=== PATIENT | female | born 1945 | race Caucasian/White ===

== ENCOUNTER 2020-02-01 18:18 | Emergency (ER) | payer MEDICARE, SELFPAY ==
[2020-02-01 19:42] LABS: Apearance,Urine Clear (Clear); Bilirubin,Urine Negative (Negative); Blood, Urine Negative (Negative); Color,Urine Yellow (Yellow); Glucose,Urine (UA) Negative (Negative); Ketones,Urine Negative (Negative); PH,Urine 6.5 (5.0-8.5); Protein,Urine Negative (Negative); UTC Leukocyte Esterase,Urine Trace (Negative); UTC Nitrate,Urine Negative (Negative); Urobilinogen,Urine 0.2 EU/dl (0.2)
[2020-02-01 19:48] VITALS: BP 132/79; PULSE 82; RESP 20; TEMP 36.8; O2SAT 97; BMI 31.1
--- NOTE | 2020-02-01 19:54 | HMH.EDUTC ---
[facility] [place] Clinical Impression: UTI (urinary tract infection) Qualifiers: Urinary tract infection type: site unspecified Hematuria presence: without hematuria Qualified Code(s): N39.0 - Urinary tract infection, site not specified Disposition: Home, Self-Care Condition on Discharge: Good Instructions: DI for Urinary Tract Infection (UTI), Urinary Tract Infection, Nitrofurantoin, Preventing the Spread of Coronavirus Discharge Instructions Additional Instructions: *Increase fluids. Water not Soda or Tea *Start antibiotic immediately and be sure to take as ordered for the FULL length of time although you should start to see improvement over the next 48 hours *Be SURE to follow up anytime for new or worsening symptoms with your family doctor. AND in 48 hours for urine culture results with your family doctor, if you do not have a doctor then you may call back to the [facility] for urine culture results and further treatment. We do recommend that you choose and establish care with a Primary Care Physician. AND follow up with them in 10-14 days to repeat UA to ensure infection is resolved and blood no longer present *Be sure to let your PCP know that we sent urine cultures from the [facility] so they can follow up to ensure that you area the on the correct antibiotic Call your doctor office and make appointment for 48 hours (2 days from today) to follow up and get the results of your urine culture and further treatment Call back to the [facility] on Sat to see if your test results are back for COVID19 Go home and self quarantine until results back and negative, You was given handout on what to do Please follow those instruction Follow up with your Family doctor in the next 48 hours to see if you are on the right medication for your UTI Return if needed Prescriptions: Nitrofurantoin Monohyd/M-Cryst [Macrobid 100 mg Capsule] 100 mg PO BID 7 Days #14 cap Transmission Status: Pending to [id number] Referrals: Ravi Miranda MD [Primary Care Provider] - As needed Time of Disposition: 20:12 Medical Decision Making - Rudolph Inquiry Pt receiving controlled substance: No Rudolph was queried for this patient: No Vital Signs: 02/01/20 19:48 Temperature 98.2 F Temperature Source Oral Pulse Rate [Left Brachial] 82 Respiratory Rate 20 Blood Pressure [Left Arm] 132/79 Blood Pressure Mean [Left Arm] 96 Blood Pressure Source [Left Arm] Automatic Cuff Blood Pressure Position [Left Arm] Sitting 02 Sat by Pulse Oximetry 97 Oxygen Delivery Method Room Air - Lab Data Lab results reviewed: Yes: I reviewed the patient's lab results. Lab Results 02/01/20 18:47: Urine Color Yellow, Urine Appearance Clear, Urine pH 6.5, Ur Specific [place] 1.020, Urine Protein Negative, Urine Glucose (UA) Negative, Urine Ketones Negative, Urine Blood Negative, Urine Nitrate Negative, Urine Bilirubin Negative, Urine Urobilinogen 0.2, Ur Leukocyte Esterase Trace Orders (Tests/Meds): ORDERS Category Date Time Status SARS-CoV-2, MARTELL Stat Lab 02/01/20 19:40 Ordered Urine Culture Stat Micro 02/01/20 19:39 Received [facility] [place] - General Stated complaint: Possible UTI,Cough,Fever,SOB,MARTIN,Nausa Time Seen by Provider: 02/01/20 19:54 Mode of Arrival: Ambulatory Source of Information: Patient Limitations: No Limitations Description of Symptoms (Recalled from Triage Doc. by RN): PATIENT C/O FEVER, NAUSEA, BODY ACHES, AND POSSIBLE UTI X 2 DAYS HEENT Symptoms (Recalled from RN notes): No Resp Symptoms (Recalled from RN notes): No Skin Symptoms (Recalled from RN notes): No MS Symptoms (Recalled from RN notes): No Functional Status (Recalled from RN notes): WNL - History of Present Illness Provider Complaint: Patient states that she has a history of requent UTI's States that she use to see Dr Lucero for them States that she has been in [place] for the winter and recently got back States that she wanted to get checked to see if she had a UTI and wanted to get donta
[2020-02-01 20:19] VITALS: BP 132/79; PULSE 82; RESP 20; TEMP 36.8; O2SAT 97
[2020-02-03 13:26] LABS: Covid-19 Nasal PCR Sendout Lex NOT DETECTED
== END 2020-02-01 20:20 | disposition home or self-care (01) ==
PROVIDERS: Emergency Provider Nurse Practitioner; PCP Family Medicine
DX: N30.00 Acute cystitis without hematuria (principal); Z88.2 Allergy status to sulfonamides
CPT/HCPCS: G0463; 81003; 87086; 99202; U0004

== ENCOUNTER 2024-06-09 10:43 | Outpatient (CLI) | payer MEDICARE, SELFPAY ==
[2024-06-09 14:33] LABS: Basophils # 0.1 K/mm3 (0-0.2); Eosinophils # 0.3 K/mm3 (0.0-0.4); Eosinophils % 4.4 % (0.1-12.0); Hematocrit 40.1 % (37.0-47.0); Hemoglobin 13.4 g/dL (12.2-16.2); Lymphocytes # 1.5 K/mm3 (0.7-4.5); Lymphocytes % 23.6 % (10-50); Mean Corpuscular HGB Conc 33.5 g/dL (31.8-35.4); Mean Corpuscular Hemoglobin 30.2 pg (27.0-31.2); Mean Corpuscular Volume 90.2 fl (81-99); Mean Platelet Volume 7.7 fl (7.4-10.4); Monocytes # 0.5 K/mm3 (0.1-1.0); Monocytes % 8.7 % (1.7-9.3); Neutrophils # 3.8 K/mm3 (1.8-7.8); Neutrophils % 62.3 % (37.0-80.0); Platelet Count 423 K/mm3 (142-424); Red Blood Count 4.44 M/mm3 (4.20-5.40); Red Cell Distribution Width 13.8 % (11.5-17.5); White Blood Count 6.2 K/mm3 (4.8-10.8)
[2024-06-09 14:45] LABS: Albumin Level 4.6 g/dl (3.5-5.0); Albumin/Globulin Ratio 2.6 (1.1-1.8); Alkaline Phosphatase 60 U/L (38-126); Anion Gap 14.1 mEq/L (5-15); Aspartate Amino Transferase 31 U/L (14-36); Bilirubin,Total 0.6 mg/dl (0.2-1.3); Blood Urea Nitrogen 7 mg/dl (7-17); Calcium 9.7 mg/dl (8.4-10.2); Carbon Dioxide 26 mmol/L (22.0-30.0); Chloride 103 mmol/L (98-107); Cholesterol 156 mg/dl (140-200); Estimated Glomerular Filt Rate 81 ml/min (>60); GFR (African American) 98 ML/MIN (>60); Globulin 1.8 g/dL (1.3-3.2); Glucose 91 mg/dl (74-100); Potassium 5.1 mmoL/L (3.5-5.1); Sodium 138 mmol/L (136-145); Total Protein,Serum 6.4 g/dl (6.3-8.2); Triglycerides 304 mg/dl (30-150); VLDL Cholesterol 61 mg/dL (0-40)
[2024-06-09 14:46] LABS: Alanine Aminotransferase 21 U/L (12-78); Chol/HDL Ratio 3.1 (1-3.5); HDL Cholesterol 50 mg/dl (40-60)
[2024-06-09 14:58] LABS: Direct LDL Cholesterol 70.12 mg/dL (100-129)
[2024-06-09 15:02] LABS: Free T4 (Free Thyroxine) 0.92 ng/dl (0.78-2.19)
[2024-06-09 15:15] LABS: Thyroid Stimulating Hormone 6.24 uIU/mL (0.465-4.68)
[2024-06-09 16:17] LABS: Hemoglobin A1C 5.1 % (4.0-6.0)
== END 2024-06-09 23:59 | disposition home or self-care (01) ==
LOC: LAB.DROPOF 06-10 09:49
PROVIDERS: PCP Internal Medicine; Visit Provider Internal Medicine
DX: Z00.00 Encounter for general adult medical examination without abnormal findings (principal); D64.9 Anemia, unspecified; E03.9 Hypothyroidism, unspecified; E78.5 Hyperlipidemia, unspecified; Z13.29 Encounter for screening for other suspected endocrine disorder; Z13.1 Encounter for screening for diabetes mellitus; Z13.220 Encounter for screening for lipoid disorders
CPT/HCPCS: 80053; 80061; 83036; 84439; 84443; 85025

== ENCOUNTER 2024-11-27 14:46 | Outpatient (CLI) | payer MEDICARE, SELFPAY ==
[2024-11-27 13:41] LABS: Microscopic, Urine URINE MICROSCOPIC (MICROSCOPIC)
[2024-11-27 14:18] LABS: Appearance,Urine CLEAR (Clear); Bilirubin,Urine Negative (Negative); Blood, Urine Negative (Negative); Color,Urine YELLOW (Yellow); Glucose,Urine (UA) Negative (Negative); Ketones,Urine Negative (Negative); Leukocyte Esterase,Urine 2+ (Negative); Nitrate,Urine Negative (Negative); Protein,Urine Negative (Negative); Specific Gravity, Urine 1.025 (1.005-1.030); Urobilinogen,Urine 0.2 EU/dl (0.2)
[2024-11-27 14:48] LABS: WBC,Urine 50-100 #/hpf (0-3)
[2024-11-27 14:49] LABS: Bacteria,Urine 4+ /lpf; Transitional Epi Cells,Urine OCC #/lpf (0-3)
== END 2024-11-27 23:59 | disposition home or self-care (01) ==
LOC: LAB.DROPOF 14:47
PROVIDERS: PCP Internal Medicine; Visit Provider Internal Medicine
DX: N39.0 Urinary tract infection, site not specified (principal); B96.1 Klebsiella pneumoniae [K. pneumoniae] as the cause of diseases classified elsewhere
CPT/HCPCS: 81001; 87086; 87088; 87186

== ENCOUNTER 2025-01-15 09:35 | Outpatient (CLI) | payer MEDICARE, SELFPAY ==
--- OUTSIDE RECORDS SUMMARY | 2024-05-30 05:00 | XMS_ITS ---
Author Organization [facility] Address [address] [place] [address] Care Team Providers Care Academic Assistant Name Role Phone Ita You MD, Aristides Unavailable Unavailab le Migration, Provider Unavailable Unavailable REASON FOR VISIT EMR-Daniel Encounters Encounter Location Date Provider Diagnosis Sarika Tena PA [address] [place] [address] 05/30/2024 Provider Migration Plan Of Treatment Medication Medication Name Sig Start Date Stop Date Notes Ciprofloxacin HCl 500 MG Tablet take 1 t ablet by oral route 2 times every day Oral 10/15/2018 10/20/2018 Progress Notes * Noni MARRUFOGeorgiaOB:[birth year] (79 yo F)Acc No.[id number]:05/30/2024 Patient: Minnie MOURA :1945 A ge:78 Y S ex:Female Address:[address] [place] [address], [address] * Refills Stop Ciprofloxacin HCl Tablet, 500 MG, Oral, 14, take 1 tablet by oral route 2 times every day Subjective: * Chief Complaints: * E MR-Daniel * * Date:
--- OUTSIDE RECORDS SUMMARY | 2024-05-31 05:00 | XMS_ITS ---
Author Organization [facility] Address [address] [place] [address] Care Team Providers Care Medical Manager Name Role Phone Ita You MD, Aristides [...] take 1 PO QD BUCCAL *[facility]* 10/15/2018 Active [...] Date Provider Diagnosis Sarika Tena PA [address] [place] [phone] 05/31/2024 Provider Migration Plan Of Treatment No Information Progress Notes * Lluvia MARRUFOOB:[birth year] (79 yo F)Acc No.[id number]:05/31/2024 Patient: Minnie MOURA :1945 A ge:78 Y S ex:Female Address:[address] [place], [place] [id number] Subjective: * Chief Complaints: * E MR-Daniel [...] BUCCAL , Notes to Pharmacist: *Reorder from [facility] for eRx and Interaction Alerts*Taking Atorvastatin Calcium [...] BUCCAL , Notes to Pharmacist: *Reorder from [facility] for eRx and Interaction Alerts* * Allergies: C ephalosporins: Anaphylaxis - Allergy * * Date:
--- OUTSIDE RECORDS SUMMARY | 2024-11-26 10:00 | XMS_ITS | Encounter Summary ---
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 [address] [place] [address] Phone: tel: fax: Referral ID Status Reason Start Date Expiration Date V isits Requested Visits Authorized [id number] Closed Specialty Services Required 03/10/2024 09/09/2025 1 1 Encounter Details Date Type Department Care Team (Late st Contact Info) Description 11/26/2024 10:00 AM EDT Consult [facility] [address] [place] [address] Jesusita Cortes PA [address] [facility] [address] [place] [address] Migraine with aura and without status migrainosus, not intractable (Primary Dx); Tremor Social History Tobacco Use Types Packs/Day Years Used Date Smoking Tobacco: Never Smokeless Tobacco: Never Tobacco Cessation:Counseling Given: Not Answered Alcohol Use Standard Drinks/Week Comments Not Currently 0 (1 standard drink = 0.6 oz pur e alcohol) PHQ-2 Answer Date Recorded Patient Health Questionnaire-2 Score 0 06/02/2024 Comments No Sex and Gender Information Value Date Recorded Sex Assigned at Female 12/06/2023 12:07 PM EDT Legal Sex Female 8:37 PM EDT Gender Identity Female 12/06/2023 12:07 PM EDT Sexual Orientation Straight 12/06/2023 12 :07 PM EDT documented as of this encounter Last Filed Vital Signs Vital Sign Reading Time Taken Comments Blood Pressure 119/81 11/26/2024 9:49 AM EDT Pulse 78 11/26/2024 9:49 AM EDT Temperature - - Respiratory Rate - - Oxygen Saturation 97% 11/26/2024 9:49 AM EDT Inhaled Oxygen Concentration - - Weight 79.4 kg (175 lb) 11/26/2024 9:49 AM EDT Height 162.6 cm (5' 4 ) 11/26/2024 9:49 AM EDT Body Mass Index 30.04 11/26/2024 9:49 AM EDT documented in this encounter Miscellaneous Notes * Progress Notes - Jesusita Cortes PA - 11/26/2024 10:00 AM EDT [facility] Note New Referral Minnie Woodard presents to clinic for a New Patient Consult regarding headache and tremor. Patient was referred by Melvin Casillas MD Patient presents alone to clinic. HPI Patient is a 78 year old right handed female with PMH of HTN, Insulin resistance, SWETA on CPAP, Sjogren syndrome, COVID X 3, cochlear implant on the right in January of 2023 and migraine headache. 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 She had a visual aura with seeing lights in her peripheral vision. Headache was usually unilateral in the frontotemporal region, throbbing and associated with photophobia, nausea and vomiting. Prior to having her cochlear implant she would have a visual aura but since her surgery her prodrome appears to be nausea. Also the pain is more of a ???pinprick headache?? in the bilateral parietal area of her head. Her headaches used to be 2-3/week but now they are 2-3/month, not as severe and will resolve with lsmt-guz-ioqaoyk medications. Her main complaint today however, is tremor of her upper extremities. Patient states that she can recall noticing a right upper extremity fine postural tremor about 2 years ago. She states that the tremor will come and go and appears to be triggered by stress. It will appear in the left upper extremity at times. She does not feel that it is progressively getting worse. It does not prevent her from doing daily activities. She does note that her handwriting is affected at times. She also will feel the tremor in her upper extremities when it is not always visual. It has not been noted in her head or feeling it in her trunk. Patient denies resting tremor, slowness of movement, difficulty getting up out of a chair, changes in her gait or falls. She is active and goes to the gym 3 days/week. She is not on any current medications that would cause a tremor. She had been treated on and off with Reglan but her symptoms did not seem to be worse while taking the medication. 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 This was very concerning to her and that is when the referral was made. She states she has not had another episode of that severity. She admits to some memory issues especially with coming up with names. 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 She has a son who suffers from PTSD due to events that happened to him in the service. She states that his condition can be very stressful. Denies speech or vision changes, N/T/W of extremities, balance problems and falls. Medical History[1] Family History[2] Surgical History[3] Medications Ordered Prior to Encounter[4] Allergies[5] All medications have been reviewed today. Review of Systems As noted in HPI Objective Vitals: 11/26/24 0949 BP: 119/81 Pulse: 78 SpO2: 97% Physical Exam GEN: Well developed, well nourished. No acute distress. HENT: Atraumatic, normocephalic, patent airway. NECK: Supple, ROM normal. There is no point tenderness in the areas of the head, neck and shoulders. Palpation does not recreate symptoms. RESP: Good effort EXT: No edema NEURO: MS: Awake, alert, oriented. Appropriate mood and affect. Good historian CN: PERRL. Visual hopkins are full. EOMI full and conjugate. Facial sensation intact bilaterally. Nofacial droop. Good facial expressions Speech is normal. Hearing is assisted by hearing aid on the left and cochlear implant on the right MOTOR: No pronator drift. Muscle tone is normal. Strength is 5/5, R=L. Fine postural tremor of the right upper extremity, less noticeable on the left. No rest tremor. No evidence of bradykinesia SENSORY: Intact DTR: +1 COORD: Tremor noted with finger to nose. No pass-pointing GAIT: Normal base, stride and stance. Normal arm swing. Good turns. Discussion Summary: 78-year-old female with a history of migraine headaches that began in her college years. The frequency and severity of her headaches have reduced to 2- 3/month and resolve with [id number] medications and lying down. She feels that she does not need to have treatment for her headaches. I have recommended the following: -Magnesium Oxide or Glycinate 400-500 mg daily or Mg, Riboflavin and CoQ10 as a combined supplementmay be purchased - Extra 1-2 tabs of Magnesium may also be taken along with abortive medications - Proper sleep hygiene - Adequate hydration - Continue headache diary Patient was mostly concerned with her tremor and the possibility of Parkinson's disease. Her symptoms appear to be more of an essential tremor. We discussed the differences in the types of tremor andthat she does not currently have any other symptoms of Parkinson's disease including resting tremor, bradykinesia, increase in muscle tone or gait problems. I do not feel that either condition has been influenced by having a cochlear implant. We discussed that she can follow-up with me as needed and is a patient of [facility] for 3 years without anew referral. Assessment and Plan Diagnosis Plan 1. Migraine with aura and without status migrainosus, not intractable Ambulatory referral to Neurology 2. Tremor - 60 minutes was spent preparing, performing an examination, counseling, educating the patient, andcare coordination with more than 50% of that time used for counseling the patient and coordination of care. [1] Past Medical History: Diagnosis Date Asthma allergy induced Delayed emergence from general anesthesia Diabetes mellitus ([facility]) 11/2022 A1C - 5.1 Frequent UTI Full dentures Gastroparesis Hiatal hernia HL (hearing loss) Hyperlipidemia Hypothyroidism Interstitial cystitis Joint pain Motion sickness Osteoarthritis Personal history of other infectious and parasitic diseases History of hepatitis A virus infection PONV (postoperative nausea and vomiting) Sjogren's syndrome (CMS/HCC) Sleep apnea C-Pap at HS [2] Family History Problem Relation Name Age of Onset Conversions - Other Mother hearing problem Lung cancer Father Autoimmune disease Sister Conversions - Other Sister hearing problem Autoimmune disease Brother Conversions - Other Brother hearing problem Breast cancer Father's Sister Malig Hyperthermia Neg Hx [3] Past Surgical History: Procedure Laterality Date BACK SURGERY N/A Back Surgery from [facility] BREAST BIOPSY Right 2007 stereotactic-benign CHOLECYSTECTOMY N/A Cholecystectomy from [facility] COLONOSCOPY CYSTOSCOPY OTHER SURGICAL HISTORY Bilateral Stapedectomy from [facility] TONSILLECTOMY N/A Tonsillectomy from [facility] UPPER GASTROINTESTINAL ENDOSCOPY [4] Current Outpatient Medications on File Prior to Visit Medication Sig Dispense Refill atorvastatin (Lipitor) 10 MG tablet Take 1 tablet (10 mg) by mouth every night. bisacodyl (Dulcolax) 5 MG EC tablet cholecalciferol (Vitamin D3) 25 MCG (1000 UT) tablet Take 1 tablet by mouth daily. estradiol (Estrace) 0.1 MG/GM vaginal cream Insert 2 g into the vagina 2 (two) times a week. Saturday and Saturday ezetimibe (Zetia) 10 MG tablet Take 1 tablet (10 mg) by mouth every night. fluticasone (Flonase) 50 MCG/ACT nasal spray Administer 1 spray into each nostril daily. Shake gently. Before first use, prime pump. After use, clean tip and replace cap. hydroxychloroquine (Plaquenil) 200 MG tablet Take 1 tablet (200 mg) by mouth 1 (one) time each day.90 tablet 4 metFORMIN (Glucophage) 500 MG tablet Take 1 tablet (500 mg) by mouth twice a day. Multiple Vitamins-Minerals (multivitamin with minerals) tablet Take 1 tablet by mouth 1 (one) time each day. Synthroid 125 MCG tablet Take 1 tablet (125 mcg) by mouth 1 (one) time each day before breakfast. chlorhexidine (Peridex) 0.12 % solution Use 15 mL in the mouth or throat 3 (three) times a day. (Patient not taking: Reported on 11/26/2024) ciprofloxacin-dexamethasone (CiproDEX) otic suspension ADMINISTER 4 DROPS INTO AFFECTED EAR(S) 2 TIMES A DAY FOR 7 DAYS. (Patient not taking: Reported on 11/26/2024) levocetirizine (Xyzal) 5 MG tablet Take 1 tablet (5 mg) by mouth Daily. (Patient not taking: Reported on 11/26/2024) metoclopramide (Reglan) 10 MG tablet TAKE 1 TABLET BY MOUTH BEFORE MEALS AND AT BEDTIME (Patient not taking: Reported on 11/26/2024) No current facility-administered medications on file prior to visit. [5] Allergies Allergen Reactions Cefuroxime Swelling Cephalexin Swelling Cephalosporins Swelling Amoxicillin Hives Penicillins Hives Sulfa Drugs Rash documented in this encounter Plan of Treatment Upcoming Encounters Date Type Department Care Team (Late st Contact Info) Description 01/27/2025 10:00 AM EDT Office Visit [facility] Audiology [address], [address] [place] [phone] Patsy Lucero, Annalise [address] [place] [phone] 03/02/2025 11:00 AM EDT Office Visit [facility] [address] [phone] Denise Keith, SECURITY FLEX OFFICER [address] [place] [phone] 03/08/2025 10:40 AM EDT Office Visit [facility] Otolaryngology [address] [phone] Melvin Casillas MD [address] [place] [phone] 06/07/2025 9:50 AM EST Office Visit [facility] Medicine [facility] [address], [address] [place] [address] Nidhi Stack L, SECURITY FLEX OFFICER [address] [place] [address] documented as of this encounter Visit Diagnoses Diagnosis Migraine with aura and without status migrainosus, not intractable- Primary Tremor Abnormal involuntary movements documented in this encounter Additional Health Concerns Assessment Noted Time A fall risk assessment has been complete d for the patient 11/26/2024 9:51 AM EDT A Body Mass Index follow-up plan has been documented for the patient 11/27/2024 5:12 PM EDT documented as of this encounter Care Teams Flight Simulator Teacher Relationship Specialty Start Date End Date Pcp, [place] [address] PCP - General Family Medicine 06/02/24 11/30/24 documented as of this encounter
--- OUTSIDE RECORDS SUMMARY | 2024-12-01 10:00 | XMS_ITS | Encounter Summary ---
Author Organization Healthcare Address [address] [place] [address] Care Team Providers Care Network Security Architect Name Role Phone Melvin Pink DO Primary Care Provider Reason for Visit * Reason Comments Consult Sjogren's Syndrome * Consultation (Routine) - Closed Specialty Diagnoses / Procedures Referred By Contac t Referred To Contact Immunology Diagnoses Sjogren syndrome, unspecified (CMS/HCC) Hypogammaglobulinemia ([facility]/HCC) Nidhi Stack, PYROMETER TEMPERATURE REGULATOR [address] [place] [address] Phone: tel: fax: [facility] [address] [place] [address] Phone: tel: fax: Referral ID Status Reason Start Date Expiration Date V isits Requested Visits Authorized [id number] Closed Specialty Services Required 06/03/2024 12/03/2025 1 1 Encounter Details Date Type Department Care Team (Late st Contact Info) Description 12/01/2024 10:00 AM EDT Consult [facility] [address] [place] [address] Denise Keith, PYROMETER TEMPERATURE REGULATOR [address] [place] [address] Seborrheic dermatitis (Primary Dx); Sjogren syndrome, unspecified (CMS/HCC); Hypogammaglobulinemia (CMS/HCC) Social History Tobacco Use Types Packs/Day Years Used Date Smoking Tobacco: Never Smokeless Tobacco: Never Tobacco Cessation:Counseling Given: Not Answered Alcohol Use Standard Drinks/Week Comments Not Currently 0 (1 standard drink = 0.6 oz pur e alcohol) PHQ-2 Answer Date Recorded Patient Health Questionnaire-2 Score 0 12/02/2024 PHQ-9 Answer Date Recorded Patient Health Questionnaire-9 Score 0 12/02/2024 Comments No Sex and Gender Information Value Date Recorded Sex Assigned at Female 12/06/2023 12:07 PM EDT Legal Sex Female 8:37 PM EDT Gender Identity Female 12/06/2023 12:07 PM EDT Sexual Orientation Straight 12/06/2023 12 :07 PM EDT documented as of this encounter Last Filed Vital Signs Vital Sign Reading Time Taken Comments Blood Pressure 133/84 12/01/2024 9:56 AM EDT Pulse 75 12/01/2024 9:56 AM EDT Temperature 36.4 C (97.6 F) 12/01/2024 9:56 AM EDT Respiratory Rate 16 12/01/2024 9:56 AM EDT R A Oxygen Saturation 99% 12/01/2024 9:56 AM EDT RA Inhaled Oxygen Concentration - - Weight 72 kg (158 lb 11.7 oz) 12/01/2024 9:56 AM EDT Height 162.6 cm (5' 4 ) 12/01/2024 9:56 AM EDT Body Mass Index 27.25 12/01/2024 9:56 AM EDT documented in this encounter Functional Status * Over the past 2 weeks, how often have you been bothered by any of the following problems? Question Answer Date of Assessment Author Little interest or pleasure in doing things Not at all 12/02/2024 10:03 AM EDT Emma Delcid Feeling down, depressed, or hopeless Not at all 12/02/2024 10:03 AM EDT Emma Delcid Patient Health Questionnaire -2 Score 0 12/02/2024 10:03 AM EDT Emma Delcid * Question Answer Date of Assessment Author Trouble falling or staying asleep, or sleeping too much Not at all 12/02/2024 10:03 AM EDT Delcid, Tempest A Feeling tired or having tavo le energy Not at all 12/02/2024 10:03 AM EDT Delcid, Tempest A Poor appetite or overeating Not at all 12/02/2024 10 :03 AM EDT Delcid, Tempest A Feeling bad about yourself - or that you are a failure or have let yourself or your family down Not at all 12/02/2024 10:03 AM EDT Alirio noel, Tempest A Trouble concentrating on thi ngs, such as reading the newspaper or watching television Not at all 12/02/2024 10:03 AM EDT Delcid, Tempest A Moving or speaking so slowly that other people could have noticed? Or the opposite - being so fidgety or restless that you have been moving around a lot more than usual. Not at all 12/02/2024 10:03 AM EDT Delcid, Tempest A Thoughts that you would be better off or hurting yourself in some way Not at all 12/02/2024 10:03 AM EDT Delcid, Tempest A Patient Health Questionnaire -9 Score 0 12/02/2024 10:03 AM EDT Delcid, Tempest A * If you checked off any problems on this questionnaire so far, Question Answer Date of Assessment Author How difficult have these problems made it for you to do your work, take care of things at home, or get along with other people? Not difficult at all 12/02/2024 10:03 AM EDT Bhavin Tempest A documented as of this encounter Miscellaneous Notes * Progress Notes - Denise Keith APRN - 12/01/2024 10:00 AM EDT Images from the original note were not included. Allergy and Immunology Service Immunology - Initial Consult Note Subjective Intake Consulting Physician: Denise Keith APRN Referring MD: Nidhi Stack APRN Other Consultants: rheumatology, ENT, neruology Encounter Date: 12/01/2024 Chief Complaint / Reason for Consult Minnie is a 79 y.o. female sent by Nidhi Stack APRN for consultation and evaluation of: Chief Complaint Patient presents with Consult Sjogren's Syndrome History of Present Illness / Interval History Minnie is a pleasant 79 y.o. female with has a past medical history of Asthma, Delayed emergence from general anesthesia, Diabetes mellitus (CMS/HCC), Frequent UTI, Full dentures, Gastroparesis, Hiatal hernia, HL (hearing loss), Hyperlipidemia, Hypothyroidism, Interstitial cystitis, Joint pain, Motion sickness, Osteoarthritis, Personal history of other infectious and parasitic diseases, PONV (postoperative nausea and vomiting), Sjogren's syndrome (CMS/HCC), and Sleep apnea. who presents for an initial evaluation of a suspected immune dysregulation. Minnie provides the following medical history: Patient has a history of sjogrens and following up with rheumatology current. During labs, patient was found to have low IgG and low IgM. States she was a sickly child. Had chronic ear infections when she was a child. Never had PET placed. When she was 14, developed hep A. Was hospitalized with the flu. In high school she reprots she was sick in and out. College she started to developed bronchitis, then every year in the winter she developed it as well. Believed she started to lose her hearing in college. Reports extreme fatigue. St arted synthroid for her thyroid issues. Does report she has a lot of seasonal allergies. Has been on allergy IT twice, once when she was a young adult, and again 15 years ago. She did believe it helped with her symptoms. Does currently follow with ENT for recurrent ear infections, did eventually have a chocler implant place in one ear. Does help with her hearing. Patient reports severe fatigue, can never keep up withher Infections: Meningitis: n/a. Sinusitis: reports has terrible allergies, does have it twice a year.. Otitis media: chronic. Pharyngitis: have had it, but not in a long time. Pneumonia: yes, been a long time, 20 years. Bacteremia/fungemia/viremia: no. Osteomyelitis: n/a. Warts/molluscum: yes, had a couple when she was kid. Thrush: patient has dentures, fights thrush a lot. Lost her teeth due to sjorens. SSTI: no cellulitis . Reports she gets a lot of UTIS, started seeing urology. FamHx: there is no family history of recurrent/severe/atypical infections or loading shovel oiler /unexplained . Dad when he was 43 due to black young, reports her aunts were sickly. Unsurethe exact cause. Maternal side was overall she was Sj??natalee. Reports her younger brother, seems to be sick like her. Has two children, oldest son, reports he would be sick would get high fevers. As an adult does not go to the doctor. Daughter has treated her for rosacea. Problem List Problem List[1] Past Surgical History Surgical History[2] Current Meds Current Medications[3] Medications reviewed during this visit? yes Allergies Allergies[4] Immunizations : Up to date? yes Immunization History Administered Date(s) Administered Influenza Vaccine, Quadrivalent, Adjuvanted 06/12/2021 Influenza, High-dose, Split Virus, Trivalent, Injectable, preservative free 04/30/2016 Influenza, high-dose, quadrivalent 04/30/2016, 04/30/2016, 05/25/2022, 06/06/2023 Influenza, injectable, quadrivalent 04/28/2016 Influenza, trivalent, adjuvanted 06/07/2017, 07/08/2024 Moderna COVID-19 Vaccine (Director Of Retail) 12+ years 09/15/2020, 10/13/2020, 04/12/2021 Moderna COVID-19 Vaccine Bivalent 6months+ 05/15/2022 Pfizer Covid-19 Vaccine 12y+, Brody Protein, PF, Gilberto-Sucrose 07/20/2024 Pneumococcal, Unspecified 03/29/2016 TD (adult), 2 Lf tetanus toxoid, preservative free, adsorbed 10/01/1996 Zoster, live 04/12/2016, 04/28/2016 Social History Social History Socioeconomic History Marital status: Spouse name: Not on file Number of children: Not on file Years of education: Not on file Highest education level: Not on file Occupational History Not on file Tobacco Use Smoking status: Never Smokeless tobacco: Never Vaping Use Vaping status: Never Used Substance and Sexual Activity Alcohol use: Not Currently Drug use: Never Comment: Drug use: No drug use Sexual activity: Not on file Other Topics Concern Not on file Social History Narrative Not on file Social Drivers of Health Financial Resource Strain: Low Risk (09/23/2024) Received from [facility] Financial Resource Strain (CARDIA) Difficulty of Paying Living Expenses: Not hard at all Food Insecurity: Low Risk (09/23/2024) Received from [facility] Food Security Within the past 12 months, the food you bought just didn't last and you didn't have money to get more.: 3 Within the past 12 months, you worried that your food would run out before you got money to buy more.: 3 Transportation Needs: Not At Risk (09/23/2024) Received from [facility] Transportation Needs In the past 12 months, has lack of reliable transportation kept you from medical appointments, meetings, work or from getting things needed for daily living?: No Physical Activity: Insufficiently Active (09/23/2024) Received from [facility] Physical Activity On average, how many days per week do you engage in moderate to strenuous exercise (like a brisk walk)?: 1 day On average, how many minutes do you engage in exercise at this level?: 30 min On average, how many minutes do you engage in exercise at this level?: 30 min On average, how many days per week do you engage in moderate to strenuous exercise (like a brisk walk)?: 1 day Days of Exercise per Week PEA: Not on file Minutes of Exercise per Session PEA: Not on file Stress: No Stress Concern Present (09/23/2024) Received from [facility] [place] [employer] - Occupational Stress Questionnaire Feeling of Stress : Only a little Social Connections: Moderately Integrated (09/23/2024) Received from [facility] Social Connection and Isolation Panel [NHANES] Frequency of Communication with Friends and Family: More than three times a week Frequency of Social Gatherings with Friends and Family: More than three times a week Attends Druze Services: More than 4 times per year Active Member of Clubs or Organizations: No Attends Club or Organization Meetings: Never Marital Status: Recent Concern: Social Connections - Moderately Isolated (08/17/2024) Received from [facility] Social Connection and Isolation Panel [NHANES] Frequency of Communication with Friends and Family: More than three times a week Frequency of Social Gatherings with Friends and Family: More than three times a week Attends Druze Services: Never Active Member of Clubs or Organizations: No Attends Club or Organization Meetings: Never Marital Status: Intimate Partner Violence: Not At Risk (09/23/2024) Received from [facility] Safety How often does anyone, including family and friends, threaten you with harm?: 1 How often does anyone, including family and friends, insult or talk down to you?: 1 How often does anyone, including family and friends, physically hurt you?: 1 How often does anyone, including family and friends, scream or curse at you?: 1 Housing Stability: Not At Risk (09/23/2024) Received from [facility] Housing What is your living situation today?: I have a steady place to live Think about the place you live. Do you have problems with any of the following?: None of the above Family History Family History[5] Review of Systems 12-pt ROS unrevealing unless indicated in HPI above. Objective Physical Exam: Physical Exam Visit Vitals BP 133/84 Pulse 75 Temp 36.4 ??C (97.6 ??F) (Oral) Resp 16 Comment: RA Ht 1.626 m (5' 4 ) Wt 72 kg (158 lb 11.7 oz) SpO2 99% Comment: RA BMI 27.25 kg/m?? OB Status Postmenopausal Smoking Status Never BSA 1.8 m?? General: alert; in no acute distress, comfortable, afebrile Head: normocephalic, atraumatic; no tenderness or masses found Eyes: anicteric, conjunctiva normal, no ocular discharge, pupils are round/reactive to light bilaterally Ears: external ears are normal, canals with cerumen; some erythema noted on left TM Nose: nares patent and with discharge; midline nasal septum: inferior nasal turbinates are mildly enlarged Oropharynx: lips,mucosa, and tongue are normal. Teeth and gums are normal. Oropharynx is non-erythematous with midline uvula and without discharge; Neck: supple and without masses, no thyromegaly Lungs: chest is symmetrical, good air entry bilaterally, no wheezing/stridor/rales CV: RRR, nl s1 and s2, no murmurs/gallops/rubs, capillary refill 3~ sec Abdomen: normoactive bowel sounds, non-distended, non-tender to palpation, Extremities: warm and well perfused x4, no deformities, edema, or skin discolorations. Derm: normal skin color, texture, and turgor; no rashes or suspicious lesions Neuro: non-focal exam; Cn2-12 are normal; no gross motor deficits; nl gait Psych: non-pressured speech; normal mood and affect; denies SI/HI Review of Previous and Current Labs Lab Results Component Value Date GLUCOSE 89 12/02/2024 BUN 6 (L) 12/02/2024 CREATININE 0.70 12/02/2024 CREATININE 0.77 12/03/2023 BCR 9 12/02/2024 NA 134 (L) 12/02/2024 K 4.3 12/02/2024 CL 99 12/02/2024 CO2 23 12/02/2024 ANIONGAP 12 12/02/2024 CALCIUM 9.8 12/02/2024 TP 6.8 12/02/2024 TP 6.5 12/03/2023 AST 21 12/02/2024 AST 23 12/03/2023 ALT 15 12/02/2024 ALT 21 12/03/2023 ALKPHOS 83 12/02/2024 ALKPHOS 80 12/03/2023 EGFR 89.2 12/02/2024 EGFR 80.1 12/03/2023 IGG Date Value Ref Range Status 12/02/2024 390 (L) 720 - 1,589 mg/dL Final 06/02/2024 400 (L) 720 - 1,589 mg/dL Final 12/03/2023 378 (L) 720 - 1,589 mg/dL Final IGA Date Value Ref Range Status 12/02/2024 91 75 - 400 mg/dL Final 06/02/2024 102 75 - 400 mg/dL Final 12/03/2023 92 75 - 400 mg/dL Final IGM Date Value Ref Range Status 12/02/2024 30 (L) 35 - 225 mg/dL Final 06/02/2024 28 (L) 35 - 225 mg/dL Final 12/03/2023 28 (L) 35 - 225 mg/dL Final Lab Results Component Value Date IMMUNOGLOBUL 216 (L) 12/02/2024 IMMUNOGLOBUL 85 (L) 12/02/2024 IMMUNOGLOBUL 23 12/02/2024 IMMUNOGLOBUL 1 12/02/2024 IGG 390 (L) 12/02/2024 IGG 400 (L) 06/02/2024 IGG 378 (L) 12/03/2023 No results found for: IGE Diptheria/Tetanus/Haemophilus Vaccine Antibody Titers: Lab Results Component Value Date DIPHTERIAAB 0.2 12/02/2024 AGTETANU 0.5 12/02/2024 Pneumococcal Serotype Titers: PCV 7 serotypes: 4, 6B, 9V, 14, 18C, 19F, 23F PCV13: PCV7 plus 1, 3, 5, 6A, 7F, 19A PPSV23: PCV13 plus 2, 8, 9N, 10A, 11A, 12F, 15B, 17F, 20, 22F, 33F Unsure of vaccine she got last year, but 04/20 Complement Labs: Lab Results Component Value Date C3 156 12/02/2024 C3 132 06/02/2024 C3 126 12/03/2023 C4 26 12/02/2024 C4 23 06/02/2024 C4 22 12/03/2023 CH50 >95.0 (H) 12/02/2024 C1inh: No results found for: X1VLZOM CBC: Lymphocytes Absolute Date Value Ref Range Status 12/02/2024 1.63 1.20 - 3.90 10*3/uL Final 06/02/2024 1.81 1.20 - 3.90 10*3/uL Final 12/03/2023 1.60 1.20 - 3.90 10*3/uL Final Neutrophils Absolute Date Value Ref Range Status 12/02/2024 3.87 1.60 - 6.10 10*3/uL Final 06/02/2024 4.93 1.60 - 6.10 10*3/uL Final 12/03/2023 4.44 1.60 - 6.10 10*3/uL Final Eosinophils Absolute Date Value Ref Range Status 12/02/2024 0.28 0.00 - 0.50 10*3/uL Final 06/02/2024 0.35 0.00 - 0.50 10*3/uL Final 12/03/2023 0.33 0.00 - 0.50 10*3/uL Final Monocytes Absolute Date Value Ref Range Status 12/02/2024 0.62 0.30 - 0.90 10*3/uL Final 06/02/2024 0.73 0.30 - 0.90 10*3/uL Final 12/03/2023 0.61 0.30 - 0.90 10*3/uL Final WBC Count Date Value Ref Range Status 12/02/2024 6.52 3.70 - 10.30 10*3/uL Final 06/02/2024 7.96 3.70 - 10.30 10*3/uL Final 12/03/2023 7.10 3.70 - 10.30 10*3/uL Final HGB Date Value Ref Range Status 12/02/2024 12.6 11.2 - 15.7 g/dL Final 06/02/2024 13.3 11.2 - 15.7 g/dL Final 12/03/2023 12.7 11.2 - 15.7 g/dL Final Platelet Count Date Value Ref Range Status 12/02/2024 442 (H) 155 - 369 10*3/uL Final 06/02/2024 477 (H) 155 - 369 10*3/uL Final 12/03/2023 359 155 - 369 10*3/uL Final TBNK immunophenotyping: ABS Lymphocyte Date Value Ref Range Status 12/02/2024 1,757.00 cells/uL Final Absolute CD3 Date Value Ref Range Status 12/02/2024 1,439 860 - 2,670 cells/uL Final Absolute CD4 Date Value Ref Range Status 12/02/2024 569 490 - 1,730 cells/uL Final Absolute CD8 Date Value Ref Range Status 12/02/2024 811 160 - 1,070 cells/uL Final Absolute CD19 Date Value Ref Range Status 12/02/2024 91 73 - 562 cells/uL Final Absolute CD16+CD56 Date Value Ref Range Status 12/02/2024 224 110 - 680 cells/uL Final Percent CD3 Date Value Ref Range Status 12/02/2024 81.9 57.5 - 83.1 % Final Percent CD4 Date Value Ref Range Status 12/02/2024 32.4 31.5 - 62.4 % Final Percent CD8 Date Value Ref Range Status 12/02/2024 46.1 (H) 9.5 - 38.3 % Final Percent CD19 Date Value Ref Range Status 12/02/2024 5.2 (L) 6.0 - 24.2 % Final Percent CD16+CD56 Date Value Ref Range Status 12/02/2024 12.7 5.2 - 30.4 % Final Flow Cytometry Interpretation Date Value Ref Range Status 12/02/2024 Final OTHERWISE NORMAL PERIPHERAL BLOOD LYMPHOCYTE SUBSET ANALYSIS EXCEPT FOR DECREASED ABSOLUTE CSM B CELLS Flow cytometric analysis of this peripheral blood sample is performed using an immunodeficiency panel of reagents. Both CD45 and forward/side scatter analysis show normal peripheral blood populations. Lymphocytes account for 25% of peripheral blood leukocytes. The lymphocyte population is composed of 82% T cells, 5% B cells, and 13% NK cells. The T cell population shows segregated expression of CD4 and CD8 with a reduced CD4/CD8 ratio of 0.7. The CD4 T cells are 21% naive cells and 79% memory cells based on CD45 isoform expression. The majority of T cells express the alpha beta form of T cellreceptor with only 2.2% of lymphocytes being T cells expressing the gamma delta form of T cell entry level receptionist tor. HLA-DR is expressed by 14% of T cells and dual CD4/CD8 positive T cells are less than 1% of lymphocytes. The B cell population shows polyclonal surface immunoglobulin expression with kappa/lambda ratio of 1.3. The B cells express the IgM and the IgD isoforms predominantly. CD27 positive memoryB cells comprise 15% of CD19 positive B cells. CD21 is brightly expressed by 86% of CD19 positive Bcells, and 14% show low or absent expression. IgG+ isotype switched memory B cells are 1.9% CD19 positive B cells. CSM B cells are 3.14% of total B cells giving an absolute count of 3/uL, which is low. In summary, this study shows a mostly normal peripheral blood lymphocyte subset analysis. Total T, B, and NK cells are low normal or normal. CD8 T cells are upper normal giving a low CD4/CD8 ratio. CSM B cells are significantly decreased which correlates with the low blood IgG. CSM B cells can fluctuate with a number of infectious and inflammatory states, but if persistent, a primary disorder can't be excluded. There is some T cell activation with 14% of T cells expressing HLA-DR. Lymphocyte Antigen Proliferation Assay (LAPA): No results found for: AGSPONTANEO , AGCANDIDA , AGTETANUS , AGPHA , AGSTX Lymphocyte Mitogen Proliferation Assay (LMPA): No results found for: SPONTANEO , PHYTO , CONA , POKEWEE , MITOGENSTIM Neutrophil Oxidative Burst / DHR: No results found for: NEUTOXIBURST , NEUTROPHILOX Imaging: Assessment and Plan Minnie is a 79 y.o. female with: Problem List[6] Assessment: Recurrent ear infections/hypogam Hx:recurrent otitis media since childhood, now requiring CI. Has been on allergy IT with no improvement in them. Does still get recurrent sinusitis as well Labs: low IgG and Igm, normal IgA. Protective titers to tetanus and diptheria, has 8/23 protective titers to streptococcus, patient would still benefit from PPSV23 challenge. Immunophenotyping is overall reassuring was some low CSM B cells. We will consider Marla syndrome, or thymoma-immunodeficiency, which is is a very rare acquired immunodeficiency syndrome characterized by the association of thymoma and combined B-cell and T-cell immunodeficiency of adult onset with increased susceptibility to infections. Patients are most commonlybetween the ages of 40 and 70 years and have a thymoma, low to absent B cells in the peripheral blood, hypogammaglobulinemia, and defects in cell-mediated immunity. Will order Chest xray. But also would like to challenge patient to PPSV23 for possible CVID diagnosis. Seborrheic dermatitis- dry patch on base of scalp, will try antifungal shampoo twice a week to see of any improvement Plan: Labs: as above, will hopefully get PPSV23 and strep titers tin 4-6 weeks, repeat ig profile, with subclasses, Will also order a chest xray Medications: none from immune standpoint Vaccines: ppsv23 hopefully Referrals/other: n/a Follow-up: 3 months or sooner Future Appointments Date Time Provider Department Center 01/27/2025 10:00 AM Patsy Lucero AuD [facility] 03/02/2025 11:00 AM Denise Keith APRN [facility] 03/08/2025 10:40 AM Melvin Casillas MD [facility] 06/07/2025 9:50 AM Nidhi Stack APRN [facility] I have seen Minnie Woodard in the All[facility] Immun[facility] clinic at [facility] atthe request of Nidhi Harper APRN for consultation regarding Chief Complaint Patient presents with Consult Sjogren's Syndrome which falls within my purview as a subspecialist. I have spent 90 minutes, before, during, and after the visit reviewing patient testing/imaging studies, obtaining a history, conducting an exam, documenting clinical information in the EMR, communicating with other healthcare professionals, and counseling the family, in addition to the [id number] portion of the encounter. Greater than 50% in counseling and/or discussion of diagnosis/ prognosis/ treatment. Thank you for allowing me to participate in Minnie 's care. Please feel welcome to contact me with any questions about today's visit and plan. Denise Keith APRN All plan of care has been discussed with Dr. Solorzano [1] Patient Active Problem List Diagnosis Mixed conductive and sensorineural hearing loss of both ears High cholesterol Acquired hypothyroidism Type 2 diabetes mellitus, without long-term current use of insulin (CMS/HCC) Gastroparesis Hiatal hernia Mild intermittent asthma without complication PONV (postoperative nausea and vomiting) Sjogren's syndrome (CMS/HCC) SWETA (obstructive sleep apnea) [2] Past Surgical History: Procedure Laterality Date BACK SURGERY N/A Back Surgery from [facility] BREAST BIOPSY Right 2007 stereotactic-benign CHOLECYSTECTOMY N/A Cholecystectomy from [facility] COLONOSCOPY CYSTOSCOPY OTHER SURGICAL HISTORY Bilateral Stapedectomy from [facility] TONSILLECTOMY N/A Tonsillectomy from [facility] UPPER GASTROINTESTINAL ENDOSCOPY [3] Current Outpatient Medications Medication Sig Dispense Refill atorvastatin (Lipitor) 10 MG tablet Take 1 tablet (10 mg) by mouth every night. cholecalciferol (Vitamin D3) 25 MCG (1000 UT) tablet Take 1 tablet by mouth daily. estradiol (Estrace) 0.1 MG/GM vaginal cream Insert 2 g into the vagina 2 (two) times a week. Saturday and Saturday fluticasone (Flonase) 50 MCG/ACT nasal spray Administer 1 spray into each nostril daily. Shake gently. Before first use, prime pump. After use, clean tip and replace cap. metFORMIN (Glucophage) 500 MG tablet Take 1 tablet (500 mg) by mouth twice a day. Multiple Vitamins-Minerals (multivitamin with minerals) tablet Take 1 tablet by mouth 1 (one) time each day. Synthroid 125 MCG tablet Take 1 tablet (125 mcg) by mouth 1 (one) time each day before breakfast. bisacodyl (Dulcolax) 5 MG EC tablet ciprofloxacin-dexamethasone (CiproDEX) otic suspension Administer 4 drops into the left ear 2 timesa day for 7 days. 7.5 mL 3 ezetimibe (Zetia) 10 MG tablet Take 1 tablet (10 mg) by mouth every night. hydroxychloroquine (Plaquenil) 200 MG tablet Take 1 tablet by mouth daily. 90 tablet 4 ketoconazole (NIZOral) 2 % shampoo Use twice a week for 6 weeks. Let it sit in the hair for 2-3 minutes then rinse out 120 mL 1 levocetirizine (Xyzal) 5 MG tablet Take 1 tablet (5 mg) by mouth Daily. (Patient not taking: Reported on 12/02/2024) metoclopramide (Reglan) 10 MG tablet TAKE 1 TABLET BY MOUTH BEFORE MEALS AND AT BEDTIME (Patient not taking: Reported on 12/02/2024) pilocarpine (Salagen) 5 MG tablet Take 1 tablet by mouth 3 times a day as needed (for dry mouth). 90 tablet 11 No current facility-administered medications for this visit. [4] Allergies Allergen Reactions Cefuroxime Swelling Cephalexin Swelling Cephalosporins Swelling Amoxicillin Hives Penicillins Hives Sulfa Drugs Rash [5] Family History Problem Relation Name Age of Onset Conversions - Other Mother hearing problem Lung cancer Father Autoimmune disease Sister Conversions - Other Sister hearing problem Autoimmune disease Brother Conversions - Other Brother hearing problem Breast cancer Father's Sister Malig Hyperthermia Neg Hx [6] Patient Active Problem List Diagnosis Mixed conductive and sensorineural hearing loss of both ears High cholesterol Acquired hypothyroidism Type 2 diabetes mellitus, without long-term current use of insulin (CMS/HCC) Gastroparesis Hiatal hernia Mild intermittent asthma without complication PONV (postoperative nausea and vomiting) Sjogren's syndrome (CMS/HCC) SWETA (obstructive sleep apnea) documented in this encounter Plan of Treatment Upcoming Encounters Date Type Department Care Team (Late st Contact Info) Description 01/27/2025 10:00 AM EDT Office Visit [facility] Audiology [address] [place] [address] Patsy Lucero, Annalise [address] [place] [address] 03/02/2025 11:00 AM EDT Office Visit [facility] Medicine Specialties [address] [place] [address] Denise Keith APRN [address] [place] [address] 03/08/2025 10:40 AM EDT Office Visit [facility] Otolaryngology [address] [place] [address] Melvin Casillas MD [address] [place] [address] 06/07/2025 9:50 AM EST Office Visit [facility] Medicine Specialties [address] [place] [address] Nidhi Stack, PYROMETER TEMPERATURE REGULATOR [address] [place] [address] documented as of this encounter Results * TSH Reflex FT4 (12/02/2024 11:19 AM EDT) [facility] Thyroid Stimulating Hormone, Plasma 2.78 0.40 - 4.20 uIU/mL 12/02/2024 1:23 PM EDT [facility] Blood Venous blood specimen / Unknown Venipuncture / Unknown 12/02/2024 11:19 AM EDT 12/02/2024 11:21 AM EDT us Denise Keith PYROMETER TEMPERATURE REGULATOR LAB BLOOD ORDERABLES Final Result [facility] [address] [place] [address] * (ABNORMAL) Immunoglobulin G Subclasses (1, 2, 3, 4) (SO) (12/02/2024 11:19 AM EDT) [facility] IMMUNOGLOBULIN G SUBCLASS 1 216(L) 240 - 1118 mg/dL 12/04/2024 2:18 AM EDT [facility] ([place]) IMMUNOGLOBULIN G SUBCLASS 2 85(L) 124 - 549 mg/dL 12/04/2024 2:18 AM EDT [facility] ([place]) IMMUNOGLOBULIN G SUBCLASS 3 23 21 - 134 mg/dL 12/04/2024 2:18 AM EDT [facility] ([place]) IMMUNOGLOBULIN G SUBCLASS 4 1 1 - 123 mg/dL 12/04/2024 2:18 AM EDT [facility] ([place]) Blood Venous blood specimen / Unknown Venipuncture / Unknown 12/02/2024 11:19 AM EDT 12/02/2024 11:21 AM EDT Narrative [facility] ([place]) - 12/04/2024 2:18 AM EDT REFERENCE INTERVAL: Immunoglobulin G Subclass 1 The total IgG (mg/dL) can be derived from the sum of the subclass IgG1, IgG2, IgG3, and IgG4 values. However, a confirmatory and more precise total IgG is available by the turbidimetric method of quantitation for total IgG. Refer to test Immunoglobulin G, Serum ([id number]). Access complete set of age- and/or gender-specific reference intervals for this test in the [facility] Directory ([employer]). REFERENCE INTERVAL: Immunoglobulin G Subclass 2 Access complete set of age- and/or gender-specific reference intervals for this test in the [employer] [facility] Test Directory ([employer]). REFERENCE INTERVAL: Immunoglobulin G Subclass 3 Access complete set of age- and/or gender-specific reference intervals for this test in the [employer] Test Directory ([employer]). REFERENCE INTERVAL: Immunoglobulin G Subclass 4 Access complete set of age- and/or gender-specific reference intervals for this test in the [employer] [facility] Test Directory ([employer]). Performed By: [facility] [address] [place], [place] [id number] Head Of Operation And Logistics: Bipin Romero MD, PhD CLIA Number: [id number] Denise Keith APRN LAB REF LAB BLOOD AND FLUI D ORD Final Result [facility]) [address] [place], [place] [id number] * (ABNORMAL) CBC and Differential (12/02/2024 11:19 AM EDT) [facility] WBC Count 6.52 3.70 - 10.30 10*3/uL LAB HEMATOLOGY METHOD 12/02/2024 1:04 PM EDT [facility] RBC Count 4.37 3.90 - 5.20 10*6/uL LAB HEMATOLOGY METHOD 12/02/2024 1:04 PM EDT [facility] HGB 12.6 11.2 - 15.7 g/dL LAB HEMATOLOGY METHOD 12/02/2024 1:04 PM EDT [facility] HCT 38.0 34.0 - 45.0 % LAB HEMATOLOGY METHOD 12/02/2024 1:04 PM EDT [facility] Platelet Count 442(H) 155 - 369 10*3/uL LAB HEMATOLOGY METHOD 12/02/2024 1:04 PM EDT [facility] MCV 87 79 - 98 fL LAB HEMATOLOGY METHOD 12/02/2024 1:04 PM EDT [facility] MCH 28.8 26.0 - 32.0 pg LAB HEMATOLOGY METHOD 12/02/2024 1:04 PM EDT [facility] MCHC 33.2 30.7 - 35.5 g/dL LAB HEMATOLOGY METHOD 12/02/2024 1:04 PM EDT [facility] RDW 13.3 11.5 - 14.5 % LAB HEMATOLOGY METHOD 12/02/2024 1:04 PM EDT [facility] MPV 9.2 8.8 - 12.5 fL LAB HEMATOLOGY METHOD 12/02/2024 1:04 PM EDT [facility] nRBC 0.0 <=0.0 per 100 WBCs LAB HEMATOLOGY METHOD 12/02/2024 1:04 PM EDT [facility] Differential Type Automated LAB HEMATOLOGY METHOD 12/02/2024 1:04 PM EDT [facility] Neutrophils % 59 % LAB HEMATOLOGY METHOD 12/02/2024 1:04 PM EDT [facility] Lymphocytes % 25 % LAB HEMATOLOGY METHOD 12/02/2024 1:04 PM EDT [facility] Monocytes % 10 % LAB HEMATOLOGY METHOD 12/02/2024 1:04 PM EDT [facility] Eosinophils % 4 % LAB HEMATOLOGY METHOD 12/02/2024 1:04 PM EDT [facility] Basophils % 1 % LAB HEMATOLOGY METHOD 12/02/2024 1:04 PM EDT [facility] Immature Granulocytes % 1 % LAB HEMATOLOGY METHOD 12/02/2024 1:04 PM EDT [facility] Neutrophils Absolute 3.87 1.60 - 6.10 10*3/uL LAB HEMATOLOGY METHOD 12/02/2024 1:04 PM EDT [facility] Lymphocytes Absolute 1.63 1.20 - 3.90 10*3/uL LAB HEMATOLOGY METHOD 12/02/2024 1:04 PM EDT [facility] Monocytes Absolute 0.62 0.30 - 0.90 10*3/uL LAB HEMATOLOGY METHOD 12/02/2024 1:04 PM EDT [facility] Eosinophils Absolute 0.28 0.00 - 0.50 10*3/uL LAB HEMATOLOGY METHOD 12/02/2024 1:04 PM EDT [facility] Basophils Absolute 0.07 0.00 - 0.10 10*3/uL LAB HEMATOLOGY METHOD 12/02/2024 1:04 PM EDT [facility] Immature Granulocytes Absolute 0.05 0.00 - 0.06 10*3/uL LAB HEMATOLOGY METHOD 12/02/2024 1:04 PM EDT [facility] Blood Venous blood specimen / Unknown Venipuncture / Unknown 12/02/2024 11:19 AM EDT 12/02/2024 11:21 AM EDT Narrative [facility] - 12/02/2024 1:04 PM EDT Therapeutic decision making should be based on absolute values, rather than percentages. us Denise Keith APRN LAB BLOOD ORDERABLES Final Result [facility] [address] [place] [address] * (ABNORMAL) Comprehensive Metabolic Panel, Plasma (12/02/2024 11:19 AM EDT) Glucose, Plasma 89 74 - 99 mg/dL 12/02/2024 1:23 PM EDT [facility] BUN, Plasma 6(L) 8 - 23 mg/dL 12/02/2024 1:23 PM EDT [facility] Creatinine, Plasma 0.70 0.60 - 1.10 mg/dL 12/02/2024 1:23 PM EDT [facility] BUN/Creatinine Ratio 9 12/02/2024 1:23 PM EDT [facility] Sodium, Plasma 134(L) 136 - 145 mmol/L 12/02/2024 1:23 PM EDT [facility] Potassium, Plasma 4.3 3.6 - 4.9 mmol/L 12/02/2024 1:23 PM EDT [facility] Chloride, Plasma 99 97 - 107 mmol/L 12/02/2024 1:23 PM EDT [facility] CO2, Plasma 23 22 - 29 mmol/L 12/02/2024 1:23 PM EDT [facility] Anion Gap 12 6 - 16 mmol/L 12/02/2024 1:23 PM EDT [facility] Total Calcium, Plasma 9.8 8.9 - 10.2 mg/dL 12/02/2024 1:23 PM EDT [facility] Total Protein 6.8 6.3 - 7.9 g/dL 12/02/2024 1:23 PM EDT [facility] Albumin, Plasma 4.6 3.5 - 5.2 g/dL 12/02/2024 1:23 PM EDT [facility] AST, Plasma 21 10 - 35 U/L 12/02/2024 1:23 PM EDT [facility] ALT, Plasma 15 10 - 35 U/L 12/02/2024 1:23 PM EDT [facility] Alkaline Phosphatase, Plasma 83 46 - 142 U/L 12/02/2024 1:23 PM EDT [facility] Total Bilirubin, Plasma 0.3 0.2 - 1.1 mg/dL 12/02/2024 1:23 PM EDT [facility] eGFRcr 89.2 mL/min/1.7 3m*2 12/02/2024 1:23 PM EDT [facility] Comment:Reported eGFRcr in m L/min/1.73m2 is based the CKD-EPI 2020 equation that does not use a race coefficient. Blood Venous blood specimen / Unknown Venipuncture / Unknown 12/02/2024 11:19 AM EDT 12/02/2024 11:21 AM EDT us Denise Keith APRN LAB BLOOD ORDERABLES Final Result Performing Organization Address City/[facility] Co de Phone Number [facility] [address] [place] [address] * (ABNORMAL) IG Profile (12/02/2024 11:19 AM EDT) IGA 91 75 - 400 mg/dL 12/02/2024 1:23 PM EDT [facility] IGG 390(L) 720 - 1,589 mg/dL 12/02/2024 1:23 PM EDT [facility] IGM 30(L) 35 - 225 mg/dL 12/02/2024 1:23 PM EDT [facility] Blood Venous blood specimen / Unknown Venipuncture / Unknown 12/02/2024 11:19 AM EDT 12/02/2024 11:21 AM EDT Denise Keith APRN LAB BLOOD ORDERABLES Final Result Performing Organization Address [facility] Co de Phone Number [facility] [address] [place] [address] * Immunoglobulin E (12/02/2024 11:19 AM EDT) Immunoglobulin E <2 <=214 kU/L 12/05/19 6:27 AM EDT [facility]) Blood Venous blood specimen / Unknown Venipuncture / Unknown 12/02/2024 11:19 AM EDT 12/02/2024 11:21 AM EDT Narrative [facility]) - 12/04/2024 6:27 AM EDT REFERENCE INTERVAL: Immunoglobulin E, Serum Access complete set of age- and/or gender-specific reference intervals for this test in the [facility] Laboratory Test Directory ([employer]). Performed By: [facility] [address] [place] [id number] Head Of Operation And Logistics: Bipin Romero MD, PhD CLIA Number: [id number] Denise Keith PYROMETER TEMPERATURE REGULATOR LAB BLOOD ORDERABLES Final Result [facility] [address] [place] [address] * Streptococcus pneumoniae Antibodies, IgG (23 Serotypes)(SO) (12/02/2024 11:19 AM EDT) Pneumo serotype 1 IgG (P13,PNX) 0.52 ug/mL 12/04/2024 8:12 PM EDT [facility] ([employer]) PNEUMOCOCCAL SEROTYPE 2,IGG 4.62 ug/mL 12/04/2024 8:12 PM EDT [facility] ([employer]) Pneumo serotype 3 IgG (P13,PNX) 0.32 ug/mL 12/04/2024 8:12 PM EDT [facility] ([employer]) Pneumo serotype 4 IgG (P7,P13,PNX) 2.02 ug/mL 12/04/2024 8:12 PM EDT [facility] ([employer]) Pneumo serotype 5 IgG (P13,PNX) 0.29 ug/mL 12/04/2024 8:12 PM EDT [facility] ([employer]) Pneumo serotype 6B IgG (P7,P13,PNX) 0.06 ug/mL 12/04/2024 8:12 PM EDT [facility] ([employer]) Pneumo serotype 7F IgG (P13,PNX) 3.51 ug/mL 12/04/2024 8:12 PM EDT [facility] ([employer]) Pneumo serotype 8 IgG (PNX) 0.41 ug/mL 12/04/2024 8:12 PM EDT [facility] ([employer]) Pneumo serotype 9N IgG (PNX) 0.28 ug/mL 12/04/2024 8:12 PM EDT [facility] ([employer]) Pneumo serotype 9V IgG (P7,P13,PNX) 0.99 ug/mL 12/04/2024 8:12 PM EDT [facility] ([employer]) PNEUMOCOCCAL SEROTYPE 10A,IGG 0.11 ug/mL 12/04/2024 8:12 PM EDT [facility]) PNEUMOCOCCAL SEROTYPE 11A,IGG 0.38 ug/mL 12/04/2024 8:12 PM EDT [facility] ([employer]) Pneumo serotype 12F IgG (PNX) 0.73 ug/mL 12/04/2024 8:12 PM EDT [facility] ([place]) Pneumo serotype 14 IgG (P7,P13,PNX) 2.64 ug/mL 12/04/2024 8:12 PM EDT [facility] ([employer]) PNEUMOCOCCAL SEROTYPE 15B,IGG 1.11 ug/mL 12/04/2024 8:12 PM EDT [facility] ([employer]) PNEUMOCOCCAL SEROTYPE 17F,IGG <0.04 ug/mL 12/04/2024 8:12 PM EDT [facility] ([employer]) Pneumo serotype 18C IgG (P7,P13,PNX) 1.33 ug/mL 12/04/2024 8:12 PM EDT [facility] ([employer]) PNEUMOCOCCAL SEROTYPE 19A,IGG 1.84 ug/mL 12/04/2024 8:12 PM EDT [facility] ([employer]) Pneumo serotype 19F IgG (P7,P13,PNX) 1.80 ug/mL 12/04/2024 8:12 PM EDT [facility] ([employer]) PNEUMOCOCCAL SEROTYPE 20,IGG 0.53 ug/mL 12/04/2024 8:12 PM EDT [facility] ([employer]) PNEUMOCOCCAL SEROTYPE 22F,IGG 4.05 ug/mL 12/04/2024 8:12 PM EDT [facility] ([employer]) Pneumo serotype 23F IgG (P7,P13,PNX) 0.10 ug/mL 12/04/2024 8:12 PM EDT [facility] ([employer]) PNEUMOCOCCAL SEROTYPE 33F,IGG 3.60 ug/mL 12/04/2024 8:12 PM EDT [facility] ([employer]) Pneumo Serotype Interpretation See Note 12/04/2024 8:12 PM EDT [facility] ([facility]) Blood Venous blood specimen / Unknown Venipuncture / Unknown 12/02/2024 11:19 AM EDT 12/02/2024 11:21 AM EDT Narrative [facility] ([facility]) - 12/04/2024 8:12 PM EDT INTERPRETIVE INFORMATION: Streptococcus pneumoniae Antibodies, IgG A pre- and postvaccination comparison is required to adequately assess the humoral immune response to the pure polysaccharide Pneumovax 23 (PNX) and/or the protein conjugated Prevnar 7 (P7), Prevnar 13 (P13), Prevnar 20 (P20), and Vaxneuvance (V15) Streptococcus pneumoniae vaccines. Prevaccination samples should be collected prior to vaccine administration. Postvaccination samples should be obtained at least 4 weeks after immunization. Testing of postvaccination samples alone will provide only general immune status of the individual to various pneumococcal serotypes. In the case of pure polysaccharide vaccine, indication of immune system competence is further delineated as an adequate response to at least 50 percent of the serotypes in the vaccine challenge for those 2-5 years of age and to at least 70 percent of the serotypes in the vaccine challenge for those 6-65 years of age. Individual immune response may vary based on age, past exposure, immunocompetence, and pneumococcal serotype. Responder Status Antibody Ratio Nonresponder ........... Less than twofold increase and postvaccination concentration less than 1.3 ug/mL Good responder ......... At least a twofold increase and/or a postvaccination concentration greater than or equal to 1.3 ug/mL A response to 50-70 percent or more of the serotypes in the vaccine challenge is considered a normal humoral response.(Ching, 2014) Antibody concentration greater than 1.0-1.3 ug/mL is generally considered long-term protection.(Ching, 2015) References: 1. Ching YING, Roberto STOVALL, Cervantes X, et al. Multilaboratory assessment of threshold versus fold-change algorithms for minimizing analytical variability in multiplexed pneumococcal IgG measurements. Clin Vaccine Immunol. 2014;21(7):982-988. 2. Ching YING, Westley [place]. Use and clinical interpretation of pneumococcal antibody measurements in the evaluation of humoral immune function. Clin Vaccine Immunol. 2015;22(2):148-152. This test was developed and its performance characteristics determined by [facility]. It has not been cleared or approved by the U.S. Food and Drug Administration. This test was performed in a CLIA-certified laboratory and is intended for clinical purposes. Performed By: [facility] [address] [place] [address] Head Of Operation And Logistics: Bipin Romero MD, PhD CLIA Number: [id number] Denise Keith APRN LAB BLOOD ORDERABLES Final Result [facility] ([place]) [address] [place] [address] * (ABNORMAL) Immunodeficiency, BY Flow Cytometry (12/02/2024 11:19 AM EDT) Pathologist [facility] Clinical Indication reccurent infection 12/02/2024 6:18 PM EDT [facility] Flow Cytometry Interpretation OTHERWISE NORMAL PERIPHERAL BLOOD LYMPHOCYTE SUBSET ANALYSIS EXCEPT FOR DECREASED ABSOLUTE CSM B CELLS 12/02/2024 6:18 PM EDT [facility] Percent Lymphocytes (CD45+/SSClow) 24.84 % 12/02/2024 6:18 PM EDT [facility] ABS Lymphocyte 1,757.00 cells/u L 12/02/2024 6:18 PM EDT [facility] Percent CD3 81.9 57.5 - 83.1 % 12/02/2024 6:18 PM EDT [facility] Absolute CD3 1,439 860 - 2,670 cells/u L 12/02/2024 6:18 PM EDT [facility] Percent CD4 32.4 31.5 - 62.4 % 12/02/2024 6:18 PM EDT [facility] Absolute CD4 569 490 - 1,730 cells/u L 12/02/2024 6:18 PM EDT [facility] Percent CD8 46.1(H) 9.5 - 38.3 % 12/02/2024 6:18 PM EDT [facility] Absolute CD8 811 160 - 1,070 cells/u L 12/02/2024 6:18 PM EDT [facility] Percent CD19 5.2(L) 6.0 - 24.2 % 12/02/2024 6:18 PM EDT [facility] Absolute CD19 91 73 - 562 cells/u L 12/02/2024 6:18 PM EDT [facility] Percent CD16+CD56 12.7 5.2 - 30.4 % 12/02/2024 6:18 PM EDT [facility] Absolute CD16+CD56 224 110 - 680 cells/u L 12/02/2024 6:18 PM EDT [facility] CD4:CD8 Ratio 0.70 12/02/2024 6:18 PM EDT [facility] Comments Flow cytometric analysis of this peripheral blood sample is performed using an immunodeficiency panel of reagents. Both CD45 and forward/side scatter analysis show normal peripheral blood populations. Lymphocytes account for 25% of peripheral blood leukocytes. The lymphocyte population is composed of 82% T cells, 5% B cells, and 13% NK cells. The T cell population shows segregated expression of CD4 and CD8 with a reduced CD4/CD8 ratio of 0.7. The CD4 T cells are 21% naive cells and 79% memory cells based on CD45 isoform expression. The majority of T cells express the alpha beta form of T cell receptor with only 2.2% of lymphocytes being T cells expressing the gamma delta form of T cell receptor. HLA-DR is expressed by 14% of T cells and dual CD4/CD8 positive T cells are less than 1% of lymphocytes. The B cell population shows polyclonal surface immunoglobulin expression with kappa/lambda ratio of 1.3. The B cells express the IgM and the IgD isoforms predominantly. CD27 positive memory B cells comprise 15% of CD19 positive B cells. CD21 is brightly expressed by 86% of CD19 positive B cells, and 14% show low or absent expression. IgG+ isotype switched memory B cells are 1.9% CD19 positive B cells. CSM B cells are 3.14% of total B cells giving an absolute count of 3/uL, which is low. In summary, this study shows a mostly normal peripheral blood lymphocyte subset analysis. Total T, B, and NK cells are low normal or normal. CD8 T cells are upper normal giving a low CD4/CD8 ratio. CSM B cells are significantly decreased which correlates with the low blood IgG. CSM B cells can fluctuate with a number of infectious and inflammatory states, but if persistent, a primary disorder can't be excluded. There is some T cell activation with 14% of T cells expressing HLA-DR. The following antibodies were used in this analysis: CD3, CD4, CD5, CD8, CD16, CD19, CD20, CD21, CD27, CD45, CD45RA, CD45RO, CD56, CD62L, HLA-DR, IgD, IgG, IgM, [place] light chain, Lambda light chain, TCR?/?, TCR?/?. Pediatric values were derived from Franklin et al. J Allergy Clin Immunol. 2003;112:973-80. Adult values were from a [employer] study of healthy adults and were validated in our laboratory. 12/02/2024 6:18 PM EDT [facility] Disclaimer This test was developed and its performance characteristics determined by the Immuno-Molecular Pathology Laboratory at the [facility]. It has not been cleared or approved by the U.S. Food and Drug Administration. This test, which utilizes analyte specific reagents, does not require FDA approval. This test is used for clinical purposes. It should not be regarded as investigational or for research. This laboratory is certified under the Clinical Laboratory Improvement Amendments of 1988 (CLIA-88) as qualified to perform high complexity clinical laboratory testing. 12/02/2024 6:18 PM EDT [facility] Pathologist Signature Reviewed by: William Valencia MD 12/02/2024 6:18 PM EDT [facility] Blood Venous blood specimen / Unknown Venipuncture / Unknown 12/02/2024 11:19 AM EDT 12/02/2024 11:21 AM EDT Denise Keith PYROMETER TEMPERATURE REGULATOR LAB FLOW CYTOMETRY ORDERAB LES Final Result [facility] [address] [place] [address] * Diphtheria & Tetanus Antibodies, IgG (12/02/2024 11:19 AM EDT) Diphtheria Antibody, IgG 0.2 IU/mL 12/03/2024 9:27 PM EDT [facility] ([employer]) Tetanus Antibody, IgG 0.5 IU/mL 12/03/2024 9:27 PM EDT [facility] ([employer]) Blood Venous blood specimen / Unknown Venipuncture / Unknown 12/02/2024 11:19 AM EDT 12/02/2024 11:21 AM EDT Narrative [facility] ([employer]) - 12/03/2024 9:27 PM EDT INTERPRETIVE INFORMATION: Diphtheria Ab, IgG Antibody concentration of greater than 0.1 IU/mL is usually considered protective. Responder status is determined according to the ratio of a one month post-vaccination sample to pre-vaccination concentrations of Diphtheria IgG Abs as follows: 1. If the one month post-vaccination concentration is less than 1.0 IU/mL, the patient is considered to be a non-responder. 2. If the post-vaccination concentration is greater than or equal to 1.0 IU/mL, a patient with a ratio of less than 1.5 is a non-responder, a ratio of 1.5 to less than 3.0, a weak responder, and a ratio of 3.0 or greater, a good responder. 3. If the pre-vaccination concentration is greater than 1.0 IU/mL, it may be difficult to assess the response based on a ratio alone. A post-vaccination concentration above 2.5 IU/mL in this case is usually adequate. This test was developed and its performance characteristics determined by [facility]. It has not been cleared or approved by the [place] Food and Drug Administration. This test was performed in a CLIA certified laboratory and is intended for clinical purposes. INTERPRETIVE INFORMATION: Tetanus Ab, IgG Antibody concentration of greater than 0.1 IU/mL is usually considered protective. Responder status is determined according to the ratio of a one-month post-vaccination sample to pre-vaccination concentration of Tetanus IgG Abs as follows: 1. If the one month post-vaccination concentration is less than 1.0 IU/mL, the patient is considered a non-responder. 2. If the post-vaccination concentration is greater than or equal to 1.0 IU/mL, a patient with a ratio of less than 1.5 is a non-responder, a ratio of 1.5 to less than 3.0, a weak responder, and a ratio of 3.0 or greater, a good responder. 3. If the pre-vaccination concentration is greater than 1.0 IU/mL, it may be difficult to assess the response based on a ratio alone. A post-vaccination concentration above 2.5 IU/mL in this case is usually adequate. This test was developed and its performance characteristics determined by [facility]. It has not been cleared or approved by the [place] Food and Drug Administration. This test was performed in a CLIA certified laboratory and is intended for clinical purposes. Performed By: [facility] [address] [place] [address] Head Of Operation And Logistics: Bipin Romero MD, PhD CLIA Number: [id number] Denise Keith APRN LAB BLOOD ORDERABLES Final Result Performing Organization Address [facility]/ZIP Co de Phone Number [facility] ([place]) [address] [place] [address] * (ABNORMAL) Complement, total (12/02/2024 11:19 AM EDT) Complement Activity, Total Turbidimetric >95.0(H) 38.7 - 89.9 U/mL 12/05/2024 10:55 PM EDT [facility] ([place]) Blood Venous blood specimen / Unknown Venipuncture / Unknown 12/02/2024 11:19 AM EDT 12/02/2024 11:21 AM EDT Narrative [facility] ([place]) - 12/05/2024 10:55 PM EDT High activity in total complement functional assay (CH50) indicates acute-phase response to inflammation or infection. Repeat testing after inflammation has resolved is recommended. REFERENCE INTERVAL: Complement Activity Total, (CH50) 38.6 U/mL or less ..........Low 38.7-89.9 U/mL .............Normal 90.0 U/mL or greater .......High Performed By: [facility] [address] [place] [address] Head Of Operation And Logistics: Bipin Romero MD, PhD CLIA Number: [id number] Denise Keith APRN LAB BLOOD ORDERABLES Final Result Performing Organization Address City/[facility]/ZIP Co de Phone Number [facility] ([place] [address] [place] [address] documented in this encounter Visit Diagnoses Diagnosis Seborrheic dermatitis- Primary Unspecified seborrheic dermatitis Sjogren syndrome, unspecified (CMS/HCC) Hypogammaglobulinemia (CMS/HCC) Unspecified hypogammaglobulinemia documented in this encounter Additional Health Concerns Assessment Noted Time PHQ-9 Depression Total Score: 0 12/02/19 9:59 AM EDT A fall risk assessment has been complete d for the patient 12/01/2024 9:59 AM EDT A Body Mass Index follow-up plan has been documented for the patient 12/10/2024 10:24 AM EDT documented as of this encounter Care Teams Network Security Architect Relationship Specialty Start Date End Date Melvin Pink DO [address] [place] [id number] PCP - General 12/01/24 documented as of this encounter
--- OUTSIDE RECORDS SUMMARY | 2024-12-02 09:50 | XMS_ITS | Encounter Summary ---
Author Organization [facility] Address [address] [place] [address] Care Team Providers Care Hotel Office Manager Name Role Phone JoesphMelvin Sunil CHRISTIAN Primary Care Provider [phone] Reason for Visit * Reason Comments Sjogren syndrome, unspecified (CMS/HCC) Encounter Details Date Type Department Care Team (Late st Contact Info) Description 12/02/2024 9:50 AM EDT Office Visit [facility] [address] [place] [address] Nidhi Stack L, REFRIGERATION OPERATOR [address] [place] [address] Sjogren syndrome, unspecified (CMS/HCC) (Primary Dx) Social History Tobacco Use Types Packs/Day Years Used Date Smoking Tobacco: Never Smokeless Tobacco: Never Alcohol Use Standard Drinks/Week Comments Not Currently [...] Sign Reading Time Taken Comments Blood Pressure 112/62 12/02/2024 10:04 AM EDT Pulse 75 12/02/2024 10:04 AM EDT Temperature 36.7 C (98 F) 12/02/2024 10:04 AM EDT Respiratory Rate - - Oxygen Saturation 99% 12/02/2024 10:04 AM EDT Inhaled Oxygen Concentration - - Weight 78 kg (172 lb) 12/02/2024 10:04 AM EDT Height 162.6 cm (5' 4 ) 12/02/2024 10:04 AM EDT Body Mass Index 29.52 12/02/2024 10:04 AM EDT documented in this encounter Functional Status * Over the past 2 weeks, how often have you been bothered by any of the following problems? Question Answer Date of Assessment Author Little interest or pleasure in doing things Not at all 12/02/2024 10:03 AM EDT Emma Delcid A Feeling down, depressed, or hopeless Not at all 12/02/2024 10:03 AM EDT Emma Delcid A Patient Health Questionnaire -2 Score 0 12/02/2024 10:03 AM EDT Emma Delcid A * Question Answer Date of Assessment Author Trouble falling or staying asleep, or sleeping too much Not at all 12/02/2024 10:03 AM EDT Emma Delcid A Feeling tired or having tavo le energy Not at all 12/02/2024 10:03 AM EDT Emma Delcid A Poor appetite or overeating Not at all 12/02/2024 10 :03 AM EDT Emma Delcid A Feeling bad about yourself - or that you are a failure or have let yourself or your family down Not at all 12/02/2024 10:03 AM EDT Emma Sparks A Trouble concentrating on thi ngs, such as reading the newspaper or watching television Not at all 12/02/2024 10:03 AM EDT Emma Delcid A Moving or speaking so slowly that other people could have noticed? Or the opposite - being so fidgety or restless that you have been moving around a lot more than usual. Not at all 12/02/2024 10:03 AM EDT Leslie Delcidt A Thoughts that you would be better off or hurting yourself in some way Not at all 12/02/2024 10:03 AM EDT Emma Delcid A Patient Health Questionnaire -9 Score 0 12/02/2024 10:03 AM EDT Emma Delcid A * If you checked off any problems on this questionnaire so far, Question Answer Date of Assessment Author How difficult have these problems made it for you to do your work, take care of things at home, or get along with other people? Not difficult at all 12/02/2024 10:03 AM EDT Emma Delcid A documented as of this encounter Miscellaneous Notes * Progress Notes - Nidhi Stack, REFRIGERATION OPERATOR - 12/02/2024 9:50 AM EDT Images from the original note were not included. Minnie Woodard is a 78 y.o. female Chief complaint: here for follow up of Sjogren syndrome, unspecified (CMS/HCC) [M35.00] Subjective HPI Minnie Woodard is a 78 y.o. female who presents today for follow up of Sjogren syndrome, unspecified (CMS/HCC) [M35.00]. PMHx for SJS, HLD, hypothyroidism, osteoporosis Past history: Pt reports she was previously on pilocarpine per Dr. Huber. During this time she had profound fatigue. In 2021, she reports her hair started falling out, and had continued fatigue. She was in [place] last fall, and had ran out of hydroxychloriquine. She spoke with who refused to give her refills, until she was seen, which she was unable to do until August. She endorses joint pain. Endorses hx of osteoarthritis. Pt reports she has a hx of gastroparesis, and has had 2 episodes of choking. She does see a glass forming engineer, and had scoped completed in the past. She has an appt on 12/11/23, with her Ophthalmology Med Hx: Hydroxychloriquine Interim history: Last seen by me 06/21. Pt reports she has a lot of fatigue. Reports developing canker sores. She endorses pain in her hands and feet. She also reports a small area in her scalp that is scaly and itchy. She has tried changing shampoos and steroid creams without fdc improvement. Pt is concerned she may have lupus. She is leaving for [place] in the beginning of June. Today (12/02/24): Pt reports she is still very tired. She was seen by immunology 12/01/24. Pt is concerned after being told that she has a low immunoglobulin level. She reports having sores in her mouth. Contributes this to having her dentures realigned. She has not been sleeping well. She has some external factors that are causing her some anxiety. She does endorse some sharpening, of her arthritis. She did have 3 weeks in July that her and her shared a viral infection. She did try to come off of the Vidmindagen due to hair loss. However, this did not have an effect. As such, she would like to get back on medication 2/2 dry mouth. Review of Systems Constitutional: Positive for fatigue. Negative for fever. Respiratory: Negative for shortness of breath. Cardiovascular: Negative for chest pain. Gastrointestinal: Negative for constipation. Musculoskeletal: Positive for arthralgias. Negative for joint swelling. See HPI Skin: Negative for rash. The following portions of the chart were reviewed this encounter and updated as appropriate: Past Medical History: Diagnosis Date Asthma allergy induced Delayed emergence from general anesthesia Diabetes mellitus ([facility]/HCC) 11/2022 A1C - 5.1 Frequent UTI Full dentures Gastroparesis Hiatal hernia HL (hearing loss) Hyperlipidemia Hypothyroidism Interstitial cystitis Joint pain Motion sickness Osteoarthritis Personal history of other infectious and parasitic diseases History of hepatitis A virus infection PONV (postoperative nausea and vomiting) Sjogren's syndrome ([facility]) Sleep apnea C-Pap at HS Past Surgical History: Procedure Laterality Date BACK SURGERY N/A Back Surgery from [facility] BREAST BIOPSY Right 2006 stereotactic-benign CHOLECYSTECTOMY N/A Cholecystectomy from [facility] COLONOSCOPY CYSTOSCOPY OTHER SURGICAL HISTORY Bilateral Stapedectomy from [facility] TONSILLECTOMY N/A Tonsillectomy from [facility] UPPER GASTROINTESTINAL ENDOSCOPY Social History Socioeconomic History Marital status: Spouse [...] Resource Strain: Low Risk (09/23/2024) [facility] Overall Financial Resource Strain (CARDIA) Difficulty of Paying Living Expenses: Not hard at all Food Insecurity: Low Risk (09/23/2024) Received from [facility] Food Security Within the past 12 months, the food you bought just didn't last and you didn't have money to get more.: 3 Within the past 12 months, you worried that your food would run out before you got money to buy more.: 3 Transportation Needs: Not At Risk (09/23/2024) Received from [facility] Transportation Needs In the past 12 months, has lack of reliable transportation kept you from medical appointments, meetings, work or from getting things needed for daily living?: No Physical Activity: Insufficiently Active (09/23/2024) [facility] from [facility] Physical Activity On average, how many days [...] No Stress Concern Present (09/23/2024) [facility] from [facility] [place] [facility] [employer] - Occupational Stress Questionnaire Feeling of Stress : Only a little Social Connections: Moderately Integrated (09/23/2024) Re[facility] from [facility] Social Connection and Isolation Panel [NHANES] Frequency of Communication with Friends and Family: More than three times a week Frequency of Social Gatherings with Friends and Family: More than three times a week Attends Zoroastrian Services: More than 4 times per year Active Member of Clubs or Organizations: No Attends Club or Organization Meetings: Never Marital Status: Recent Concern: Social Connections - Moderately Isolated (08/17/2024) Re[facility] from [facility] Social Connection and Isolation Panel [NHANES] Frequency of Communication with Friends and Family: More than three times a week Frequency of Social Gatherings with Friends and Family: More than three times a week Attends Zoroastrian Services: Never Active Member of Clubs or Organizations: No Attends Club or Organization Meetings: Never Marital Status: Intimate Partner Violence: Not At Risk (09/23/2024) Received from [facility] Safety How often does anyone, including [...] Stability: Not At Risk (09/23/2024) Received from [facility] Housing What is your living situation today?: I have a steady place to live Think about the place you live. Do you have problems with any of the following?: None of the above Family History Problem Relation Name Age of Onset Conversions - Other Mother hearing problem Lung cancer Father Autoimmune disease Sister Conversions - Other Sister hearing problem Autoimmune disease Brother Conversions - Other Brother hearing problem Breast cancer Father's Sister Malig Hyperthermia Neg Hx Allergies Allergen Reactions Cefuroxime Swelling Cephalexin Swelling Cephalosporins Swelling Amoxicillin Hives Penicillins Hives Sulfa Drugs Rash Current Outpatient Medications Medication Sig Dispense Refill [...] tablet by mouth daily. 90 tablet 4 metFORMIN (Glucophage) 500 MG tablet [...] a day. (Patient not taking: Reported on 12/02/2024) ciprofloxacin-dexamethasone (CiproDEX) otic suspension ADMINISTER 4 DROPS INTO AFFECTED EAR(S) 2 TIMES A DAY FOR 7 DAYS. (Patient not taking: Reported on 12/02/2024) levocetirizine (Xyzal) 5 MG tablet Take 1 [...] No current facility-administered medications for this visit. Objective Last visit labs: Clinical Support on 06/02/2024 Component Date Value Ref Range Status Sedimentation Rate 06/02/2024 <1 <30 mm/hr Final CRP, Plasma 06/02/2024 <3.0 <=8.0 mg/L Final IGA 06/02/2024 102 75 - 400 mg/dL Final IGG 06/02/2024 400 (L) 720 - 1,589 mg/dL Final IGM 06/02/2024 28 (L) 35 - 225 mg/dL Final C4 Complement 06/02/2024 23 13 - 36 mg/dL Final WBC Count 06/02/2024 7.96 3.70 - 10.30 10*3/uL Final RBC Count 06/02/2024 4.45 3.90 - 5.20 10*6/uL Final HGB 06/02/2024 13.3 11.2 - 15.7 g/dL Final HCT 06/02/2024 39.6 34.0 - 45.0 % Final Platelet Count 06/02/2024 477 (H) 155 - 369 10*3/uL Final MCV 06/02/2024 89 79 - 98 fL Final MCH 06/02/2024 29.9 26.0 - 32.0 pg Final MCHC 06/02/2024 33.6 30.7 - 35.5 g/dL Final RDW 06/02/2024 13.1 11.5 - 14.5 % Final MPV 06/02/2024 9.2 8.8 - 12.5 fL Final nRBC 06/02/2024 0.0 <=0.0 per 100 WBCs Final Differential Type 06/02/2024 Automated Final Neutrophils % 06/02/2024 62 % Final Lymphocytes % 06/02/2024 23 % Final Monocytes % 06/02/2024 9 % Final Eosinophils % 06/02/2024 4 % Final Basophils % 06/02/2024 1 % Final Immature Granulocytes % 06/02/2024 1 % Final Neutrophils Absolute 06/02/2024 4.93 1.60 - 6.10 10*3/uL Final Lymphocytes Absolute 06/02/2024 1.81 1.20 - 3.90 10*3/uL Final Monocytes Absolute 06/02/2024 0.73 0.30 - 0.90 10*3/uL Final Eosinophils Absolute 06/02/2024 0.35 0.00 - 0.50 10*3/uL Final Basophils Absolute 06/02/2024 0.07 0.00 - 0.10 10*3/uL Final Immature Granulocytes Absolute 06/02/2024 0.07 (H) 0.00 - 0.06 10*3/uL Final Rheumatoid Factor, Plasma 06/02/2024 <10 <14 IU/mL Final Cryoglobulin, S 06/02/2024 SEE COMMENTS Negative %ppt Final Negative. This test is negative at 24 hours. All samples are held and reviewed again at 7 days. If delayed precipitation occurs after 7 days, Immunofixation will be performed and an additional report will follow. Test Performed by: [facility] [address] [place] [address] [employer] Principal: Ole Barragan Ph.D.; CLIA# [id number] C3 Complement 06/02/2024 132 84 - 166 mg/dL Final Freitas (NIALL) Antibody, IgG 06/02/2024 1 0 - 40 AU/mL Final SSA-52 (RO52) (NIALL) Antibody, IgG 06/02/2024 1 0 - 40 AU/mL Final SSA-60 (RO60) (NIALL) Antibody, IgG 06/02/2024 0 0 - 40 AU/mL Final SSB (LA) (NIALL) Antibody, IgG 06/02/2024 0 0 - 40 AU/mL Final Freitas/STRIPER MACHINE (NIALL) Ab, IgG 06/02/2024 4 0 - 19 Units Final Double-Stranded DNA (dsDNA) Ab IgG* 06/02/2024 <1:10 <1:10 Final LEILA INTERPRETIVE COMMENT 06/02/2024 See Note Final Anti Nuc Ab Screen 06/02/2024 <1:80 <1:80 Final Albumin Electrophoresis, Serum 06/02/2024 4.6 3.6 - 4.7 g/dL Final Alpha 1 Globulin Electrophoresis, * 06/02/2024 0.3 0.2 - 0.4 g/dL Final Alpha 2 Globulin Electrophoresis, * 06/02/2024 0.9 0.5 - 0.9 g/dL Final Beta 1 Globulin Electrophoresis, S* 06/02/2024 0.5 0.3 - 0.5 g/dL Final Beta 2 Globulin Electrophoresis, S* 06/02/2024 0.3 0.2 - 0.5 g/dL Final Gamma Globulin Electrophoresis, Se* 06/02/2024 0.4 (L) 0.6 - 1.5 g/dL Final Interpretation, Serum Protein Elec* 06/02/2024 Pathology report to follow. Final Total Protein 06/02/2024 7.0 6.2 - 7.7 g/dL Final Clinical Diagnosis, SPEP 06/02/2024 Sjogren syndrome Final Interpretation, SPEP 06/02/2024 Final Value:The protein electrophoretic pattern indicates persistent hypogammaglobulinemia which suggestsimmune deficiency or suppression, or a plasma cell dyscrasia/lymphoproliferative disorder. A Serum immunofixation electrophoresis analysis and/or determination of Bence Heredia proteins in urine may behelpful if clinically indicated. Pathologist Signature, [facility] 06/02/2024 Reviewed by: Luis Posada MD Final LAB CP ASR DISCLAIMER 06/02/2024 No Final Vitals: 12/02/24 1004 BP: 112/62 Pulse: 75 Temp: 36.7 ??C (98 ??F) SpO2: 99% Physical Exam Pulmonary: Effort: Pulmonary effort is normal. Musculoskeletal: General: Tenderness present. No swelling. Normal range of motion. Skin: General: Skin is warm and dry. Findings: No lesion or rash. Neurological: Mental Status: She is oriented to person, place, and time. There is currently no information documented on the homunculus. Go to the Rheumatology activity andcomplete the homunculus joint exam. Joint Exam 12/02/2024 No joint exam has been documented for this visit 12/03/2023 06/02/2024 MISHRA-28 (ESR) -- -- MISHRA-28 (CRP) -- -- Tender (MISHRA-28) Swollen (MISHRA-28) 0 Provider Global -- -- Patient Global -- -- ESR -- -- CRP -- -- Swollen Joint Count: Swollen: -- Tender Joint Count: Tender: -- Swollen Joint Count: Swollen: -- Tender Joint Count: Tender: -- Patient global assessment: Patient Global: --/10 Rapid 3 score: 6.10/25 CDAI: 6 Assessment/Plan Diagnosis Plan 1. Sjogren syndrome, unspecified (CMS/HCC) C3 Complement Cryoglobulin, Serum (SO) Protein electrophoresis, serum Rheumatoid Factor, Plasma C4 Complement hydroxychloroquine (Plaquenil) 200 MG tablet Antinuclear Antibody (LEILA), HEp-2, IgG Double-Stranded DNA (dsDNA) Antibody, IgG by IFA Freitas (NIALL) Antibody, IgG 1. SJS 2. Polyarthralgia Dx by Dr. Huber at [facility] No synovitis on PE. Description of pain appears mechanical>inflammatory -labs today 3. Rash Pt has half dollar size area on her scalp that is itchy and flaky. Per pt report, immunology to order antifungal shampoo 4. Hypogammaglobinemia Pt was seen by Denise Keith, with [facility]. -will wait for results from consult. RTC 6 months Note to patient: The Century Cures Act makes medical notes like these available to patients inthe interest of transparency. However, please be advised that this is a medical document. It is intended as burn-mn-zwgn communication. It is written in medical language and may contain abbreviationsor verbiage that are unfamiliar. It may appear blunt or direct. Medical documents are intended to carry relevant information, fact as evident, and the clinical opinion of the practitioner. The patient was counseled about diagnostic results, instruction for management, risk factors reduction, prognosis, compliance with visits and treatment, risks and benefits of treatments options. Prior notes (by external physicians) and results were reviewed by me with independent interpretation of labs and imaging. My note will be sent to PCP and other consulting physicians. documented in this encounter Plan of Treatment Upcoming Encounters Date Type Department Care Team (Late st Contact Info) Description 01/27/2025 10:00 AM EDT Office Visit [facility] Audiology [address] [place] [address] Patsy Lucero, Annalise [address] [place] [address] 03/02/2025 11:00 AM EDT Office Visit [facility] [address] [place] [address] Densie Keith APRN [address] [place] [address] 03/08/2025 10:40 AM EDT Office Visit [facility] Otolaryngology [address] [place] [address] Melvin Casillas MD [address] [place] [address] 06/07/2025 9:50 AM EST Office Visit [facility] [address] [place] [address] Nidhi Stack APRN [address] [place] [address] documented as of this encounter Results * Freitas (NIALL) Antibody, IgG (12/02/2024 11:19 AM EDT) Fortino (NIALL) Antibody, IgG 3 0 - 40 AU/mL 12/03/2024 10:50 PM EDT [facility]) Serum 12/02/2024 11:1 9 AM EDT 12/02/2024 11:21 AM EDT [facility]) - 12/03/2024 10:50 PM EDT INTERPRETIVE INFORMATION: Freitas (NIALL) Antibody, IgG 29 AU/mL or Less ............. Negative 30 - 40 AU/mL ................ Equivocal 41 AU/mL or Greater .......... Positive Freitas antibody is highly specific (greater than 90 percent) for systemic lupus erythematosus (SLE) but only occurs in 30-35 percent of SLE cases. The presence of antibodies to Freitas has variable associations with SLE clinical manifestations. Performed By: [facility] [address] [place] [address] Computer Science Professor: Bipin Romero MD, PhD CLIA Number: [id number] Nidhi Yuli Stack REFRIGERATION OPERATOR LAB REF LAB BLOOD AND FLU ID ORD Final Result [facility] [address] [place], [place] [id number] * Double-Stranded DNA (dsDNA) Antibody, IgG by IFA (12/02/2024 11:19 AM EDT) Double-Strande d DNA (dsDNA) Ab IgG IFA <1:10 <1:10 12/04/2024 8:17 PM EDT [facility] ([place]) Blood Venous blood specimen / Unknown Venipuncture / Unknown 12/02/2024 11:19 AM EDT 12/02/2024 11:21 AM EDT [facility]) - 12/04/2024 8:17 PM EDT INTERPRETIVE INFORMATION: Double-Stranded DNA (dsDNA) Antibody, IgG by IFA (using Crithidia luciliae) Positivity for anti-double stranded DNA (anti-dsDNA) IgG antibody is a diagnostic criterion of systemic lupus erythematosus (SLE). The presence of the anti-dsDNA IgG antibody is identified by IFA titer (Crithidia luciliae indirect fluorescent test [ALTON]). ALTON is highly specific for SLE with a sensitivity of 50-60 percent. Some patients with early or inactive SLE may be positive for anti-dsDNA IgG by JAMES but negative by ALTON. If the ALTON result is negative but the patient has a positive JAMES and clinical suspicion remains, consider antinuclear antibody (LEILA) testing by IFA. Additional information and recommendations for testing may be found at [email or web address]-[email or web address]-[email or web address]. Performed By: [facility] [address] [place] [id number] Computer Science Professor: Bipin Romero MD, PhD CLIA Number: [id number] Nidhi Stack APRN LAB BLOOD ORDERABLES Dafne reinoso Result [facility]) [address] [place] [id number] * Antinuclear Antibody (LEILA), HEp-2, IgG (12/02/2024 11:19 AM EDT) LEILA INTERPRETIVE COMMENT See Note 12/05/2024 10:14 PM EDT [facility] ([facility]) Anti Nuc Ab Screen <1:80 <1:80 12/05/2024 10:14 PM EDT [facility] ([facility]) Blood Venous blood specimen / Unknown Venipuncture / Unknown 12/02/2024 11:19 AM EDT 12/02/2024 11:21 AM EDT Narrative [facility] ([facility]) - 12/05/2024 10:14 PM EDT Antinuclear antibodies by IFA negative for homogeneous, speckled, nucleolar, centromere, and nuclear dots patterns. Cytoplasmic antibodies by IFA negative for reticular/AMA, discrete/GW body-like, polar/golgi-like, rods and rings, and cytoplasmic speckled patterns. INTERPRETIVE INFORMATION: LEILA Interpretive Comment Presence of antinuclear antibodies (LEILA) is a hallmark feature of systemic autoimmune rheumatic diseases (SARD). However, LEILA lacks diagnostic specificity and is associated with a variety of diseases (cancers, autoimmune, infectious, and inflammatory conditions) and may also occur in healthy individuals in varying prevalence. The lack of diagnostic specificity requires confirmation of positive LEILA by more specific serologic tests. LEILA (nuclear reactivity) positive patterns reported include centromere, homogeneous, nuclear dots, nucleolar, or speckled. LEILA (cytoplasmic reactivity) positive patterns reported include reticular/AMA, discrete/GW body-like, polar/golgi-like, cytoplasmic speckled or rods and rings. All positive patterns are reported to endpoint titers (1:2560). Reported patterns may help guide differential diagnosis, although they may not be specific for individual antibodies or diseases. Mitotic staining patterns not reported. Negative results do not necessarily rule out SARD. Performed By: [facility] [address] [place] [id number] Computer Science Professor: Bipin Romero MD, PhD CLIA Number: [id number] Nidhi Stack APRN LAB BLOOD ORDERABLES Dafne l Result Performing Organization Address City/[facility]/ZIP Co de Phone Number [facility] ([facility]) [address] [place] [id number] * C4 Complement (12/02/2024 11:19 AM EDT) C4 Complement 26 13 - 36 mg/dL 12/02/2024 1:05 PM EDT [facility] Blood Venous blood specimen / Unknown Venipuncture / Unknown 12/02/2024 11:19 AM EDT 12/02/2024 11:21 AM EDT Nidhi Stack REFRIGERATION OPERATOR LAB BLOOD ORDERABLES Dafne l Result [facility] [address] [place] [address] * Rheumatoid Factor, Plasma (12/02/2024 11:19 AM EDT) Pathologist [facility] Rheumatoid Factor, Plasma <10 <14 IU/mL 12/02/2024 1:23 PM EDT [facility] Blood Venous blood specimen / Unknown Venipuncture / Unknown 12/02/2024 11:19 AM EDT 12/02/2024 11:21 AM EDT Nidhi Stack REFRIGERATION OPERATOR LAB BLOOD ORDERABLES Dafne l Result [facility] [address] [place] [address] * Cryoglobulin, Serum (SO) (12/02/2024 11:19 AM EDT) Pathologist [facility] Cryoglobulin, S SEE COMMENTS Negative %ppt 12/04/2024 11:25 AM EDT [facility] ([place]) Comment: Negative. This test is negative at 24 hours. All samples are held and reviewed again at 7 days. If delayed precipitation occurs after 7 days, Immunofixation will be performed and an additional report will follow. Test Performed by: [place] [id number] [employer] Principal: Ole Barragan Ph.D.; CLIA# [id number] Blood Venous blood specimen / Unknown Venipuncture / Unknown 12/02/2024 11:19 AM EDT 12/02/2024 11:21 AM EDT Nidhi Stack REFRIGERATION OPERATOR LAB REF LAB BLOOD AND FLU ID ORD Final Result Performing Organization Address City/[facility]/ZIP Co de Phone Number [facility] ([place]) * C3 Complement (12/02/2024 11:19 AM EDT) Pathologist [facility] C3 Complement 156 84 - 166 mg/dL 12/02/2024 1:05 PM EDT [facility] Blood Venous blood specimen / Unknown Venipuncture / Unknown 12/02/2024 11:19 AM EDT 12/02/2024 11:21 AM EDT Nidhi Stack REFRIGERATION OPERATOR LAB BLOOD ORDERABLES Dafne l Result [facility] [address] [place] [address] documented in this encounter Visit Diagnoses Diagnosis Sjogren syndrome, unspecified (CMS/HCC)- Primary documented in this encounter Additional Health Concerns Assessment Noted Time PHQ-9 Depression Total Score: 0 12/03/19 10:03 AM EDT A fall risk assessment has been complete d for the patient 12/02/2024 10:03 AM EDT A Body Mass Index follow-up plan has been documented for the patient 12/04/2024 1:05 AM EDT documented as of this encounter Care Teams Hotel Office Manager Relationship Specialty Start Date End Date Melvin Pink DO [address] [place] [id number] PCP - General 12/01/24 documented as of this encounter
--- OUTSIDE RECORDS SUMMARY | 2024-12-02 11:10 | XMS_ITS | Encounter Summary ---
Author Organization Healthcare Address [address] [place] [address] Care Team Providers Care Senior Accountant Cpa Name Role Phone JoesphMelvin crespo Sunil CHRISTIAN Primary Care Provider Encounter Details Date Type Department Care Team (Latest Contact Info) Description 12/02/2024 11:10 AM EDT Clinical Support [place] [facility] [address] [place] [address] Sjogren syndrome, unspecified (CMS/HCC); Hypogammaglobulinemi a (CMS/HCC) Social History Tobacco Use Types Packs/Day [...] PM EDT documented as of this encounter Functional Status * Over the past 2 weeks, how often have you been bothered by any of the following problems? Question Answer Date of Assessment Author Little interest or pleasure in doing things Not at all 12/02/2024 10:03 AM EDT Emma Delcid A Feeling down, depressed, or hopeless Not at all 12/02/2024 10:03 AM EDT Leslie Delcidt A Patient Health Questionnaire -2 Score 0 12/02/2024 10:03 AM EDT Leslie Delcidt A * Question Answer Date of Assessment Author Trouble falling or staying asleep, or sleeping too much Not at all 12/02/2024 10:03 AM EDT Bhavin Tempest A Feeling tired or having tavo le energy Not at all 12/02/2024 10:03 AM EDT Bhavin Tempest A Poor appetite or overeating Not at all 12/02/2024 10 :03 AM EDT Bhavin Tempest A Feeling bad about yourself - or that you are a failure or have let yourself or your family down Not at all 12/02/2024 10:03 AM EDT Leslie Sparkst A Trouble concentrating on thi ngs, such as reading the newspaper or watching television Not at all 12/02/2024 10:03 AM EDT Leslie Delcidt A Moving or speaking so slowly that other people could have noticed? Or the opposite - being so fidgety or restless that you have been moving around a lot more than usual. Not at all 12/02/2024 10:03 AM EDT Leslie Delcidt A Thoughts that you would be better off or hurting yourself in some way Not at all 12/02/2024 10:03 AM EDT Malachi Delcidpest A Patient Health Questionnaire -9 Score 0 [...] Delcid A documented as of this encounter Plan of Treatment Upcoming Encounters Date Type Department Care Team (Late st Contact Info) Description 01/27/2025 10:00 AM EDT Office Visit [facility] Audiology [address] [place] [address] Patsy Lucero, AuD [address] [place] [address] 03/02/2025 11:00 AM EDT Office Visit [facility] Medicine Specialties [address] [place] [address] Denise Keith, ENVIRONMENTAL GEOLOGIST [address] [place] [address] 03/08/2025 10:40 AM EDT Office Visit [facility] Otolaryngology [address] [place] [address] Melvin Casillas MD [address] [place] [address] 06/07/2025 9:50 AM EST Office Visit [facility] Medicine Specialties [address] [place] [address] Nidhi Stack, ENVIRONMENTAL GEOLOGIST [address] [place] [address] documented as of this encounter Procedures Procedure Name Priority Date/Time Associated Diagnosis Comments IMMUNOGLOBULIN G SUBCLASSES (1, 2, 3, 4) (SO) Routine 12/02/2024 11:19 AM EDT Hypogammaglobulinem ia (CMS/HCC) CRYOGLOBULIN, SERUM (SO) Routine 12/02/2024 11:19 AM EDT Sjogren syndrome, unspecified (CMS/HCC) STREPTOCOCCUS PNEUMONIAE ANTIBODIES, IGG (23 SEROTYPES)(SO) Routine 12/02/2024 11:19 AM EDT Hypogammaglobulinem ia (CMS/HCC) TSH REFLEX FT4 Routine 12/02/2024 11:19 AM EDT Sjogren syndrome, unspecified (CMS/HCC) Hypogammaglobulinem ia (CMS/HCC) TOTAL PROTEIN, SERUM Routine 12/02/2024 11:19 AM EDT Sjogren syndrome, unspecified (CMS/HCC) PROTEIN ELECTROPHORESIS, SERUM Routine 12/02/2024 11:19 AM EDT Sjogren syndrome, unspecified (CMS/HCC) FREITAS (NIALL) ANTIBODY, IGG (SO) Routine 12/02/2024 11:19 AM EDT Sjogren syndrome, unspecified (CMS/HCC) PROTEIN ELECTROPHORESIS, PATHOLOGIST INTERPRETATION Routine 12/02/2024 11:19 AM EDT Sjogren syndrome, unspecified (CMS/HCC) IG PROFILE Routine 12/02/2024 11:19 AM EDT Hypogammaglobulinem ia (CMS/HCC) IMMUNODEFICIENCY, BY FLOW CYTOMETRY Routine 12/02/2024 11:19 AM EDT Hypogammaglobulinem ia (CMS/HCC) DIPHTHERIA & TETANUS ANTIBODIES, IGG (SO) Routine 12/02/2024 11:19 AM EDT Hypogammaglobulinem ia (CMS/HCC) DOUBLE-STRANDED DNA (DSDNA) ANTIBODY, IGG BY IFA (SO) Routine 12/02/2024 11:19 AM EDT Sjogren syndrome, unspecified (CMS/HCC) CBC WITH AUTO DIFFERENTIAL Routine 12/02/2024 11:19 AM EDT Hypogammaglobulinem ia (CMS/HCC) RHEUMATOID FACTOR, PLASMA Routine 12/02/2024 11:19 AM EDT Sjogren syndrome, unspecified (CMS/HCC) COMPLEMENT ACTIVITY TOTAL, (CH50) (SO) Routine 12/02/2024 11:19 AM EDT Hypogammaglobulinem ia (CMS/HCC) C3 COMPLEMENT Routine 12/02/2024 11:19 AM EDT Sjogren syndrome, unspecified (CMS/HCC) C4 COMPLEMENT Routine 12/02/2024 11:19 AM EDT Sjogren syndrome, unspecified (CMS/HCC) ANTINUCLEAR ANTIBODY (LEILA) WITH HEP-2 SUBSTRATE, IGG BY IFA (SO) Routine 12/02/2024 11:19 AM EDT Sjogren syndrome, unspecified (CMS/HCC) PROTEIN ELECTROPHORESIS, SERUM Routine 12/02/2024 11:19 AM EDT Sjogren syndrome, unspecified (CMS/HCC) IMMUNOGLOBULIN E Routine 12/02/2024 11:1 9 AM EDT Hypogammaglobulinem ia (CMS/HCC) COMPREHENSIVE METABOLIC PANEL, PLASMA Routine 12/02/2024 11:19 AM EDT Hypogammaglobulinem ia (CMS/HCC) documented in this encounter Results * Protein electrophoresis serum, pathologist interpretation (12/02/2024 11:19 AM EDT) Clinical Diagnosis, SPEP Sjogren syndrome, unspecified (CMS/HCC) 12/03/2024 1:44 PM EDT [facility] Interpretatio n, SPEP The otherwise unremarkable protein electrophoretic pattern indicates persistent hypogammaglobulinemia which suggests immune deficiency or suppression, or a plasma cell dyscrasia/lymphoprolife rative disorder. Serum immunofixation electrophoresis analysis and/or determination of Bence Heredia proteins in urine may be helpful if clinically indicated. A resident was involved in the service. I attest I examined the relevant preparations for the specimens and confirmed the diagnosis or interpretation. 12/03/2024 1:44 PM EDT [facility] Pathologist Signature, SPEP Reviewed by: Collins Curtis MD 12/03/2024 1:44 PM EDT [facility] LAB CP ASR DISCLAIMER Yes 12/03/2024 1:44 PM EDT [facility] Blood Venous blood specimen / Unknown Venipuncture / Unknown 12/02/2024 11:19 AM EDT 12/02/2024 11:21 AM EDT Nidhi Stack APRN LAB PATHOLOGY ORDERABLES Final Result Performing Organization Address [facility]/ZIP Co de Phone Number [facility] [address] [place] [address] * Total Protein, Serum (12/02/2024 11:19 AM EDT) Total Protein 6.7 6.2 - 7.7 g/dL 12/02/2024 1:05 PM EDT [facility] Blood Venous blood specimen / Unknown Venipuncture / Unknown 12/02/2024 11:19 AM EDT 12/02/2024 11:21 AM EDT Nidhi Stack APRN LAB BLOOD ORDERABLES Dafne l Result Performing Organization Address [facility] Co de Phone Number [facility] [address] [place] [address] * (ABNORMAL) Protein Electrophoresis, Serum (12/02/2024 11:19 AM EDT) Albumin Electrophoresis, Serum 4.3 3.6 - 4.7 g/dL 12/03/2024 3:25 AM EDT [facility] Alpha 1 Globulin Electrophoresis, Serum 0.3 0.2 - 0.4 g/dL 12/03/2024 3:25 AM EDT [facility] Alpha 2 Globulin Electrophoresis, Serum 0.9 0.5 - 0.9 g/dL 12/03/2024 3:25 AM EDT [facility] Beta 1 Globulin Electrophoresis, Serum 0.5 0.3 - 0.5 g/dL 12/03/2024 3:25 AM EDT [facility] Beta 2 Globulin Electrophoresis, Serum 0.3 0.2 - 0.5 g/dL 12/03/2024 3:25 AM EDT [facility] Gamma Globulin Electrophoresis, Serum 0.4(L) 0.6 - 1.5 g/dL 12/03/2024 3:25 AM EDT [facility] Interpretation, Serum Protein Electrophoresis Pathology report to follow. 12/03/2024 3:25 AM EDT [facility] Blood Venous blood specimen / Unknown Venipuncture / Unknown 12/02/2024 11:19 AM EDT 12/02/2024 11:21 AM EDT Nidhi Stack ENVIRONMENTAL GEOLOGIST LAB BLOOD ORDERABLES Dafne l Result [facility] [address] [place] [address] * (ABNORMAL) Complement, total (12/02/2024 11:19 AM EDT) Complement Activity, Total Turbidimetric >95.0(H) 38.7 - 89.9 U/mL 12/05/2024 10:55 PM EDT [facility] ([facility]) Blood Venous blood specimen / Unknown Venipuncture / Unknown 12/02/2024 11:19 AM EDT 12/02/2024 11:21 AM EDT Narrative [facility] ([facility]) - 12/05/2024 10:55 PM EDT High activity in total complement functional assay (CH50) indicates acute-phase response to inflammation or infection. Repeat testing after inflammation has resolved is recommended. REFERENCE INTERVAL: Complement Activity Total, (CH50) 38.6 U/mL or less ..........Low 38.7-89.9 U/mL .............Normal 90.0 U/mL or greater .......High Performed By: [facility] [address] [place] [address] Clay Temperer: Bipin Romero MD, PhD CLIA Number: [id number] Denise Keith ENVIRONMENTAL GEOLOGIST LAB BLOOD ORDERABLES Final Result [facility] ([employer]) [address] [place] [address] * Diphtheria & Tetanus Antibodies, IgG (12/02/2024 11:19 AM EDT) Pathologist [facility] Diphtheria Antibody, IgG 0.2 IU/mL 12/03/2024 9:27 PM EDT [facility] ([facility]) Tetanus Antibody, IgG 0.5 IU/mL 12/03/2024 9:27 PM EDT [facility] ([facility]) Blood Venous blood specimen / Unknown Venipuncture / Unknown 12/02/2024 11:19 AM EDT 12/02/2024 11:21 AM EDT Narrative [facility] - 12/03/2024 9:27 PM EDT INTERPRETIVE INFORMATION: [...] developed and its performance characteristics determined by [facility]. It has not been cleared or approved [...] developed and its performance characteristics determined by [facility]. It has not been cleared or approved by the US Food and Drug Administration. This test was performed in a CLIA certified laboratory and is intended for clinical purposes. Performed By: [facility] [address] [place] [address] Clay Temperer: Bipin Romero MD, PhD CLIA Number: [id number] Denise Keith APRN LAB BLOOD ORDERABLES Final Result [facility] ([facility]) [address] [place] [address] * (ABNORMAL) Immunodeficiency, BY Flow Cytometry (12/02/2024 11:19 AM EDT) Pathologist [facility] Clinical Indication reccurent infection 12/02/2024 6:18 PM EDT [facility] Flow Cytometry Interpretation OTHERWISE NORMAL PERIPHERAL BLOOD LYMPHOCYTE SUBSET ANALYSIS EXCEPT FOR DECREASED ABSOLUTE CSM B CELLS 12/02/2024 6:18 PM EDT [facility] Percent Lymphocytes (CD45+/SSClow) 24.84 % 12/02/2024 6:18 PM EDT [facility] ABS Lymphocyte 1,757.00 cells/u L 12/02/2024 6:18 PM EDT [facility] Percent CD3 81.9 57.5 - 83.1 % 12/02/2024 6:18 PM EDT [facility] Absolute CD3 1,439 860 - 2,670 cells/u L 12/02/2024 6:18 PM EDT [facility] Percent CD4 32.4 31.5 - 62.4 % 12/02/2024 6:18 PM EDT [facility] Absolute CD4 569 490 - 1,730 cells/u L 12/02/2024 6:18 PM EDT [facility] Percent CD8 46.1(H) 9.5 - 38.3 % 12/02/2024 6:18 PM EDT [facility] Absolute CD8 811 160 - 1,070 cells/u L 12/02/2024 6:18 PM EDT [facility] Percent CD19 5.2(L) 6.0 - 24.2 % 12/02/2024 6:18 PM EDT [facility] Absolute CD19 91 73 - 562 cells/u L 12/02/2024 6:18 PM EDT [facility] Percent CD16+CD56 12.7 5.2 - 30.4 % 12/02/2024 6:18 PM EDT [facility] Absolute CD16+CD56 224 110 - 680 cells/u L 12/02/2024 6:18 PM EDT [facility] CD4:CD8 Ratio 0.70 12/02/2024 6:18 PM EDT [facility] Comments Flow cytometric analysis of [...] CD45RO, CD56, CD62L, HLA-DR, IgD, IgG, IgM, Hideaway light chain, Lambda light chain, TCR?/?, TCR?/?. Pediatric values were derived from Franklin et al. J Allergy Clin Immunol. 2003;112:973-80. Adult values were from a [employer] study of healthy adults and were validated in our laboratory. 12/02/2024 6:18 PM EDT [facility] Disclaimer This test was developed and its performance characteristics determined by the Immuno-Molecular Pathology Laboratory at the [facility]. It has not been cleared or approved [...] clinical laboratory testing. 12/02/2024 6:18 PM EDT [facility] Pathologist Signature Reviewed by: William Valencia MD 12/02/2024 6:18 PM EDT [facility] Blood Venous blood specimen / Unknown Venipuncture / Unknown 12/02/2024 11:19 AM EDT 12/02/2024 11:21 AM EDT us Denise Keith ENVIRONMENTAL GEOLOGIST LAB FLOW CYTOMETRY ORDERAB LES Final Result [facility] [address] [place] [address] * Streptococcus pneumoniae Antibodies, IgG (23 Serotypes)(SO) (12/02/2024 11:19 AM EDT) [facility] Pneumo serotype 1 IgG (P13,PNX) 0.52 ug/mL 12/04/2024 8:12 PM EDT [facility] ([facility]) PNEUMOCOCCAL SEROTYPE 2,IGG 4.62 ug/mL 12/04/2024 8:12 PM EDT [facility] ([facility]) Pneumo serotype 3 IgG (P13,PNX) 0.32 ug/mL 12/04/2024 8:12 PM EDT [facility] ([facility]) Pneumo serotype 4 IgG (P7,P13,PNX) 2.02 ug/mL 12/04/2024 8:12 PM EDT [facility] ([facility]) Pneumo serotype 5 IgG (P13,PNX) 0.29 ug/mL 12/04/2024 8:12 PM EDT [facility] ([facility]) Pneumo serotype 6B IgG (P7,P13,PNX) 0.06 ug/mL 12/04/2024 8:12 PM EDT [facility] ([facility]) Pneumo serotype 7F IgG (P13,PNX) 3.51 ug/mL 12/04/2024 8:12 PM EDT [facility] ([facility]) Pneumo serotype 8 IgG (PNX) 0.41 ug/mL 12/04/2024 8:12 PM EDT [facility] ([facility]) Pneumo serotype 9N IgG (PNX) 0.28 ug/mL 12/04/2024 8:12 PM EDT [facility] ([facility]) Pneumo serotype 9V IgG (P7,P13,PNX) 0.99 ug/mL 12/04/2024 8:12 PM EDT [facility] ([facility]) PNEUMOCOCCAL SEROTYPE 10A,IGG 0.11 ug/mL 12/04/2024 8:12 PM EDT [facility] ([facility]) PNEUMOCOCCAL SEROTYPE 11A,IGG 0.38 ug/mL 12/04/2024 8:12 PM EDT [facility] ([facility]) Pneumo serotype 12F IgG (PNX) 0.73 ug/mL 12/04/2024 8:12 PM EDT [facility] ([facility]) Pneumo serotype 14 IgG (P7,P13,PNX) 2.64 ug/mL 12/04/2024 8:12 PM EDT [facility] ([facility]) PNEUMOCOCCAL SEROTYPE 15B,IGG 1.11 ug/mL 12/04/2024 8:12 PM EDT [facility] ([facility]) PNEUMOCOCCAL SEROTYPE 17F,IGG <0.04 ug/mL 12/04/2024 8:12 PM EDT [facility] ([facility]) Pneumo serotype 18C IgG (P7,P13,PNX) 1.33 ug/mL 12/04/2024 8:12 PM EDT [facility] ([facility]) PNEUMOCOCCAL SEROTYPE 19A,IGG 1.84 ug/mL 12/04/2024 8:12 PM EDT [facility] ([facility]) Pneumo serotype 19F IgG (P7,P13,PNX) 1.80 ug/mL 12/04/2024 8:12 PM EDT [facility] ([facility]) PNEUMOCOCCAL SEROTYPE 20,IGG 0.53 ug/mL 12/04/2024 8:12 PM EDT [facility] ([employer]) PNEUMOCOCCAL SEROTYPE 22F,IGG 4.05 ug/mL 12/04/2024 8:12 PM EDT [facility] ([facility]) Pneumo serotype 23F IgG (P7,P13,PNX) 0.10 ug/mL 12/04/2024 8:12 PM EDT [facility] ([facility]) PNEUMOCOCCAL SEROTYPE 33F,IGG 3.60 ug/mL 12/04/2024 8:12 PM EDT [facility] ([facility]) Pneumo Serotype Interpretation See Note 12/04/2024 8:12 PM EDT [facility] ([facility]) Blood Venous blood specimen / Unknown Venipuncture / Unknown 12/02/2024 11:19 AM EDT 12/02/2024 11:21 AM EDT Narrative [facility] ([facility]) - 12/04/2024 8:12 PM EDT INTERPRETIVE INFORMATION: [...] protection.(Ching, 2015) References: 1. Ching YING, Roberto JW, Billy X, et al. Multilaboratory assessment of threshold versus fold-change algorithms for minimizing analytical variability in multiplexed pneumococcal IgG measurements. Clin Vaccine Immunol. 2014;21(7):982-988. 2. Ching YING, Westley SULLIVAN. Use and clinical interpretation of pneumococcal antibody measurements in the evaluation of humoral immune function. Clin Vaccine Immunol. 2015;22(2):148-152. This test was developed and its performance characteristics determined by [facility]. It has not been cleared or approved by the U.S. Food and Drug Administration. This test was performed in a CLIA-certified laboratory and is intended for clinical purposes. Performed By: [facility] [address] [place] [id number] Clay Temperer: Bipin Romero MD, PhD CLIA Number: [id number] Denise Keith APRN LAB BLOOD ORDERABLES Final Result [facility] ([facility]) [address] [place] [id number] * Immunoglobulin E (12/02/2024 11:19 AM EDT) [facility] Immunoglobulin E <2 <=214 kU/L 12/05/19 6:27 AM EDT [facility] ([facility]) Blood Venous blood specimen / Unknown Venipuncture / Unknown 12/02/2024 11:19 AM EDT 12/02/2024 11:21 AM EDT Narrative [facility]) - 12/04/2024 6:27 AM EDT REFERENCE INTERVAL: Immunoglobulin E, Serum Access complete set of age- and/or gender-specific reference intervals for this test in the [facility] ([employer]). Performed By: [facility] [address] [place] [address] Clay Temperer: Bipin Romero MD, PhD CLIA Number: [id number] Denise Keith APRN LAB BLOOD ORDERABLES Final Result Performing Organization Address City/[facility]/ZIP Co de Phone Number [facility] ([facility]) [address] [place] [address] * (ABNORMAL) IG Profile (12/02/2024 11:19 AM EDT) [facility] IGA 91 75 - 400 mg/dL 12/02/2024 1:23 PM EDT [facility] IGG 390(L) 720 - 1,589 mg/dL 12/02/2024 1:23 PM EDT [facility] IGM 30(L) 35 - 225 mg/dL 12/02/2024 1:23 PM EDT [facility] Blood Venous blood specimen / Unknown Venipuncture / Unknown 12/02/2024 11:19 AM EDT 12/02/2024 11:21 AM EDT Denise Keith APRN LAB BLOOD ORDERABLES Final Result [facility] [address] [place] [address] * (ABNORMAL) Comprehensive Metabolic Panel, Plasma (12/02/2024 11:19 AM EDT) [facility] Glucose, Plasma 89 74 - 99 mg/dL 12/02/2024 1:23 PM EDT [facility] BUN, Plasma 6(L) 8 - 23 mg/dL 12/02/2024 1:23 PM EDT [facility] Creatinine, Plasma 0.70 0.60 - 1.10 mg/dL 12/02/2024 1:23 PM EDT [facility] BUN/Creatinine Ratio 9 12/02/2024 1:23 PM EDT [facility] Sodium, Plasma 134(L) 136 - 145 mmol/L 12/02/2024 1:23 PM EDT [facility] Potassium, Plasma 4.3 3.6 - 4.9 mmol/L 12/02/2024 1:23 PM EDT [facility] Chloride, Plasma 99 97 - 107 mmol/L 12/02/2024 1:23 PM EDT [facility] CO2, Plasma 23 22 - 29 mmol/L 12/02/2024 1:23 PM EDT [facility] Anion Gap 12 6 - 16 mmol/L 12/02/2024 1:23 PM EDT [facility] Total Calcium, Plasma 9.8 8.9 - 10.2 mg/dL 12/02/2024 1:23 PM EDT [facility] Total Protein 6.8 6.3 - 7.9 g/dL 12/02/2024 1:23 PM EDT [facility] Albumin, Plasma 4.6 3.5 - 5.2 g/dL 12/02/2024 1:23 PM EDT [facility] AST, Plasma 21 10 - 35 U/L 12/02/2024 1:23 PM EDT [facility] ALT, Plasma 15 10 - 35 U/L 12/02/2024 1:23 PM EDT [facility] Alkaline Phosphatase, Plasma 83 46 - 142 U/L 12/02/2024 1:23 PM EDT [facility] Total Bilirubin, Plasma 0.3 0.2 - 1.1 mg/dL 12/02/2024 1:23 PM EDT [facility] eGFRcr 89.2 mL/min/1.7 3m*2 12/02/2024 1:23 PM EDT [facility] Comment:Reported eGFRcr in m L/min/1.73m2 is based the CKD-EPI 2020 equation that does not use a race coefficient. Blood Venous blood specimen / Unknown Venipuncture / Unknown 12/02/2024 11:19 AM EDT 12/02/2024 11:21 AM EDT Denise Keith ENVIRONMENTAL GEOLOGIST LAB BLOOD ORDERABLES Final Result [facility] [address] [place] [address] * (ABNORMAL) CBC and Differential (12/02/2024 11:19 AM EDT) WBC Count 6.52 3.70 - 10.30 10*3/uL LAB HEMATOLOGY METHOD 12/02/2024 1:04 PM EDT [facility] RBC Count 4.37 3.90 - 5.20 10*6/uL LAB HEMATOLOGY METHOD 12/02/2024 1:04 PM EDT [facility] HGB 12.6 11.2 - 15.7 g/dL LAB HEMATOLOGY METHOD 12/02/2024 1:04 PM EDT [facility] HCT 38.0 34.0 - 45.0 % LAB HEMATOLOGY METHOD 12/02/2024 1:04 PM EDT [facility] Platelet Count 442(H) 155 - 369 10*3/uL LAB HEMATOLOGY METHOD 12/02/2024 1:04 PM EDT [facility] MCV 87 79 - 98 fL LAB HEMATOLOGY METHOD 12/02/2024 1:04 PM EDT [facility] MCH 28.8 26.0 - 32.0 pg LAB HEMATOLOGY METHOD 12/02/2024 1:04 PM EDT [facility] MCHC 33.2 30.7 - 35.5 g/dL LAB HEMATOLOGY METHOD 12/02/2024 1:04 PM EDT [facility] RDW 13.3 11.5 - 14.5 % LAB HEMATOLOGY METHOD 12/02/2024 1:04 PM EDT [facility] MPV 9.2 8.8 - 12.5 fL LAB HEMATOLOGY METHOD 12/02/2024 1:04 PM EDT [facility] nRBC 0.0 <=0.0 per 100 WBCs LAB HEMATOLOGY METHOD 12/02/2024 1:04 PM EDT [facility] Differential Type Automated LAB HEMATOLOGY METHOD 12/02/2024 1:04 PM EDT [facility] Neutrophils % 59 % LAB HEMATOLOGY METHOD 12/02/2024 1:04 PM EDT [facility] Lymphocytes % 25 % LAB HEMATOLOGY METHOD 12/02/2024 1:04 PM EDT [facility] Monocytes % 10 % LAB HEMATOLOGY METHOD 12/02/2024 1:04 PM EDT [facility] Eosinophils % 4 % LAB HEMATOLOGY METHOD 12/02/2024 1:04 PM EDT [facility] Basophils % 1 % LAB HEMATOLOGY METHOD 12/02/2024 1:04 PM EDT [facility] Immature Granulocytes % 1 % LAB HEMATOLOGY METHOD 12/02/2024 1:04 PM EDT [facility] Neutrophils Absolute 3.87 1.60 - 6.10 10*3/uL LAB HEMATOLOGY METHOD 12/02/2024 1:04 PM EDT [facility] Lymphocytes Absolute 1.63 1.20 - 3.90 10*3/uL LAB HEMATOLOGY METHOD 12/02/2024 1:04 PM EDT [facility] Monocytes Absolute 0.62 0.30 - 0.90 10*3/uL LAB HEMATOLOGY METHOD 12/02/2024 1:04 PM EDT [facility] Eosinophils Absolute 0.28 0.00 - 0.50 10*3/uL LAB HEMATOLOGY METHOD 12/02/2024 1:04 PM EDT [facility] Basophils Absolute 0.07 0.00 - 0.10 10*3/uL LAB HEMATOLOGY METHOD 12/02/2024 1:04 PM EDT [facility] Immature Granulocytes Absolute 0.05 0.00 - 0.06 10*3/uL LAB HEMATOLOGY METHOD 12/02/2024 1:04 PM EDT [facility] Blood Venous blood specimen / Unknown Venipuncture / Unknown 12/02/2024 11:19 AM EDT 12/02/2024 11:21 AM EDT [facility] - 12/02/2024 1:04 PM EDT Therapeutic decision making should be based on absolute values, rather than percentages. Denise Langston Keith ENVIRONMENTAL GEOLOGIST LAB BLOOD ORDERABLES Final Result [facility] [address] [place] [address] * (ABNORMAL) Immunoglobulin G Subclasses (1, 2, 3, 4) (SO) (12/02/2024 11:19 AM EDT) IMMUNOGLOBULIN G SUBCLASS 1 216(L) 240 - 1118 mg/dL 12/04/2024 2:18 AM EDT [facility] ([employer]) IMMUNOGLOBULIN G SUBCLASS 2 85(L) 124 - 549 mg/dL 12/04/2024 2:18 AM EDT [facility] ([employer]) IMMUNOGLOBULIN G SUBCLASS 3 23 21 - 134 mg/dL 12/04/2024 2:18 AM EDT [facility] ([employer]) IMMUNOGLOBULIN G SUBCLASS 4 1 1 - 123 mg/dL 12/04/2024 2:18 AM EDT [facility] ([employer]) Blood Venous blood specimen / Unknown Venipuncture / Unknown 12/02/2024 11:19 AM EDT 12/02/2024 11:21 AM EDT Narrative [facility] ([employer]) - 12/04/2024 2:18 AM EDT REFERENCE INTERVAL: Immunoglobulin G Subclass 1 The total IgG (mg/dL) can be derived from the sum of the subclass IgG1, IgG2, IgG3, and IgG4 values. However, a confirmatory and more precise total IgG is available by the turbidimetric method of quantitation for total IgG. Refer to test Immunoglobulin G, Serum ([id number]). Access complete set of age- and/or gender-specific reference intervals for this test in the [facility] ([facility]). REFERENCE INTERVAL: Immunoglobulin G Subclass 2 Access complete set of age- and/or gender-specific reference intervals for this test in the [facility] ([facility]). REFERENCE INTERVAL: Immunoglobulin G Subclass 3 Access complete set of age- and/or gender-specific reference intervals for this test in the [facility] ([facility]). REFERENCE INTERVAL: Immunoglobulin G Subclass 4 Access complete set of age- and/or gender-specific reference intervals for this test in the [facility] ([facility]). Performed By: [facility] [address] [place] [id number] Clay Temperer: Bipin Romero MD, PhD CLIA Number: [id number] Denise Keith APRN LAB REF LAB BLOOD AND FLUI D ORD Final Result Performing Organization Address City/[facility]/ZIP Co de Phone Number [facility] [address] [place] [address] * TSH Reflex FT4 (12/02/2024 11:19 AM EDT) Thyroid Stimulating Hormone, Plasma 2.78 0.40 - 4.20 uIU/mL 12/02/2024 1:23 PM EDT [facility] Blood Venous blood specimen / Unknown Venipuncture / Unknown 12/02/2024 11:19 AM EDT 12/02/2024 11:21 AM EDT Denise Keith APRN LAB BLOOD ORDERABLES Final Result Performing Organization Address City/[facility]/ZIP Co de Phone Number [facility] [address] [place] [address] * C3 Complement (12/02/2024 11:19 AM EDT) C3 Complement 156 84 - 166 mg/dL 12/02/2024 1:05 PM EDT [facility] Blood Venous blood specimen / Unknown Venipuncture / Unknown 12/02/2024 11:19 AM EDT 12/02/2024 11:21 AM EDT Nidhi Stack ENVIRONMENTAL GEOLOGIST LAB BLOOD ORDERABLES Dafne l Result [facility] [address] [place] [address] * Cryoglobulin, Serum (SO) (12/02/2024 11:19 AM EDT) Cryoglobulin, S SEE COMMENTS Negative %ppt 12/04/2024 11:25 AM EDT [facility] ([facility]) Comment: Negative. This test is negative at 24 hours. All samples are held and reviewed again at 7 days. If delayed precipitation occurs after 7 days, Immunofixation will be performed and an additional report will follow. Test Performed by: [facility] [address] [place] [address] Car Clerk Pullman: Ole Barragan Ph.D.; CLIA# [id number] Blood Venous blood specimen / Unknown Venipuncture / Unknown 12/02/2024 11:19 AM EDT 12/02/2024 11:21 AM EDT Nidhiyaima Stack APRN LAB REF LAB BLOOD AND FLU ID ORD Final Result Performing Organization Address City/[facility]/ZIP Co de Phone Number [facility] ([facility]) * Rheumatoid Factor, Plasma (12/02/2024 11:19 AM EDT) Rheumatoid Factor, Plasma <10 <14 IU/mL 12/02/2024 1:23 PM EDT [facility] Blood Venous blood specimen / Unknown Venipuncture / Unknown 12/02/2024 11:19 AM EDT 12/02/2024 11:21 AM EDT Nidhi L Sedacarol BROWNN LAB BLOOD ORDERABLES Dafne l Result Performing Organization Address City/[facility]/ZIP Co de Phone Number [facility] [address] [place] [address] * C4 Complement (12/02/2024 11:19 AM EDT) C4 Complement 26 13 - 36 mg/dL 12/02/2024 1:05 PM EDT [facility] Blood Venous blood specimen / Unknown Venipuncture / Unknown 12/02/2024 11:19 AM EDT 12/02/2024 11:21 AM EDT Nidhi Yuli Seda ENVIRONMENTAL GEOLOGIST LAB BLOOD ORDERABLES Dafne l Result [facility] [address] [place] [address] * Antinuclear Antibody (LEILA), HEp-2, IgG (12/02/2024 11:19 AM EDT) LEILA INTERPRETIVE COMMENT See Note 12/05/2024 10:[address] [facility] ([place]) Anti Nuc Ab Screen <1:80 <1:80 12/05/2024 10:[address] [facility] ([place]) Blood Venous blood specimen / Unknown Venipuncture / Unknown 12/02/2024 11:19 AM EDT 12/02/2024 11:21 AM EDT Narrative [facility] ([place]) - 12/05/2024 10:14 PM EDT Antinuclear antibodies [...] not necessarily rule out SARD. Performed By: [facility] [address] [place] [address] Clay Temperer: Bipin Romero MD, PhD CLIA Number: [id number] Nidhi Stack APRN LAB BLOOD ORDERABLES Dafne reinoso Result [facility]) [address] [id number] * Double-Stranded DNA (dsDNA) Antibody, IgG by IFA (12/02/2024 11:19 AM EDT) Double-Strande d DNA (dsDNA) Ab IgG IFA <1:10 <1:10 12/04/2024 8:[address] [facility] ([place]) Blood Venous blood specimen / Unknown Venipuncture / Unknown 12/02/2024 11:19 AM EDT 12/02/2024 11:21 AM EDT [facility]ative [facility] - 12/04/2024 8:17 PM EDT INTERPRETIVE INFORMATION: [...] recommendations for testing may be found at [email or web address]. Performed By: [facility] [address] [place] [address] Clay Temperer: Bipin Romero MD, PhD CLIA Number: [id number] Nidhi Stack APRN LAB BLOOD ORDERABLES Dafne reinoso Result [facility] [address] [id number] * [facility]itas ([facility]) Antibody, IgG (12/02/2024 11:19 AM EDT) Pathologist Vin Freitas ([facility]) Antibody, IgG 3 0 - 40 AU/mL 12/03/2024 10:50 PM EDT [facility] ([place]) Serum 12/02/2024 11:1 9 AM EDT 12/02/2024 11:21 AM EDT Narrative [facility]) - 12/03/2024 10:50 PM EDT INTERPRETIVE INFORMATION: [...] associations with SLE clinical manifestations. Performed By: [facility] [address] [place] [id number] Clay Temperer: Bipin Romero MD, PhD CLIA Number: [id number] Nidhi Stack APRN LAB REF LAB BLOOD AND FLU ID ORD Final Result [facility] [place]) [address] [place] [address] documented in this encounter Visit Diagnoses Diagnosis Sjogren syndrome, unspecified (CMS/HCC) Hypogammaglobulinemia (CMS/HCC) Unspecified [...] documented as of this encounter Care Teams Senior Accountant Cpa Relationship Specialty Start Date End Date Melvin Pink DO [address] [place] [address] PCP - General 12/01/24 documented as of this encounter
--- OUTSIDE RECORDS SUMMARY | 2024-12-04 10:00 | XMS_ITS | Encounter Summary ---
Author Organization Healthcare Address [address] [id number] Care Team Providers Care Freelance Director Name Role Phone Melvin Pink DO Primary Care Provider [phone] Reason for Visit * Reason Comments Follow-up Encounter Details Date Type Department Care Team (Latest Contact Info) Description 12/04/2024 10:00 AM EDT [facility] [address], [address] [place] [address] Melvin Casillas MD [address] [place] [address] Mixed conductive and sensorineural hearing loss of both ears (Primary Dx); Chronic otitis externa of both ears, unspecified type; Cochlear implant in place Social History Tobacco Use Types Packs/Day Years [...] Reading Time Taken Comments Blood Pressure 112/62 12/04/2024 9:49 AM EDT Pulse - - Temperature - - Respiratory Rate - - Oxygen Saturation - - Inhaled Oxygen Concentration - - Weight 78 kg (172 lb) 12/04/2024 9:49 AM EDT Height - - Body Mass Index 29.52 12/02/2024 10:04 AM EDT documented in this encounter Miscellaneous Notes * Progress Notes - Melvin Casillas MD - 12/04/2024 10:00 AM EDT It was a pleasure to evaluate Minnie Woodard a pleasant 78 y.o. female who presents today for a chief complaint of Chief Complaint Patient presents with Follow-up The patient is an established patient in my clinic and returns today for a follow up visit. She hasreturned from [place] and she struggled with illness most of the winter. She has had frequent left ear infections. She reports intermittent drainage. Medical History[1] Surgical History[2] Allergies[3] Social History[4] Past medical history reviewed. Past surgical history reviewed. Past social history reviewed. Family history reviewed. Medications were reviewed. Allergies were reviewed. ROS: 14 point ROS performed and non-contributory other than that stated above. Physical Exam: 03/02/2024 2:20 PM 06/02/2024 12:52 PM 06/15/2024 1:21 PM 11/26/2024 9:49 AM 12/01/2024 9:56 AM 12/02/2024 10:04 AM 12/04/2024 9:49 AM Vitals Systolic 119 126 126 119 133 112 112 Diastolic 76 79 79 81 84 62 62 Heart Rate 82 78 75 75 Temp 36.8 C 36.4 C 36.7 C Resp 16 16 Height (cm) 162.6 cm 162.6 cm 162.6 cm 162.6 cm Weight (kg) 78.926 kg 79.4 kg 79.379 kg 79.379 kg 72 kg 78.019 kg 78.019 kg BMI 29.87 kg/m2 30.05 kg/m2 30.04 kg/m2 30.04 kg/m2 27.25 kg/m2 29.52 kg/m2 29.52 kg/m2 BSA (m2) 1.89 m2 1.89 m2 1.89 m2 1.89 m2 1.8 m2 1.88 m2 1.88 m2 Visit Report Report Report Report Report Report General: patient is awake, nontoxic appearing, and in no acute distress. Skin: No overtly ulcerated, cellulitic, or indurated lesions of the head or neck. Head: Normocephalic and atraumatic. Sinuses are nontender to palpation. Ears: The pinnas are well formed. External auditory canals are nonstenotic without cerumen impaction bilaterally. She has thin mucous in the left EAC with some erythema of the left TM. The right TM is clear and dry. Eyes: Extraocular muscles are intact. The sclera and conjunctiva are normal. Pupils are equal and reactive to light without evidence of afferent pupillary defect. No ptosis is appreciated. Nose: The nasal dorsum is without scar or deformity. Neck: The trachea is in midline. Neurological: Cranial nerves II-, VIII-XII are grossly intact. Facial nerve has a House-Brackman grade 1 of 6 bilaterally. There is no evidence of nystagmus or gross asymmetry on exam. Psychiatric: Alert and oriented ??3. Mood and affect are otherwise appropriate. Chest: Breathing is nonlabored without use of accessory muscles. There is symmetric chest wall expansion. Cardiovascular: Heart has a regular rate. Impression/Plan: Encounter Diagnoses Name Primary? Mixed conductive and sensorineural hearing loss of both ears Yes Chronic otitis externa of both ears, unspecified type Cochlear implant in place I suggested a course of ciprodex. She is the midst of a work up of immunologic disease. Follow up in about 3 months (around 03/06/2025). New Medications Ordered This Visit Medications ciprofloxacin-dexamethasone (CiproDEX) otic suspension Sig: Administer 4 drops into the left ear 2 times a day for 7 days. Dispense: 7.5 mL Refill: 3 [1] Past Medical History: Diagnosis Date Asthma allergy induced Delayed emergence from general anesthesia Diabetes mellitus (CMS/HCC) 11/2022 A1C - 5.1 Frequent UTI Full dentures Gastroparesis Hiatal hernia HL (hearing loss) Hyperlipidemia Hypothyroidism Interstitial cystitis Joint pain Motion sickness Osteoarthritis Personal history of other infectious and parasitic diseases History of hepatitis A virus infection PONV (postoperative nausea and vomiting) Sjogren's syndrome (CMS/HCC) Sleep apnea C-Pap at [2] Past Surgical History: Procedure Laterality Date BACK SURGERY N/A Back Surgery from [facility] BREAST BIOPSY Right 2006 stereotactic-benign CHOLECYSTECTOMY N/A Cholecystectomy from [facility] COLONOSCOPY CYSTOSCOPY OTHER SURGICAL HISTORY Bilateral Stapedectomy from [facility] TONSILLECTOMY N/A Tonsillectomy from [facility] UPPER GASTROINTESTINAL ENDOSCOPY [3] Allergies Allergen Reactions Cefuroxime Swelling Cephalexin Swelling Cephalosporins Swelling Amoxicillin Hives Penicillins Hives Sulfa Drugs Rash [4] Social History Tobacco Use Smoking status: Never Smokeless tobacco: Never Vaping Use Vaping status: Never Used Substance Use Topics Alcohol use: Not Currently Drug use: Never Comment: Drug use: No drug use documented in this encounter Plan of Treatment Upcoming Encounters Date Type Department Care Team (Late st Contact Info) Description 01/27/2025 10:00 AM EDT Office Visit [facility] Audiology [address], [address] [place] [address] Patsy Lucero, Annalise [address] [place] [address] 03/02/2025 11:00 AM EDT Office Visit [facility] Medicine Specialties [address] [place] [address] Denise Keith, WALL MAN [address] [place] [address] 03/08/2025 10:40 AM EDT Office Visit [facility] Otolaryngology [address], [address] [place] [address] Melvin Casillas MD [address] [place] [address] 06/07/2025 9:50 AM EST Office Visit [facility] Medicine Specialties [address] [place] [address] Seda, Nidhi L, WALL MAN [address] [place] [address] documented as of this encounter Visit Diagnoses Diagnosis Mixed conductive and sensorineural hearing loss of both ears- Primary Chronic otitis externa of both ears, unspecified type Cochlear implant in place documented in this encounter Additional Health Concerns Assessment Noted Time PHQ-9 Depression Total Score: 0 12/03/19 10:03 AM EDT A fall risk assessment has been complete d for the patient 12/02/2024 10:03 AM EDT A Body Mass Index follow-up plan has been documented for the patient 12/06/2024 9:36 PM EDT documented as of this encounter Care Teams Freelance Director Relationship Specialty Start Date End Date Melvin Pink DO [address] [place] [address] PCP - General 12/01/24 documented as of this encounter
--- OUTSIDE RECORDS SUMMARY | 2024-12-29 11:32 | XMS_ITS | Encounter Summary ---
Author Organization [facility] Address [address] [place] [address] Care Team Providers Care Automotive Electrical Helper Name Role Phone JoesphMelvin Sunil CHRISTIAN Primary Care Provider [phone] Encounter Details Date Type Department Care Team (Latest Contact Info) Description 12/29/2024 11:32 AM EDT - 12/29/2024 11:59 PM EDT Hospital Encounter [facility] Rad[facility] [address], [address] [place] [address] Hypogammaglobulinemia (CMS/HCC) Discharge Disposition: Home or Self Care Social History Tobacco Use Types Packs/Day Years [...] PM EDT documented as of this encounter Medications at Time of Discharge atorvastatin (Lipitor) 10 MG tablet Take 1 tablet (10 mg) by mouth every night. 01/07/2021 bisacodyl (Dulcolax) 5 MG EC tablet cholecalciferol (Vitamin D3) 25 MCG (1000 UT) tablet Take 1 tablet by mouth daily. estradiol (Estrace) 0.1 MG/GM vaginal cream Insert 2 g into the vagina 2 (two) times a week. Saturday and Saturday06/06/2020 ezetimibe (Zetia) 10 MG tablet Take 1 tablet (10 mg) by mouth every night. 09/08/2020 fluticasone (Flonase) 50 MCG/ACT nasal spray Administer 1 spray into each nostril daily. Shake gently. Before first use, prime pump. After use, clean tip and replace cap. hydroxychloroquin e (Plaquenil) 200 MG tabletIndications :Sjogren syndrome, unspecified (CMS/HCC) Take 1 tablet by mouth daily. 90 tablet 4 12/02/2024 ketoconazole (NIZOral) 2 % shampoo Use twice a week for 6 weeks. Let it sit in the hair for 2-3 minutes then rinse out 120 mL 1 12/03/2024 levocetirizine (Xyzal) 5 MG tablet Take 1 tablet (5 mg) by mouth Daily. metFORMIN (Glucophage) 500 MG tablet Take 1 tablet (500 mg) by mouth twice a day. metoclopramide (Reglan) 10 MG tablet TAKE 1 TABLET BY MOUTH BEFORE MEALS AND AT BEDTIME 04/10/2024 Multiple Vitamins-Minerals (multivitamin with minerals) tablet Take 1 tablet by mouth 1 (one) time each day. pilocarpine (Salagen) 5 MG tabletIndications :Sjogren syndrome, unspecified (CMS/HCC) Take 1 tablet by mouth 3 times a day as needed (for dry mouth). 90 tablet 11 12/02/2024 Synthroid 125 MCG tablet Take 1 tablet (125 mcg) by mouth 1 (one) time each day before breakfast. 09/08/2020 documented as of this encounter Plan of Treatment Upcoming Encounters Date Type Department Care Team (Late st Contact Info) Description 01/27/2025 10:00 AM EDT Office Visit [facility] Audiology [address], [address] [place] [address] Patsy Lucero, AuD [address] [place] [address] 03/02/2025 11:00 AM EDT Office Visit [facility] Medicine Specialties [address], [address] [place] [address] Denise Keith, ADMINISTRATOR PESTICIDE [address] [place] [phone] 03/08/2025 10:40 AM EDT Office Visit [facility] Otolaryngology [address], [address] [place] [address] Melvin Casillas MD [address] [place] [address] 06/07/2025 9:50 AM EST Office Visit [facility] Medicine Specialties [address], [address] [place] [address] Nidhi Stack, ADMINISTRATOR PESTICIDE [address] [place] [address] documented as of this encounter Procedures Procedure Name Priority Date/Time Associated Diagnosis Comments XR CHEST 2 VIEWS Routine 12/29/2024 11:4 4 AM EDT Hypogammaglobulinemi a (CMS/HCC) documented in this encounter Results * XR Chest 2 Views (12/29/2024 11:44 AM EDT) Anatomical Region Laterality Modality Chest Digital Radiogra phy Impressions 12/29/2024 12:17 PM EDT No focal airspace consolidation. CRITICAL RESULT: No. COMMUNICATION: Per this written report. Drafted by Dami Alexis MD on 12/29/2024 12:14 PM Final report signed by Dami Alexis MD on 12/29/2024 12:17 PM Narrative 12/29/2024 12:17 PM EDT CLINICAL INDICATION: Hypogammaglobulinemia TECHNIQUE: XR CHEST 2 VIEWS COMPARISON: None. FINDINGS: Heart is normal in size. Mediastinal contours and pulmonary vasculature within normal limits. No focal airspace consolidation, pleural effusion or pneumothorax. Mild degenerative change of thoracic spine. Procedure Note Dami Alexis MD - 12/29/2024 CLINICAL INDICATION: Hypogammaglobulinemia TECHNIQUE: XR CHEST 2 VIEWS COMPARISON: None. FINDINGS: Heart is normal in size. Mediastinal contours and pulmonary vasculaturewithin normal limits. No focal airspace consolidation, pleural effusion orpneumothorax. Mild degenerative change of thoracic spine. IMPRESSION: No focal airspace consolidation. CRITICAL RESULT: No. COMMUNICATION: Per this written report. Drafted by Dami Alexis MD on 12/29/2024 12:14 PM Final report signed by Dami Alexis MD on 12/29/2024 12:17 PM Denise Keith ADMINISTRATOR PESTICIDE IMG XR PROCEDURES Final Re sult documented in this encounter Visit Diagnoses Diagnosis Hypogammaglobulinemia (CMS/HCC) Unspecified hypogammaglobulinemia documented in this encounter Additional Health Concerns Assessment Noted Time PHQ-9 Depression Total Score: 0 12/03/19 10:03 AM EDT A fall risk assessment has been complete d for the patient 12/02/2024 10:03 AM EDT A Body Mass Index follow-up plan has been documented for the patient 12/29/2024 12:14 PM EDT documented as of this encounter Care Teams Automotive Electrical Helper Relationship Specialty Start Date End Date Melvin Pink DO [address] [place] [address] PCP - General 12/01/24 documented as of this encounter
--- OUTSIDE RECORDS SUMMARY | 2024-12-29 13:00 | XMS_ITS | Encounter Summary ---
Author Organization [facility] Address [address] [place] [address] Care Team Providers Care Supplier Quality Engineer Name Role Phone Melvin Pink Primary Care Provider [phone] Reason for Visit * Reason Comments Nurse Visit Vaccine administrati on Encounter Details Date Type Department Care Team ([facility] Contact Info) Description 12/29/2024 1:00 PM EDT Clinical Support [facility] Medicine Specialties [address], [address] [place] [address] Analy Freitas RN [facility] RADIOLOGY Social History Tobacco Use Types Packs/Day Years [...] PM EDT documented as of this encounter Plan of Treatment Upcoming Encounters Date Type Department Care Team ([facility] Contact Info) Description 01/27/2025 10:00 AM EDT Office Visit [facility] Audiology [address], [address] [place] [address] Lucero, Patsy M, AuD [address] [place] [address] 03/02/2025 11:00 AM EDT Office Visit [facility] Medicine Specialties [address], [address] [place] [address] Denise Keith, MANAGER OF PMO [address] [place] [address] 03/08/2025 10:40 AM EDT Office Visit [facility] Otolaryngology [address], [address] [place] [address] Melvin Casillas MD [address] [place] [address] 06/07/2025 9:50 AM EST Office Visit [facility] Medicine Specialties [address], [address] [place] [address] Nidhi Stack, MANAGER OF PMO [address] [place] [address] documented as of this encounter Visit Diagnoses Not on filedocumented in this encounter Additional Health Concerns Assessment Noted Time PHQ-9 Depression Total Score: 0 12/03/19 10:03 AM EDT A fall risk assessment has been complete d for the patient 12/02/2024 10:03 AM EDT A Body Mass Index follow-up plan has been documented for the patient 12/29/2024 12:14 PM EDT documented as of this encounter Care Teams Supplier Quality Engineer Relationship Specialty Start Date End Date Melvin Pink DO [address] [facility] [address] [place] [address] PCP - General 12/01/24 documented as of this encounter
--- OUTSIDE RECORDS SUMMARY | 2025-01-18 09:52 | XMS_ITS | Continuity of Care Document ---
Author Organization [facility], ENDOCRINOLOGY [place] Address [address] [place] [id number] Care Team Providers Care Ui Lead Developer Name Role Phone KENNETH CHOE Education Research Analyst SUSAN MCCABE Referring Provider [phone] AVILA WELSH Primary Care Provider SUSAN MCCABE Work From Home ARTHUR WASHIGNTON Referring Provider Assessment No assessment recorded. Plan of Treatment Reminders Order Date Submit Date Provider Last Modified By Organization Details Last Modified Time Details Appointments RECHECK 2024 10:15A Everett BYRD MD Not available Not available Not available Lab TSH, serum or plasma 2024 025 [facility], [address] [place] [address], [phone], 01/06/2025 12:18:25 T4, free, serum 2024 025 [facility], [address] [place] [address], [phone], 01/06/2025 12:18:26 glucose, fingerst ick, blood 2024 025 [facility], [address] [place] [address], [phone], 01/06/2025 10:45:54 hemoglob in A1C, fingerst ick 2024 025 [facility], [address] [place], [phone], 01/06/2025 10:45:54 lipid panel, serum 2024 025 [facility], [address] [place] [address], [phone], 01/06/2025 12:18:23 Referral None recorded . Procedures None recorded . Surgeries None recorded . Imaging None recorded . Medication Orders metformi n 500 mg tablet 2024 025 [facility], [facility] [place], [address], 01/06/2025 10:45:58 Patient TargetsNo targets recorded. Patient InstructionsNo instructions recorded. Reason for Referral None Reported. Results Created Date Observation Date Name Description Value Unit Range Abnormal Flag Note LastModifiedBy Organization Detail LastModifiedTime 01/07/2001/06/2025 hemog lobin A1C, finge rstic k hemoglobin A1C % 5.1 % 4.0 - 5.6 Not Available [facility] [address] [place] [address], [phone], 01/06/2025 10:35:37 01/07/20 25 01/06/2025 gluco se, finge rstic k, blood glucose, fingerstick 214 mg/dL 70 - 100 Not Available [facility] [address], [phone], 01/06/2025 10:28:04 Result Notes None recorded. Problems Name Problem SNOMED Code Status Onset Date Resolution Date Notes Provider Name and Address Organization Details Recorded Time Vasomotor rhinitis 9788692 Active 2015 From Automated Load;Prov ider: Kenneth Choe;Statu s: Active Astrid zurita [place] - [facility] 8 09:21:25 Mixed conductiv e and sensorine ural hearing loss, bilateral 003625206 Active 2015 From Automated Load;Prov ider: Kenneth Choe;Statu s: Active Astrid Musa null, [facility] 8 09:21:25 Prediabet es 040998572 Active 2015 From Automated Load;Prov ider: Annemarie Byrd;Sta tus: Active Astrid Musa null, [facility] 8 09:21:25 Hypothyro idism 66309419 Active 2015 From Automated Load;Prov ider: Annemarie Byrd;Sta tus: Active Astrid Musa null, [facility] 8 09:21:25 Hyperlipi demia 69785175 Active 2015 From Automated Load;Prov ider: Annemarie Byrd;Sta tus: Active Astrid Musa null, [facility] 8 09:21:25 Thyroidit is 78824170 Active 2014 From Automated Load;Prov ider: Adair Cadena;Stat us: Active Astrid Musa null, [facility] 8 09:21:25 Hyperglyc emia 42925268 Active 2014 From Automated Load;Prov ider: Adair Cadena;Stat us: Active Astrid Musa null, [facility] 8 09:21:25 Mixed hyperlipi demia 823061308 Active 2014 From Automated Load;Prov ider: Adair Cadena;Stat us: Active Astrid Musa null, [facility] 8 09:21:25 Impacted cerumen 65410121 Active 2014 From Automated Load;Prov ider: Kenneth Choe;Statu s: Active Astrid Musa null, [facility] 8 09:21:25 Sensorine ural hearing loss 25632373 Active 2014 From Automated Load;Prov ider: Kenneth Choe;Statu s: Active Astrid Musa null, [facility] 8 09:21:25 Chronic rhinitis 32064659 Active 2014 Provider: Kenneth Choe;Statu s: Active Astrid Musa null, [facility] 8 09:21:25 Eustachia n tube disorder 31384418 Active 2014 Provider: Kenneth Choe;Statu s: [facility] 8 09:21:25 Sensorine ural hearing loss of bilateral ears 822490039 Active 2014 Provider: Kenneth Choe;Statu s: Active [facility] 8 09:21:25 Sleep apnea 60973459 Active 2014 Provider: Kenneth Choe;Statu s: Active [facility] 8 09:21:25 Inflammat ory dermatosi s 872829755 Active 2014 Provider: Kenneth Choe;Statu s: Active [facility] 8 09:21:25 Otitis externa 2721355 Active 2014 From Automated Load;Prov ider: Kenneth Choe;Statu s: Active Astrid Musa [facility] 8 09:21:25 Bone density finding 256660830 Active 2015 From Automated Load;Prov ider: Annemarie Byrd;Sta tus: Active [facility] 8 09:21:25 Otitis externa of right ear 283529179644 9101 Active 2015 From Automated Load;Prov ider: Kenneth Choe;Statu s: Active [facility] 8 09:21:25 Mixed conductiv e AND sensorine ural hearing loss 83159800 Active 2015 From Automated Load;Prov ider: Kenneth Choe;Statu s: Active [facility] 8 09:21:25 Chronic otitis externa 47179652 Active 2014 Provider: Kenneth Choe;Statu s: Active [facility] 8 09:21:25 Allergic rhinitis 46671061 Active 2014 Provider: Kenneth Choe;Statu s: Active Astrid zurita, [facility] 09:21:25 Problem Notes None recorded. Procedures Surgical History Date Name Laterality Status Provider Name and Address Organization Details Recorded Time 06/12/20 24 DXA Low Bone Mass 1 - No Tx completed ANNEMARIE BYRD MD [address] [place], [phone], [facility] 06/12/2024 17:48:50 08/20/19 24 Destruction Premalign[facility] Lesion([facility] 08/20/2023 15:40:37 08/20/19 24 Destruction BN Lesions completed Leta [facility] 08/20/2023 15:40:26 06/28/20 22 Cystoscopy - female completed VINICIO WILKINS MD [address] [place], [address], [facility] 06/28/2022 13:21:55 05/10/20 22 Post Void Residual; Ultrasound completed Georgia Delcid [facility] 05/10/2022 09:10:42 04/16/20 22 DXA Low Bone Mass 1 - No Tx completed ANNEMARIE BYRD MD [address] [place], [address], [facility] 04/16/2022 12:52:34 06/19/20 19 Pessary Insertion completed DOT RAMIREZ MD [address] [place] [address], [phone], [facility] 06/23/2019 21:52:40 01/23/20 19 DXA Low Bone Mass 1 - No Tx completed ANNEMARIE BYRD MD [address] [place], [address], [facility] 01/22/2019 16:51:09 02/29/20 18 Binocular Microscopy completed [facility] 02/28/2018 15:27:57 02/21/20 18 Ears/Nose/Throat Surgery completed Layla Madden [facility] 02/28/2018 15:14:43 12/21/19 18 Binocular Microscopy completed Allyce [facility] 12/20/2017 13:06:21 11/30/19 18 Binocular Microscopy completed Xin [facility] 11/29/2017 09:34:05 07/05/20 17 Cerumen removal - Instruments, Unilateral completed [facility] 07/05/2017 10:23:04 06/07/20 17 Binocular Microscopy completed Olinda Salinas [facility] 06/07/2017 09:48:44 02/16/20 17 DXA Low Bone Mass 1 - No Tx completed ANNEMARIE BYRD MD [address] [place] [address], [phone], [facility] 02/18/2017 18:08:26 02/02/20 17 Binocular Microscopy completed Carol Velasquez [facility] 02/01/2017 11:00:25 11/24/19 17 Binocular Microscopy completed [facility] 11/23/2016 10:48:40 03/26/20 13 Ears/Nose/Throat Surgery completed [facility] 06/07/2017 09:12:53 Back Surgery completed [facility] 01/08/2017 10:27:45 Tonsillectomy completed [facility] 01/08/2017 10:27:51 Cholecystectomy completed [facility] 01/08/2017 10:27:58 Ears/Nose/Throat Surgery completed [facility] 01/08/2017 10:28:12 Medical Care Manager Surgery completed [facility] 01/08/2017 10:28:25 Ears/Nose/Throat Surgery completed [facility] 06/07/2017 09:13:15 Imaging Results None recorded. Procedure Notes None recorded. Medical Equipment None Reported. Allergies Allergen ID Allergen Name Allergen Category Reaction Reaction Severity Criticality Documentation Date Start Date Code Code System Note Provider Name and Address Organization Details Recorded Time 759650 Substance with sulfonami de structure and antibacte rial mechanism of action (substanc e) medicatio n Not available Not available Not available 06/21/20162005 38520 8004 SNOMED Comme nt: Creat ed By: Bere graham Date: 2005 1:21: 53 PM; [facility] 9 11:00:14 [id number] amoxicill in trihydrat e medicatio n other Not available Not available 06/21/20162008 63031 8 RxNorm React ion: OTHER ; Comme nt: flush ing tongu e;Cre ated By: Noe yorkCre ated Date: 2008 10:45 :39 AM; Not Available [facility] 6 12:47:44 297386 Product containin g penicilli n (product) medicatio n Not available Not available Not available 06/22/20162005 93334 8001 SNOMED Comme nt: Creat ed By: Bere Connors ;Crea santos Date: 2005 1:22: 18 PM; Not Available [facility] 6 03:42:54 299096 Keflex medicatio n Not available Not available Not available 06/22/2016200516 7 RxNorm Comme nt: Creat ed By: Bere Connors ;Crea santos Date: 2005 1:22: 07 PM; [facility] 9 09:27:23 329368 Ceftin medicatio n other Not available Not available 06/22/20162007 97671 6 RxNorm React ion: TONGU E SWELL ING; Comme nt: Creat ed By: Ismael Merritt ;Crea santos Date: 2007 10:19 :01 AM; Not Available [facility] 6 04:29:48 353199 Mobic medicatio n Not available Not available Not available 06/22/20162012 20148 9 RxNorm Comme nt: Creat ed By: Ahsan washingtonCr eated Date: 2012 11:34 :39 AM; [facility] 9 09:27:31 [id number] Medicinal product containin g cephalosp lawson and acting as antibacte rial agent (product) medicatio n Not available Not available Not available 12/03/2022 34457 9009 SNOMED Jody Rios [facility] 3 14:25:56 Medications Name Sig Start Date Stop Date Status Note LastModified by Organization Details LastModified Time covid-19 at home tst kt 2pk(walgn s) USE DIRECTED ON PACKAGE active Not Available Not Available No t Available amoxicill in 500 mg capsule 12/12 completed Not Available Not Available Not Available fluconazo le 100 mg tablet 05/10 completed Not Available Not Available Not Available clotrimaz ole 10 mg santhosh ALLOW 1 TO DISSOLVE SLOWLY IN THE MOUTH 5 TIMES DAILY DIRECTED active Not Available Not Available No t Available metformin 500 mg tablet TAKE 1 TABLET TWICE A DAY WITH MEALS 2024 active Not Available Not Available Not Avai lable pilocarpi ne 5 mg tablet TAKE 1 TABLET BY MOUTH THREE TIMES DAILY NEEDED FOR DRY MOUTH active Not Available Not Available No t Available nystatin 100,000 unit/mL oral suspensio n active Not Available Not Available Not Available doxycycli ne hyclate 100 mg capsule 12/13 completed Not Available Not Available Not Available ketoconaz ole 2 % shampoo USE TWICE A WEEK FOR 6 WEEKS. LET SIT IN THE HAIR FOR 2 TO 3 MINUTES THEN RINSE OUT active Not Available Not Available No t Available clindamyc in HCl 300 mg capsule active Not Available Not Available Not Available albuterol sulfate 2.5 mg/3 mL (0.083 %) solution for nebulizat ion 12/13 completed Not Available Not Available Not Available atorvasta tin 10 mg tablet TAKE 1 TABLET DAILY IN THE EVENING active Not Available Not Available No t Available azithromy willie 250 mg tablet TAKE 2 TABLETS BY MOUTH FOR 1 DAY THEN TAKE 1 TABLET BY MOUTH DAILY FOR 4 DAYS 06/26 completed Not Available Not Available Not Available fluconazo le 150 mg tablet TAKE 1 TABLET BY MOUTH EVERY DAY FOR 1 DAY 05/10 completed Not Available Not Available Not Available benzonata te 200 mg capsule TAKE 1 CAPSULE BY MOUTH 3 TIMES A DAY IF NEEDED FOR COUGH FOR UP TO 7 DAYS. DO NOT CRUSH OR CHEW. active Not Available Not Available No t Available hydrocort isone valerate 0.2 % topical cream active Not Available Not Available Not Available hydrocodo ne 5 mg-acetam inophen 325 mg tablet active Not Available Not Available Not Available Claritin 10 mg tablet Daily 12/13 completed Frequenc y: daily;Me dication Descript ion: loratadi ne; Dosage:1 ; Route:or al; refills: 0; Quantity :30 tablet Not Available Not Available Not Available Synthroid 125 mcg tablet Take 1 tablet every a.m. 5 days a week 2023 active Not Available Not Available Not Avai lable Atrovent 0.03 % nasal spray Daily 12/13 completed Duration : 30 days;Ins truction s: each nostril; Frequenc y: daily;Me dication Descript ion: ipratrop ium nasal; Dosage:2 puffs; Route:na brooks; refills: 11; Quantity :1 spray Not Available Not Available Not Available Evoxac 30 mg capsule Take 1 capsule 3 times a day by oral route for 30 days. 05/10 completed Not Available Not Available Not Available Zyrtec 10 mg tablet Take 1 tablet every day by oral route. active Not Available Not Available No t Available metronida zole 500 mg tablet TAKE 1 TABLET BY MOUTH 3 TIMES A DAY WITH FOOD FOR 10 DAYS 05/10 completed Not Available Not Available Not Available trimethop rim 100 mg tablet 05/10 completed Not Available Not Available Not Available acyclovir 400 mg tablet TAKE 1 TABLET BY MOUTH FIVE TIMES DAILY FOR 7 DAYS 12/03 completed Not Available Not Available Not Available ciproflox acin 500 mg tablet TAKE 1 TABLET BY MOUTH TWICE DAILY FOR 10 DAYS active Not Available Not Available No t Available sulfameth oxazole 800 mg-trimet hoprim 160 mg tablet Take 1 tablet every 12 hours by oral route. 12/03 completed Not Available Not Available Not Available triamcino lone acetonide 0.1 % topical cream APPLY TOPICALL Y TO THE AFFECTED AREA TWICE DAILY FOR 14 DAYS active Not Available Not Available No t Available ondansetr on 8 mg disintegr ating tablet PLEASE SEE ATTACHED FOR DETAILED DIRECTIO NS active Not Available Not Available No t Available dexametha sone sodium phosphate 0.1 % eye drops INSTILL 4 DROPS TWICE DAILY IN BOTH EARS 05/10 completed Not Available Not Available Not Available cyclopent olate 1 % eye drops 12/13 completed Not Available Not Available Not Available erythromy willie 250 mg tablet TAKE 1 TABLET BY MOUTH 3 TO 4 TIMES A DAY FOR GASTROPA RESIS. TAKE 30 MINUTES BEFORE MEAL OR SNACK 05/10 completed Not Available Not Available Not Available ofloxacin 0.3 % ear drops 12/03 completed Not Available Not Available Not Available prednisol one acetate 1 % eye drops,antonella pension INSTILL 4 DROPS IN THE RIGHT EAR WEEKLY 12/12 completed Not Available Not Available Not Available metoclopr amide 5 mg tablet TAKE 1 TABLET BY MOUTH 3-4 TIMES A DAY TAKE 30 MINS BEFORE MEAL 05/10 completed Not Available Not Available Not Available triamcino lone acetonide 0.025 % topical cream 12/22 completed Not Available Not Available Not Available dicyclomi ne 20 mg tablet TAKE 1 TABLET BY MOUTH TWICE A DAY NEEDED 05/10 completed Not Available Not Available Not Available betametha sone valerate 0.1 % topical cream As Directed 12/22 completed Not Available Not Available Not Available ciproflox acin 0.3 % eye drops INSTILL 4 DROPS INTO BOTH EARS TWICE DAILY FOR 7 DAYS DIRECTED 05/10 completed Not Available Not Available Not Available meclizine 25 mg tablet 1 tab q 12 hours prn #20 04/30 completed Not Available Not Available Not Available phenazopy ridine 100 mg tablet TAKE 2 TABLETS BY MOUTH THREE TIMES DAILY AFTER MEALS FOR 2 DAYS 05/10 completed Not Available Not Available Not Available doxycycli ne monohydra te 100 mg capsule Take 1 capsule twice a day by oral route for 10 days. 12/22 completed Not Available Not Available Not Available hydrocodo ne 7.5 mg-acetam inophen 325 mg tablet 02/28 completed Not Available Not Available Not Available erythromy willie 5 mg/gram (0.5 %) eye ointment 12/13 completed Not Available Not Available Not Available nitrofura ntoin macrocrys radha 100 mg capsule TAKE 1 CAPSULE BY MOUTH EVERY DAY AT BEDTIME WITH FOOD OR MILK FOR 10 DAYS 05/10 completed Not Available Not Available Not Available docusate sodium 100 mg capsule TAKE 1 CAPSULE BY MOUTH ONCE TO TWICE A DAY FOR CONSTIPA TION 05/10 completed Not Available Not Available Not Available oxybutyni n chloride ER 5 mg tablet,ex tended release 24 hr Take 1 tablet every day by oral route. 05/10 completed Not Available Not Available Not Available omeprazol e 20 mg capsule,d elayed release Daily 06/25 completed Frequenc y: daily;Me dication Descript ion: omeprazo le; Dosage:1 ; Route:or al; refills: 0 Not Available Not Available Not Available budesonid e 0.5 mg/2 mL suspensio n for nebulizat ion 12/13 completed Not Available Not Available Not Available monteluka st 10 mg tablet 05/10 completed Not Available Not Available Not Available mupirocin 2 % topical ointment APPLY TO AFFECTED AREA 3 TIMES A DAY 05/10 completed Not Available Not Available Not Available Synthroid 112 mcg tablet 07/02 completed Not Available Not Available Not Available Transderm -Scop 1 mg over 3 days transderm al patch 06/25 completed Not Available Not Available Not Available hydroxych loroquine 200 mg tablet TAKE 1 TABLET DAILY active Not Available Not Available No t Available levofloxa willie 500 mg tablet TAKE 1 TABLET BY MOUTH ONCE DAILY FOR 7 DAYS active Not Available Not Available No t Available estradiol 0.01% (0.1 mg/gram) vaginal cream INSERT 1 APPLICAT ORFUL VAGINALL Y DAILY FOR 14 DAYS active Not Available Not Available No t Available methylpre dnisolone 4 mg tablets in a dose pack active Not Available Not Available Not Available ondansetr on 4 mg disintegr ating tablet active Not Available Not Available Not Available fluticaso ne propionat e 50 mcg/actua tion nasal spray,antonella pension Daily 05/10 completed as needed Not Available Not Available Not Available sertralin e 50 mg tablet 06/25 completed Medicati on Descript ion: sertrali ne; Dosage:1 ; Route:or al; refills: 0 Not Available Not Available Not Available metoclopr amide 10 mg tablet TAKE 1 TABLET BY MOUTH BEFORE MEALS AND AT BEDTIME active Not Available Not Available No t Available tobramyci n 0.3 %-dexamet hasone 0.1 % eye drops,antonella pension Instil 5 drops into the affected EAR BID for 14 days 12/13 completed Not Available Not Available Not Available neomycin- polymyxin -hydrocor t 3.5 mg-10,000 unit/mL-1 % ear drops,antonella p 06/25 completed Not Available Not Available Not Available Mucinex 600 mg tablet, extended release 12/22 completed Medicati on Descript ion: guaifene sin; Route:or al; refills: 0 Not Available Not Available Not Available ezetimibe 10 mg tablet TAKE 1 TABLET DAILY active Not Available Not Available No t Available Laxative (bisacody l) 5 mg tablet active Not Available Not Available Not Available ciproflox acin 0.3 %-dexamet hasone 0.1 % ear drops,antonella pension SHAKE LIQUID AND PLACE 4 DROPS INTO LEFT EAR TWICE DAILY FOR 7 DAYS active Not Available Not Available No t Available nitrofura ntoin monohydra te/macroc rystals 100 mg capsule TAKE 1 CAPSULE BY MOUTH EVERY 12 HOURS FOR 10 DAYS. TAKE WITH MEAL/RUBEN D. active Not Available Not Available No t Available Flovent HFA 110 mcg/actua tion aerosol inhaler 12/13 completed Not Available Not Available Not Available chlorhexi dine gluconate 0.12 % mouthwash USE 15 ML IN THE MOUTH OR THROAT IF NEEDED FOR WOUND CARE FOR UP TO 14 DAYS active Not Available Not Available No t Available mometason e 0.1 % topical solution APPLY A FEW DROPS TO THE AFFECTED AREA(S) BY TOPICAL ROUTE ONCE DAILY active Not Available Not Available No t Available Zostavax (PF) 19,400 unit/0.65 mL subcutane ous suspensio n 12/13 completed Not Available Not Available Not Available ProAir HFA 90 mcg/actua tion aerosol inhaler 12/13 completed Not Available Not Available Not Available peg 3350-elec trolytes 236 gram-22.7 4 gram-6.74 gram-5.86 gram solution MIX AND DRINK DIRECTED 05/10 completed Not Available Not Available Not Available levocetir izine 5 mg tablet Take 1 tablet every day by oral route for 30 days. active Not Available Not Available No t Available Voltaren 1 % topical gel APPLY 2 GRAMS TO THE AFFECTED AREA(S) BY TOPICAL ROUTE 2 TIMES PER DAY 2019 active Not Available Not Available Not Avai lable azelastin e 205.5 mcg (0.15 %) nasal spray Daily 12/13 completed Not Available Not Available Not Available Suprep Bowel Prep Kit 17.5 gram-3.13 gram-1.6 gram oral solution 06/25 completed Not Available Not Available Not Available Otovel 0.3 %-0.025 % (0.25 mL) ear solution Instill one vial into the affected ear BID x 5 days 12/13 completed Not Available Not Available Not Available cannabidi ol (CBD) oral oil Take by oral route. 05/10 completed Not Available Not Available Not Available prednisol one acetate (PF) 1 % eye drops,antonella pension INSTILL 3-4 DROPS IN BILATERA L EARS FOR 6 DAYS; USE WEEKLY AFTER 04/30 completed Not Available Not Available Not Available Flowflex COVID-19 Antigen Home Test kit TEST DIRECTED active Not Available Not Available No t Available Vitals Date Recorded Body height Body mass index (BMI) Body weight Systolic blood pressure Diastolic blood pressure Provider Name and Address Organization Details Last Updated DateTime 01/06/2025 162.56 cm 28.8 kg/m2 98744.52 g 122 mm[Hg] 76 mm[Hg] Riri [facility] 10:29:18 Social History Question Answer Notes LastModified by Seltenerden Storkwitz Details LastModified Time Tobacco Smoking Status Never Smoker [facility] 01/08/2017 10:27:07 How Much Tobacco Do You Chew? None [email or web address] Information not available 06/19/2019 What Was The Date Of Your Most Recent Tobacco Screening? 12/03/2022 [email or web address] Information not available 12/03/2022 How Much Tobacco Do You Smoke? No [email or web address] Information not available 06/19/2019 Has Tobacco Cessation Counseling Been Provided? No [email or web address] Information not available 02/28/2018 How Many Years Have You Smoked Tobacco? 0 [email or web address] Information not available 07/02/2019 Sex: Female Functional Status Question Answer Note LastModified by Gruviizat ion Details LastModified Time Do you or have you ever used any other forms of tobacco or nicotine? No [email or web address] Information not available 06/26/2021 What is your level of alcohol consumption? Occasional [email or web address] Information not available 01/08/2017 Do you or have you ever used smokeless tobacco? Never used smokeless tobacco [email or web address] Information not available 07/02/2019 Do you or have you ever used e-cigarettes or vape? Never used electronic cigarettes [email or web address] Information not available 07/02/2019 Mental Status None recorded. Family History Relationship Description Onset Age of this Age Resolved Age Notes LastModified by Organization Details LastModified Time Sister Asthma Not availab le 03/06/2018 11:26:43 Sister Hearing loss [email or web address] Not a vailable 03/06/2018 11:26:44 Sister Hypertensive disorder [email or web address] Not available 03/2018 11:26:44 Sister Disorder of thyroid gland [email or web address] Not available 03/2018 11:26:44 Unspecified Relation Family history of malignant neoplasm [email or web address] Not available 03/2018 11:26:44 Unspecified Relation Allergic rhinitis [email or web address] Not available 2017 10:27:46 Mother Diabetes mellitus [email or web address] Not available 03/2018 11:26:44 Mother Hearing loss [email or web address] Not a vailable 03/06/2018 11:26:44 Brother Hearing loss [id number] Not available 03/06/2018 11:26:44 Brother Hypertensive disorder [id number] Not available 03/2018 11:26:44 Brother Disorder of thyroid gland [id number] Not available 03/2018 11:26:44 Medical History Condition Response Pancreatitis Y Gout N Other Y Thyroid Disease Y Macular Degeneration N Kidney Stones N Hyperthyroidism N Heart Arrhythmia N Emphysema N Hernia Y Esophagus/swallowing troubles Y Depression N COPD N Hypothyroidism Y Glaucoma N Pneumonia N Thyroid nodule mass N Anesthesia Complications Y Anxiety Disorder N Hypercalcemia N Arthritis Y Shingles Y Esophagus/swallowing trouble N Acid Reflux (GERD) Y Cancer N Stroke N Hypoglycemia N Thyroid cyst N Alcohol Overuse/Alcohol Abuse N High Cholesterol Y Skin Cancer N Liver Disease N Rheumatoid Arthritis N Headaches Y Kidney Disease N Allergies/Hayfever Y Heart Problems N Black Lung N Gallbladder Disease N Migraines Y Thyroid Problems Y Kidney or Bladder Problems N Goiter N Nervous Breakdown N Chest Pain N Stomach trouble Y Colon Polyps Y Ulcers N Heart Attack (MT) N Osteopenia N Diabetes N Rheumatic Fever N High triglycerides Y Bleeding Disorder N Tuberculosis N AIDS/HIV N Congestive Heart Failure (CHF) N Hyperlipidemia Y Urinary Tract Infection Y Diverticulitis Y Cataract Y Asthma Y Epilepsy/Seizures N Sleep Apnea Y Hepatitis Y Heart Disease N Hypertension N Osteoporosis Y Gynecological HistoryNo gynecological history recorded. Obstetrics History GPAL:G 2 P 0 0 0 2 Type Value Living 2 Total 2 Past Encounters Encounter ID Performer Location Encounter Start Date Encounter Closed Date Diagnosis/Indication Diagnosis SNOMED-CT Code Diagnosis ICD10 Code Diagnosis Note [id number] ANNEMARIE BYRD MD [facility] [address] [place] [address] 01/06/2025 10:08:57 01/06/2025 13:01:05 Prediabetes 284786050 R73.03 A1c of 5.1 from 5.4Random point-of-c are blood glucose 214I recounsele d patient about the importance of intensive lifestyle modificati ons in the form of weight loss [targettin g 7 % body weight loss, moderate intensity exercise i.e brisk walking at least 150 minutes a week ] in patient with increased risk of diabetes [ IGT/IFG or A1C 5.7-6.4 %] which has been shown to reduce risk of future diabetes by about 50% in clinical trials .Continue current metformin 500 mg twice a dayContinu e current metformin therapy Acquired hypothyroidism 442832272 E03.9 She denies any hypothyroi d symptomsNo symptoms of exogenous hyperthyro idismConti nue current Synthroid therapy same dosePatien t was instructed on the appropriat e method of levothyrox in administra tion to be taken every a.m. on an empty stomach as new food, drinks or other medication s for at least 30 minutes. PPI and calcium -containin g preparatio ns is preferred to be given at least of her hours before or after levothyrox in therapy.TS H and free T4 today Further adjustment of Synthroid dose as appropriat e Hyperlipidemia 37772061 E78.5 Most recent LDL of 67 in June 2020Contin ue current atorvastat in therapy 10 mg every bedtime and Zetia 10 mgRecheck lipid panel todayCouns eled about the importance of low-choles terol diet and no significan t for diet. 6 months follow-up Patient verbalized understand ing and agreed with the above mentioned plan of care. Health Concerns Section Related Observation LastModified by Organization Detai ls LastModified Time None Recorded Concern Status LastModified by Organization Details LastModified Time None Recorded Payers Encounter Date Sequence Insurance Name Policy Number Policy Kyle Covered Member ID Kyle Member ID Guarantor Name 01/06/2025 1 [facility] (MEDICARE REPLACEMENT/A DVANTAGE - PPO) [id number] Minnie Woodard [id number] Minnie Woodard Notes Date Note Type Note Provider Name and Address Organization Details Recorded Time 01/06/2025 text/html 79-year-old female patient with a past medical history as detailed below significant for obesity, long-standing primary hypothyroidism on thyroid hormone replacement therapy, hyperlipidemia, obstructive sleep apnea on CPAP , prediabetes and gastroparesis seen in the office today for a follow-up visit Hypothyroidism, hyperlipidemia/pre-d iabetes/ vitamin D deficiency/osteopeni a Summary of history:Last office visit on 06/29/2020 Larry takes atorvastatin 10 mg every day and Zetia for hyperlipidemia.She also takes Synthroid 125 g every a.m. 5 days a weekFor prediabetes she currently takes metformin 500 mg twice a day. SHe did not bring glucometer with her today.She uses CPAP for obstructive sleep apneaHad a history of osteopenia and calcium and/vitamin DBone density in 04/16/2022 showed osteopenia [she does not qualify FRAX criteria for therapy].Currently takes vitamin D 2000 units dailyShe denies any palpitations, shaking, excessive sweating or heat intolerance Recently she had a cochlear implant for decreased hearing ANNEMARIE BYRD MD [facility] [place], [address], [facility] 01/06/2025 12:46:32 OBGyn Episode No OBEpisode recorded.
--- OUTSIDE RECORDS SUMMARY | 2025-01-18 09:52 | XMS_ITS | Clinical Summary ---
Author Organization [facility] Address [address] [place] [address] Care Team Providers Care Staff Psychiatrist Name Role Phone Melvin Pink DO Primary Care Provider [phone] Allergies Active Allergy Reactions Criticality Noted Date Comments Amoxicillin Hives Medium 05/03/2017 Cefuroxime Swelling High 05/21/2013 Cephalexin Swelling High 05/21/2013 Cephalosporins Swelling High 05/03/2017 Penicillins Hives Medium 05/21/2013 Sulfa Drugs Rash Low 05/04/2022 Medications atorvastatin (Lipitor) 10 MG tablet Take 1 tablet (10 mg) by mouth every night. 1 Active estradiol (Estrace) 0.1 MG/GM vaginal cream Insert 2 g into the vagina 2 (two) times a week. Saturday and Saturday 0 Active ezetimibe (Zetia) 10 MG tablet Take 1 tablet (10 mg) by mouth every night. 1 Active Synthroid 125 MCG tablet Take 1 tablet (125 mcg) by mouth 1 (one) time each day before breakfast. 1 Active metFORMIN (Glucophage) 500 MG tablet Take 1 tablet (500 mg) by mouth twice a day. Active Multiple Vitamins-Mineral s (multivitamin with minerals) tablet Take 1 tablet by mouth 1 (one) time each day. Active bisacodyl (Dulcolax) 5 MG EC tablet Active levocetirizine (Xyzal) 5 MG tablet Take 1 tablet (5 mg) by mouth Daily. Active metoclopramide (Reglan) 10 MG tablet TAKE 1 TABLET BY MOUTH BEFORE MEALS AND AT BEDTIME Active fluticasone (Flonase) 50 MCG/ACT nasal spray Administer 1 spray into each nostril daily. Shake gently. Before first use, prime pump. After use, clean tip and replace cap. Active cholecalciferol (Vitamin D3) 25 MCG (1000 UT) tablet Take 1 tablet by mouth daily. Active hydroxychloroqui ne (Plaquenil) 200 MG tabletIndication s:Sjogren syndrome, unspecified (CMS/HCC) Take 1 tablet by mouth daily. 90 tablet 4 5 Active pilocarpine (Salagen) 5 MG tabletIndication s:Sjogren syndrome, unspecified (CMS/HCC) Take 1 tablet by mouth 3 times a day as needed (for dry mouth). 90 tablet 11 5 Active ketoconazole (NIZOral) 2 % shampoo Use twice a week for 6 weeks. Let it sit in the hair for 2-3 minutes then rinse out 120 mL 1 Active Active Problems Problem Noted Date Diagnosed Date High cholesterol 02/28/2023 Acquired hypothyroidism 02/28/2023 Type 2 diabetes mellitus, [facility] long-term current use of insulin 02/28/2023 Gastroparesis 02/28/2023 Hiatal hernia 02/28/2023 Mild intermittent asthma without complication PONV (postoperative nausea and vomiting) 023 Sjogren's syndrome 02/28/2023 SWETA (obstructive sleep apnea) 02/28/2023 Mixed conductive and sensori neural hearing loss of both ears 02/07/2022 Encounters Date Type Department Care Team Description 01/05/2025 Orders Only [facility] Pediatric Specialty [address] [place] [address] Denise Keith, HYDRAULIC PRESS TENDER History of recurrent infection (Primary Dx) 12/29/2024 1:00 PM EDT Clinical Support [facility] Medicine Specialties [address], [address] [place] [address] Analy Freitas RN 12/29/2024 11:32 AM EDT - 12/29/2024 11:59 PM EDT Hospital Encounter [facility] Radiology [address], [address] [place] [address] Hypogammaglobulinemia (CMS/HCC) Discharge Disposition: Home or Self Care 12/29/2024 Orders Only [facility] Pediatric Specialty [address] [place] [address] Denise Keith, MACIEL Recurrent infections (Primary Dx) 12/29/2024 Travel 12/14/2024 Orders Only [facility] Pediatric Specialty [address] [place] [address] Denise Keith, MACIEL Hypogammaglobulinemia (CMS/HCC) (Primary Dx) 2024 Results Follow-Up [facility] Medicine Specialties [address] [place] [address] Nidhi Stack APRN 12/04/2024 10:00 AM EDT Office Visit [facility] Otolaryngology [address], [address] [place] [address] Melvin Casillas MD Mixed conductive and sensorineural hearing loss of both ears (Primary Dx); Chronic otitis externa of both ears, unspecified type; Cochlear implant in place 12/04/2024 Travel 12/02/2024 11:10 AM EDT Clinical Support [facility] Lab [address], [address] [place] [phone] Sjogren syndrome, unspecified (CMS/HCC); Hypogammaglobulinemia (CMS/HCC) 12/02/2024 9:50 AM EDT Office Visit [facility] Medicine Specialties [address] [place] [phone] Nidhi Stack APRN Sjogren syndrome, unspecified (CMS/HCC) (Primary Dx) 12/02/2024 Telephone [facility] Medicine Specialties [address] [place] [address] Agustina Archer 12/02/2024 Travel 12/01/2024 10:00 AM EDT Consult [facility] Medicine Specialties [address], [address] [place] [address] Denise Keith APRN Seborrheic dermatitis (Primary Dx); Sjogren syndrome, unspecified (CMS/HCC); Hypogammaglobulinemia (CMS/HCC) 12/01/2024 Travel 11/26/2024 10:00 AM EDT Consult [facility] [address], [address] [place] [address] SebastianJesusita galvan PA Migraine with aura and without status migrainosus, not intractable (Primary Dx); Tremor 11/26/2024 Travel 11/17/2024 Telephone [facility] Audiology [address], [address] [place] [address] Genet Diaz from Last 3 Months Immunizations Immunization Administration Dates Next Due Influenza Vaccine, Quadrival ent, Adjuvanted 06/12/2021 Influenza, High-dose, Split Virus, Trivalent, Injectable, preservative free 04/30/2016 Influenza, high-dose, quadrivalent 06/06,05/25/2022,04/30/2016,04/30 Influenza, injectable, quadrivalent 04/28/2016 Influenza, trivalent, adjuvanted 07/08/2024,05/29 Pneumococcal Polysaccharide PPV23 12/29/2024 Pneumococcal, Unspecified 03/29/2016 TD (adult), 2 Lf tetanus tox oid, preservative free, adsorbed 10/01/1996 Zoster, live 04/28/2016,04/12/2016 Family History Medical History Relation Name Comments Autoimmune disease Brother 1 Conversions - Other Brother 2 hearing problem Lung cancer Father Breast cancer Father's Sister Conversions - Other Mother hearing problem Autoimmune disease Sister 1 Conversions - Other Sister 2 hearing problem Malig Hyperthermia Neg Hx Relation Name Status Comments Brother 1 Brother 2 Father Father's Sister Mother Sister 1 Sister 2 Social History Tobacco Use Types Packs/Day Years [...] Orientation Straight 12/06/2023 12 :07 PM EDT Last Filed Vital Signs Vital Sign Reading Time Taken Comments Blood Pressure 112/62 12/04/2024 9:49 AM EDT Pulse 75 12/02/2024 10:04 AM EDT Temperature 36.7 C (98 F) 12/02/2024 10:04 AM EDT Respiratory Rate 16 12/01/2024 9:56 AM EDT R A Oxygen Saturation 99% 12/02/2024 10:04 AM EDT Inhaled Oxygen Concentration - - Weight 78 kg (172 lb) 12/04/2024 9:49 AM EDT Height 162.6 cm (5' 4 ) 12/02/2024 10:04 AM EDT Body Mass Index 29.52 12/02/2024 10:04 AM EDT Plan of Treatment Upcoming Encounters Date Type Department Care Team (Late st Contact Info) Description 01/27/2025 10:00 AM EDT Office Visit [facility] Audiology [address], [address] [place] [address] Patsy Lucero, AuD [address] [place] [address] 03/02/2025 11:00 AM EDT Office Visit [facility] Medicine Specialties [address], [address] [place] [address] Denise Keith, HYDRAULIC PRESS TENDER [address] [place] [address] 03/08/2025 10:40 AM EDT Office Visit [facility] Otolaryngology [address], [address] [place] [address] Melvin Casillas MD [address] [place] [address] 06/07/2025 9:50 AM EST Office Visit [facility] Medicine Specialties [address], [address] [place] [address] Nidhi Stack, HYDRAULIC PRESS TENDER [address] [place] [address] Health Maintenance Due Date Last Done Comments [facility]-Hepatitis C Screening 1945 [facility]-Medicare Annual Wellness (AWV) 1945 [facility]-/Child/Adol SDOH Screenings 1945 Diabetes: Dental Exam 1956 [facility]- SDOH Screenings 1964 [facility]-Adult SDOH Screenings 1964 [facility]-DTaP,Tdap,and Td Vaccines (1 - Tdap) 10/02/1996 10/01/1996 [facility]-Zoster Vaccines (2 of 3) 06/23/2016 04/28/2016, 04/12/2016 [facility]-Diabetes: Hemoglobin A1C 04/14/2019 10/15/2018 [facility]-RSV Vaccine: 60+ Years or (1 - 1-dose 75+ series) 2021 [id number]-10 Vaccine (6 - Moderna risk 2023- season) 2025 07/20/2024, 05/15/2022, 04/12/2021, Additional history exists [facility]-Depression Screening 12/02/2025 12/02/2024, 01/2025 [facility]-Pneumococcal Vaccine: 50+ Years (2 of 2 - PCV) 12/29/2025 12/29/2024, 03/29/2016 [facility]-Bone Density Scan 06/12/2026 06/12/2024 , 04/16/2022, 04/16/2022, Additional history exists [facility]-Breast Cancer Screening Discontinued 12/31/2023, 07/09/2022, 07/07/2021, Additional history exists [facility]-Influenza Vaccine Completed 07/08/2024 , 06/06/2023, 05/25/2022, Additional history exists [facility]-Obesity Intervention Completed 025, 12/04/2024, 12/02/2024, Additional history exists HPV Vaccines Aged Out No longer eligi ble based on patient's age to complete this topic [facility]-HIB Vaccines Aged Out No longer e ligible based on patient's age to complete this topic [facility]-Hepatitis A Vaccines Aged Out No longer eligible based on patient's age to complete this topic [facility]-IPV Vaccines Aged Out No longer e ligible based on patient's age to complete this topic [facility]-Rotavirus Vaccines Aged Out No lo nger eligible based on patient's age to complete this topic Medical Devices Implanted Type Area Psychologist Educational Device Identifier Shelf Expiration Date Model / Serial / Lot Electrode Nucleus Profl Adv [id number] - [id number] - [id number] Implanted:Qty: 1 on 02/28/2023 by Melvin Casillas MD at [facility] Right: Ear Cochlear [id number] 01/09/2025 [id number] / [id number] / Procedures Procedure Name Priority Date/Time Associated Diagnosis Comments XR CHEST 2 VIEWS Routine 12/29/2024 11:4 4 AM EDT Hypogammaglobulinem ia (CMS/HCC) PROTEIN ELECTROPHORESIS, PATHOLOGIST INTERPRETATION Routine 12/02/2024 11:19 AM EDT Sjogren syndrome, unspecified (CMS/HCC) TOTAL PROTEIN, SERUM Routine 12/02/2024 11:19 [...] 12/02/2024 11:19 AM EDT Hypogammaglobulinem ia (CMS/HCC) STREPTOCOCCUS PNEUMONIAE ANTIBODIES, IGG (23 SEROTYPES)(SO) Routine 12/02/2024 11:19 AM EDT Hypogammaglobulinem ia (CMS/HCC) IMMUNOGLOBULIN E Routine 12/02/2024 11:1 9 AM EDT Hypogammaglobulinem ia (CMS/HCC) IG PROFILE Routine 12/02/2024 11:19 AM EDT Hypogammaglobulinem ia (CMS/HCC) COMPREHENSIVE METABOLIC PANEL, PLASMA Routine 12/02/2024 11:19 AM EDT Hypogammaglobulinem ia (CMS/HCC) CBC WITH AUTO DIFFERENTIAL Routine 12/02/2024 11:19 AM EDT Hypogammaglobulinem ia (CMS/HCC) IMMUNOGLOBULIN G SUBCLASSES (1, 2, 3, 4) (SO) Routine 12/02/2024 11:19 AM EDT Hypogammaglobulinem ia (CMS/HCC) TSH REFLEX FT4 Routine 12/02/2024 11:19 AM EDT Sjogren syndrome, unspecified (CMS/HCC) Hypogammaglobulinem ia (CMS/HCC) C3 COMPLEMENT Routine 12/02/2024 11:19 AM EDT Sjogren syndrome, unspecified (CMS/HCC) CRYOGLOBULIN, SERUM (SO) Routine 12/02/2024 11:19 AM EDT Sjogren syndrome, unspecified (CMS/HCC) PROTEIN ELECTROPHORESIS, SERUM Routine 12/02/2024 11:19 AM EDT Sjogren syndrome, unspecified (CMS/HCC) RHEUMATOID FACTOR, PLASMA Routine 12/02/2024 11:19 AM EDT Sjogren syndrome, unspecified (CMS/HCC) C4 COMPLEMENT Routine 12/02/2024 11:19 AM EDT Sjogren syndrome, unspecified (CMS/HCC) ANTINUCLEAR ANTIBODY (LEILA) WITH HEP-2 SUBSTRATE, IGG BY IFA (SO) Routine 12/02/2024 11:19 AM EDT Sjogren syndrome, unspecified (CMS/HCC) DOUBLE-STRANDED DNA (DSDNA) ANTIBODY, IGG BY IFA (SO) Routine 12/02/2024 11:19 AM EDT Sjogren syndrome, unspecified (CMS/HCC) FREITAS (NIALL) ANTIBODY, IGG (SO) Routine 12/02/2024 11:19 AM EDT Sjogren syndrome, unspecified (CMS/HCC) MAMMOGRAPHY BREAST SCREENING TOMOSYNTHESIS BILATERAL Routine 12/31/2023 1:39 PM EDT Visit for screening mammogram from Last 3 Months or Most Recently Relevant to Health Maintenance Results * XR Chest 2 Views (12/29/2024 [...] MD on 12/29/2024 12:17 PM Denise Keith HYDRAULIC PRESS TENDER IMG XR PROCEDURES Final Re sult * (ABNORMAL) Immunoglobulin G Subclasses (1, 2, 3, 4) (SO) (12/02/2024 11:19 AM EDT) IMMUNOGLOBULIN G SUBCLASS 1 216(L) 240 - 1118 mg/dL 12/04/2024 2:18 AM EDT [facility] ([facility]) IMMUNOGLOBULIN G SUBCLASS 2 85(L) 124 - 549 mg/dL 12/04/2024 2:18 AM EDT [facility] ([facility]) IMMUNOGLOBULIN G SUBCLASS 3 23 21 - 134 mg/dL 12/04/2024 2:18 AM EDT [facility] ([facility]) IMMUNOGLOBULIN G SUBCLASS 4 1 1 - 123 mg/dL 12/04/2024 2:18 AM EDT [facility] ([facility]) Blood Venous blood specimen / Unknown Venipuncture / Unknown 12/02/2024 11:19 AM EDT 12/02/2024 11:21 AM EDT Narrative [facility] ([facility]) - 12/04/2024 2:18 AM EDT REFERENCE INTERVAL: Immunoglobulin G Subclass 1 The total IgG (mg/dL) can be derived from the sum of the subclass IgG1, IgG2, IgG3, and IgG4 values. However, a confirmatory and more precise total IgG is available by the turbidimetric method of quantitation for total IgG. Refer to test Immunoglobulin G, Serum ([id number]). Access complete set of age- and/or gender-specific reference intervals for this test in the [facility] ([employer]). REFERENCE INTERVAL: Immunoglobulin G Subclass 2 Access complete set of age- and/or gender-specific reference intervals for this test in the [facility] ([employer]). REFERENCE INTERVAL: Immunoglobulin G Subclass 3 Access complete set of age- and/or gender-specific reference intervals for this test in the [employer] [facility] ([employer]). REFERENCE INTERVAL: Immunoglobulin G Subclass 4 Access complete set of age- and/or gender-specific reference intervals for this test in the [facility] [employer] [facility] ([employer]). Performed By: [facility] [address] [place] [address] Living Advisor: Bipin Romero MD, PhD CLIA Number: [id number] Denise Keith APRN LAB REF LAB BLOOD AND FLUI D ORD Final Result Performing Organization Address [facility]/ZIP Co de Phone Number [facility] [employer]) [address] [place] [address] * Cryoglobulin, Serum (SO) (12/02/2024 11:19 AM EDT) Cryoglobulin, S SEE COMMENTS Negative %ppt 12/04/2024 11:25 AM EDT [facility] ([facility]) Comment: Negative. This test is negative at 24 hours. All samples are held and reviewed again at 7 days. If delayed precipitation occurs after 7 days, Immunofixation will be performed and an additional report will follow. Test Performed by: [place] [id number] [employer] Stacker: Ole Barragan Ph.D.; CLIA# [id number] Blood Venous blood specimen / Unknown Venipuncture / Unknown 12/02/2024 11:19 AM EDT 12/02/2024 11:21 AM EDT us Nidhi Stack APRN LAB REF LAB BLOOD AND FLU ID ORD Final Result Performing Organization Address City/[facility]/ZIP Co de Phone Number [facility] [employer]) * Streptococcus pneumoniae Antibodies, IgG (23 Serotypes)(SO) (12/02/2024 11:19 AM EDT) [facility] Signature Pneumo serotype 1 IgG (P13,PNX) 0.52 ug/mL 12/04/2024 8:12 PM EDT [facility] ([facility]) PNEUMOCOCCAL SEROTYPE 2,IGG 4.62 ug/mL 12/04/2024 8:12 PM EDT [facility] ([facility]) Pneumo serotype 3 IgG (P13,PNX) 0.32 ug/mL 12/04/2024 8:12 PM EDT [facility] ([facility]) Pneumo serotype 4 IgG (P7,P13,PNX) 2.02 ug/mL 12/04/2024 8:12 PM EDT [facility] ([facility]) Pneumo serotype 5 IgG (P13,PNX) 0.29 ug/mL 12/04/2024 8:12 PM EDT [facility] ([facility]) Pneumo serotype 6B IgG (P7,P13,PNX) 0.06 ug/mL 12/04/2024 8:12 PM EDT [facility] ([facility]) Pneumo serotype 7F IgG (P13,PNX) 3.51 ug/mL 12/04/2024 8:12 PM EDT [facility] ([facility]) Pneumo serotype 8 IgG (PNX) 0.41 ug/mL 12/04/2024 8:12 PM EDT [facility] ([facility]) Pneumo serotype 9N IgG (PNX) 0.28 ug/mL 12/04/2024 8:12 PM EDT [facility] ([facility]) Pneumo serotype 9V IgG (P7,P13,PNX) 0.99 ug/mL 12/04/2024 8:12 PM EDT [facility] ([facility]) PNEUMOCOCCAL SEROTYPE 10A,IGG 0.11 ug/mL 12/04/2024 8:12 PM EDT [facility] ([facility]) PNEUMOCOCCAL SEROTYPE 11A,IGG 0.38 ug/mL 12/04/2024 8:12 PM EDT [facility] ([facility]) Pneumo serotype 12F IgG (PNX) 0.73 ug/mL 12/04/2024 8:12 PM EDT [facility] ([facility]) Pneumo serotype 14 IgG (P7,P13,PNX) 2.64 ug/mL 12/04/2024 8:12 PM EDT [facility] ([facility]) PNEUMOCOCCAL SEROTYPE 15B,IGG 1.11 ug/mL 12/04/2024 8:12 PM EDT [facility] ([facility]) PNEUMOCOCCAL SEROTYPE 17F,IGG <0.04 ug/mL 12/04/2024 8:12 PM EDT [facility] ([facility]) Pneumo serotype 18C IgG (P7,P13,PNX) 1.33 ug/mL 12/04/2024 8:12 PM EDT [facility] ([facility]) PNEUMOCOCCAL SEROTYPE 19A,IGG 1.84 ug/mL 12/04/2024 8:12 PM EDT [facility] ([facility]) Pneumo serotype 19F IgG (P7,P13,PNX) 1.80 ug/mL 12/04/2024 8:12 PM EDT [facility] ([facility]) PNEUMOCOCCAL SEROTYPE 20,IGG 0.53 ug/mL 12/04/2024 8:12 PM EDT [facility] ([facility]) PNEUMOCOCCAL SEROTYPE 22F,IGG 4.05 ug/mL 12/04/2024 8:12 PM EDT [facility] ([facility]) Pneumo serotype 23F IgG (P7,P13,PNX) 0.10 ug/mL 12/04/2024 8:12 PM EDT [facility] ([facility]) PNEUMOCOCCAL SEROTYPE 33F,IGG 3.60 ug/mL 12/04/2024 8:12 PM EDT [facility] ([facility]) Pneumo Serotype Interpretation See Note 12/04/2024 8:12 PM EDT [facility] ([facility]) Blood Venous blood specimen / Unknown Venipuncture / Unknown 12/02/2024 11:19 AM EDT 12/02/2024 11:21 AM EDT Narrative [facility] ([facility]) - 12/04/2024 8:12 PM EDT INTERPRETIVE INFORMATION: [...] 2015) References: 1. Ching YING, Roberto JW, Cervantes X, et al. Multilaboratory assessment of threshold versus fold-change algorithms for minimizing analytical variability in multiplexed pneumococcal IgG measurements. Clin Vaccine Immunol. 2014;21(7):982-988. 2. Ching YING, Westley SULLIVAN. Use and clinical interpretation of pneumococcal antibody measurements in the evaluation of humoral immune function. Clin Vaccine Immunol. 2015;22(2):148-152. This test was developed and its performance characteristics determined by [facility]. It has not been cleared or approved by the U.S. Food and Drug Administration. This test was performed in a CLIA-certified laboratory and is intended for clinical purposes. Performed By: [facility] [address] [place] [id number] Living Advisor: Bipin Romero MD, PhD CLIA Number: [id number] Denise Keith APRN LAB BLOOD ORDERABLES Final Result [facility] ([facility]) [address] [place] [address] * TSH Reflex FT4 (12/02/2024 11:19 AM EDT) Thyroid Stimulating Hormone, Plasma 2.78 0.40 - 4.20 uIU/mL 12/02/2024 1:23 PM EDT [facility] Blood Venous blood specimen / Unknown Venipuncture / Unknown 12/02/2024 11:19 AM EDT 12/02/2024 11:21 AM EDT Denise Keith HYDRAULIC PRESS TENDER LAB BLOOD ORDERABLES Final Result Performing Organization Address City/[facility]/ZIP Co de Phone Number [facility] [address] [place] [address] * Total Protein, Serum (12/02/2024 11:19 AM EDT) Total Protein 6.7 6.2 - 7.7 g/dL 12/02/2024 1:05 PM EDT [facility] Blood Venous blood specimen / Unknown Venipuncture / Unknown 12/02/2024 11:19 AM EDT 12/02/2024 11:21 AM EDT Nidhi Stack HYDRAULIC PRESS TENDER LAB BLOOD ORDERABLES Dafne l Result [facility] [address] [place] [address] * (ABNORMAL) Protein Electrophoresis, Serum (12/02/2024 11:19 AM EDT) Albumin Electrophoresis, Serum 4.3 3.6 - 4.7 g/dL 12/03/2024 3:25 AM EDT [facility] Alpha 1 Globulin Electrophoresis, Serum 0.3 0.2 - 0.4 g/dL 12/03/2024 3:25 AM EDT [facility] Alpha 2 Globulin Electrophoresis, Serum 0.9 0.5 - 0.9 g/dL 12/03/2024 3:25 AM EDT [facility] Beta 1 Globulin Electrophoresis, Serum 0.5 0.3 - 0.5 g/dL 12/03/2024 3:25 AM EDT [facility] Beta 2 Globulin Electrophoresis, Serum 0.3 0.2 - 0.5 g/dL 12/03/2024 3:25 AM EDT [facility] Gamma Globulin Electrophoresis, Serum 0.4(L) 0.6 - 1.5 g/dL 12/03/2024 3:25 AM EDT [facility] Interpretation, Serum Protein Electrophoresis Pathology report to follow. 12/03/2024 3:25 AM EDT [facility] Blood Venous blood specimen / Unknown Venipuncture / Unknown 12/02/2024 11:19 AM EDT 12/02/2024 11:21 AM EDT Nidhi Stack APRN LAB BLOOD ORDERABLES Dafne reinoso Result [facility] [address] [place] [address] * Freitas (NIALL) Antibody, IgG (12/02/2024 11:19 AM EDT) Freitas (NIALL) Antibody, IgG 3 0 - 40 AU/mL 12/03/2024 10:50 PM EDT [facility] ([facility]) Serum 12/02/2024 11:1 9 AM EDT 12/02/2024 11:21 AM EDT Narrative [facility] ([facility]) - 12/03/2024 10:50 PM EDT INTERPRETIVE INFORMATION: [...] associations with SLE clinical manifestations. Performed By: [facility] [address] [place] [address] Living Advisor: Bipin Romero MD, PhD CLIA Number: [id number] us Nidhi Stack APRN LAB REF LAB BLOOD AND FLU ID ORD Final Result [facility] [address] [place] [address] * Protein electrophoresis serum, pathologist interpretation (12/02/2024 11:19 AM EDT) Clinical Diagnosis, SPEP Sjogren syndrome, unspecified (CMS/HCC) 12/03/2024 1:44 PM EDT [facility] Interpretatio n, SPEP The otherwise [...] diagnosis or interpretation. 12/03/2024 1:44 PM EDT [facility] Pathologist Signature, SPEP Reviewed by: Collins Curtis MD 12/03/2024 1:44 PM EDT [facility] CP ASR DISCLAIMER Yes 12/03/2024 1:44 PM EDT [facility] Blood Venous blood specimen / Unknown Venipuncture / Unknown 12/02/2024 11:19 AM EDT 12/02/2024 11:21 AM EDT Nidhi Stack APRN LAB PATHOLOGY ORDERABLES Final Result [facility] [address] [place] [address] * (ABNORMAL) IG Profile (12/02/2024 11:19 AM EDT) IGA 91 75 - 400 mg/dL 12/02/2024 1:23 PM EDT [facility] IGG 390(L) 720 - 1,589 mg/dL 12/02/2024 1:23 PM EDT [facility] IGM 30(L) 35 - 225 mg/dL 12/02/2024 1:23 PM EDT [facility] Blood Venous blood specimen / Unknown Venipuncture / Unknown 12/02/2024 11:19 AM EDT 12/02/2024 11:21 AM EDT us Denisemelanie Keith HYDRAULIC PRESS TENDER LAB BLOOD ORDERABLES Final Result [facility] [address] [place] [address] * (ABNORMAL) Immunodeficiency, BY Flow Cytometry (12/02/2024 11:19 AM EDT) Clinical Indication reccurent infection 12/02/2024 6:18 PM EDT [facility] Flow Cytometry Interpretation OTHERWISE NORMAL PERIPHERAL BLOOD LYMPHOCYTE SUBSET ANALYSIS EXCEPT FOR DECREASED ABSOLUTE CSM B CELLS 12/02/2024 6:18 PM EDT [facility] Percent Lymphocytes (CD45+/SSClow) 24.84 % 12/02/2024 6:18 PM EDT [facility] ABS Lymphocyte 1,757.00 cells/u L 12/02/2024 6:18 PM EDT [facility] Percent CD3 81.9 57.5 - 83.1 % 12/02/2024 6:18 PM EDT [facility] Absolute CD3 1,439 860 - 2,670 cells/u L 12/02/2024 6:18 PM EDT [facility] Percent CD4 32.4 31.5 - 62.4 % 12/02/2024 6:18 PM EDT [facility] Absolute CD4 569 490 - 1,730 cells/u L 12/02/2024 6:18 PM EDT [facility] Percent CD8 46.1(H) 9.5 - 38.3 % 12/02/2024 6:18 PM EDT [facility] Absolute CD8 811 160 - 1,070 cells/u L 12/02/2024 6:18 PM EDT [facility] Percent CD19 5.2(L) 6.0 - 24.2 % 12/02/2024 6:18 PM EDT [facility] Absolute CD19 91 73 - 562 cells/u L 12/02/2024 6:18 PM EDT [facility] Percent CD16+CD56 12.7 5.2 - 30.4 % 12/02/2024 6:18 PM EDT [facility] Absolute CD16+CD56 224 110 - 680 cells/u L 12/02/2024 6:18 PM EDT [facility] CD4:CD8 Ratio 0.70 12/02/2024 6:18 PM EDT [facility] Comments Flow cytometric analysis of [...] CD45RO, CD56, CD62L, HLA-DR, IgD, IgG, IgM, Colbert light chain, Lambda light chain, TCR?/?, TCR?/?. Pediatric values were derived from Franklin et al. J Allergy Clin Immunol. 2003;112:973-80. Adult values were from a [employer] study of healthy adults and were validated in our laboratory. 12/02/2024 6:18 PM EDT [facility] Disclaimer This test was developed and its performance characteristics determined by the Immuno-Molecular Pathology Laboratory at the [facility]. It has not been cleared or [...] clinical laboratory testing. 12/02/2024 6:18 PM EDT [facility] Pathologist Signature Reviewed by: William Valencia MD 12/02/2024 6:18 PM EDT [facility] Blood Venous blood specimen / Unknown Venipuncture / Unknown 12/02/2024 11:19 AM EDT 12/02/2024 11:21 AM EDT Denise Keith HYDRAULIC PRESS TENDER LAB FLOW CYTOMETRY ORDERAB LES Final Result [facility] [address] [place] [address] * Diphtheria & Tetanus Antibodies, IgG (12/02/2024 11:19 AM EDT) Diphtheria Antibody, IgG 0.2 IU/mL 12/03/2024 9:27 PM EDT [facility] ([place]) Tetanus Antibody, IgG 0.5 IU/mL 12/03/2024 9:27 PM EDT [facility] ([place]) Blood Venous blood specimen / Unknown Venipuncture / Unknown 12/02/2024 11:19 AM EDT 12/02/2024 11:21 AM EDT Narrative [facility] ([place]) - 12/03/2024 9:27 PM EDT INTERPRETIVE INFORMATION: [...] developed and its performance characteristics determined by [facility]. It has not been cleared or approved [...] developed and its performance characteristics determined by [facility]. It has not been cleared or approved by the US Food and Drug Administration. This test was performed in a CLIA certified laboratory and is intended for clinical purposes. Performed By: [facility] [address] [place] [address] Living Advisor: Bipin Romero MD, PhD CLIA Number: [id number] Denise Keith APRN LAB BLOOD ORDERABLES Final Result [facility]) [address] [place] [address] * Double-Stranded DNA (dsDNA) Antibody, IgG by IFA (12/02/2024 11:19 AM EDT) Double-Strande d DNA (dsDNA) Ab IgG IFA <1:10 <1:10 12/04/2024 8:17 PM EDT [facility] ([place]) Blood Venous blood specimen / Unknown Venipuncture / Unknown 12/02/2024 11:19 AM EDT 12/02/2024 11:21 AM EDT Narrative [facility]) - 12/04/2024 8:17 PM EDT INTERPRETIVE [...] recommendations for testing may be found at [email or web address]. Performed By: [facility] [address] [place] [address] Living Advisor: Bipin Romero MD, PhD CLIA Number: [id number] Nidhi L Seda HYDRAULIC PRESS TENDER LAB BLOOD ORDERABLES Dafne l Result [facility]) [address] [place] [address] * (ABNORMAL) CBC and Differential (12/02/2024 11:19 AM EDT) WBC Count 6.52 3.70 - 10.30 10*3/uL LAB HEMATOLOGY METHOD 12/02/2024 1:04 PM EDT [facility] RBC Count 4.37 3.90 - 5.20 10*6/uL LAB HEMATOLOGY METHOD 12/02/2024 1:04 PM EDT [facility] HGB 12.6 11.2 - 15.7 g/dL LAB HEMATOLOGY METHOD 12/02/2024 1:04 PM EDT [facility] HCT 38.0 34.0 - 45.0 % LAB HEMATOLOGY METHOD 12/02/2024 1:04 PM EDT [facility] Platelet Count 442(H) 155 - 369 10*3/uL LAB HEMATOLOGY METHOD 12/02/2024 1:04 PM EDT [facility] MCV 87 79 - 98 fL LAB HEMATOLOGY METHOD 12/02/2024 1:04 PM EDT [facility] MCH 28.8 26.0 - 32.0 pg LAB HEMATOLOGY METHOD 12/02/2024 1:04 PM EDT [facility] MCHC 33.2 30.7 - 35.5 g/dL LAB HEMATOLOGY METHOD 12/02/2024 1:04 PM EDT [facility] RDW 13.3 11.5 - 14.5 % LAB HEMATOLOGY METHOD 12/02/2024 1:04 PM EDT [facility] MPV 9.2 8.8 - 12.5 fL LAB HEMATOLOGY METHOD 12/02/2024 1:04 PM EDT [facility] nRBC 0.0 <=0.0 per 100 WBCs LAB HEMATOLOGY METHOD 12/02/2024 1:04 PM EDT [facility] Differential Type Automated LAB HEMATOLOGY METHOD 12/02/2024 1:04 PM EDT [facility] Neutrophils % 59 % LAB HEMATOLOGY METHOD 12/02/2024 1:04 PM EDT [facility] Lymphocytes % 25 % LAB HEMATOLOGY METHOD 12/02/2024 1:04 PM EDT [facility] Monocytes % 10 % LAB HEMATOLOGY METHOD 12/02/2024 1:04 PM EDT [facility] Eosinophils % 4 % LAB HEMATOLOGY METHOD 12/02/2024 1:04 PM EDT [facility] Basophils % 1 % LAB HEMATOLOGY METHOD 12/02/2024 1:04 PM EDT [facility] Immature Granulocytes % 1 % LAB HEMATOLOGY METHOD 12/02/2024 1:04 PM EDT [facility] Neutrophils Absolute 3.87 1.60 - 6.10 10*3/uL LAB HEMATOLOGY METHOD 12/02/2024 1:04 PM EDT [facility] Lymphocytes Absolute 1.63 1.20 - 3.90 10*3/uL LAB HEMATOLOGY METHOD 12/02/2024 1:04 PM EDT [facility] Monocytes Absolute 0.62 0.30 - 0.90 10*3/uL LAB HEMATOLOGY METHOD 12/02/2024 1:04 PM EDT [facility] Eosinophils Absolute 0.28 0.00 - 0.50 10*3/uL LAB HEMATOLOGY METHOD 12/02/2024 1:04 PM EDT [facility] Basophils Absolute 0.07 0.00 - 0.10 10*3/uL LAB HEMATOLOGY METHOD 12/02/2024 1:04 PM EDT [facility] Immature Granulocytes Absolute 0.05 0.00 - 0.06 10*3/uL LAB HEMATOLOGY METHOD 12/02/2024 1:04 PM EDT [facility] Blood Venous blood specimen / Unknown Venipuncture / Unknown 12/02/2024 11:19 AM EDT 12/02/2024 11:21 AM EDT Narrative [facility] - 12/02/2024 1:04 PM EDT Therapeutic decision making should be based on absolute values, rather than percentages. us Denise Keith APRN LAB BLOOD ORDERABLES Final Result [facility] [address] [place] [address] * Rheumatoid Factor, Plasma (12/02/2024 11:19 AM EDT) Rheumatoid Factor, Plasma <10 <14 IU/mL 12/02/2024 1:23 PM EDT [facility] Blood Venous blood specimen / Unknown Venipuncture / Unknown 12/02/2024 11:19 AM EDT 12/02/2024 11:21 AM EDT Nidhi Stack HYDRAULIC PRESS TENDER LAB BLOOD ORDERABLES Dafne l Result [facility] [address] [place] [address] * (ABNORMAL) Complement, total (12/02/2024 11:19 AM EDT) Complement Activity, Total Turbidimetric >95.0(H) 38.7 - 89.9 U/mL 12/05/2024 10:55 PM EDT [facility] ([place]) Blood Venous blood specimen / Unknown Venipuncture / Unknown 12/02/2024 11:19 AM EDT 12/02/2024 11:21 AM EDT Narrative [facility] ([facility] [employer]) - 12/05/2024 10:55 PM EDT High activity in total complement functional assay (CH50) indicates acute-phase response to inflammation or infection. Repeat testing after inflammation has resolved is recommended. REFERENCE INTERVAL: Complement Activity Total, (CH50) 38.6 U/mL or less ..........Low 38.7-89.9 U/mL .............Normal 90.0 U/mL or greater .......High Performed By: [facility] [address] [place] [address] Living Advisor: Bipin Romero MD, PhD CLIA Number: [id number] us Denise Keith HYDRAULIC PRESS TENDER LAB BLOOD ORDERABLES Final Result Performing Organization Address City/[facility]/ZIP Co de Phone Number [facility] ([place]) [address] [place] [address] * C3 Complement (12/02/2024 11:19 AM EDT) C3 Complement 156 84 - 166 mg/dL 12/02/2024 1:05 PM EDT [facility] Blood Venous blood specimen / Unknown Venipuncture / Unknown 12/02/2024 11:19 AM EDT 12/02/2024 11:21 AM EDT Nidhi Stack APRN LAB BLOOD ORDERABLES Dafne l Result Performing Organization Address [facility]/ZIP Co de Phone Number [facility] [address] [place] [address] * C4 Complement (12/02/2024 11:19 AM EDT) C4 Complement 26 13 - 36 mg/dL 12/02/2024 1:05 PM EDT [facility] Blood Venous blood specimen / Unknown Venipuncture / Unknown 12/02/2024 11:19 AM EDT 12/02/2024 11:21 AM EDT Nidhi Stack APRN LAB BLOOD ORDERABLES Dafne l Result Performing Organization Address [facility] [place] [address] * Antinuclear Antibody (LEILA), HEp-2, IgG (12/02/2024 11:19 AM EDT) LEILA INTERPRETIVE COMMENT See Note 12/05/2024 10:14 PM EDT [facility] ([place]) Anti Nuc Ab Screen <1:80 <1:80 12/05/2024 10:14 PM EDT [facility] ([place]) Blood Venous blood specimen / Unknown Venipuncture / Unknown 12/02/2024 11:19 AM EDT 12/02/2024 11:21 AM EDT Narrative [facility] [employer]) - 12/05/2024 10:14 PM EDT Antinuclear antibodies [...] not necessarily rule out SARD. Performed By: [facility] [address] [place] [address] Living Advisor: Bipin Romero MD, PhD CLIA Number: [id number] Nidhi Stack HYDRAULIC PRESS TENDER LAB BLOOD ORDERABLES Dafne reinoso Result [facility]) [address] [place] [address] * Immunoglobulin E (12/02/2024 11:19 AM EDT) Immunoglobulin E <2 <=214 kU/L 12/05/19 6:27 AM EDT [facility] ([place]) Blood Venous blood specimen / Unknown Venipuncture / Unknown 12/02/2024 11:19 AM EDT 12/02/2024 11:21 AM EDT Narrative [facility] ([facility] [employer]) - 12/04/2024 6:27 AM EDT REFERENCE INTERVAL: Immunoglobulin E, Serum Access complete set of age- and/or gender-specific reference intervals for this test in the [facility] ([employer]). Performed By: [facility] [address] [place] [address] Living Advisor: Bipin Romero MD, PhD CLIA Number: [id number] Denise Keith APRN LAB BLOOD ORDERABLES Final Result [facility] ([place]) [address] [place] [address] * (ABNORMAL) Comprehensive Metabolic Panel, Plasma (12/02/2024 11:19 AM EDT) Glucose, Plasma 89 74 - 99 mg/dL 12/02/2024 1:23 PM EDT [facility] BUN, Plasma 6(L) 8 - 23 mg/dL 12/02/2024 1:23 PM EDT [facility] Creatinine, Plasma 0.70 0.60 - 1.10 mg/dL 12/02/2024 1:23 PM EDT [facility] BUN/Creatinine Ratio 9 12/02/2024 1:23 PM EDT [facility] Sodium, Plasma 134(L) 136 - 145 mmol/L 12/02/2024 1:23 PM EDT [facility] Potassium, Plasma 4.3 3.6 - 4.9 mmol/L 12/02/2024 1:23 PM EDT [facility] Chloride, Plasma 99 97 - 107 mmol/L 12/02/2024 1:23 PM EDT [facility] CO2, Plasma 23 22 - 29 mmol/L 12/02/2024 1:23 PM EDT [facility] Anion Gap 12 6 - 16 mmol/L 12/02/2024 1:23 PM EDT [facility] Total Calcium, Plasma 9.8 8.9 - 10.2 mg/dL 12/02/2024 1:23 PM EDT [facility] Total Protein 6.8 6.3 - 7.9 g/dL 12/02/2024 1:23 PM EDT [facility] Albumin, Plasma 4.6 3.5 - 5.2 g/dL 12/02/2024 1:23 PM EDT [facility] AST, Plasma 21 10 - 35 U/L 12/02/2024 1:23 PM EDT [facility] ALT, Plasma 15 10 - 35 U/L 12/02/2024 1:23 PM EDT [facility] Alkaline Phosphatase, Plasma 83 46 - 142 U/L 12/02/2024 1:23 PM EDT [facility] Total Bilirubin, Plasma 0.3 0.2 - 1.1 mg/dL 12/02/2024 1:23 PM EDT [facility] eGFRcr 89.2 mL/min/1.7 3m*2 12/02/2024 1:23 PM EDT [facility] Comment:Reported eGFRcr in m L/min/1.73m2 is based the CKD-EPI 2020 equation that does not use a race coefficient. Blood Venous blood specimen / Unknown Venipuncture / Unknown 12/02/2024 11:19 AM EDT 12/02/2024 11:21 AM EDT Denise Keith HYDRAULIC PRESS TENDER LAB BLOOD ORDERABLES Final Result [facility] [address] [place] [address] * Mammography Breast Screening Tomosynthesis Bilateral (12/31/2023 1:39 PM EDT) Anatomical Region Laterality Modality Breast Bilateral Mammography Impressions 01/02/2024 12:56 PM EDT No mammographic evidence of malignancy. BI-RADS CATEGORY: Overall: 1 - Negative RECOMMENDATION: - Routine Screening Mammogram in 1 Year. Patient Lifetime Risk Score of Breast Malignancy: 3.7% This risk assessment is calculated using the Lizeth Risk Assessment model which may underestimate the lifetime risk of breast malignancy. COMMUNICATION: Computer-aided detection (CAD) and tomosynthesis were utilized by the radiologist in the interpretation of this examination. The results and recommendations will be sent to the patient in a printed lay language version of the imaging report. Narrative 01/02/2024 12:56 PM EDT EXAM: Mammography Breast Screening with Tomosynthesis REASON FOR EXAM: Screening Mammogram HISTORY: Patient is 78 y.o. Family medical history includes breast cancer in father's sister. Hormone history includes hormone replacement therapy (5 years). Surgical and procedural history include right breast biopsy, 2006 (stereotactic-benign). COMPARISON STUDIES: Compared to: 01/06/2019 Mammography Breast Screening Tomosynthesis Bilateral at [facility] 07/05/2020 Mammography Breast Screening Tomosynthesis Bilateral at [facility] 07/07/2021 Mammography Breast Screening Tomosynthesis Bilateral at [facility] 07/09/2022 Mammography Breast Screening Tomosynthesis Bilateral at [facility] BREAST COMPOSITION: The breasts have scattered areas of fibroglandular density. FINDINGS: There are no suspicious masses, calcifications, or areas of architectural distortion. us Self Referral Mammogram IMG BI PROCEDURES Final Result from Last 3 Months or Most Recently Relevant to Health Maintenance Insurance [place] [id number] [facility] MEDICARE Care Teams Staff Psychiatrist Relationship Specialty Start Date End Date Melvin Pink DO [address] [place] [facility] [address] [address] PCP - General 12/01/24
--- OUTSIDE RECORDS SUMMARY | 2025-01-18 09:53 | XMS_ITS | Encounter Summary ---
Author Organization Healthcare Address [address] [place] [address] Care Team Providers Care Outpatient Admitting Clerk Name Role Phone Pcp, No Primary Care Provider Unavailabl e Encounter Details Date Type Department Care Team (Latest Contact Info) Description 11/26/2024 Travel Social History Tobacco Use Types Packs/Day Years [...] Description 01/27/2025 10:00 AM EDT Office Visit [facility] Audiology [address] [place] [address] Patsy Lucero, AuD [address] [place] [address] 03/02/2025 11:00 AM EDT Office Visit [facility] Medicine Specialties [address] [place] [address] Denise Keith, STATE TROOPER [address] [place] [address] 03/08/2025 10:40 AM EDT Office Visit [facility] Otolaryngology [address] [place] [address] Melvin Casillas MD [address] [place] [address] 06/07/2025 9:50 AM EST Office Visit [facility] Medicine Specialties [address] [place] [address] Nidhi Stack, STATE TROOPER [address] [place] [address] documented as of this encounter Visit Diagnoses Not on filedocumented in this encounter Additional Health Concerns Assessment Noted Time A fall risk assessment has been complete d for the patient 11/26/2024 9:51 AM EDT A Body Mass Index follow-up plan has been documented for the patient 11/27/2024 5:12 PM EDT documented as of this encounter Care Teams Outpatient Admitting Clerk Relationship Specialty Start Date End Date Pcp, [place] [address] PCP - General Family Medicine 06/02/24 11/30/24 documented as of this encounter
--- OUTSIDE RECORDS SUMMARY | 2025-01-18 09:53 | XMS_ITS | Data Portability ---
Author Organization [facility] Chap[facility], CKS [place] CLOSED Address 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 Equipment Supervisor SUSAN MCCABE Referring Provider AVILA WELSH Primary Care Provider SUSAN MCCABE Rack Carrier ARTHUR WASHINGTON Referring Provider [phone] Assessment Encounter Date Assessment Date Assessment LastModified by Organization Details LastModified Time 08/20/2023 08/20/2023 f/up as needed mpircher Not available 08/20/2023 15:09:04 Plan of Treatment Reminders Order Date Submit Date Provider Last Modified By Organization Details Last Modified Time Details Appointments RECHECK 2024 10:15A Everett BYRD MD Not available Not available Not available Lab TSH, serum or plasma 2024 025 [facility], [address] [place] [address], [phone], 01/06/2025 12:18:25 T4, free, serum 2024 025 [facility], [address] [place] [address], [address], 01/06/2025 12:18:26 glucose, fingerst ick, blood 2024 025 [facility], [address] [place] [address], [address], 01/06/2025 10:45:54 hemoglob in A1C, fingerst ick 2024 025 [facility], [address] [place] [address], [address], 01/06/2025 10:45:54 lipid panel, serum 2024 025 [facility], [address] [place] [address], [address], 01/06/2025 12:18:23 glucose, fingerst ick, blood [address] [facility] , [address] [place] [address], [address], 06/29/2024 09:54:19 hemoglob in A1C, fingerst ick [address] [facility], [address] [place] [address], [address], 06/29/2024 09:54:19 CMP, serum or plasma 2023 024 [facility], [address] [place] [address], [address], 06/29/2024 11:16:37 vitamin B12 + folate, serum or blood 2023 024 [facility], [address] [place] [address], [address], 06/29/2024 11:54:23 microalb umin/cre atinine, mass ratio, urine [email or web address] [place] [address] Laboratory, [address] [place] [address], [address], 08/24/2024 10:36:50 T4, free, serum 2023 024 [facility], [address] [place] [address], [address], 06/29/2024 11:19:59 TSH, serum or plasma 2023 024 [facility], [address] [place] [address], [address], 06/29/2024 11:19:57 lipid panel, serum 2023 024 [facility], [address] [place] [address], [address], 06/29/2024 11:16:35 glucose, fingerst ick, blood 2023 024 [facility], [address] [place] [address], [address], 12/05/2023 10:23:29 hemoglob in A1C, fingerst ick 2023 024 [facility], [address] [place] [address], [address], 12/05/2023 10:23:30 T4, free, serum 2023 024 [facility], [address] [place] [address], [address], 12/05/2023 11:44:10 TSH, serum or plasma 2023 024 [facility], [address] [place] [address], [address], 12/05/2023 11:44:06 lipid panel, serum 2023 024 [facility], [address] [place] [address], [address], 12/05/2023 11:38:08 vitamin B12 + folate, serum or blood 2023 024 [facility], [address] [place] [address], [address], 12/05/2023 11:53:25 cortisol , serum or plasma 2023 024 [facility], [address] [place] [address], [address], 12/05/2023 11:44:08 CBC w/ auto diff 2023 024 [facility], [address] [place] [address], [address], 12/05/2023 11:05:20 iron + total iron-bin ding capacity (TIBC), serum 2023 024 [facility], [address] [place] [address], [address], 12/05/2023 11:38:05 Referral None recorded . Procedures None recorded . Surgeries None recorded . Imaging None recorded . Medication Orders metformi n 500 mg tablet 2024 025 [facility], [address] [place] [address], [place], [address], 01/06/2025 10:45:58 mometaso ne 0.1 % topical solution [address] [id number], [address], [id number], 08/20/2023 16:32:00 Patient TargetsNo targets recorded. Patient Instructions Encounter Date Encounter Id Patient Instructions Last Modified By Organization Details Last Modified Time 08/20/2023 [id number] Education: We discussed the potential diagnostic options, options for further evaluation and treatments, and the risks and benefits of each. [email or web address] Not available 08/20/2023 15:09:05 Reason for Referral None Reported. Results Created Date Observation Date Name Description Value Unit Range Abnormal Flag Note LastModifiedBy Organization Detail LastModifiedTime 12/05/19 24 12/05/2023 COMPL ETE BLOOD COUNT white blood cells 7.2 10*3/ uL 3.8-10 .8 normal Not Available [facility] [address] [place] [address], [address], 12/05/2023 11:05:20 12/05/19 24 12/05/2023 COMPL ETE BLOOD COUNT red blood cells 4.40 10*6/ uL 3.80-5 .20 normal Not Available [facility] [address] [place] [address], [address], 12/05/2023 11:05:20 12/05/19 24 12/05/2023 COMPL ETE BLOOD COUNT hemoglobin 13.1 g/dL 12.0-1 6.0 normal Not Available [facility] [address] [place] [address], [address], 12/05/2023 11:05:20 12/05/19 24 12/05/2023 COMPL ETE BLOOD COUNT hematocrit 37.7 % 35.0-4 7.0 normal Not Available [facility] [address] [place] [address], [address], 12/05/2023 11:05:20 12/05/19 24 12/05/2023 COMPL ETE BLOOD COUNT MCV 86 fL 80-100 normal Not Available [facility] [address] [place] [address], [address], 12/05/2023 11:05:20 12/05/19 24 12/05/2023 COMPL ETE BLOOD COUNT MCH 30 pg 26-35 normal Not Available [facility] [address] [place] [address], [address], 12/05/2023 11:05:20 12/05/19 24 12/05/2023 COMPL ETE BLOOD COUNT MCHC 35 g/dL 32-36 normal Not Available [facility] [address] [place] [address], [address], 12/05/2023 11:05:20 12/05/19 24 12/05/2023 COMPL ETE BLOOD COUNT RDW 13.9 % 11.0-1 5.0 normal Not Available [facility] [address] [place] [address], [address], 12/05/2023 11:05:20 12/05/19 24 12/05/2023 COMPL ETE BLOOD COUNT MPV 7.0 fL 6.2-10 .5 normal Not Available [facility] [address] [place] [address], [address], 12/05/2023 11:05:20 12/05/19 24 12/05/2023 COMPL ETE BLOOD COUNT platelet count 348 10*3/ uL 150-40 0 normal Not Available [facility] [address] [place] [address], [address], 12/05/2023 11:05:20 12/05/19 24 12/05/2023 COMPL ETE BLOOD COUNT neutrophil,a bsolute 4.4 10*3/ uL 1.6-8. 4 normal Not Available [facility] [address] [place] [address], [address], 12/05/2023 11:05:20 12/05/19 24 12/05/2023 COMPL ETE BLOOD COUNT lymphocyte,a bsolute 1.7 10*3/ uL 0.4-5. 1 normal Not Available [facility] [address] [place] [address], [address], 12/05/2023 11:05:20 12/05/19 24 12/05/2023 COMPL ETE BLOOD COUNT monocyte,abs olute 0.7 10*3/ uL 0.0-1. 2 normal Not Available [facility] [address] [place] [address], [address], 12/05/2023 11:05:20 12/05/19 24 12/05/2023 COMPL ETE BLOOD COUNT eosinophil,a bsolute 0.3 10*3/ uL 0.0-0. 8 normal Not Available [facility] [address] [place] [address], [address], 12/05/2023 11:05:20 12/05/19 24 12/05/2023 COMPL ETE BLOOD COUNT basophil,abs olute 0.1 10*3/ uL 0.0-0. 3 normal Not Available [facility] [address] [place] [address], [address], 12/05/2023 11:05:20 12/05/19 24 12/05/2023 COMPL ETE BLOOD COUNT % neutrophils 61.0 % 42.0-7 8.0 normal Not Available [facility] [address] [place] [address], [address], 12/05/2023 11:05:20 12/05/19 24 12/05/2023 COMPL ETE BLOOD COUNT % lymphocytes 23.9 % 11.0-4 7.0 normal Not Available [facility] [address] [place] [address], [address], 12/05/2023 11:05:20 12/05/19 24 12/05/2023 COMPL ETE BLOOD COUNT % monocytes 10.4 % 0.0-11 .0 normal Not Available [facility] [address] [place] [address], [address], 12/05/2023 11:05:20 12/05/19 24 12/05/2023 COMPL ETE BLOOD COUNT % eosinophils 3.9 % 0.0-7. 0 normal Not Available [facility] [address] [place] [address], [address], 12/05/2023 11:05:20 12/05/19 24 12/05/2023 COMPL ETE BLOOD COUNT % basophils 0.8 % 0.0-3. 0 normal Not Available [facility] [address] [place] [address], [address], 12/05/2023 11:05:20 12/05/19 24 12/05/2023 COMPL ETE BLOOD COUNT nucleated red cells 0.0 % 0.0-0. 9 normal Not Available [facility] [address] [place] [address], [address], 12/05/2023 11:05:20 12/05/19 24 12/05/2023 COMPL ETE BLOOD COUNT nucleated RBCs, absolute 0.00 10*3/ uL not estab. normal Not Available [facility] [address] [place] [address], [address], 12/05/2023 11:05:20 12/05/19 24 12/05/2023 IRON PANEL -TOTA L AND TIBC iron 80 ug/dL 37-145 normal Not Available [facility] [address] [place] [address], [address], 12/05/2023 11:38:05 12/05/19 24 12/05/2023 IRON PANEL -TOTA L AND TIBC total iron binding cap. 373 ug/dL _(aziza c) 250-45 0 normal Not Available [facility] [address] [place] [address], [address], 12/05/2023 11:38:05 12/05/19 24 12/05/2023 IRON PANEL -TOTA L AND TIBC unsat.iron binding cap. 293 ug/dL 112-34 7 normal Not Available [facility] [address] [place] [address], [address], 12/05/2023 11:38:05 12/05/19 24 12/05/2023 IRON PANEL -TOTA L AND TIBC % saturation 21 %_(ca lc) 15-50 normal Not Available [facility] [address] [place] [address], [address], 12/05/2023 11:38:05 12/05/19 24 12/05/2023 LIPID PROFI LE HDL cholesterol 48 mg/dL 50-242 low Not Available [facility] [address] [place] [address], [address], 12/05/2023 11:38:07 12/05/19 24 12/05/2023 LIPID PROFI LE triglyceride s 171 mg/dL 0-149 high TRIGL YCERI DE RANGE S SONAL L: < 150 BORDE RLINE HIGH: 150 - 199 HIGH: 200 - 499 VERY HIGH: > OR = 500 Not Available [facility] [address] [place] [address], [address], 12/05/2023 11:38:07 12/05/19 24 12/05/2023 LIPID PROFI LE cholesterol 134 mg/dL 0-199 normal SHANA STERO L (TOTA L) RANGE S JAME ABLE: < 200 BORDE RLINE : 200 - 239 HIGHE R RISK: > 239 Not Available [facility] [address] [place] [address], [address], 12/05/2023 11:38:07 12/05/19 24 12/05/2023 LIPID PROFI LE LDL cholesterol 52 mg/dL _(aziza c) 0-99 normal LDL SHANA STERO L RANGE S OPTIM AL: < 100 NEAR/ ABOVE OPTIM AL: 100 - 129 BORDE RLINE HIGH: 130 - 159 HIGH: 160 - 189 VERY HIGH: > OR = 190 Not Available [facility] [address] [place] [address], [address], 12/05/2023 11:38:07 12/05/19 24 12/05/2023 TSH TSH 0.840 u[IU] /mL 0.270- 4.200 normal Not Available [facility] [address] [place] [address], [address], 12/05/2023 11:44:06 12/05/19 24 12/05/2023 CORTI ANDERSON cortisol 6.50 ug/dL 2.68-1 8.40 normal CORTI ANDERSON SONAL L RANGE S: 6 am to 10 am 6.02 - 18.4 ug/dL 4 pm to 8 pm 2.68 - 10.5 ug/dL . Not Available [facility] [address] [place] [address], [address], 12/05/2023 11:44:08 12/05/19 24 12/05/2023 T4,FR EE T4,free 1.22 NG/dL 0.93-1 .70 normal Not Available [facility] [address] [place] [address], [address], 12/05/2023 11:44:10 12/05/19 24 12/05/2023 B12/F OLIC ACID PANEL folic acid 12.8 NG/mL 4.6-34 .8 normal Not Available [facility] [address] [place] [address], [address], 12/05/2023 11:53:24 12/05/19 24 12/05/2023 B12/F OLIC ACID PANEL vitamin B12 382 pg/mL 232-12 45 normal Not Available [facility] [address] [place] [address], [address], 12/05/2023 11:53:24 12/05/19 24 12/05/2023 hemog lobin A1C, finge rstic k hemoglobin A1C % 5.4 % 4.0 - 5.6 Not Available [facility] [address] [place] [address], [address], 12/05/2023 10:06:19 12/05/19 24 12/05/2023 gluco se, finge rstic k, blood glucose, fingerstick 109 mg/dL 70 - 100 Not Available [facility] [address] [place] [address], [address], 12/05/2023 10:05:34 06/29/20 24 06/29/2024 LIPID PROFI LE HDL cholesterol 60 mg/dL 50-242 normal Not Available [facility] [address] [place] [address], [address], 06/29/2024 11:16:35 06/29/20 24 06/29/2024 LIPID PROFI LE triglyceride s 142 mg/dL 0-149 normal TRIGL YCERI DE RANGE S SONAL L: < 150 BORDE RLINE HIGH: 150 - 199 HIGH: 200 - 499 VERY HIGH: > OR = 500 Not Available [facility] [address] [place] [address], [address], 06/29/2024 11:16:35 06/29/20 24 06/29/2024 LIPID PROFI LE cholesterol 155 mg/dL 0-199 normal SHANA STERO L (TOTA L) RANGE S JAME ABLE: < 200 BORDE RLINE : 200 - 239 HIGHE R RISK: > 239 Not Available [facility] [address] [place] [address], [address], 06/29/2024 11:16:35 06/29/20 24 06/29/2024 LIPID PROFI LE LDL cholesterol 67 mg/dL _(aziza c) 0-99 normal LDL SHANA STERO L RANGE S OPTIM AL: < 100 NEAR/ ABOVE OPTIM AL: 100 - 129 BORDE RLINE HIGH: 130 - 159 HIGH: 160 - 189 VERY HIGH: > OR = 190 Not Available [facility] [address] [place] [address], [address], 06/29/2024 11:16:35 06/29/20 24 06/29/2024 COMP. METAB OLIC PANEL glucose 98 mg/dL 74-100 normal Not Available [facility] [address] [place] [address], [address], 06/29/2024 11:16:37 06/29/20 24 06/29/2024 COMP. METAB OLIC PANEL blood urea nitrogen 7 mg/dL 6-20 normal Not Available [facility] [address] [place] [address], [address], 06/29/2024 11:16:37 06/29/20 24 06/29/2024 COMP. METAB OLIC PANEL creatinine 0.81 mg/dL 0.50-0 .95 normal Not Available [facility] [address] [place] [address], [address], 06/29/2024 11:16:37 06/29/20 24 06/29/2024 COMP. METAB OLIC PANEL BUN/creatini ne ratio 9 (calc ) 10-20 low Not Available [facility] [address] [place] [address], [address], 06/29/2024 11:16:37 06/29/20 24 06/29/2024 COMP. METAB OLIC PANEL sodium 135 mmol/ L 136-14 5 low Not Available [facility] [address] [place] [address], [address], 06/29/2024 11:16:37 06/29/20 24 06/29/2024 COMP. METAB OLIC PANEL potassium 4.8 mmol/ L 3.4-5. 0 normal Not Available [facility] [address] [place] [address], [address], 06/29/2024 11:16:37 06/29/20 24 06/29/2024 COMP. METAB OLIC PANEL chloride 99 mmol/ L 98-107 normal Not Available [facility] [address] [place] [address], [address], 06/29/2024 11:16:37 06/29/20 24 06/29/2024 COMP. METAB OLIC PANEL carbon dioxide 23 mmol/ L 22-31 normal Not Available [facility] [address] [place] [address], [address], 06/29/2024 11:16:37 06/29/20 24 06/29/2024 COMP. METAB OLIC PANEL anion gap 13 (calc ) 7-25 normal Not Available [facility] [address] [place] [address], [address], 06/29/2024 11:16:37 06/29/20 24 06/29/2024 COMP. METAB OLIC PANEL calcium 9.5 mg/dL 8.6-10 .2 normal Not Available [facility] [address] [place] [address], [address], 06/29/2024 11:16:37 06/29/20 24 06/29/2024 COMP. METAB OLIC PANEL total protein 6.9 g/dL 6.4-8. 3 normal Not Available [facility] [address] [place] [address], [address], 06/29/2024 11:16:37 06/29/20 24 06/29/2024 COMP. METAB OLIC PANEL albumin 4.6 g/dL 3.5-5. 2 normal Not Available [facility] [address] [place] [address], [address], 06/29/2024 11:16:37 06/29/20 24 06/29/2024 COMP. METAB OLIC PANEL globulin 2.3 1.5-4. 5 normal Not Available [facility] [address] [place] [address], [address], 06/29/2024 11:16:37 06/29/20 24 06/29/2024 COMP. METAB OLIC PANEL albumin/glob ulin ratio 2.0 (calc ) 1.1-2. 5 normal Not Available [facility] [address] [place] [address], [address], 06/29/2024 11:16:37 06/29/20 24 06/29/2024 COMP. METAB OLIC PANEL bilirubin, total 0.4 mg/dL 0.1-1. 2 normal Not Available [facility] [address] [place] [address], [address], 06/29/2024 11:16:37 06/29/20 24 06/29/2024 COMP. METAB OLIC PANEL alkaline phosphatase 81 U/L 30-121 normal Not Available [facility] [address] [place], [address], 06/29/2024 11:16:37 06/29/20 24 06/29/2024 COMP. METAB OLIC PANEL AST 20 U/L 0-32 normal Not Available [facility] [address] [place] [address], [address], 06/29/2024 11:16:37 06/29/20 24 06/29/2024 COMP. METAB OLIC PANEL ALT 15 U/L 0-33 normal Not Available [facility] [address] [place], [address], 06/29/2024 11:16:37 06/29/20 24 06/29/2024 COMP. METAB OLIC PANEL GFR 74 >= 60 normal NOT E New calcu latio n for GFR (CKD- EPI 2020) is formu lated witho ut race adjus tment facto rs at the recom menda tion of the Natio nal [employer] ation and Domonique Bahe ty of Nephr ology . This calcu latio n has not been valid ated in pregn ant women . For pedia tric patie nts refer to https ://david garrett.sheree arriaga.o rg/pr cliveess brooklynnal s/KDO QI/gf r_cal culat orPed Not Available [facility] [address] [place] [address], [address], 06/29/2024 11:16:37 06/29/20 24 06/29/2024 TSH TSH 4.300 u[IU] /mL 0.270- 4.200 high Not Available [facility] [address] [place], [address], 06/29/2024 11:19:57 06/29/20 24 06/29/2024 T4,FR EE T4,free 1.07 NG/dL 0.93-1 .70 normal Not Available [facility] [address] [place], [address], 06/29/2024 11:19:59 06/29/20 24 06/29/2024 B12/F OLIC ACID PANEL folic acid 14.4 NG/mL 4.6-34 .8 normal Not Available [facility] [address] [place] [address], [address], 06/29/2024 11:54:23 06/29/20 24 06/29/2024 B12/F OLIC ACID PANEL vitamin B12 399 pg/mL 232-12 45 normal Not Available [facility] [address] [place] [address], [address], 06/29/2024 11:54:23 06/29/20 24 06/29/2024 hemog lobin A1C, finge rstic k hemoglobin A1C % 5.4 % 4.0 - 5.6 Not Available [facility] [address] [place] [address], [address], 06/24/2024 15:31:48 06/29/20 24 06/29/2024 gluco se, shyame rstic k, blood glucose, fingerstick 114 mg/dL 70 - 100 Not Available [facility] [address] [place] [address], [address], 06/24/2024 15:31:48 01/07/20 25 01/06/2025 LIPID PROFI LE HDL cholesterol 59 mg/dL 50-242 normal Not Available [facility] [address] [place] [address], [address], 01/06/2025 12:18:23 01/07/20 25 01/06/2025 LIPID PROFI LE triglyceride s 164 mg/dL 0-149 high TRIGL YCERI DE RANGE S SONAL L: < 150 BORDE RLINE HIGH: 150 - 199 HIGH: 200 - 499 VERY HIGH: > OR = 500 Not Available [facility] [address] [place] [address], [address], 01/06/2025 12:18:23 01/07/20 25 01/06/2025 LIPID PROFI LE cholesterol 139 mg/dL 0-199 normal SHANA STERO L (TOTA L) RANGE S JAME ABLE: < 200 BORDE RLINE : 200 - 239 HIGHE R RISK: > 239 Not Available [facility] [address] [place] [address], [address], 01/06/2025 12:18:23 01/07/20 25 01/06/2025 LIPID PROFI LE LDL cholesterol 47 mg/dL _(aziza c) 0-99 normal LDL SHANA STERO L RANGE S OPTIM AL: < 100 NEAR/ ABOVE OPTIM AL: 100 - 129 BORDE RLINE HIGH: 130 - 159 HIGH: 160 - 189 VERY HIGH: > OR = 190 Not Available [facility] [address] [place] [address], [address], 01/06/2025 12:18:23 01/07/20 25 01/06/2025 LIPID PROFI LE chol/HDL ratio (calc) 2.4 mg/dL normal NO SONAL L RANGE ESTAB LISHE D FOR SHANA STERO L/HDL RATIO (CALC ULATE D). Not Available [facility] [address] [place] [address], [address], 01/06/2025 12:18:23 01/07/20 25 01/06/2025 TSH TSH 2.380 u[IU] /mL 0.270- 4.200 normal Not Available [facility] [address] [place] [address], [address], 01/06/2025 12:18:25 01/07/20 25 01/06/2025 T4,FR EE T4,free 1.19 NG/dL 0.93-1 .70 normal Not Available [facility] [address] [place] [address], [address], 01/06/2025 12:18:26 01/07/20 25 01/06/2025 hemog lobin A1C, finge rstic k hemoglobin A1C % 5.1 % 4.0 - 5.6 Not Available [facility] [address] [place] [address], [address], 01/06/2025 10:35:37 01/07/20 25 01/06/2025 gluco se, finge rstic k, blood glucose, fingerstick 214 mg/dL 70 - 100 Not Available [facility] [address] [place] [address], [address], 01/06/2025 10:28:04 06/12/20 24 06/12/2024 DEXA No observ ation record ed. [email or web address] Annemarie Byrd MD [address] [place] [address], [phone], 06/29/2024 08:09:01 06/12/20 24 06/12/2024 DEXA No observ ation record ed. [email or web address] Annemarie Byrd MD [address] [place] [address], [phone], 06/15/2024 08:17:14 Result Notes Documentation Provider Name and Address Organization Details Recorded Time Dexa : [address] [address]SORCLUMinnie CURTIS (id #[id number], : 1945) [address] [address] Date: 06/12/2024E: Minnie Dingus, : 1945, PT ID #[id number] Mccabe MD, I would like to thank you for referring Minnie Yamilet to our practice for consultation and evaluation. I have enclosed a copy of the office evaluation for your records. Sincerely, Electronically Signed by: RAFFY VÁZQUEZrocedure DocumentationDXA Low Bone Mass 1 - No Tx:Bone Densitometry Dual Energy X-Ray Absorptiometry (DXA) Report & Bone Health Report Trabecular Bone Score ( TBS) Follow-up bone mineral density measurement was performed on a Hologic QDR-4500C scanner with good technique. Ordering Provider Rochelle/Delvin Indications for the study:1. Post-menopausal state The L1-L4 lumbar spine bone density scan demonstrates lumbar spine T-score of -1.1, Z-score of 1.4, BMD 0.926 g/cm . Additionally, there has been a no statistically significant change in bone density over the lumbar spine when compared to the patient's previous examination on 04/16/2022. The left hip bone density scan demonstrates a femoral neck T-score of -1.5, Z-score of 0.7, BMD 0.688 g/cm . The total left hip T-score of -0.5, Z-score of 1.4, BMD 0.883 g/cm . Additionally there has been a 6.1% decrease in bone density over the left total hip and a 7.4% increase in bone density over the femoral neck when compared to the previous bone density measurement on 680. The lumbar spine TBS is 1.284 which is suggest a partially degraded microarchitecture compared to reference population. The patient's associated BMD and TBS values suggest a moderate resilience to fracture.IMPRESSION: Low bone mass (osteopenia) as demonstrated by bone density measurements& moderate resilience to fracture by bone resilience in the10 year probability of fracture risk using FRAX WHO Fracture Risk Assessment Tool Web version 3.8with age, sex, race, height and weight as stated above andanswer khloe previous history of low trauma fractures, parental history of hip fractures, current smoking, excessive alcohol consumption ( 3 or more units of alcohol daily), glucocorticoids use ( currently exposed to oral glucocorticoids or has been exposed to oral glucocorticoids for more than 3 months at a dose of prednisolone of 5mg daily or more (or equivalent doses of other glucocorticoids), secondary osteoporosis or rheumatoid arthritis samantha left femoral neck bone mineral density of 0. 688g/cm showed the following: A TBS adjusted 10 year probability fracture (%) Major osteoporotic: 12% Hip Fracture: 2.6%As perNational Osteoporosis Foundation 2014,postmenopausal women and men age 50 and older presenting with any the following should be considered for treatment: A hip or vertebral (clinical or morphometric) fracture or T-score = -2.5 at the femoral neck or spine after appropriate evaluation to exclude secondary causes or Low bone mass (T-score between -1.0 and -2.5 at the femoral neck or spine) and a 10-year probability of a hip fracture = 3% or a 10-year probability of a major osteoporosis-related fracture = 20% based on the [place]-adapted WHO algorithm Patient is not a candidate for pharmacologic therapy of osteoporosis based on the above-mentioned criteria.RECOMMENDATIONS:1. Ensure adequate calcium and vitamin D intake (1200 mg elemental calcium daily and 2000 IU Vit D daily) if this is clinically appropriate. Keep active vitamin D level >30 ng/mL. 2. Encourage practices to help increase bone density (i.e., resistance/weight bearing exercise 3x weekly) if it could be done safely. 3. Discourage practices that would compromise bone density quality (i.e. smoking, excessive alcohol consumption, and caffeine consumption) when applicable. 4. Follow bone density after 2-3-year or as per referring provider, utilizing the same scanning equipment to ensure stability or reliability. 5. Fall prevention. Ruthie zurita (Nicole)[facility] 06/29/2024 08:09:01 Dexa : [address] [address]ILSIXHMinnie (id #[id number], : 1945) [address] [address] Date: 4RE: Minnie Woodard, : 1945, PT ID #[id number] Click [employer]OUNDING [employer]INE[employer], I would like to thank you for referring Minnie Woodard to our practice for consultation and evaluation. I have enclosed a copy of the office evaluation for your records. Sincerely, Electronically Signed by: ANNEMARIE BYRD, MDProcedure DocumentationDXA Low Bone Mass 1 - No Tx:Bone Densitometry Dual Energy X-Ray Absorptiometry (DXA) Report & Bone Health Report Trabecular Bone Score ( TBS) Follow-up bone mineral density measurement was performed on a Hologic QDR-4500C scanner with good technique. Ordering Provider Rochelle/Delvin Indications for the study:1. Post-menopausal state The L1-L4 lumbar spine bone density scan demonstrates lumbar spine T-score of -1.1, Z-score of 1.4, BMD 0.926 g/cm . Additionally, there has been a no statistically significant change in bone density over the lumbar spine when compared to the patient's previous examination on 04/16/2022. The left hip bone density scan demonstrates a femoral neck T-score of -1.5, Z-score of 0.7, BMD 0.688 g/cm . The total left hip T-score of -0.5, Z-score of 1.4, BMD 0.883 g/cm . Additionally there has been a 6.1% decrease in bone density over the left total hip and a 7.4% increase in bone density over the femoral neck when compared to the previous bone density measurement on 680. The lumbar spine TBS is 1.284 which is suggest a partially degraded microarchitecture compared to reference population. The patient's associated BMD and TBS values suggest a moderate resilience to fracture.IMPRESSION: Low bone mass (osteopenia) as demonstrated by bone density measurements& moderate resilience to fracture by bone resilience in the10 year probability of fracture risk using FRAX WHO Fracture Risk Assessment Tool Web version 3.8with age, sex, race, height and weight as stated above andanswer khloe previous history of low trauma fractures, parental history of hip fractures, current smoking, excessive alcohol consumption ( 3 or more units of alcohol daily), glucocorticoids use ( currently exposed to oral glucocorticoids or has been exposed to oral glucocorticoids for more than 3 months at a dose of prednisolone of 5mg daily or more (or equivalent doses of other glucocorticoids), secondary osteoporosis or rheumatoid arthritis samantha left femoral neck bone mineral density of 0. 688g/cm showed the following: A TBS adjusted 10 year probability fracture (%) Major osteoporotic: 12% Hip Fracture: 2.6%As perNational Osteoporosis Foundation 2014,postmenopausal women and men age 50 and older presenting with any the following should be considered for treatment: A hip or vertebral (clinical or morphometric) fracture or T-score = -2.5 at the femoral neck or spine after appropriate evaluation to exclude secondary causes or Low bone mass (T-score between -1.0 and -2.5 at the femoral neck or spine) and a 10-year probability of a hip fracture = 3% or a 10-year probability of a major osteoporosis-related fracture = 20% based on the [place]-adapted WHO algorithm Patient is not a candidate for pharmacologic therapy of osteoporosis based on the above-mentioned criteria.RECOMMENDATIONS:1. Ensure adequate calcium and vitamin D intake (1200 mg elemental calcium daily and 2000 IU Vit D daily) if this is clinically appropriate. Keep active vitamin D level >30 ng/mL. 2. Encourage practices to help increase bone density (i.e., resistance/weight bearing exercise 3x weekly) if it could be done safely. 3. Discourage practices that would compromise bone density quality (i.e. smoking, excessive alcohol consumption, and caffeine consumption) when applicable. 4. Follow bone density after 2-3-year or as per referring provider, utilizing the same scanning equipment to ensure stability or reliability. 5. Fall prevention. Tabby Wetzel null, [facility] 06/15/2024 08:17:14 Problems Name Problem SNOMED Code Status Onset Date Resolution Date Notes Provider Name and Address Organization Details Recorded Time Vasomotor rhinitis 2785548 Active 2015 From Automated Load;Prov ider: Kenneth Choe;Statu s: Active Astrid Musa null, [facility] 8 09:21:25 Mixed conductiv e and sensorine ural hearing loss, bilateral 328120340 Active 2015 From Automated Load;Prov ider: Kenneth Choe;Statu s: Active Astrid Musa null, [facility] 8 09:21:25 Prediabet es 298526085 Active 2015 From Automated Load;Prov ider: Annemarie Byrd;Sta tus: Active [facility] 8 09:21:25 Hypothyro idism 44351760 Active 2015 From Automated Load;Prov ider: Annemarie Byrd;Sta tus: Active [facility] 8 09:21:25 Hyperlipi demia 27838532 Active 2015 From Automated Load;Prov ider: Annemarie Byrd;Sta tus: Active [facility] 8 09:21:25 Thyroidit is 68513180 Active 2014 From Automated Load;Prov ider: Adair Cadena;Stat us: Active Astrid Musa null, [facility] 8 09:21:25 Hyperglyc emia 71339234 Active 2014 From Automated Load;Prov ider: Adair Cadena;Stat us: Active [facility] 8 09:21:25 Mixed hyperlipi demia 407291899 Active 2014 From Automated Load;Prov ider: Adair Cadena;Stat us: Active [facility] 8 09:21:25 Impacted cerumen 40935543 Active 2014 From Automated Load;Prov ider: Kenneth Choe;Statu s: Active Astrid Musa null, [facility] 8 09:21:25 Sensorine ural hearing loss 03592926 Active 2014 From Automated Load;Prov ider: Kenneth Choe;Statu s: Active Astrid Musa null, [facility] 8 09:21:25 Chronic rhinitis 80061586 Active 2014 Provider: Kenneth Choe;Statu s: Active Astrid Musa null, [facility] 8 09:21:25 Eustachia n tube disorder 42033309 Active 2014 Provider: Kenneth Choe;Statu s: Active Astrid Musa null, [facility] 8 09:21:25 Sensorine ural hearing loss of bilateral ears 631949051 Active 2014 Provider: Kenneth Choe;Statu s: Active [facility] 8 09:21:25 Sleep apnea 64331261 Active 2014 Provider: Kenneth Choe;Statu s: Active Astrid Musa null, [facility] 8 09:21:25 Inflammat ory dermatosi s 857204421 Active 2014 Provider: Kenneth Choe;Statu s: Active [facility] 8 09:21:25 Otitis externa 8575744 Active 2014 From Automated Load;Prov ider: Kenneth Choe;Statu s: Active Astrid Musa null, [facility] 8 09:21:25 Bone density finding 421058133 Active 2015 From Automated Load;Prov ider: Annemarie Byrd;Sta tus: Active Astrid Musa null, [facility] 8 09:21:25 Otitis externa of right ear 524602925736 9101 Active 2015 From Automated Load;Prov ider: Kenneth Choe;Statu s: Active Astrid Musa [facility] 8 09:21:25 Mixed conductiv e AND sensorine ural hearing loss 27511473 Active 2015 From Automated Load;Prov ider: Kenneth Choe;Statu s: Active Astrid Vigil [facility] 8 09:21:25 Chronic otitis externa 39454905 Active 2014 Provider: Kenneth Choe;Statu s: Active Astrid Vigil [facility] 8 09:21:25 Allergic rhinitis 15198353 Active 2014 Provider: Kenneth Choe;Statu s: Active Astrid Vigil [facility] 8 09:21:25 Problem Notes None recorded. Procedures Surgical History Date Name Laterality Status Provider Name and Address Organization Details Recorded Time 06/12/20 24 DXA Low Bone Mass 1 - No Tx completed ANNEMARIE BYRD MD [address] [place] [address], [phone] 06/12/2024 17:48:50 08/20/19 24 Destruction Premalignant Lesion(s) completed Leta [facility] 08/20/2023 15:40:37 08/20/19 24 Destruction [facility] 08/20/2023 15:40:26 06/28/20 22 Cystoscopy - female completed VINICIO WILKINS MD [address] [place] [address], [phone] 06/28/2022 13:21:55 05/10/20 Post Void Residual; Ultrasound completed Georgia Delcid [facility] 05/10/2022 09:10:42 04/16/20 22 DXA Low Bone Mass 1 - No Tx completed ANNEMARIE BYRD MD [address] [place] [address], [phone] 04/16/2022 12:52:34 06/19/20 19 Pessary Insertion completed DOT RAMIREZ MD [address] [place] [address], [phone], [facility] 06/23/2019 21:52:40 01/23/20 19 DXA Low Bone Mass 1 - No Tx completed ANNEMARIE BYRD MD [address] [place] [address], [phone], [facility] 01/22/2019 16:51:09 02/29/20 18 Binocular Microscopy completed [facility] 02/28/2018 15:27:57 02/21/20 18 Ears/Nose/Throat Surgery completed Layla Madden [facility] 02/28/2018 15:14:43 12/21/19 18 Binocular Microscopy completed [facility] 12/20/2017 13:06:21 11/30/19 18 Binocular Microscopy completed [facility] 11/29/2017 09:34:05 07/05/20 17 Cerumen removal - Instruments, Unilateral completed [facility] 07/05/2017 10:23:04 06/07/20 17 Binocular Microscopy completed Olinda Salinas [facility] 06/07/2017 09:48:44 02/16/20 17 DXA Low Bone Mass 1 - No Tx completed ANNEMARIE BYRD MD [address] [place] [address], [phone], [facility] 02/18/2017 18:08:26 02/02/20 17 Binocular Microscopy completed Carol Velasquez [facility] 02/01/2017 11:00:25 11/24/19 17 Binocular Microscopy completed [facility] 11/23/2016 10:48:40 03/26/20 13 Ears/Nose/Throat Surgery completed Astrid Vigil [facility] 06/07/2017 09:12:53 [facility] 10:27:45 Tonsillectomy completed [facility] 01/08/2017 10:27:51 Cholecystectomy completed [facility] 01/08/2017 10:27:58 Ears/Nose/Throat Surgery completed [facility] 01/08/2017 10:28:12 Military Professional Surgery completed Krupa Armijo [facility] 01/08/2017 10:28:25 Ears/Nose/Throat Surgery completed Astrid Vigil [facility] 06/07/2017 09:13:15 Imaging Results None recorded. Procedure Notes None recorded. Medical Equipment None Reported. Allergies Allergen ID Allergen Name Allergen Category Reaction Reaction Severity Criticality Documentation Date Start Date Code Code System Note Provider Name and Address Organization Details Recorded Time 885623 Substance with sulfonami de structure and antibacte rial mechanism of action (substanc e) medicatio n Not available Not available Not available 06/21/20162005 26469 8003 SNOMED Comme nt: Creat ed By: Bere Connors ;Crea santos Date: 2005 1:21: 53 PM; Layla kolb [facility] 9 11:00:14 889515 amoxicill in trihydrat e medicatio n other Not available Not available 06/21/20162008 98954 8 RxNorm React ion: OTHER ; Comme nt: flush ing tongu e;Cre ated By: Noe yorkCre ated Date: 2008 10:45 :39 AM; Not Available [facility] 6 12:47:44 822440 Product containin g penicilli n (product) medicatio n Not available Not available Not available 06/22/20162005 02689 8001 SNOMED Comme nt: Creat ed By: Bere Connors ;Crea santos Date: 2005 1:22: 18 PM; Not Available [facility] 6 03:42:54 004567 Keflex medicatio n Not available Not available Not available 06/22/20162005 56179 7 RxNorm Comme nt: Creat ed By: Bere Connors ;Crea santos Date: 2005 1:22: 07 PM; [facility] 9 09:27:23 637351 Ceftin medicatio n other Not available Not available 06/22/20162007 84088 6 RxNorm React ion: TONGU E SWELL ING; Comme nt: Creat ed By: Pam Dahl santos Date: 2007 10:19 :01 AM; Not Available [facility] 6 04:29:48 317963 Mobic medicatio n Not available Not available Not available 06/22/20162012 62109 9 RxNorm Comme nt: Creat ed By: Ahsan davidson;Cr eated Date: 2012 11:34 :39 AM; Fernando Mcgregorderick [facility] 9 09:27:31 800570 Medicinal product containin g cephalosp lawson and acting as antibacte rial agent (product) medicatio n Not available Not available Not available 12/03/2022 29824 9009 SNOMED Jody Rios [facility] 3 14:25:56 Medications Name Sig Start Date [...] height Body mass index (BMI) Body weight Heart rate Systolic blood pressure Diastolic blood pressure Provider Name and Address Organization Details Last Updated DateTime 4 162.56 cm 30.4 kg/m2 55755.8 5 g 70 /min 128 mm[Hg] 78 mm[Hg] [facility] 4 10:03:57 Date Recorded Body height Body mass index (BMI) Body weight Systolic blood pressure Diastolic blood pressure Provider Name and Address Organization Details Last Updated DateTime 01/06/2025 162.56 cm 28.8 kg/m2 86308.52 g 122 mm[Hg] 76 mm[Hg] [facility] 5 10:29:18 Date Recorded Body height Body mass index (BMI) Body weight Heart rate Systolic blood pressure Diastolic blood pressure Provider Name and Address Organization Details Last Updated DateTime 4 162.56 cm 30 kg/m2 77877.6 6 g 74 /min 120 mm[Hg] 74 mm[Hg] Riri [facility] 4 09:43:37 Social History Question Answer Notes LastModified by Organ[employer]at [employer] Details LastModified Time Tobacco Smoking Status Never Smoker Krupa Armijo [facility] 01/08/2017 10:27:07 How Much Tobacco Do You Chew? None [email or web address] Information not available 06/19/2019 What Was The Date Of Your Most Recent Tobacco Screening? 12/03/2022 [email or web address] Information not available 12/03/2022 How Much Tobacco Do You Smoke? No [email or web address] Information not available 06/19/2019 Has Tobacco Cessation Counseling Been Provided? No [email or web address] Information not available 02/28/2018 How Many Years Have You Smoked Tobacco? 0 [email or web address] Information not available 07/02/2019 Sex: Female Functional Status Question Answer Note LastModified by Organ[employer] Details LastModified Time Do you or have you ever used any other forms of tobacco or nicotine? No [email or web address] Information not available 06/26/2021 What is your level of alcohol consumption? Occasional [email or web address] Information not available 01/08/2017 Do you or have you ever used smokeless tobacco? Never used smokeless tobacco [email or web address] Information not available 07/02/2019 Do you or have you ever used e-cigarettes or vape? Never used electronic cigarettes [email or web address] Information not available 07/02/2019 Mental Status None recorded. Family History Relationship Description Onset Age of this Age Resolved Age Notes LastModified by Organization Details LastModified Time Sister Asthma [email or web address] Not availab le 03/06/2018 11:26:43 Sister Hearing loss Not a vailable 03/06/2018 11:26:44 Sister Hypertensive disorder [email or web address] Not available 03/2018 11:26:44 Sister Disorder of thyroid gland [email or web address] Not available 03/2018 11:26:44 Unspecified Relation Family history of malignant neoplasm [email or web address] Not available 03/2018 11:26:44 Unspecified Relation Allergic rhinitis [email or web address] Not available 2017 10:27:46 Mother Diabetes mellitus [email or web address] Not available 03/2018 11:26:44 Mother Hearing loss [email or web address] Not a vailable 03/06/2018 11:26:44 Brother Hearing loss [email or web address] Not available 03/06/2018 11:26:44 Brother Hypertensive disorder [email or web address] Not available 03/2018 11:26:44 Brother Disorder of thyroid gland Not available 03/2018 11:26:44 Medical History Condition Response Pancreatitis Y Gout N Other Y Macular Degeneration N Thyroid Disease Y Kidney Stones N Hyperthyroidism N Heart Arrhythmia N Hernia Y Emphysema N Esophagus/swallowing troubles Y COPD N Depression N Hypothyroidism Y Glaucoma N Pneumonia N [...] N Stomach trouble Y Colon Polyps Y Heart Attack (PR) N Ulcers N Osteopenia N Diabetes N Rheumatic Fever [...] SNOMED-CT Code Diagnosis ICD10 Code Diagnosis Note [id number] KENNETH CHOE MD [place] [facility] [address] [place] [address] 11/23/2016 10:11:32 11/27/2016 08:44:42 Sensorineural hearing loss of bilateral ears 246899895 H90.3 Allergic rhinitis 624134 04 J30.9 Eustachian tube disorder 39843461 H69.93 Chronic ot itis externa 32143596 H60.63 dry Acute otitis externa 302 86654 H60.978 [id number] ANNEMARIE BYRD MD [address] [place] [address] 12/10/2016 09:03:27 12/10/2016 10:35:31 Hypothyroidism 92530830 E78.5 M85.80 R73.02 Labs as belowClini lesley appears euthyroid apart from weight gainHad questions about obesity and weight gain.All questions answered.C heck labs todayFurth er management to be determined as appropriat e. [id number] KENNETH CHOE MD [place] [facility] [address] [facility] [place] [address] 12/14/2016 14:34:35 12/14/2016 16:11:07 Otitis externa of right ear 2744158711 276926 H60.91 Dysfunctio n of eustachian tube 65123768 H69.93 Sensorineu ral hearing loss of bilateral ears 295900221 H90.3 [id number] MD DANNA ARCHIBALD [address] [facility] [place] [address] 01/08/2017 10:21:38 01/08/2017 12:34:29 Otitis externa of right ear 2961677840 731630 H60.91 Dysfunctio n of eustachian tube 66823182 H69.93 retained T-tubes Sensorineu ral hearing loss of bilateral ears 334784278 H90.3 Allergic rhinitis 024514 04 J30.9 [id number] MD DANNA ARCHIBALD [address] [facility] [place] [address] 02/01/2017 10:08:02 02/01/2017 11:26:11 Otitis externa of right ear 5948035677 292093 H60.91 Dysfunctio n of right eustachian tube 4538854594 370630 H69.91 - retained T-Tube Dysfunctio n of left eustachian tube 5482404855 864936 H69.92 - retained T-Tube Sensorineu ral hearing loss of bilateral ears 183495634 H90.3 Otorrhea 23165429 H92.11 - right Granulation of tissue 22 8623296 R23.8 - Right ear [id number] ANNEMARIE BYRD MD B[address] [place] [address] 02/15/2017 13:52:33 02/15/2017 14:33:12 [id number] KENNETH CHOE MD [place] [facility] [address] [place] [address] 06/07/2017 09:29:08 06/07/2017 11:11:26 Dysfunction of eustachian tube 07246311 H69.93 retained T-tube on the right Impacted c erumen in left ear 4644345893 777261 H61.22 Otitis ext rodger of right ear 7602901765 428446 H60.91 [id number] ANNEMARIE BYRD MD [address] [place] [address] 06/25/2017 09:50:14 06/25/2017 11:26:39 Hypothyroidism 35475072 E78.5 M85.80 R73.02 Clinically appears euthyroid apart from weight loss and Palpitatio nsAll questions answered. Check labs todayFurth er management to be determined as appropriat e. Hyperlipidemia 32034068 E78.5 LDL of 66, elevated triglyceri duane of 171, low HDL cholestero l and total cholestero l 147 on 12/10/2016C ontinue current atorvastat in therapy 10 mg every bedtimePre scription renewed for Atorvastat in and ZetiaLipid panel and LFTs today Prediabetes 895913793 R7 3.03 I counseled patient about the importance of intensive lifestyle [...] .Continue current metformin 500 mg twice a dayCheck A1c today Vitamin D deficiency 347 82527 E55.9 M85.80 Check 25-hydroxy vitamin DBone density in January 2017 showed osteopenia but she did not qualify LEONIDAS Rossi discussed with patient the importance adequate dietary calcium intake ( 1,200 mg per day ), incorporat ing dietary supplement s if diet is insufficie nt. Also discussed with patient the importance of adequate vitamin D intake (1,000 IU per day), including supplement s if necessary. Vitamin B1 2 deficiency (non anemic) 96312669 E53.8 Reported having a history of vitamin B12 deficiency Check vitamin B12 levels today [id number] KENNETH CHOE MD [place] [facility] [place] [address] 07/05/2017 09:48:37 07/05/2017 10:31:41 Dysfunction of eustachian tube 04845985 H69.93 retained tube on left Impacted c erumen in left ear 7822862459 420088 H61.22 Chronic ot itis externa 17146746 H60.63 dry Sensorineu ral hearing loss of bilateral ears 066252661 H90.3 Tympanic m embrane inflamed 129933372 H73.21 [id number] KENNETH CHOE MD [place] [facility] [address] [place] [address] 11/29/2017 09:17:12 11/29/2017 16:38:29 Dysfunction of eustachian tube 29442000 H69.93 retained tube on left Chronic ot itis externa 52299351 H60.63 dry Sensorineu ral hearing loss of bilateral ears 108716910 H90.3 Tympanic m embrane inflamed 071000020 H73.21 Chronic pu rulent otitis media 37838493 H66.3X9 Chronic rhinitis 1884083 6 J31.0 [id number] ANNEMARIE BYRD MD [address] [place] [address] 12/13/2017 09:52:39 12/13/2017 10:34:10 Hypothyroidism 26260605 E78.5 M85.80 R73.02 Clinically appears euthyroid apart from weight loss and Palpitatio nsAll questions answered. Check labs todayFurth er management to be determined as appropriat e. Hyperlipidemia 38465408 E78.5 LDL of 62, elevated triglyceri duane of 210, low HDL cholestero l 44 and total cholestero l 148 on 12/10/2016C ontinue current atorvastat in therapy 10 mg every bedtime and Zetia 10 mgPrescrip tion renewed for Atorvastat in and Zetia Prediabetes 775393706 R7 3.03 I counseled patient about the importance of intensive lifestyle [...] .Continue current metformin 500 mg twice a dayCheck A1c today Fatigue 81236131 R53.83 Reported dry skin, dry mouthwante d be evaluated for Sj gren syndromeRe ferral to rheumatolo gy [id number] KENNETH CHOE MD [facility] [address] [facility],[address] [place] [address] 12/20/2017 12:44:42 12/24/2017 13:01:54 Mixed conductive and sensorineural hearing loss, bilateral 524407788 H90.6 Dysfunctio n of eustachian tube 40596392 H69.93 retained tube on left Tympanic m embrane inflamed 901098888 H73.21 Chronic ot itis externa 09241882 H60.63 dry Sensorineu ral hearing loss of bilateral ears 095963349 H90.3 Chronic rhinitis 6728057 6 J31.0 Chronic se enrique otitis media 98053686 H65.23 Fatigue 90106633 R53.83 [id number] SUSAN MCCABE MD RHEUMATOL OGY [address] [place] [address] 01/14/2018 09:33:56 01/14/2018 10:57:58 Keratoconjunctivitis sicca, in Sj gren's syndrome 90753175 M35.01 she has chronic worsening dry eyes, dry mouth along with chronic autoimmune thyroid disease. Based on clinical examinatio n,she has a high risk for the primary Sjogren's. I want her to obtain Sjogren's profile and if labs are inconclusi ve, I would do a minor salivary gland biopsy. For now, start Pilocarpin e at 5 mg q 8 hours t help with oral dryness. we will contact her after review of the studies. [id number] SUSAN MCCABE MD RHEUMATOL OGY [address] [place] [address] 01/27/2018 14:21:46 01/27/2018 16:43:51 Keratoconjunctivitis sicca, in Sj gren's syndrome 25660287 M35.01 she has chronic worsening dry eyes, dry mouth along with chronic autoimmune thyroid disease. Based on clinical examinatio n,she has a high risk for the primary Sjogren's. Her LEILA screen and anti SSA/SSB abs are negative. However, based on her clinical history, I am very suspicious about the Sjogren's. Sero negative Sjogren's can be seen in about 30% of the time., A minor salivary gland biopsy would be the right thing to do at this point. I will send her back to Dr Choe for the minor salivary gland biopsy. Maintain the Pilocarpin e at 5 mg q 8 hours t help with oral dryness. we will contact her after review of the studies. 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 M35.00 possible Dysfunctio n of eustachian tube 26867367 H69.93 retained tube on left Serous otitis media 8032 7007 H65.91 [id number] MD DANNA ARCHIBALD ENT [address] [place] [address] 02/28/2018 14:43:48 03/03/2018 10:01:45 Sj gren's syndrome 53289941 M35.00 normal results Dysfunctio n of eustachian tube 63404265 H69.93 retained bilateral ear tubes Fatigue 82520822 R53.83 Otorrhea of left ear 987 3903921 710686 H92.12 moisture noted around tube Chronic ot itis externa 97753750 H60.63 [id number] SUSAN MCCABE MD RHEUMATOL OGY [address] [place] [address] 03/06/2018 11:10:22 03/06/2018 13:48:18 Keratoconjunctivitis sicca, in Sj gren's syndrome 76614004 M35.01 she has chronic worsening dry eyes, dry mouth along with chronic autoimmune thyroid disease. Based on clinical examinatio n, she has a high risk for the primary Sjogren's. Her LEILA screen and anti SSA/SSB abs were both negative. However, based on her clinical history, I am very suspicious about the Sjogren's. Sero negative Sjogren's can be seen in about 30% of the time., The minor salivary gland biopsy was unremarkab le which goes against the definitive sjogren's. The pilocarpin e has greatly helped her symptoms. I think, as she has done better with dryness on the Pilocarpin e, should remain on it at 5 mg q 8 hours. we had a long discussion about her symptoms, and the fact she feels better with pilocarpin e, except for the fatigue one can consider a therapeuti c trial of plaquenil for possible sero negative sjogren's to see if this helps her symptoms. I want her to avoid nsaids, due to elevated lfts. we will see how she does with plaquenil. [id number] KENNETH CHOE MD MS E[facility] [address] [facility],[address] [place] [address] 03/21/2018 10:13:21 03/24/2018 08:36:36 Sj gren's syndrome 65928262 M35.00 normal results Dysfunctio n of eustachian tube 10338934 H69.93 retained right ear tube Fatigue 22508740 R53.83 Perforatio n of tympanic membrane 98409035 H72.92 10% [id number] SUSAN MCCABE MD RHEUMATOL OGY [address] [place] [address] 04/30/2018 12:57:10 04/30/2018 15:02:18 Keratoconjunctivitis sicca, in Sj gren's syndrome 23677012 M35.01 Primary Sjogren's. Her LEILA screen and anti SSA/SSB abs were both negative. she has chronic dry eyes, dry mouth along with chronic autoimmune thyroid disease. All these features are typical for the Sjogren's, even though the minor salivary gland biopsy was unremarkab le which goes against the definitive sjogren's. The pilocarpin e has greatly helped her symptoms. Maintain, the Pilocarpin e, 5 mg q 8 hours. Maintain plaquenil 1 po qd. Overall, she is doing better and feeling better. will maintain the current treatment plans. I want her to avoid nsaids, due to elevated lfts. maintain the eye exam. [id number] ANNEMARIE BYRD MD ENDOCRINO LOGY [address] [place] [address] 06/16/2018 09:39:32 06/16/2018 14:37:40 Hyperlipidemia 51340646 E78.5 LDL of 69, elevated triglyceri duane of 172, low HDL cholestero l 42 and total cholestero l 145 on 12/20/2017C ontinue current atorvastat in therapy 10 mg every bedtime and Zetia 10 mgPrescrip tion renewed for Atorvastat in and Zetia Prediabetes 591485516 R7 3.03 A1c of 5.4% in the office todayFasti ng point-of-c are blood glucose of 89 I counseled patient about the importance of intensive lifestyle [...] .Continue current metformin 500 mg twice a dayPrescri ption renewed Hypothyroidism 01383954 E03.9 TSH of 0.4689312/13Presc ription renewedInt ermittent palpitatio nsCheck TSH today [id number] ANNEMARIE BYRD MD ENDOCRINO LOGY [address] [place] [address] 12/12/2018 10:17:25 12/12/2018 11:40:39 Prediabetes 453235792 R73.03 I counseled patient about the importance of intensive lifestyle [...] .Continue current metformin 500 mg twice a dayCheck A1c and BMP Hypothyroidism 70315605 E03.9 TSH of 2.18 on 06/16/2018 Continue current Synthroid dose of 125 g every a.m.Check TSH today Hyperlipidemia 82573557 E78.5 LDL of 69, elevated triglyceri duane of 137, low HDL cholestero l 65 and total cholestero l 137 on 06/16/2000 Continue current atorvastat in therapy 10 mg every bedtime and Zetia 10 mgLipid panel and LFTs [id number] SUSANASCENCION MCCABE MD RHEUMATOL OGY [address] [place] [address] 12/30/2018 09:01:34 12/30/2018 10:25:05 Keratoconjunctivitis sicca, in Sj gren's syndrome 34670261 M35.01 Primary Sjogren's. Her LEILA screen and anti SSA/SSB abs were both negative. Reassured about absence of lupus. she has chronic dry eyes, dry mouth along with chronic autoimmune thyroid disease. All these features are typical for the Sjogren's, even though the minor salivary gland biopsy was unremarkab le which goes against the definitive sjogren's. The pilocarpin e has greatly helped her symptoms. Maintain, the Pilocarpin e, 5 mg q 8 hours. Maintain plaquenil 200 mg , po qd. Overall, she is doing better and feeling better. Though she does have anxiety and stress that does makes her sicca symptoms worse. I want her to avoid nsaids, due to elevated lfts. Must maintain the eye exam. she also being treated for SWETA, on CPAP. Senile osteopenia 232821 06 M85.80 Last DEXA in 03/2017. No evidence of spontaneou s fractures. Needs to have repeat DEXA this year after 01/2019. maintain ca and vitamin D. No indication s for the bisphospho nates. Generalize d osteoarthritis 082251121 M15.9 she has chronic diffuse degenerati ve process , as expected for her age. No features of RA noted. Reassured. [id number] ANNEMARIE BYRD MD BONE DENSITY [address] [place] [address] 01/22/2019 14:01:22 01/22/2019 14:34:06 Osteopenia 293191257 M85.9 [id number] ANNEMARIE BYRD MD ENDOCRINO [facility] [address] [place] [address] 05/27/2019 10:37:12 05/27/2019 11:58:58 Hyperlipidemia 90824952 E78.5 LDL of 63, elevated triglyceri daune of 134, low HDL cholestero l and total cholestero l 135 on 12/12/2018C ontinue current atorvastat in therapy 10 mg every bedtime and Zetia 10 mgLipid panel and LFTsFurthe r adjustment as appropriat e Prediabetes 338255367 R7 3.03 I counseled patient about the importance of intensive lifestyle [...] .Continue current metformin 500 mg twice a day Check A1c today Hypothyroidism 33823448 E03.9 TSH of 2.18 on 06/16/2018 Continue current Synthroid dose of 125 g every a.m.Check TSH today Osteopenia 839152278 M85 .9 Most recent bone density on 01/22/2019 consistent with osteopenia . Did not qualify FRAX right ear for pharmacolo gic therapy I discussed with patient the importance adequate dietary calcium intake ( 1,200 mg per day ), incorporat ing dietary supplement s if diet is insufficie nt. Also discussed with patient the importance of adequate vitamin D intake (1,000 IU per day), including supplement s if necessary. Fatigue 45010884 R53.83 Reported dry skin, dry mouthwante d be evaluated for Sj gren syndromeRe ferral to rheumatolo gy Deficiency of vitamin D3 064420332 E55.9 [id number] DOT RAMIREZ MD [facility] [address] [place] [address] 06/05/2019 09:44:18 06/05/2019 11:22:53 Chronic cystitis 03549847 N30.20 plan as above Midline cystocele 818534 003 N81.11 she will return in 2 weeks for pessary fitting. [id number] DOT RAMIREZ MD [facility] [address] [place] [address] 06/19/2019 11:07:46 06/19/2019 12:48:45 Chronic infective cystitis 332933568 N30.20 Midline cystocele 763339 003 N81.11 as above follow-up 4-5 months [id number] SUSAN MCCABE MD RHEUMATOL OGY [address] [place] [address] 07/02/2019 10:42:33 07/03/2019 13:38:24 Body mass index 30+ - obesity 523103640 Z68.30 Diet and exercise reviewed. Keratoconj unctivitis sicca, in Sj gren's syndrome 07949141 M35.01 Primary Sjogren's. Associated with chronic dry eyes, dry mouth along with chronic autoimmune thyroid disease. All these features are typical for the Sjogren's, even though the minor salivary gland biopsy was unremarkab le which goes against the definitive sjogren's. Treat as probable sjogren's. The pilocarpin e has greatly helped her symptoms. Maintain, the Pilocarpin e, 5 mg q 8 hours. Maintain plaquenil 200 mg , po qd. Overall, she is doing better and feeling better. I want her to avoid nsaids, due to elevated lfts. Must maintain the eye exam. she also being treated for SWETA, on CPAP. Senile osteopenia 867887 06 M85.80 No evidence of spontaneou s fractures. DEXA reviewed, 12/2018. Modest osteopenia , with stable FRAX scores. maintain ca and vitamin D. No indication s for the bisphospho nates. Generalize d osteoarthritis 337471426 M15.9 she has chronic diffuse degenerati ve process , as expected for her age. No features of RA noted. Reassured. 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 [id number] ANNEMARIE BYRD MD ENDOCRINO [facility]Y [address] [place] [address] 12/04/2019 09:19:44 12/04/2019 09:46:13 Hyperlipidemia 66677575 E78.5 LDL of 62 in April 2019Contin ue current atorvastat in therapy 10 mg every bedtime and Zetia 10 mgLipid panel and LFTsFurthe r adjustment as appropriat e Hypothyroidism 97577335 E03.9 TSH of 0.92 in April 2019Contin ue current Synthroid dose of 125 g every a.m.Check TSH todayFurth er adjustment as appropriat e Prescripti on to follow Prediabetes 060774329 R7 3.03 I counseled patient about the importance of intensive lifestyle [...] .Continue current metformin 500 mg twice a dayCheck A1c today Vitamin D deficiency 347 98795 E55.9 M85.80 Check 25-hydroxy vitamin DBone density in December 2018 showed osteopenia but she did not qualify FRAX critteria I discussed with patient the importance adequate dietary calcium intake ( 1,200 mg per day ), incorporat ing dietary supplement s if diet is insufficie nt. Also discussed with patient the importance of adequate vitamin D intake (1,000 IU per day), including supplement s if necessary. [id number] SUSAN MCCABE MD RHEUMATOL OGY [address] [place] [address] 01/28/2020 08:59:08 02/02/2020 10:35:15 Keratoconjunctivitis sicca, in Sj gren's syndrome 05456501 M35.01 Primary Sjogren's, without any extragland ular disease. She has stopped the hydroxychl oroquine. On symptomati c management with pilocarpin e as needed basis. For now continue to watch clinically . I want her to avoid oral nsaids, due to elevated lfts. she can take low-dose Tylenol regular strength once or twice a day as needed. She will continue with sleep apnea treatment with CPAP machine. Senile osteopenia 745763 06 M85.80 No evidence of spontaneou s fractures. DEXA reviewed, 12/2018. Modest osteopenia , with stable FRAX scores. maintain ca and vitamin D. No indication s for the bisphospho nates. Generalize d osteoarthritis 631164469 M15.9 she has symptomati c bilateral knee joint space is to have responded to the Voltaren gel. She can continue with the Voltaren gel twice a day applicatio ns as needed. Call our office if symptoms do not improve or get worse for in office evaluation . [id number] ANNEMARIE BYRD MD ENDOCRINO LOGY [address] [place] [address] 06/27/2020 09:20:08 06/27/2020 09:56:07 Hypothyroidism 67753990 E03.9 TSH of 1.19 on 01/19/2020R eported weight gainRechec k TSH and free D3Pfamdfmz Synthroid dose of 5 days a week Further adjustment as appropriat ePatient was instructed on the appropriat e method of levothyrox ine administra tion to be taken every a.m. on an empty stomach as new food, drinks or other medication s for at least 30 minutes. PPI and calcium -containin g preparatio ns is preferred to be given at least of her hours before or after levothyrox in therapy.Pr escription to follow Hyperlipidemia 72289106 E78.5 LDL of 57Continue current atorvastat in therapy 10 mg every bedtime and Zetia 10 mgPrescrip tions were renewed Prediabetes 067260159 R7 3.03 I counseled patient about the importance of intensive lifestyle [...] .Continue current metformin 500 mg twice a dayGlycate d hemoglobin today [id number] SUSAN MCCABE MD RHEUMATOL OGY [address] [place] [address] 06/28/2020 08:07:24 06/28/2020 11:59:18 Keratoconjunctivitis sicca, in Sj gren's syndrome 41395659 M35.01 Primary Sjogren's, without any extragland ular disease. does not like the hydroxychl oroquine, gave her bad taste for the meat! Currently asymptomat ic. She will continue with the pilocarpin e 5 mg up to 4 times a day. At present no indication for disease modifying medication s. She can take Tylenol regular strength 2 tablets twice a day. use NSAIDs over-the-c ounter only if pains are not controlled on Tylenol She will continue with sleep apnea treatment with CPAP machine. Senile osteopenia 735905 06 M85.80 No evidence of spontaneou s fractures. DEXA reviewed, 12/2018. Modest osteopenia , with stable FRAX scores. maintain ca and vitamin D. No indication s for the bisphospho nates. Generalize d osteoarthritis 510014136 M15.9 she has chronic joint pains especially involving the knee joints. There have tolerated to the topical Voltaren gel Refills given. Follow-up in 6 months. [id number] SUSAN MCCABE MD RHEUMATOL OGY [address] [place] [address] 09/14/2020 09:47:39 09/14/2020 11:16:52 Keratoconjunctivitis sicca, in Sj gren's syndrome 23310149 M35.01 Primary Sjogren's, without any extragland ular disease. Doing well. Not on any disease modifying medication . For symptomati c management of dryness,, take pilocarpin e 5 mg up to 3 times or 4 times a day At present no indication for disease modifying medication s. She can take Tylenol regular strength 2 tablets twice a day. use NSAIDs over-the-c ounter only if pains are not controlled on Tylenol. She will continue with sleep apnea treatment with CPAP machine. No contraindi cation for COVID-19 vaccinatio n Senile osteopenia 753821 06 M85.80 No evidence of spontaneou s fractures. DEXA reviewed, 12/2018. Modest osteopenia , with stable FRAX scores. maintain ca and vitamin D. No indication s for the bisphospho nates. Generalize d osteoarthritis 526262724 M15.9 she has chronic joint pains especially involving the knee joints. There have tolerated to the topical Voltaren gel Refills given. Follow-up in 6 months. [id number] ANNEMARIE BYRD MD ENDOCRINO LOGY [address] [place] [address] 12/22/2020 09:24:29 12/22/2020 10:20:12 Prediabetes 581179160 R73.03 I counseled patient about the importance of intensive lifestyle [...] .Continue current metformin 500 mg twice a day Hyperlipidemia 12844998 E78.5 Lipid panel today Continue current atorvastat in therapy 10 mg every bedtime and Zetia 10 mg Prescripti ons renewed Further adjustment as appropriat e. Hypothyroidism 14499251 E03.9 TSH of 2.78 on 06/27/2020 Recheck TSH and free T4 Patient was instructed on the appropriat e method of levothyrox ine administra tion to be taken every a.m. on an empty stomach as new food, drinks or other medication s for at least 30 minutes. PPI and calcium -containin g preparatio ns is preferred to be given at least of her hours before or after levothyrox in therapy. Prescripti on to follow Cramp in lower limb 5528 30997 R25.2 Will further evaluate [id number] SUSAN MCCABE MD RHEUMATOL OGY [address] [place] [address] 12/22/2020 10:36:27 12/22/2020 11:35:20 Keratoconjunctivitis sicca, in Sj gren's syndrome 63478732 M35.01 Primary Sjogren's, without any extragland ular disease. Predominan tly dry mouth. No adenopathy noted. Stable cardiopulm onary exam. Continue pilocarpin e 5 mg 4 times a day. Refills were given. She is fully vaccinated against the covid-19. Maintain CPAP for the obstructiv e sleep apnea. Senile osteopenia 568247 06 M85.80 DEXA reviewed, 12/2018. Modest osteopenia , with stable FRAX scores. maintain ca and vitamin D. No indication s for the bisphospho nates. Generalize d osteoarthritis 414636022 M15.9 75-year-ol d female with osteoarthr itis. Generalize d. Suggested maintainin g weight loss and low impact activity such as daily walk. She can maintain the use of topical Voltaren gel only as needed. Avoid oral NSAIDs. She can take Tylenol Extra Strength 2 tablets daily. [id number] ANNEMARIE BYRD MD ENDOCRINO [facility]Y [address] [place] [address] 06/26/2021 09:43:19 06/30/2021 13:52:59 Prediabetes 648619985 R73.03 A1c in the office of 5.2 from previous A1c of 5.3 I counseled patient about the importance of intensive lifestyle [...] .Continue current metformin 500 mg twice a day Hyperlipidemia 20876261 E78.5 Lipid panel today Continue current atorvastat in therapy 10 mg every bedtime and Zetia 10 mg Prescripti ons renewed Further adjustment as appropriat e. Hypothyroidism 37938356 E03.9 TSH of 3.04 in November 2020 Still complainin g of fatigue Patient was instructed on the appropriat e method of levothyrox ine administra tion to be taken every a.m. on an empty stomach as new food, drinks or other medication s for at least 30 minutes. PPI and calcium -containin g preparatio ns is preferred to be given at least of her hours before or after levothyrox in therapy. Prescripti on to follow Vitamin D deficiency 347 58399 E55.9 M85.80 Check 25-hydroxy vitamin D I discussed with patient the importance adequate dietary calcium intake ( 1,200 mg per day ), incorporat ing dietary supplement s if diet is insufficie nt. Also discussed with patient the importance of adequate vitamin D intake (1,000 IU per day), including supplement s if necessary. Cramp in lower limb 4499 52215 R25.2 Currently taking calcium and vitamin D and magnesium supplement s Osteopenia 695037926 M85 .9 Most recent bone density on 01/22/2019 consistent with osteopenia . Did not qualify FRAX right ear for pharmacolo gic therapy I discussed with patient the importance adequate dietary calcium intake ( 1,200 mg per day ), incorporat ing dietary supplement s if diet is insufficie nt. Also discussed with patient the importance of adequate vitamin D intake (1,000 IU per day), including supplement s if necessary. Follow-up bone density Patient verbalized understand ing and agreed with the above mentioned plan of care. [id number] SUSAN [facility]CCABE [facility] [address] [place] [address] 06/26/2021 09:45:04 06/26/2021 11:20:05 Keratoconjunctivitis sicca, in Sj gren's syndrome 17690865 M35.01 Primary Sjogren's, without any extragland ular disease. No adenopathy noted. Normal cardiopulm onary examinatio n. Mainly sicca symptoms with dry mouth on pilocarpin e up to 4 times a day. She is fully vaccinated against the covid-19. Maintain CPAP for the obstructiv e sleep apnea. Refills were given. I have obtained ESR along with antidouble -stranded DNA antibody levels. Malaise and fatigue 2717 10407 R53.81 R53.83 Chronic nonspecifi c. Followed by endocrinol le. Question of post Covid fatigue, had Covid infection in December 2020.She has a sleep apnea, on CPAP certainly can be another contributi ng factor to her fatigue.My examinatio n was rather physiologi c today. No acute findings were noted. She will follow with the labs as suggested by endocrinol le. [id number] ANNEMARIE BYRD MD ENDOCRINO LOGY [address] [place] [address] 02/07/2022 09:05:15 02/07/2022 10:11:00 Prediabetes 550173636 R73.03 A1c in the office of 5.1 from 5.2 I counseled patient about the importance of intensive lifestyle [...] .Continue current metformin 500 mg twice a day Hyperlipidemia 87561253 E78.5 Lipid panel today Continue current atorvastat in therapy 10 mg every bedtime and Zetia 10 mg Counseled about the importance of low-choles terol diet and no significan t for diet Hypothyroidism 70351871 E03.9 Appears a clinically euthyroid TSH of 2.13 on 06/26/2021 Patient was instructed on the appropriat e method of levothyrox ine administra tion to be taken every a.m. on an empty stomach as new food, drinks or other medication s for at least 30 minutes. PPI and calcium -containin g preparatio ns is preferred to be given at least of her hours before or after levothyrox in therapy. Prescripti on to follow Osteopenia 558839750 M85 .9 Most recent bone density on 01/22/2019 consistent with osteopenia . Did not qualify FRAX right ear for pharmacolo gic therapy I discussed with patient the importance adequate dietary calcium intake ( 1,200 mg per day ), incorporat ing dietary supplement s if diet is insufficie nt. Also discussed with patient the importance of adequate vitamin D intake (1,000 IU per day), including supplement s if necessary. Follow-up bone density Patient verbalized understand ing and agreed with the above mentioned plan of care. Cramping pain 239804901 R52 Taking over-the-c ounter magnesium Recheck magnesium level Vitamin D deficiency 347 29432 E55.9 M85.80 Check 25-hydroxy vitamin D I discussed with patient the importance adequate dietary calcium intake ( 1,200 mg per day ), incorporat ing dietary supplement s if diet is insufficie nt. Also discussed with patient the importance of adequate vitamin D intake (1,000 IU per day), including supplement s if necessary. Patient verbalized understand ing and agreed with the above mentioned plan of care. [id number] SUSAN MCCABE MD RHEUMATOL OGY [place] [address] 03/26/2022 16:02:43 03/26/2022 16:40:11 Keratoconjunctivitis sicca, in Sj gren's syndrome 52644639 M35.01 Primary Sjogren's, without any extragland ular disease. No adenopathy noted. She has dry oral mucous membranes. Otherwise no lymphadeno farzaneh noted. Stable cardiopulm onary exam. Musculoske letal examinatio n age appropriat e with diffuse degenerati ve changes. Suggested to maintain the hydroxychl oroquine 200 mg once a day. Discontinu e pilocarpin e due to failure and consider trial of Evoxac 30 mg every 8 hours. Maintain good hydration. Maintain CPAP for the obstructiv e sleep apnea. Refills were given. I have obtained ESR. She will follow-up with me in November 2022. [id number] [place] [address] 04/16/2022 10:44:36 04/16/2022 10:59:24 Osteopenia [id number] M85.89 [id number] VINICIO WILKINS MD UROLOGY SB CLOSED [address] [place] [address] 1 05/10/2022 08:44:19 05/15/2022 13:38:51 Recurrent cystitis 120678265 N30.90 Cystocele 516264021 N81. 10 [id number] VINICIO WILKINS MD SURGERY SCHEDULE [address] [place] [address] 06/28/2022 12:03:45 06/28/2022 12:04:07 Recurrent cystitis 966165324 N30.90 Cystocele 275089714 N81. 10 [id number] [place] [address] [place] [address] 07/02/2022 10:14:10 07/02/2022 11:11:21 Prediabetes 304010392 R73.03 A1c in the office of 5.2%I counseled patient about the importance of intensive lifestyle [...] .Continue current metformin 500 mg twice a day Hypothyroidism 42080447 E03.9 Appears a clinically euthyroidT SH of 3.4 and free T4 of 1.14 in January 2022 Patient was instructed on the appropriat e method of levothyrox ine administra tion to be taken every a.m. on an empty stomach as new food, drinks or other medication s for at least 30 minutes. PPI and calcium -containin g preparatio ns is preferred to be given at least of her hours before or after levothyrox in therapy. Abnormal thyroid function test per patient about 2 weeks ago. No records available Recheck TSH and free T4 todayPresc ription to follow Hyperlipidemia 21261337 E78.5 Lipid panel in January showed LDL of 44, triglyceri duane of 209, total cholestero l 140 and HDL of 54 Continue current atorvastat in therapy 10 mg every bedtime and Zetia 10 mg Counseled about the importance of low-choles terol diet and no significan t for diet. [id number] ANNEMARIE BYRD MD ENDOCRINO LOGY [address] [place] [address] 12/03/2022 12:50:29 12/03/2022 13:35:41 Prediabetes 798817876 R73.03 I counseled patient about the importance of intensive lifestyle [...] .Continue current metformin 500 mg twice a day Hypothyroidism 05822349 E03.9 Appears a clinically euthyroidT SH of 0.5 on 07/02/2020 Patient was instructed on the appropriat e method of levothyrox ine administra tion to be taken every a.m. on an empty stomach as new food, drinks or other medication s for at least 30 minutes. PPI and calcium -containin g preparatio ns is preferred to be given at least of her hours before or after levothyrox in therapy.Re check TSH and free T4 todayP further adjustment as Hyperlipidemia 44734144 E78.5 Lipid panel in January showed LDL of 44, triglyceri duane of 209, total cholestero l 140 and HDL of 54 Continue current atorvastat in therapy 10 mg every bedtime and Zetia 10 mg Counseled about the importance of low-choles terol diet and no significan t for diet. Vitamin D deficiency 347 44953 E55.9 M85.80 History of vitamin D deficientC heck 25-hydroxy vitamin DI discussed with patient the importance adequate dietary calcium intake ( 1,200 mg per day ), incorporat ing dietary supplement s if diet is insufficie nt. Also discussed with patient the importance of adequate vitamin D intake (1,000 IU per day), including supplement s if necessary. Fatigue 79884109 R53.83 Reported fatigue and previously low on vitamin D, magnesium and vitamin B12 Recheck the levels and further adjustment as appropriat e [id number] SUSAN MCCABE MD RHEUMATOL OGY [address] [place] [address] 12/03/2022 12:50:29 12/03/2022 13:35:41 [id number] SUSAN MCCABE MD RHEUMATOL OGY [address] [place] [address] 12/03/2022 13:47:31 12/05/2022 04:52:11 Keratoconjunctivitis sicca, in Sj gren's syndrome 83229669 M35.01 Primary Sjogren's, without any extragland ular disease.Cl inically stable.No extragland ular features noted. No lymphadeno farzaneh noted.Dry skin along with dry oral mucous membrane.S uggested: Good hydration. Continue with hydroxychl oroquine 200 mg once a day. Cevimeline causes a concern. Can certainly try to go back on pilocarpin e 5 mg every 6 hours. Maintain CPAP for the obstructiv e sleep apnea. Refills were given.Labs repeated 6 months follow-up Pruritic rash 83027069 L 28.2 Other nonspecifi c referred to dermatolog y for evaluation work-up. 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 Seborrheic dermatitis 50 324052 L21.9 Ear canals - has hydorcorti sone valerate cream 0.2% - was told only to use x 2 weeksDiscu ssed using more often and then use twice weekly as needed to controlcon child care nurse Derm Otic [id number] ANNEMARIE BYRD MD ENDOCRINO LOGY [address] [address] 06/05/2023 09:04:52 06/05/2023 10:23:27 Prediabetes 034971601 R73.03 A1c of 5.1 on 12/03/2022I counseled patient about the importance of intensive lifestyle [...] .Continue current metformin 500 mg twice a dayRecheck A1c todayFurth er adjustment as appropriat e Hyperlipidemia 71971788 E78.5 Lipid panel in November 2022 showed LDL of 52, total cholestero l 135, triglyceri duane 115 and HDL cholestero l of 60 Continue current atorvastat in therapy 10 mg every bedtime and Zetia 10 mg Counseled about the importance of low-choles terol diet and no significan t for diet. 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 on an empty stomach as new food, drinks or other medication s for at least 30 minutes. PPI and calcium -containin g preparatio ns is preferred to be given at least of her hours before or after levothyrox in therapy. Recheck TSH and free T4 today Osteopenia 082816382 M85 .89 Bone density on 04/16/2022 :L1-L4 lumbar spine bone density scan demonstrat es lumbar spine T-score of -1.3, Z-score of 1.1, BMD 0.905 g/cm . Additional ly, there has been a -2.8% decrease in bone density over the lumbar spine when compared to the patient's previous examinatio n on 01/22/2019. The left hip bone density scan demonstrat es a femoral neck T-score of -1.0, Z-score of 1.1, BMD 0.743 g/cm . The total left hip T-score of -0.9, Z-score of 0.9, BMD 0.832 g/cm . Additional ly there has been a -11.4% decrease in bone density over the left total hip and a no statistica lly significan t change in bone density over the femoral neck when compared to the previous bone density measuremen t on 01/22/2019. 10-year fracture risk of 9.8/1.5 for major osteoporot ic and hip fracture respective lyAccordin g to national osteoporos is Foundation , indication s of anti-osteo porosis pharmacolo gic therapy include: A hip or vertebral [clinical symmetric] fracture T-score = -2.5 and the femoral neck or spine after appropriat e evaluation to exclude secondary causes Low bone mass [T-score between -1 and -2.5 at the femoral neck or spine] and that any of probabilit y of a hip fracture = 3% or a 10 year possibilit y of a major osteoporot ic fracture equals 20% based on [place]-adapted WHO of ozzy ) Not a candidate for pharmacolo gic therapyI discussed with patient the importance adequate dietary calcium intake ( 1,200 mg per day ), incorporat ing dietary supplement s if diet is insufficie nt. Also discussed with patient the importance of adequate vitamin D intake (1,000 IU per day), including supplement s if necessary. Follow-up bone density in March4Patien t verbalized understand ing and agreed with the above mentioned plan of care. 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 Reassuranc eRecommend ed Equate Ultra Sunscreen 30+ and sun protecting hats/cloth ing Raised rajesh orrheic keratosis 2910625487 65139 L82.1 Reassuranc e Seborrheic dermatitis 50 242850 L21.9 Posterior ScalplineS tart Mometasone 0.1% topical anderson Hemangioma 148794052 D18 .00 Reassuranc e Actinic keratosis 351951 [address] x 1 Inflamed s eborrheic keratosis 153777129 L82.0 LN x 1 [id number] ANNEMARIE BYRD MD ENDOCRINO LOGY [address] [place] [address] 12/05/2023 09:38:47 12/05/2023 10:46:45 Prediabetes 906331730 R73.03 A1c of 5.4 from 5.1 on 12/03/2022Ra ndom point-of-c are blood glucose 109I counseled patient about the importance of intensive lifestyle [...] twice a dayContinu e current metformin therapy Hyperlipidemia 35532940 E78.5 Lipid panel in May 2023 showed LDL of 40, total cholestero l 122, triglyceri duane 123 and HDL cholestero l 57 Continue current atorvastat in therapy 10 mg every bedtime and Zetia 10 mgWith panel and LFTs todayCouns eled about the importance of low-choles terol diet and no significan t for diet. Hypothyroidism 72776290 E03.9 Apart from fatigue appears a clinically euthyroid No symptoms of exogenous hyperthyro idism Continue current Synthroid therapy same dose Patient was instructed on the appropriat e method of levothyrox in administra tion to be taken every a.m. on an empty stomach as new food, drinks or other medication s for at least 30 minutes. PPI and calcium -containin g preparatio ns is preferred to be given at least of her hours before or after levothyrox in therapy. Fatigue 59956445 R53.83 She is still complainin g of fatigue fatigue and previously low on vitamin D, magnesium and vitamin [id number] the levels and further adjustment as appropriat e Patient verbalized understand ing and agreed with the above mentioned plan of care. [id number] ANNEMARIE BYRD MD BONE DENSITY [address] [address] 06/12/2024 09:57:38 06/12/2024 10:33:03 Osteopenia 793074578 M85.89 [id number] ARTHUR WASHINGTON APRN ENDOCRINO LOGY [address] [address] 06/29/2024 09:36:57 06/29/2024 09:58:33 Prediabetes 511117074 R73.03 A1c of 5.4 no change 5.4 from 5.1Random point-of-c are blood glucose 114 I counseled patient about the importance of intensive lifestyle [...] diabetes by about 50% in clinical trials Continue current metformin 500 mg twice a day will check labs f/u in 6 months Hyperlipidemia 89351666 E78.5 Goal LDL is under 100 mg/dl.Last LDL: 52 on 12/05/23Tr iglyceride s: 171Continu e current atorvastat in therapy as orderedCon tinue dietary changes as recommende d. Hypothyroidism 90918557 E03.9 Apart from fatigue appears a clinically euthyroidN o symptoms of exogenous hyperthyro idismConti nue current Synthroid 125mcg five days a week therapy same dosePatien t was instructed on the appropriat e method of levothyrox in administra tion to be taken every a.m. on an empty stomach as new food, drinks or other medication s for at least 30 minutes. PPI and calcium -containin g preparatio ns is preferred to be given at least of her hours before or after levothyrox in therapy. [id number] ANNEMARIE BYRD MD ENDOCRINO LOGY [address] [place] [address] 01/06/2025 10:08:57 01/06/2025 13:01:05 Prediabetes 384669263 R73.03 A1c of 5.1 from 5.4Random point-of-c [...] dayContinu e current metformin therapy Acquired hypothyroidism 596497377 E03.9 She denies any hypothyroi d symptomsNo [...] of Synthroid dose as appropriat e Hyperlipidemia 67012848 E78.5 Most recent LDL of 67 in [...] by Organization Details LastModified Time None Recorded Advance Directives Directive None Recorded Payers Insurance Date Sequence Insurance Name Policy Number Policy Kyle Covered Member ID Kyle Member ID Guarantor Name 01/03/2025 1 [facility] (MEDICARE REPLACEMENT/A DVANTAGE - PPO) [id number] Minnie Woodard [id number] Minnie Woodard Notes Date Note Type Note Provider Name and Address Organization Details Recorded Time 08/20/2023 text/html Established [facility] - [facility] sjogrens LOCATION: occipital scalpDURATION: x yearsSYMPTOMS: itchTREATMENTS: Hydrocortisone 2.5% topical cream LOCATION: left inferior breast DURATION: x years (comes and goes) SYMPTOMS: red, itch TREATMENTS: OTC athletic foot cream no issues with bleeding, scarring, or healing Denies any other new, changing, or bleeding lesions, or other rashes, feels well , good mood and has no family history of melanoma. GARCIA SQUIRES MD [facility] [place], [address], [facility] 08/20/2023 16:42:45 12/05/2023 text/html 77-year-old female patient with a past medical history as detailed below significant for obesity, long-standing primary hypothyroidism on thyroid hormone replacement therapy, hyperlipidemia, obstructive sleep apnea on CPAP , prediabetes and gastroparesis seen in the office today for a 6 months follow-up visit Hypothyroidism, hyperlipidemia/pre-d iabetes/ vitamin D deficiency/osteopeni a She takes atorvastatin 10 mg every day and Zetia for hyperlipidemia.She also takes Synthroid 125 g every a.m. 5 days a weekFor prediabetes she currently takes metformin 500 mg twice a day.She uses CPAP for obstructive sleep apneaHad a history of osteopenia and calcium and/vitamin DBone density in 04/16/2022 showed osteopenia [ Not qualify FRAX criteria for therapy].Currently takes vitamin D 2000 units dailyStill complaining of fatigueShe denies any dry skin, hair loss, cold or heat intolerance.Disconti nued pilocarpine and she feels much better ANNEMARIE BYRD MD [address] [place] [address], [phone], [facility] 12/05/2023 10:35:28 06/29/2024 text/html 78-year-old female patient with a past medical history as detailed below significant for obesity, long-standing primary hypothyroidism on thyroid hormone replacement therapy, hyperlipidemia, obstructive sleep apnea on CPAP , prediabetes and gastroparesis seen in the office today for a follow-up visit Hypothyroidism, hyperlipidemia/pre-d iabetes/ vitamin D deficiency/osteopeni a She takes atorvastatin 10 mg every day and Zetia for hyperlipidemia.She also takes Synthroid 125 g every a.m. 5 days a weekFor prediabetes she currently takes metformin 500 mg twice a day. SHe did not bring glucometer with her today.She uses CPAP for obstructive sleep apneaHad a history of osteopenia and calcium and/vitamin DBone density in 04/16/2022 showed osteopenia [ Not qualify FRAX criteria for therapy].Currently takes vitamin D 2000 units dailyStill complaining of fatigueShe denies any dry skin, hair loss, cold or heat intolerance.Disconti nued pilocarpine and she feels much better ARTHUR WASHINGTON APRN [address] [place] [address], [phone], [facility] 06/29/2024 10:12:51 01/06/2025 text/html 79-year-old female patient with a [...] implant for decreased hearing ANNEMARIE BYRD MD [address] [place] [address], [phone], [facility] 01/06/2025 12:46:32 OBGyn Episode No OBEpisode recorded.
--- OUTSIDE RECORDS SUMMARY | 2025-01-18 09:53 | XMS_ITS | Encounter Summary ---
Author Organization [facility] Address [address] [place] [address] Care Team Providers Care Dump Grounds Checker Name Role Phone Melvin Pink DO Primary Care Provider [phone] Encounter Details Date Type Department Care Team (Late st Contact Info) Description 12/02/2024 Telephone [facility] Medicine Specialties [address] [place] [id number] Agustina Archer [place] [id number] Social History Tobacco Use Types Packs/Day Years [...] -2 Score 0 12/02/2024 10:03 AM EDT Bhavin Tempest A * Question Answer Date of Assessment Author Trouble falling or staying asleep, or sleeping too much Not at all 12/02/2024 10:03 AM EDT Delcid Tempest A Feeling tired or having tavo le energy Not at all 12/02/2024 10:03 AM EDT Delcid Tempest A Poor appetite or overeating Not at all 12/02/2024 10 :03 AM EDT Delcid, Tempest A Feeling bad about yourself - or that you are a failure or have let yourself or your family down Not at all 12/02/2024 10:03 AM EDT Alirio noel Tempest A Trouble concentrating on thi ngs, such as reading the newspaper or watching television Not at all 12/02/2024 10:03 AM EDT Bhavin Tempest A Moving or speaking so slowly that other people could have noticed? Or the opposite - being so fidgety or restless that you have been moving around a lot more than usual. Not at all 12/02/2024 10:03 AM EDT Bhavin Tempest A Thoughts that you would be better off or hurting yourself in some way Not at all 12/02/2024 10:03 AM EDT Bhavin Tempest A Patient Health Questionnaire -9 Score 0 12/02/2024 10:03 AM EDT Bhavin Tempest A * If you checked off any problems on this questionnaire so far, Question Answer Date of Assessment Author How difficult have these problems made it for you to do your work, take care of things at home, or get along with other people? Not difficult at all 12/02/2024 10:03 AM EDT Malachi Delcidpest A documented as of this encounter Miscellaneous Notes * Addendum Note - Irene Owens PharmD - 12/02/2024 4:24 PM EDTAddended by: IRENE OWENS on: 12/02/2024 04:24 PM Modules accepted: Orders * Progress Notes - Irene Owens, PharmD - 12/02/2024 4:23 PM EDT Resent prescription(s) to requested pharmacy due to: Patient requested to switch pharmacies. Confirmed script(s) is cancelled at original pharmacy. * Telephone Encounter - Agustina Archer - 12/02/2024 1:50 PM EDT Patient called [facility] her about her pilocarpine They told her that they unfortunately don't accept 30 day prescriptions, they only do 90 day prescriptions Patient is wondering if the prescription can be sent to [facility] instead to get the 30 day supply CB: [phone] documented in this encounter Plan of Treatment Upcoming Encounters Date Type Department Care Team (Late st Contact Info) Description 01/27/2025 10:00 AM EDT Office Visit [facility] Audiology [address] [place] [address] Patsy Lucero, Annalise [address] [place] [address] 03/02/2025 11:00 AM EDT Office Visit [facility] Medicine Specialties [address] [place] [address] Denise Keith, [employer] MACHINE OPERATOR [address] [place] [address] 03/08/2025 10:40 AM EDT Office Visit [facility] Otolaryngology [address] [place] [address] Melvin Casillas MD [address] [place] [address] 06/07/2025 9:50 AM EST Office Visit [facility] Medicine Specialties [address] [place] [address] Nidhi Stack, [employer]ATH[employer] MACHINE OPERATOR [address] [place] [address] documented as of this encounter Visit Diagnoses Diagnosis Sjogren syndrome, [...] documented as of this encounter Care Teams Dump Grounds Checker Relationship Specialty Start Date End Date Melvin Pink DO [address] [facility] [address] [place] [address] PCP - General 12/01/24 documented as of this encounter
--- OUTSIDE RECORDS SUMMARY | 2025-01-18 09:53 | XMS_ITS | Patient Health Record ---
Author Organization [facility] Address [address] [place] [address] Care Team Providers Care Global Category Manager Name Role Phone Ita You MD, Aristides Unavailable Unavailab le Migration, Provider Unavailable Unavailable Reason For Referral No Information Medications Medication SIG (Take, Route, Frequency, Duration) Notes Start Date End Date Status Macrobid 100 MG Capsule take 1 capsule by oral route every 12 hours with food Oral 10/20/2018 Active Multi-Vitamin Tablet take 1 tablet by oral route every day with food Oral 10/15/2018 Active Montelukast Sodium 10 MG Tablet take 1 tablet by oral route every day in the evening Oral 10/15/2018 Active Plaquenil 200 MG Tablet take 1 tablet by oral route 3 times every day Oral 10/15/2018 Active Pilocarpine HCl 5 MG [...] take 1 PO QD BUCCAL *Reorder from [employer] for eRx and Interaction Alerts* 10/15/2018 Active metFORMIN HCl ER 500 MG Tablet Extended Release 24 Hour take 2 tablet by oral route every day with the evening meal Oral 10/15/2018 Active Atorvastatin Calcium 10 MG Tablet take 1 tablet by oral route every day Oral 10/15/2018 Active Problems Problem Type SNOMED Code ICD Code Onset Dates Problem Status W/U Status Risk Notes Problem Infective otitis externa (84843265) Other infective otitis externa, bilateral (H60.393) Active confirmed Problem Otitis media (56174144) Otitis media, unspecified, unspecified ear (H66.90) Active confirmed Problem Conductive hearing loss, bilateral (574312124) Conductive hearing loss, bilateral (H90.0) Active confirmed Problem Acute cystitis (69479631) Acute cystitis without hematuria (N30.00) Active confirmed Problem Unspecified symptoms and signs involving the genitourinary system (R39.9) Active confirmed Problem Prediabetes (413431418) Prediabetes (R73.03) Active confirmed Problem Sicca syndrome (04431968) Sicca syndrome, unspecified (M35.00) Active confirmed Encounters Encounter Location Date Provider Diagnosis [facility] [place] [address] [place] [address] 05/30/2024 Provider Migration [facility] [place] [address] [place] [address] 05/31/2024 Provider Migration Plan Of Treatment No Information Insurance Providers Payer Name Payer Address Payer Phone Subscriber Number Group Number Insured Name Patient Relationship to Insured Coverage Start Date Coverage End Date Rcm Missing Insurance PLEASE SCAN FRONT AND [place] [phone] [id number] Minnie Woodard Self - patient is the insured Medical (General) History Surgical History Surgery Date(Month/Year) Sx_Procedure : Stapedectomy Med_system:gastrointestinal, Sx_Procedur e : Cholecystectomy Med_system:HEENT, Sx_Procedure : Tonsill ectomy Med_system:musculoskeletal, Disease : Arthritis, Sx_Procedure : Laminectomy
--- OUTSIDE RECORDS SUMMARY | 2025-01-18 09:54 | XMS_ITS | Encounter Summary ---
Author Organization [facility] Address [address] [place] [address] Care Team Providers Care Dock Grader Name Role Phone JoesphMelvin crespo Sunil CHRISTIAN Primary Care Provider [phone] Encounter Details Date Type Department Care Team (Latest Contact Info) Description 12/02/2024 Travel Social History Tobacco Use Types Packs/Day [...] at all 12/02/2024 10 :03 AM EDT Delcid Tempest A Feeling bad about yourself - or that you are a failure or have let yourself or your family down Not at all 12/02/2024 10:03 AM EDT Alirio noel Temhillaryt A Trouble concentrating on thi ngs, such [...] 12/02/2024 10:03 AM EDT Malachi Delcidpest A Thoughts that you would be better [...] Description 01/27/2025 10:00 AM EDT Office Visit [facility] Audiology [address], [address]rd [place] [address] Patsy Lucero, AuD [address] [place] [address] 03/02/2025 11:00 AM EDT Office Visit [facility] Medicine Specialties [address], 2nd [place] [address] Denise Keith, BIOLOGY LABORATORY ASSISTANT [address] [place] [address] 03/08/2025 10:40 AM EDT Office Visit [facility] Otolaryngology [address], 3rd [place] [address] Melvin Casillas MD [address] [place] [address] 06/07/2025 9:50 AM EST Office Visit [facility] Medicine Specialties [address], [address] [place] [address] Nidhi Stack, BIOLOGY LABORATORY ASSISTANT [address] [place] [address] documented as of this encounter [...] documented as of this encounter Care Teams Dock Grader Relationship Specialty Start Date End Date Melvin Pink DO [address] [place] [address] PCP - General 12/01/24 documented as of this encounter
--- OUTSIDE RECORDS SUMMARY | 2025-01-18 09:54 | XMS_ITS | Encounter Summary ---
Author Organization Healthcare Address [address] [id number] Care Team Providers Care Fisher Purse Seine Name Role Phone JoesphMelvin crespo Sunil CHRISTIAN Primary Care Provider [phone] Encounter Details Date Type Department Care Team (Late Contact Info) Description 01/05/2025 Orders Only [facility] Pediatric Specialty [address] [place] [address] Denise Keith, INSPECTOR BICYCLE [address] [place] [address] History of recurrent infection (Primary Dx) Social History Tobacco Use Types [...] Encounters Date Type Department Care Team (Late Contact Info) Description 01/27/2025 10:00 AM EDT Office Visit [facility] Audiology [address], 3rd [place] [address] Patsy Lucero, AuD [address] [place] [address] 03/02/2025 11:00 AM EDT Office Visit [facility] Medicine Specialties [address], [address]nd [place] [address] Denise Keith, INSPECTOR BICYCLE [address] [place] [address] 03/08/2025 10:40 AM EDT Office Visit [facility] Otolaryngology [address], 3rd [place] [address] Melvin Casillas MD [address] [place] [address] 06/07/2025 9:50 AM EST Office Visit [facility] [address], [address] [place] [address] Nidhi Stack, INSPECTOR BICYCLE [address] [place] [address] Scheduled Orders Name Type Priority Associated Diagnoses Orde r Schedule Streptococcus pneumoniae Antibodies, IgG (23 Serotypes)(SO) Lab Routine History of recurrent infection Expected: 02/04/2025 (Approximate), Expires: 07/09/2026 CBC and Differential Lab Routine History of recurrent infection Expected: 02/04/2025 (Approximate), Expires: 07/09/2026 documented as of this encounter Visit Diagnoses Diagnosis History of recurrent infection- Primary documented in this encounter Additional Health Concerns Assessment Noted Time PHQ-9 Depression Total Score: 0 12/03/19 25 10:03 AM EDT A fall risk assessment has been complete d for the patient 12/02/2024 10:03 AM EDT A Body Mass Index follow-up plan has been documented for the patient 12/29/2024 12:14 PM EDT documented as of this encounter Care Teams Fisher Purse Seine Relationship Specialty Start Date End Date Melvin Pink DO [address] [place] [address] PCP - General 12/01/24 documented as of this encounter
--- OUTSIDE RECORDS SUMMARY | 2025-01-18 09:54 | XMS_ITS | Encounter Summary ---
Author Organization [facility] Address [address] [place] [address] Care Team Providers Care Oil Expeller Name Role Phone Melvin Pink Sunil CHRISTIAN Primary Care Provider [phone] Encounter Details Date Type Department Care Team (Late st Contact Info) Description 2024 Results Follow-Up [facility] Medicine Specialties [address], [address] [place] [address] Nidhi Stack, MULTIPLE RESAW OPERATOR [address] [place] [address] Social History Tobacco Use Types Packs/Day Years [...] [facility] Audiology [address], 3rd [place] [address] Patsy Lucero, AuD [address] [place] [address] 03/02/2025 11:00 AM EDT Office Visit [facility] Medicine Specialties [address], [address] [place] [address] Denise Keith, MULTIPLE RESAW OPERATOR [address] [place] [address] 03/08/2025 10:40 AM EDT Office Visit [facility] Otolaryngology [address], 3[address] [place] [address] Melvin Casillas MD [address] [place] [address] 06/07/2025 9:50 AM EST Office Visit [facility] Medicine Specialties [address], [address] [place] [address] Nidhi Stack, MULTIPLE RESAW OPERATOR [address] [place] [address] documented as of this encounter [...] documented as of this encounter Care Teams Oil Expeller Relationship Specialty Start Date End Date Melvin Pink DO [address] [place] [address] PCP - General 12/01/24 documented as of this encounter
--- OUTSIDE RECORDS SUMMARY | 2025-01-18 09:54 | XMS_ITS | Encounter Summary ---
Author Organization Healthcare Address [address] [place] [address] Care Team Providers Care Primary Special Educator Name Role Phone Melvin Pink Sunil CHRISTIAN Primary Care Provider [phone] Encounter Details Date Type Department Care Team (Latest Contact Info) Description 12/04/2024 Travel Social History Tobacco Use Types Packs/Day [...] 01/27/2025 10:00 AM EDT Office Visit [facility] Audiology [address], 3rd [place] [address] Patsy Lucero, AuD [address] [place] [address] 03/02/2025 11:00 AM EDT Office Visit [facility] Medicine Specialties [address], [address] [place] [address] Denise Keith, WRAPPER STEMMER HAND [address] [place] [address] 03/08/2025 10:40 AM EDT Office Visit [facility] Otolaryngology [address], [address] [place] [address] Melvin Casillas MD [address] [place] [address] 06/07/2025 9:50 AM EST Office Visit [facility] Medicine Specialties [address], [address]nd [place] [address] Nidhi Stack, WRAPPER STEMMER HAND [address] [place] [address] documented as of this encounter [...] documented as of this encounter Care Teams Primary Special Educator Relationship Specialty Start Date End Date Melvin Pink, [address] [place] [address] PCP - General 12/01/24 documented as of this encounter
--- OUTSIDE RECORDS SUMMARY | 2025-01-18 09:54 | XMS_ITS | Encounter Summary ---
Author Organization Healthcare Address [address] [place] [address] Care Team Providers Care Drum Stock Clerk Name Role Phone JoesphMelvin crespo Sunil CHRISTIAN Primary Care Provider [phone] Encounter Details Date Type Department Care Team (Latest Contact Info) Description 12/14/2024 Orders Only [facility] Pediatric Specialty [address] [place] [address] Denise Keith, DISC RECORDIST [address] [place] [address] Hypogammaglobulinemia (CMS/HCC) (Primary Dx) Social History Tobacco Use [...] Upcoming Encounters Date Type Department Care Team ( st Contact Info) Description 01/27/2025 10:00 AM EDT Office Visit [facility] Audiology [address], 3rd [place] [address] Patsy Lucero, AuD [address] [place] [address] 03/02/2025 11:00 AM EDT Office Visit [facility] Medicine Specialties [address], [address]nd [place] [address] Denise Keith, DISC RECORDIST [address] [place] [address] 03/08/2025 10:40 AM EDT Office Visit [facility] Otolaryngology [address], [address]rd [place] [address] Melvin Casillas MD [address] [place] [address] 06/07/2025 9:50 AM EST Office Visit [facility] Medicine Specialties [address], [facility] [place] [address] Nidhi Stack, DISC RECORDIST [address] [place] [address] documented as of this encounter Results * XR Chest 2 [...] MD on 12/29/2024 12:17 PM Denise Keith DISC RECORDIST IMG XR PROCEDURES Final Re sult documented in this encounter Visit Diagnoses Diagnosis Hypogammaglobulinemia (CMS/HCC)- Primary Unspecified hypogammaglobulinemia Hypogammaglobulinemia (CMS/HCC) Unspecified hypogammaglobulinemia documented in this encounter Additional Health Concerns Assessment Noted Time PHQ-9 Depression Total Score: 0 12/03/19 10:03 AM EDT A fall risk assessment has been complete d for the patient 12/02/2024 10:03 AM EDT A Body Mass Index follow-up plan has been documented for the patient 12/06/2024 9:36 PM EDT documented as of this encounter Care Teams Drum Stock Clerk Relationship Specialty Start Date End Date Melvin Pink DO [address] [place] [address] PCP - General 12/01/24 documented as of this encounter
--- OUTSIDE RECORDS SUMMARY | 2025-01-18 09:54 | XMS_ITS | Encounter Summary ---
Author Organization Healthcare Address [address] [id number] Care Team Providers Care Corrugator Operator Name Role Phone JoesphMelvin crespo Sunil CHRISTIAN Primary Care Provider [phone] Encounter Details Date Type Department Care Team (Late Contact Info) Description 12/29/2024 Orders Only [facility] Pediatric Specialty [address] [place] [address] Denise Keith, UTILITY BILL COMPLAINTS INVESTIGATOR [address] [place] [address] Recurrent infections (Primary Dx) Social History Tobacco Use Types [...] Description 01/27/2025 10:00 AM EDT Office Visit [facility] Audiology [address], 3[address] [place] [address] Patsy Lucero, AuD [address] [place] [address] 03/02/2025 11:00 AM EDT Office Visit [facility] Medicine Specialties [address], [address] [place] [address] Denise Keith, UTILITY BILL COMPLAINTS INVESTIGATOR [address] [place] [address] 03/08/2025 10:40 AM EDT Office Visit [facility] Otolaryngology [address], 3rd [place] [address] Melvin Casillas MD [address] [place] [address] 06/07/2025 9:50 AM EST Office Visit [facility] Medicine Specialties [address], [address] [place] [address] Nidhi Stack, UTILITY BILL COMPLAINTS INVESTIGATOR [address] [place] [address] documented as of this encounter Visit Diagnoses Diagnosis Recurrent infections- Primary Unspecified infectious and parasitic diseases documented in this encounter Additional Health Concerns Assessment Noted Time PHQ-9 Depression Total Score: 0 12/03/19 25 10:03 AM EDT A fall risk assessment has been complete d for the patient 12/02/2024 10:03 AM EDT A Body Mass Index follow-up plan has been documented for the patient 12/29/2024 12:14 PM EDT documented as of this encounter Care Teams Corrugator Operator Relationship Specialty Start Date End Date Melvin Pink, [address] [place] [address] PCP - General 12/01/24 documented as of this encounter
--- OUTSIDE RECORDS SUMMARY | 2025-01-18 09:54 | XMS_ITS | Encounter Summary ---
Author Organization [facility] Address [address] [place] [address] Care Team Providers Care Catering Administrative Assistant Name Role Phone Melvin Pink Sunil CHRISTIAN Primary Care Provider [phone] Encounter Details Date Type Department Care Team (Latest Contact Info) Description 12/01/2024 Travel Social History Tobacco Use Types Packs/Day [...] pleasure in doing things Not at all 12/01/2024 9:59 AM EDT Jania Mc Feeling down, depressed, or hopeless Not at all 12/2024 9:59 AM EDT Jania Mc Patient Health Questionnaire-2 Score 0 12/2024 9:59 AM EDT Jania Mc * Question Answer Date of Assessment Author Trouble falling or staying a sleep, or sleeping too much Not at all 12/01/2024 9:59 AM Jania Bueno Feeling tired or having tavo le energy Not at all 12/01/2024 9:59 AM Jania Bueno Poor appetite or overeating Not at all 12/01/2024 9: 59 AM Jania Bueno Feeling bad about yourself - or that you are a failure or have let yourself or your family down Not at all 12/01/2024 9:59 AM Jose Alfredo Bueno Trouble concentrating on thi ngs, such as reading the newspaper or watching television Not at all 12/01/2024 9:59 AM Jania Bueno Moving or speaking so slowly that other people could have noticed? Or the opposite - being so fidgety or restless that you have been moving around a lot more than usual. Not at all 12/01/2024 9:59 AM Khris Bueno Thoughts that you would be b rudolph off or hurting yourself in some way Not at all 12/01/2024 9:59 AM Jania Bueno Patient Health Questionnaire-9 Score 0 0 12/2024 9:59 AM Jania Bueno * If you checked off any problems on this questionnaire so far, Question Answer Date of Assessment Author How difficult have these problems made it for you to do your work, take care of things at home, or get along with other people? Not difficult at all 12/01/2024 9:59 AM Jania Bueno documented as of this encounter Plan of Treatment Upcoming Encounters Date Type Department Care Team (Late st Contact Info) Description 01/27/2025 10:00 AM EDT Office Visit [facility] Audiology [address], [address]rd [place] [address] Patsy Lucero, AuD [address] [place] [address] 03/02/2025 11:00 AM EDT Office Visit [facility] Medicine Specialties [address], [address] [place] [address] Denise Keith, TROPHY ASSEMBLER [address] [place] [address] 03/08/2025 10:40 AM EDT Office Visit [facility] Otolaryngology [address], [address] [place] [address] Melvin Casillas MD [address] [place] [address] 06/07/2025 9:50 AM EST Office Visit [facility] Medicine Specialties [address], [address] [place] [address] Nidhi Stack, TROPHY ASSEMBLER [address] [place] [address] documented as of this encounter [...] documented as of this encounter Care Teams Catering Administrative Assistant Relationship Specialty Start Date End Date Melvin Pink DO [address] [facility] [address] [place] [address] PCP - General 12/01/24 documented as of this encounter
--- OUTSIDE RECORDS SUMMARY | 2025-01-18 09:54 | XMS_ITS | Encounter Summary ---
Author Organization Healthcare Address [address] [place] [address] Care Team Providers Care Bill Peddler Name Role Phone Melvin Pink Sunil CHRISTIAN Primary Care Provider [phone] Encounter Details Date Type Department Care Team (Latest Contact Info) Description 12/29/2024 Travel Social History Tobacco Use Types Packs/Day [...] 01/27/2025 10:00 AM EDT Office Visit [facility] Audiology [address], 3rd [place] [address] Patsy Lucero, AuD [address] [place] [address] 03/02/2025 11:00 AM EDT Office Visit [facility] Medicine Specialties [address], [address] [place] [address] Denise Keith, WEATHERIZATION DIRECTOR [address] [place] [address] 03/08/2025 10:40 AM EDT Office Visit [facility] Otolaryngology [address], [address] [place] [address] Melvin Casillas MD [address] [place] [address] 06/07/2025 9:50 AM EST Office Visit [facility] Medicine Specialties [address], [address] [place] [address] Nidhi Stack, WEATHERIZATION DIRECTOR [address] [place] [address] documented as of this encounter [...] documented as of this encounter Care Teams Bill Peddler Relationship Specialty Start Date End Date Melvin Pink, [address] [place] [address] PCP - General 12/01/24 documented as of this encounter
== END 2025-01-15 23:59 | disposition home or self-care (01) ==
LOC: LAB.DROPOF 01-18 09:36
PROVIDERS: PCP Nurse Practitioner Family; Visit Provider Nurse Practitioner Family
DX: N39.0 Urinary tract infection, site not specified (principal)
CPT/HCPCS: 87086; 87088; 87186

== ENCOUNTER 2025-04-13 08:57 | Outpatient (CLI) | payer MEDICARE, SELFPAY ==
--- OUTSIDE RECORDS SUMMARY | 2024-05-30 05:00 | XMS_ITS ---
Author Organization [facility] Address [address] [place] [address] Care Team Providers Care Community Development Coordinator Name Role Phone Ita You MD, Aristides Unavailable Unavailab le Migration, Provider Unavailable Unavailable REASON FOR VISIT EMR-Daniel Encounters Encounter Location Date Provider Diagnosis Sarika Tena PA [address] [place] [address] 05/30/2024 Provider Migration Plan Of Treatment Medication Medication Name Sig Start Date Stop Date Notes Ciprofloxacin HCl 500 MG Tablet take 1 t ablet by oral route 2 times every day Oral 10/15/2018 10/20/2018 Progress Notes * Noni MARRUFOGeorgiaOB:[birth year] (79 yo F)Acc No.[id number]:05/30/2024 Patient: Minnie MOURA :1945 A ge:78 Y S ex:Female Address:[address] [place] [address], [address] * Refills Stop Ciprofloxacin HCl Tablet, 500 MG, Oral, 14, take 1 tablet by oral route 2 times every day Subjective: * Chief Complaints: * E MR-Daniel * * Date:
--- OUTSIDE RECORDS SUMMARY | 2024-05-31 05:00 | XMS_ITS ---
Author Organization [facility] Address [address] [place] [address] Care Team Providers Care Clinical Data Abstractor Name Role Phone Ita You MD, Aristides [...] take 1 PO QD BUCCAL *Reorder from [facility] for eRx and Interaction Alerts* 10/15/2018 Active [...] Date Provider Diagnosis Sarika Tena PA [address] [place] [address] 05/31/2024 Provider Migration Plan Of Treatment No Information Progress Notes * Lluvia MARRUFOOB:[birth year] (79 yo F)Acc No.[id number]:05/31/2024 Patient: Minnie MOURA :1945 A ge:78 Y S ex:Female Address:[address] [place], [place] [address] Subjective: * Chief Complaints: * E MR-Daniel [...] BUCCAL , Notes to Pharmacist: *Reorder from [facility] for eRx and Interaction Alerts*Taking Atorvastatin Calcium [...] BUCCAL , Notes to Pharmacist: *Reorder from [facility] for eRx and Interaction Alerts* * Allergies: C ephalosporins: Anaphylaxis - Allergy * * Date:
--- OUTSIDE RECORDS SUMMARY | 2025-03-02 11:00 | XMS_ITS | Encounter Summary ---
Author Organization [facility] Address [address] [place] [address] Care Team Providers Care Insulation Cupola Charger Name Role Phone JoesphMelvin crespo Sunil CHRISTIAN Primary Care Provider [phone] Reason for Visit * Reason Comments dermtitis Encounter Details Date Type Department Care Team (Late st Contact Info) Description 03/02/2025 11:00 AM EDT Office Visit [facility] [address] [place] [address] Denise Keith N, CAVING GUIDE [address] [place] [address] CVID (common variable immunodeficiency) (CMS/HCC) (Primary Dx); Hypogammaglobulinemia (CMS/HCC); Sjogren syndrome, unspecified (CMS/HCC) Social History Tobacco Use Types Packs/Day Years Used Date Smoking Tobacco: Never Smokeless Tobacco: Never Alcohol Use Standard Drinks/Week Comments Not Currently 0 (1 standard drink = 0.6 oz pur e alcohol) PHQ-2 Answer Date Recorded Patient Health Questionnaire-2 Score 0 03/02/2025 PHQ-9 Answer Date Recorded Patient Health Questionnaire-9 Score 0 03/02/2025 Comments No Sex and Gender Information Value Date Recorded Sex Assigned at Female 12/06/2023 12:07 PM EDT Legal Sex Female 8:37 PM EDT Gender Identity Female 12/06/2023 12:07 PM EDT Sexual Orientation Straight 12/06/2023 12 :07 PM EDT documented as of this encounter Last Filed Vital Signs Vital Sign Reading Time Taken Comments Blood Pressure 126/81 03/02/2025 11:18 AM EDT Pulse 77 03/02/2025 11:18 AM EDT Temperature 36.9 C (98.5 F) 03/02/2025 11:18 AM EDT Respiratory Rate 16 03/02/2025 11:18 AM EDT Oxygen Saturation 98% 03/02/2025 11:18 AM EDT RA Inhaled Oxygen Concentration - - Weight 76 kg (167 lb 8.8 oz) 03/02/2025 11:18 AM EDT Height 160 cm (5' 3 ) 03/02/2025 11:18 AM EDT Body Mass Index 29.68 03/02/2025 11:18 AM EDT documented in this encounter Functional Status * Over the past 2 weeks, how often have you been bothered by any of the following problems? Question Answer Date of Assessment Author Little interest or pleasure in doing things Not at all 03/02/2025 11:22 AM EDT Jania Mc Feeling down, depressed, or hopeless Not at all 03/02/2025 11:22 AM EDT Jania Mc Patient Health Questionnaire -2 Score 0 03/02/2025 11:22 AM EDT Jania Mc * Question Answer Date of Assessment Author Trouble falling or staying a sleep, or sleeping too much Not at all 03/02/2025 11:22 AM Jania Bueno Feeling tired or having tavo le energy Not at all 03/02/2025 11:22 AM EDT Jania Mc Poor appetite or overeating Not at all 03/02/2025 11 :22 AM EDT Jania Mc Feeling bad about yourself - or that you are a failure or have let yourself or your family down Not at all 03/02/2025 11:22 AM [facility] Khris Mc Trouble concentrating on thi ngs, such as reading the newspaper or watching television Not at all 03/02/2025 11:22 AM Jania Bueno Moving or speaking so slowly that other people could have noticed? Or the opposite - being so fidgety or restless that you have been moving around a lot more than usual. Not at all 03/02/2025 11:22 AM Jania Bueno Thoughts that you would be b rudolph off or hurting yourself in some way Not at all 03/02/2025 11:22 AM Jania Bueno Patient Health Questionnaire -9 Score 0 03/02/2025 11:22 AM Jania Bueno * If you checked off any problems on this questionnaire so far, Question Answer Date of Assessment Author How difficult have these problems made it for you to do your work, take care of things at home, or get along with other people? Not difficult at all 03/02/2025 11:22 AM Jania Bueno documented as of this encounter Miscellaneous Notes * Progress Notes - Denise Keith APRN - 03/02/2025 11:00 AM EDT Images from the original note were not included. Allergy and Immunology Service Immunology - Progress Note Subjective Intake Consulting Physician: Denise Keith APRN Referring MD: No ref. provider found Other Consultants: rheumatology, ENT, neruology Encounter Date: 03/02/2025 Chief Complaint / Reason for Consult Minnie is a 79 y.o. female sent by No ref. provider found for consultation and evaluation of: No chief complaint on file. History of Present Illness / Interval History [...] dysregulation. Minnie provides the following medical history: Since our last visit patient has had a few UTIs and needed to be treated. Has seen urology, and reports it is just old age. States she did a few test and found nothing wrong with her. Was most recently treated with cipro. Does not think she is going back to [facility] this winter. Reports she always has ear infections, and does see ENT next week. Went over thoroughly most recent labs and new diagnosis with patient. HPI Patient has a history of sjogrens and [...] no family history of recurrent/severe/atypical infections or sand screener /unexplained . Dad when he was 43 due to black young, reports her aunts were sickly. Unsurethe exact cause. Maternal side was overall she was Sj??gren. Reports her younger brother, seems to be [...] trivalent, adjuvanted 06/07/2017, 07/08/2024 Moderna COVID-19 Vaccine (Maintenance And Custodian Supervisor) 12+ years 09/15/2020, 10/13/2020, 04/12/2021 Moderna COVID-19 Vaccine Bivalent 6months+ 05/15/2022 Pfizer Covid-19 Vaccine 12y+, Brody Protein, PF, Gilberto-Sucrose 07/20/2024 Pneumococcal Polysaccharide PPV23 12/29/2024 Pneumococcal, Unspecified 03/29/2016 [...] Resource Strain: Low Risk (09/23/2024) Received from [facility] Overall Financial Resource Strain (CARDIA) Difficulty of Paying Living Expenses: Not hard at all Food Insecurity: Low Risk (09/23/2024) Received from [facility] Food Security Within the past 12 months, the food you bought just didn't last and you didn't have money to get more.: 3 Within the past 12 months, you worried that your food would run out before you got money to buy more.: 3 Transportation Needs: Not At Risk (09/23/2024) Received from [facility] Transportation Needs In the past 12 months, has lack of reliable transportation kept you from medical appointments, meetings, work or from getting things needed for daily living?: No Physical Activity: Insufficiently Active (09/23/2024) Received from [facility] Physical Activity On average, how many days [...] No Stress Concern Present (09/23/2024) Received from [facility] Occupational Health - Occupational Stress Questionnaire Feeling of Stress : Only a little Social Connections: Moderately Integrated (09/23/2024) Received from [facility] Social Connection and Isolation Panel In a typical week, how many times do you talk on the phone with family, friends, or neighbors?: More than three times a week How often do you get together with friends or relatives?: More than three times a week How often do you attend denominational or gnosticism services?: More than 4 times per year Do you belong to any clubs or organizations such as denominational groups, unions, fraternal or athletic groups, or school groups?: No How often do you attend meetings of the clubs or organizations you belong to?: Never Are you , , , , never , or living with a partner?: Recent Concern: Social Connections - Moderately Isolated (08/17/2024) Received from [facility] Social Connection and Isolation Panel Frequency of Communication with Friends and Family: More than three times a week Frequency of Social Gatherings with Friends and Family: More than three times a week Attends Adventism Services: Never Active Member of Clubs or Organizations: No Attends Club or Organization Meetings: Never Marital Status: Intimate Partner Violence: Not At Risk (09/23/2024) Received from [facility] Safety How often does anyone, including family [...] Not At Risk (09/23/2024) Received from [facility] Housing What is your living situation today?: I have a steady place to live Think about the place you live. Do you have problems with any of the following?: None of the above Family History Family History[5] Review of Systems 12-pt ROS unrevealing unless indicated in HPI above. Objective Physical Exam: Physical Exam Visit Vitals OB Status Postmenopausal Smoking Status Never General: alert; in no acute distress, comfortable, afebrile Head: normocephalic, atraumatic; no tenderness or masses found Eyes: anicteric, conjunctiva normal, no ocular discharge, pupils are round/reactive to light bilaterally Ears: external ears are normal, canals with cerumen; Nose: nares patent and with discharge; midline [...] 11A, 12F, 15B, 17F, 20, 22F, 33F Before vaccine 11/2024 9/23 After vaccine 01/2025 no change Complement Labs: Lab Results Component Value Date C3 156 12/02/2024 C3 132 06/02/2024 C3 126 12/03/2023 C4 26 12/02/2024 C4 23 06/02/2024 C4 22 12/03/2023 CH50 >95.0 (H) 12/02/2024 C1inh: No results found for: [id number] CBC: Lymphocytes Absolute Date Value Ref Range Status 02/04/2025 1.42 1.20 - 3.90 10*3/uL Final 12/02/2024 1.63 1.20 - 3.90 10*3/uL Final 06/02/2024 1.81 1.20 - 3.90 10*3/uL Final 12/03/2023 1.60 1.20 - 3.90 10*3/uL Final Neutrophils Absolute Date Value Ref Range Status 02/04/2025 4.23 1.60 - 6.10 10*3/uL Final 12/02/2024 3.87 1.60 - 6.10 10*3/uL Final 06/02/2024 4.93 1.60 - 6.10 10*3/uL Final 12/03/2023 4.44 1.60 - 6.10 10*3/uL Final Eosinophils Absolute Date Value Ref Range Status 02/04/2025 0.22 0.00 - 0.50 10*3/uL Final 12/02/2024 0.28 0.00 - 0.50 10*3/uL Final 06/02/2024 0.35 0.00 - 0.50 10*3/uL Final 12/03/2023 0.33 0.00 - 0.50 10*3/uL Final Monocytes Absolute Date Value Ref Range Status 02/04/2025 0.52 0.30 - 0.90 10*3/uL Final 12/02/2024 0.62 0.30 - 0.90 10*3/uL Final 06/02/2024 0.73 0.30 - 0.90 10*3/uL Final 12/03/2023 0.61 0.30 - 0.90 10*3/uL Final WBC Count Date Value Ref Range Status 02/04/2025 6.49 3.70 - 10.30 10*3/uL Final 12/02/2024 6.52 3.70 - 10.30 10*3/uL Final 06/02/2024 7.96 3.70 - 10.30 10*3/uL Final 12/03/2023 7.10 3.70 - 10.30 10*3/uL Final HGB Date Value Ref Range Status 02/04/2025 12.1 11.2 - 15.7 g/dL Final 12/02/2024 12.6 11.2 - 15.7 g/dL Final 06/02/2024 13.3 11.2 - 15.7 g/dL Final 12/03/2023 12.7 11.2 - 15.7 g/dL Final Platelet Count Date Value Ref Range Status 02/04/2025 403 (H) 155 - 369 10*3/uL Final 12/02/2024 442 (H) 155 - 369 10*3/uL [...] the gamma delta form of T cell application support administrator tor. HLA-DR is expressed by 14% of [...] female with: Problem List[6] Assessment: Recurrent ear infections/hypogam/CVID Hx:recurrent otitis media since childhood, now requiring CI. Has been on allergy IT with no improvement in them. Does still get recurrent sinusitis as well Labs: low IgG and Igm, normal IgA. Protective titers to tetanus and diptheria, has 03/20 protective titers to streptococcus, patient would still benefit from PPSV23 challenge. Immunophenotyping is overall reassuring was some low CSM B cells. The two main features of CVID are 1) Low serum IgG and 2) Impaired antibody responses to specific antigens. Deficiencies in other immunoglobulin isotypes (IgM, and IgA) are also quite common. CD4 lymphopenia can also be seen. Which patient does have. Plan: Labs: as above, none at this time Medications: discussed IVIG replacement and ppx abx and at this time patient would like to proceed with ppx. Will start with azithromycin 250 mg M/W/ Vaccines: Referrals/other: n/a Follow-up: Jul 2025 Future Appointments Date Time Provider Department Center 03/02/2025 11:00 AM Denise Keith APRN [facility] 03/08/2025 10:40 AM Melvin Casillas MD [facility] 03/08/2025 11:00 AM Patsy Lucero, Annalise [facility] 03/26/2025 3:00 PM Patsy Lucero [facility] 06/07/2025 9:50 AM Nidhi Stack APRN [facility] I have seen Minnie Woodard in the Allergy and Immunology clinic at [facility] atthe request of Dr. Barclay ref. provider found for consultation regarding No chief complaint on file. which falls within my purview as a subspecialist. I have spent 30 minutes, before, during, and after the visit reviewing patient testing/imaging studies, obtaining a history, conducting an exam, documenting clinical information in the EMR, communicating with other healthcare professionals, and counseling the family, in addition to the [id number] portion of the encounter. Greater than 50% [...] Date BACK SURGERY N/A Back Surgery from [facility] BREAST BIOPSY Right 2006 stereotactic-benign CHOLECYSTECTOMY N/A Cholecystectomy from [facility] COLONOSCOPY CYSTOSCOPY OTHER SURGICAL HISTORY Bilateral Stapedectomy from [facility] TONSILLECTOMY N/A Tonsillectomy from [facility] UPPER GASTROINTESTINAL ENDOSCOPY [3] Current Outpatient Medications [...] Daily. (Patient not taking: Reported on 12/02/2024) metFORMIN (Glucophage) 500 MG tablet Take 1 tablet (500 mg) by mouth twice a day. metoclopramide (Reglan) 10 MG tablet TAKE 1 TABLET BY MOUTH BEFORE MEALS AND AT BEDTIME (Patient not taking: Reported on 12/02/2024) Multiple Vitamins-Minerals (multivitamin with minerals) tablet Take 1 tablet by mouth 1 (one) time each day. pilocarpine (Salagen) 5 MG tablet Take 1 tablet by mouth 3 times a day as needed (for dry mouth). 90 tablet 11 Synthroid 125 MCG tablet Take 1 tablet (125 mcg) by mouth 1 (one) time each day before breakfast. No current facility-administered medications for this visit. [...] Care Team (Late st Contact Info) Description 06/07/2025 9:50 AM EST Office Visit [facility] Medicine Specialties [address] [place] [address] Nidhi Stack APRN [address] [place] [address] 06/07/2025 11:00 AM EST Office Visit [facility] Otolaryngology [address] [place] [address] Melvin Casillas MD [address] [place] [address] 08/24/2025 11:00 AM EST Office Visit [facility] Medicine Special[facility] [address] [place] [address] Denise Keith, CAVING GUIDE [address] [place] [address] documented as of this encounter Visit Diagnoses Diagnosis CVID (common variable immunodeficiency) (CMS/HCC)- Primary Common variable immunodeficiency Hypogammaglobulinemia (CMS/HCC) Unspecified hypogammaglobulinemia Sjogren syndrome, unspecified (CMS/HCC) documented in this encounter Additional Health Concerns Assessment Noted Time PHQ-9 Depression Total Score: 0 03/02/20 11:22 AM EDT A fall risk assessment has been complete d for the patient 03/02/2025 11:23 AM EDT A Body Mass Index follow-up plan has been documented for the patient 03/03/2025 10:45 AM EDT documented as of this encounter Care Teams Insulation Cupola Charger Relationship Specialty Start Date End Date Melvin Pink DO [address] [facility] [address] [place] [address] PCP - General 12/01/24 documented as of this encounter
--- OUTSIDE RECORDS SUMMARY | 2025-03-08 10:40 | XMS_ITS | Encounter Summary ---
Author Organization [facility] Address [address] [place] [address] Care Team Providers Care Glass Embosser Name Role Phone Melvin Pink DO Primary Care Provider [phone] Reason for Visit * Reason Comments Follow-up Encounter Details Date Type Department Care Team (Latest Contact Info) Description 03/08/2025 10:40 AM EDT Office Visit [facility] [address], [address] [place] [address] Melvin Casillas MD [address] [place] [address] Mixed conductive and sensorineural hearing [...] Sign Reading Time Taken Comments Blood Pressure 129/83 03/08/2025 11:28 AM EDT Pulse 72 03/08/2025 11:28 AM EDT Temperature - - Respiratory Rate - - Oxygen Saturation - - Inhaled Oxygen Concentration - - Weight 76.2 kg (167 lb 15.9 oz) 025 11:28 AM EDT Height 162.6 cm (5' 4 ) 03/08/2025 11:2 8 AM EDT Body Mass Index 28.84 03/08/2025 11:28 AM EDT documented in this encounter Miscellaneous Notes * Progress Notes - Jordin Trinh - 03/08/2025 10:40 AM EDT It was a pleasure to evaluate Minnie Woodard a pleasant 79 y.o. female who presents today for a chief complaint of Chief Complaint Patient presents with Follow-up The patient is an established patient in my clinic and returns today for a follow up visit. Since her last visit, she has been diagnosed with an immunodeficiency and is recommended to begin immunoglobulin infusions. At this time, she has not begun infusion treatment. She has had continued itching of her left ear, with some crusting of the external ear she describes as similar to her eczema. She denies drainage from the ear. She had a UTI for which she was prescribed oral ciprofloxacin, which relieved her symptoms. She notes continued benefit from her cochlear implant. Past Medical History[1] Surgical History[2] Allergies[3] Social History[4] Current Scheduled Medications[5] Current Continuous Medications[6] Current PRN Medications[7] Past medical history reviewed. Past surgical history reviewed. Past social history reviewed. Family history reviewed. Medications were reviewed. Allergies were reviewed. ROS: 14 point ROS performed and non-contributory other than that stated above. Physical Exam: 06/15/2024 1:21 PM 11/26/2024 9:49 AM 12/01/2024 9:56 AM 12/02/2024 10:04 AM 12/04/2024 9:49 AM 03/02/2025 11:18 AM 03/08/2025 11:28 AM Vitals Systolic 126 119 133 112 112 126 129 Diastolic 79 81 84 62 62 81 83 Heart Rate 78 75 75 77 72 Temp 36.4 C 36.7 C 36.9 C Resp 16 16 Height (cm) 162.6 cm 162.6 cm 162.6 cm 160 cm 162.6 cm Weight (kg) 79.379 kg 79.379 kg 72 kg 78.019 kg 78.019 kg 76 kg 76.2 kg BMI 30.04 kg/m2 30.04 kg/m2 27.25 kg/m2 29.52 kg/m2 29.52 kg/m2 29.68 kg/m2 28.84 kg/m2 BSA (m2) 1.89 m2 1.89 m2 1.8 m2 1.88 m2 1.88 m2 1.84 m2 1.85 m2 Visit Report Report Report Report Report Report General: patient is awake, nontoxic appearing, and in no acute distress. Skin: No overtly ulcerated, cellulitic, or indurated lesions of the head or neck. Head: Normocephalic and atraumatic. Sinuses are nontender to palpation. Ears: The pinnas are well formed. External auditory canals are nonstenotic without cerumen impaction bilaterally. She has thick mucous in the left EAC and a normal TM. The right TM is dry with flaking skin, with effusion in the posterior superior quadrant. Eyes: Extraocular muscles are intact. The sclera [...] ears, unspecified type Cochlear implant in place Mrs. Woodard continues to benefit from her cochlear implants, but continues to have issues with infections of the left external ear. There are no overt signs of infection at today's visit. She should continue to follow up in 3 months. [1] Past Medical History: Diagnosis Date Asthma allergy induced Delayed emergence from general anesthesia Diabetes mellitus ([facility]/HCC) 11/2022 A1C - 5.1 Frequent UTI Full dentures Gastroparesis Headache, tension-type Hiatal hernia HL (hearing loss) Hyperlipidemia Hypothyroidism Interstitial cystitis Joint pain Migraine Motion sickness Obesity Osteoarthritis Personal history of other infectious and parasitic diseases History of hepatitis A virus infection PONV (postoperative nausea and vomiting) Shingles Sjogren's syndrome ([facility]) Sleep apnea C-Pap at [2] Past Surgical History: Procedure Laterality Date BACK SURGERY N/A Back Surgery from [facility] BREAST BIOPSY Right 2007 stereotactic-benign CHOLECYSTECTOMY N/A Cholecystectomy from [facility] COLONOSCOPY CYSTOSCOPY OTHER SURGICAL HISTORY Bilateral Stapedectomy from [facility] TONSILLECTOMY N/A Tonsillectomy from [facility] UPPER GASTROINTESTINAL ENDOSCOPY [3] Allergies Allergen Reactions Cefuroxime Swelling Cephalexin Swelling Cephalosporins Swelling Amoxicillin Hives Penicillins Hives Sulfa Drugs Rash [4] Social History Tobacco Use Smoking status: Never Smokeless tobacco: Never Vaping Use Vaping status: Never Used Substance Use Topics Alcohol use: Not Currently Drug use: Never Comment: Drug use: No drug use [5] [6] [7] Cosigned by Melvin Casillas MD at 03/12/2025 9:22 AM EDT Associated attestation - Melvin Casillas MD - 03/12/2025 9:22 AM EDT I saw and evaluated the patient with the medical/MUTUAL FUND MANAGER/PA student. I discussed the case with the medical/MUTUAL FUND MANAGER/PA student and agree with the findings and plan as documented. I personally performed the Examand Medical Decision Making. * Progress Notes - Melvin Casillas MD - 03/08/2025 10:40 AM EDT It was a pleasure to evaluate Minnie Woodard a pleasant 79 y.o. female who presents today for a chief complaint of Chief Complaint Patient presents with Follow-up The patient is an established patient in my clinic and returns today for a follow up visit. Since her last visit, she has been diagnosed with an immunodeficiency and is recommended to begin immunoglobulin infusions. At this time, she has not begun infusion treatment. She has had continued itching of her left ear, with some crusting of the external ear she describes as similar to her eczema. She denies drainage from the ear. She had a UTI for which she was prescribed oral ciprofloxacin, which relieved her symptoms. She notes continued benefit from her cochlear implant. Past Medical History[1] Surgical History[2] Allergies[3] Social History[4] Current Scheduled Medications[5] Current Continuous Medications[6] Current PRN Medications[7] Past medical history reviewed. Past surgical history reviewed. Past social history reviewed. Family history reviewed. Medications were reviewed. Allergies were reviewed. ROS: 14 point ROS performed and non-contributory other than that stated above. Physical Exam: 06/15/2024 1:21 PM 11/26/2024 9:49 AM 12/01/2024 9:56 AM 12/02/2024 10:04 AM 12/04/2024 9:49 AM 03/02/2025 11:18 AM 03/08/2025 11:28 AM Vitals Systolic 126 119 133 112 112 126 129 Diastolic 79 81 84 62 62 81 83 Heart Rate 78 75 75 77 72 Temp 36.4 C 36.7 C 36.9 C Resp 16 16 Height (cm) 162.6 cm 162.6 cm 162.6 cm 160 cm 162.6 cm Weight (kg) 79.379 kg 79.379 kg 72 kg 78.019 kg 78.019 kg 76 kg 76.2 kg BMI 30.04 kg/m2 30.04 kg/m2 27.25 kg/m2 29.52 kg/m2 29.52 kg/m2 29.68 kg/m2 28.84 kg/m2 BSA (m2) 1.89 m2 1.89 m2 1.8 m2 1.88 m2 1.88 m2 1.84 m2 1.85 m2 Visit Report Report Report Report Report Report General: patient is awake, nontoxic appearing, and in no acute distress. Skin: No overtly ulcerated, cellulitic, or indurated lesions of the head or neck. Head: Normocephalic and atraumatic. Sinuses are nontender to palpation. Ears: The pinnas are well formed. External auditory canals are nonstenotic without cerumen impaction bilaterally. She has thick mucous in the left EAC and a normal TM. The right TM is dry with flaking skin, with effusion in the posterior superior quadrant. Eyes: Extraocular muscles are intact. The sclera [...] ears, unspecified type Cochlear implant in place Mrs. Woodard continues to benefit from her cochlear implants, but continues to have issues with infections of the left external ear. There are no overt signs of infection at today's visit. She should continue to follow up in 3 months. [1] Past Medical History: Diagnosis Date Asthma allergy induced Delayed emergence from general anesthesia Diabetes mellitus ([facility]/HCC) 11/2022 A1C - 5.1 Frequent UTI Full dentures Gastroparesis Headache, tension-type Hiatal hernia HL (hearing loss) Hyperlipidemia Hypothyroidism Interstitial cystitis Joint pain Migraine Motion sickness Obesity Osteoarthritis Personal history of other infectious and parasitic diseases History of hepatitis A virus infection PONV (postoperative nausea and vomiting) Shingles Sjogren's syndrome ([facility]) Sleep apnea C-Pap at [2] Past Surgical History: Procedure Laterality Date BACK SURGERY N/A Back Surgery from [facility] BREAST BIOPSY Right 2006 stereotactic-benign CHOLECYSTECTOMY N/A Cholecystectomy from [facility] COLONOSCOPY CYSTOSCOPY OTHER SURGICAL HISTORY Bilateral Stapedectomy from [facility] TONSILLECTOMY N/A Tonsillectomy from [facility] UPPER GASTROINTESTINAL ENDOSCOPY [3] Allergies Allergen Reactions Cefuroxime Swelling Cephalexin Swelling Cephalosporins Swelling Amoxicillin Hives Penicillins Hives Sulfa Drugs Rash [4] Social History Tobacco Use Smoking status: Never Smokeless tobacco: Never Vaping Use Vaping status: Never Used Substance Use Topics Alcohol use: Not Currently Drug use: Never Comment: Drug use: No drug use [5] [6] [7] documented in this encounter Plan of Treatment Upcoming Encounters Date Type Department Care Team (Late st Contact Info) Description 06/07/2025 9:50 AM EST Office Visit [facility] Medicine Specialties [address], [address] [place] [phone] Nidhi Stack, VETERINARY SCIENCE TEACHER [address] [place] [address] 06/07/2025 11:00 AM EST Office Visit [facility] Otolaryngology [address], [address] [place] [address] Melvin Casillas MD [address] [place] [address] 08/24/2025 11:00 AM EST Office Visit [facility] Medicine Specialties [address], [address] [place] [address] Denise Keith, VETERINARY SCIENCE TEACHER [address] [place] [address] documented as of this encounter [...] plan has been documented for the patient 03/16/2025 4:05 AM EDT documented as of this encounter Care Teams Glass Embosser Relationship Specialty Start Date End Date Melvin Pink DO [address] [place] [address] PCP - General 12/01/24 documented as of this encounter
--- OUTSIDE RECORDS SUMMARY | 2025-03-08 11:00 | XMS_ITS | Encounter Summary ---
Author Organization [facility] Address [address] [place] [address] Care Team Providers Care Candle Molder Hand Name Role Phone Melvin Pink Sunil CHRSITIAN Primary Care Provider [phone] Encounter Details Date Type Department Care Team (Late st Contact Info) Description 03/08/2025 11:00 AM EDT Office Visit [facility] Audiology [address], 3rd [place] [address] Patsy Lucero, Annalise [address] [place] [address] Sensorineural hearing loss (SNHL) of both ears (Primary Dx) Social History Tobacco Use Types [...] PM EDT documented as of this encounter Miscellaneous Notes * Progress Notes - Patsy Lucero AuD - 03/08/2025 11:00 AM EDT Referring Provider: Melvin Casillas MD HEARING AID & CI CHECK Patient Status: Ms. Woodard was seen to discuss the possibility of obtaining a hearing aid that willcoordinate with her cochlear implant. She said she is doing quite well with her cochlear implant inunderstands that she probably needs a 2nd side cochlear implant but is not in a position in life where she can do that at this time. Therefore she wants to maximize her hearing with a hearing aid on her un implanted ear. Condition of Implant Site: Ms. Woodard' cochlear implant incision and magnet site are within normal limits with no evidence of redness, edema or sensitivity. Biology Professor: Cochlear Ear: RE: Surgery Date: 02/28/2023 Internal Device: [id number] - # [id number] Processor #1: N8 - Brown color Processor #2: K2 - Brown Fit Date: 03/18/2023 Magnet strength: 3i changed to a 2i strength today Cord length: 3 Battery: Rechargeable Ghulam Exp: 03/18/2028 LE: HEARING AID Model: Oticon Exceed Accessories: Mini-cynthia, TV Streamer, Hearing Aid Discussion: I took an impression of her left ear and she would like to purchase a ReSound NX5 hearing aid. I will place the order. Electrode Impedances: NA Mapping Session Notes: NO COCHLEAR IMPLANT MAPPING WAS CONDUCTED AT TODAY'S APPOINTMENT. ASSESSMENT/PLAN Ms. Woodard will return to this clinic when her new hearing aid arrives for her hearing aid fitting appointment or p.r.n.. documented in this encounter Plan of Treatment Upcoming Encounters Date Type Department Care Team (Late st Contact Info) Description 06/07/2025 9:50 AM EST Office Visit [facility] Medicine Specialties [address], [address] [place] [address] Nidhi Stack APRN [address] [place] [address] 06/07/2025 11:00 AM EST Office Visit [facility] [address], [address]rd [place] [address] Melvin Casillas MD [address] [place] [address] 08/24/2025 11:00 AM EST Office Visit [facility] Medicine Specialties [address], [address] [place] [address] Denise Keith, PAPERBOARD MACHINE OPERATOR [address] [place] [address] documented as of this encounter Visit Diagnoses Diagnosis Sensorineural hearing loss (SNHL) of both ears- Primary documented in this encounter Additional Health Concerns Assessment Noted Time PHQ-9 Depression Total Score: 0 03/02/20 11:22 AM EDT A fall risk assessment has been complete d for the patient 03/02/2025 11:23 AM EDT A Body Mass Index follow-up plan has been documented for the patient 03/16/2025 4:05 AM EDT documented as of this encounter Care Teams Candle Molder Hand Relationship Specialty Start Date End Date Melvin Pink DO [address] [place] [address] PCP - General 12/01/24 documented as of this encounter
--- OUTSIDE RECORDS SUMMARY | 2025-03-26 15:00 | XMS_ITS | Encounter Summary ---
Author Organization [facility] Address [address] [place] [address] Care Team Providers Care Recycling Director Name Role Phone Melvin Pink Sunil CHRISTIAN Primary Care Provider [phone] Reason for Visit * Reason Comments Hearing Loss Encounter Details Date Type Department Care Team ([facility] st Contact Info) Description 03/26/2025 3:00 PM EDT Office Visit [facility] Audiology [address], [address] [place] [address] Patsy Lucero, Annalise [address] [place] [address] Sensorineural hearing loss (SNHL) of [...] encounter Miscellaneous Notes * Progress Notes - LuceroPatsy stoll AuD - 03/26/2025 3:00 PM EDT Referring Provider: Melvin Casillas MD HEARING AID FITTING Patient Status: Ms. Woodard was seen for a hearing aid fitting appointment. Condition of Implant Site: Ms. Negro cochlear implant incision and magnet site are within normal limits with no evidence of redness, edema or sensitivity. Epic Beacon Analyst: Cochlear Ear: RE: Surgery Date: 02/28/2023 Internal Device: CI612 - # [id number] Processor #1: N8 - Brown color Processor #2: K2 - Brown Fit Date: 03/18/2023 Magnet strength: 3i changed to a 2i strength today Cord length: 3 Battery: Rechargeable Guhlam Exp: 03/18/2028 Accessories: Mini-cynthia, TV Streamer, LEFT EAR: Hearing Aid ReSound Model: Nexia 5, NX 560S - DRWC - espresso- SAIMA Serial #: [id number] Fit Date: 03/26/2025 Battery: Rechargeable Ghulam Exp: 04/12/2028 Senior Qualitative Researcher serial #: [id number] - Premium Ghulam Exp - 04/12/2028 Ear mold: Ultra Power Encased Micro-mold - size 2 - 1.2mm pressure vent Serial#: [id number] Remake Ghulam: 09/12/2025 Hearing Aid Fitting: I connected her hearing aid to the computer and ran compliance with good results. I programmed her hearing aid using the Audiogram + proprietary algorithm. We worked to balance the volume of her hearing aid with the volume of her cochlear implant processor. She was well pleased with the overall sound quality. Electrode Impedances: NA Mapping Session Notes: Ms. Negro hearing aid was connected to her CI processor in the software. She demonstrated good ability to manipulate the devices in the cochlear application. Unfortunately we were unable to get her cochlear implant and hearing aid to binaural a stream consistently. I feel sure this is a [employer] cell phone issue and not a problem with the devices. She willwork with [employer] to try to address this issue. NO COCHLEAR IMPLANT MAPPING WAS CONDUCTED AT TODAY'S APPOINTMENT. ASSESSMENT/PLAN Ms. Woodard will return to this clinic in 2-4 weeks for a MARTIN follow-up appointment. documented in this encounter Plan of Treatment Upcoming Encounters Date Type Department Care Team (Late st Contact Info) Description 06/07/2025 9:50 AM EST Office Visit [facility] Medicine Specialties [address], [address] [place] [address] Nidhi Stack, EDUCATIONAL ADVISER [address] [place] [address] 06/07/2025 11:00 AM EST Office Visit [facility] Otolaryngology [address], [address] [place] [address] Melvin Casillas MD [address] [place] [address] 08/24/2025 11:00 AM EST Office Visit [facility] Medicine Specialties [address], [address] [place] [address] Denise Keith, EDUCATIONAL ADVISER [address] [place] [address] Scheduled Orders Name Type Priority Associated Diagnoses Orde r Schedule Hearing Aid Follow-up 60 Audiology Routine Sensorineural hearing loss (SNHL) of both ears Expected: 04/26/2025, Expires: 09/27/2026 documented as of this encounter Visit Diagnoses Diagnosis Sensorineural hearing loss (SNHL) of both ears- Primary documented in this encounter Additional Health Concerns Assessment Noted Time PHQ-9 Depression Total Score: 0 03/02/20 25 11:22 AM EDT A fall risk assessment has been complete d for the patient 03/02/2025 11:23 AM EDT A Body Mass Index follow-up plan has been documented for the patient 03/26/2025 5:14 PM EDT documented as of this encounter Care Teams Recycling Director Relationship Specialty Start Date End Date Melvin Pink DO [address] [facility] [address] [place] [address] PCP - General 12/01/24 documented as of this encounter
[2025-04-13] MEDS: ACETAMINOPHEN 325MG TAB 650 MG PO (09:10)
--- OUTSIDE RECORDS SUMMARY | 2025-04-13 09:36 | XMS_ITS | Encounter Summary ---
Author Organization [facility] Address [address] [place] [address] Care Team Providers Care Rn Staff Name Role Phone Melvin Pink Sunil CHRISTIAN Primary Care Provider [phone] Encounter Details Date Type Department Care Team (Latest Contact Info) Description 03/26/2025 Travel Social History Tobacco Use Types Packs/Day [...] Description 06/07/2025 9:50 AM EST Office Visit [facility] Medicine Specialties [address], [address] [place] [address] Nidhi Stack, REFERRAL RN [address] [place] [address] 06/07/2025 11:00 AM EST Office Visit [facility] Otolaryngology [address] [place] [address] Melvin Casillas MD [address] [place] [address] 08/24/2025 11:00 AM EST Office Visit [facility] Medicine Specialties [address], [address] [place] [address] Denise Keith, REFERRAL RN [address] [place] [address] documented as of this encounter [...] documented as of this encounter Care Teams Rn Staff Relationship Specialty Start Date End Date Melvin Pink DO [address] [facility] [address] [place] [address] PCP - General 12/01/24 documented as of this encounter
--- OUTSIDE RECORDS SUMMARY | 2025-04-13 09:36 | XMS_ITS | Clinical Summary ---
Author Organization [facility] Address [address] [place] [address] Care Team Providers Care Dairy Bacteriologist Name Role Phone Umberto Rodriguez MD Primary Care Provider [phone] Allergies Active Allergy Reactions Criticality Noted Date Comments Amoxicillin 05/03/2017 Cephalosporins 05/03/2017 Cephalexin 05/03/2017 Medications levothyroxine (SYNTHROID, LEVOTHROID) 125 MCG tablet Take 125 mcg by mouth Daily. Active atorvastatin (LIPITOR) 10 MG tablet Take 10 mg by mouth Daily. Active Ezetimibe-Atorv astatin 10-10 MG tablet Take by mouth Every Night. Active metFORMIN (GLUCOPHAGE) 500 MG tablet Take 500 mg by mouth 2 (Two) Times a Day With Meals. Active Multiple Vitamin (MULTI-VITAMIN PO) Take by mouth. Active cholecalciferol (VITAMIN D3) 1000 units tablet Take 1,000 Units by mouth Daily. Active TURMERIC CURCUMIN PO Take by mouth. Active fluticasone (FLONASE) 50 MCG/ACT nasal spray 2 sprays into each nostril Daily. Active Fexofenadine HCl (MUCINEX ALLERGY PO) Take by mouth. Active Polyethylene Glycol 3350 (MIRALAX PO) Take by mouth. Active Psyllium (METAMUCIL FIBER PO) Take by mouth. Active Active Problems No known active problems Family History Medical History Relation Name Comments Lung cancer Father Diabetes Mother Relation Name Status Comments Father Mother c-diff Social History Tobacco Use Types Packs/Day Years Used Date Smoking Tobacco: Never Smokeless Tobacco: Never Alcohol Use Standard Drinks/Week Comments Yes 0 (1 standard drink = 0.6 oz pur e alcohol) rare Abuse Screen Answer Date Recorded Unsafe at Home or Work/School Not on file Feels Threatened by Someone? Not on file 03/2023 Does Anyone Keep You from Co ntacting Others or Doint Things Outside the Home? Not on file 05/06/2023 Physical Sign of Abuse Present Not on file 1 Housing Stability Answer Date Recorded Current Living Arrangements Not on file 03/2023 Potentially Unsafe Housing Conditions Not on jennifer e 05/06/2023 Family and Community Support Answer Raul e Recorded Help with Day-to-Day Activities Not on file 05/06/2023 Lonely or Isolated Not on file 05/06/2023 Employment Answer Date Recorded Do you want help finding or keeping work or a nicki b? Not on file 05/06/2023 Disabilities Answer Date Recorded Concentrating, Remembering, or Making Decisions Difficulty Not on file 05/06/2023 Doing Errands Independently Difficulty Not on fi le 05/06/2023 Education Answer Date Recorded Help with school or training? Not on file Preferred Language Not on file 05/06/2023 Comments Unknown Sex and Gender Information Value Date Recorded Sex Assigned at Not on file Legal Sex Female 1:05 PM EDT Gender Identity Not on file Sexual Orientation Not on file Last Filed Vital Signs Vital Sign Reading Time Taken Comments Blood Pressure 148/87 05/03/2017 10:59 AM EDT Pulse 79 05/03/2017 10:59 AM EDT Temperature - - Respiratory Rate - - Oxygen Saturation - - Inhaled Oxygen Concentration - - Weight 85.8 kg (189 lb 3.2 oz) 05/03/2017 10:59 AM EDT Height 162.6 cm (5' 4 ) 05/03/2017 10:59 AM EDT Body Mass Index 32.48 05/03/2017 10:59 AM EDT Plan of Treatment Health Maintenance Due Date Last Done Comments DXA SCAN 1946 TDAP/TD VACCINES (1 - Tdap) 1965 COLOGUARD 12/10/1991 COLON CANCER SCREENING 5 YEAR SIGMOIDOSCOPY 12/10/1991 COLONOSCOPY 12/10/1991 COLORECTAL CANCER SCREENING 12/10/1991 CT COLONOGRAPHY 12/10/1991 FECAL OCCULT BLOOD TEST 12/10/1991 FIT Testing (1 year) 12/10/1991 Pneumococcal Vaccine 50+ (1 of 1 - PCV) 1996 ZOSTER VACCINE (1 of 2) 1996 ANNUAL PHYSICAL 04/30/2017 HEPATITIS C SCREENING 04/30/2017 RSV Vaccine - Adults (1 - 1-dose 75+ series) 2 COVID-19 Vaccine ( - season) 2025 INFLUENZA VACCINE 04/28/2025 Insurance [facility] MEDICARE REPLACE Care Teams Dairy Bacteriologist Relationship Specialty Start Date End Date Umberto Rodriguez MD [address] [place] [address] PCP - General Family Medicine 05/03/17
--- OUTSIDE RECORDS SUMMARY | 2025-04-13 09:36 | XMS_ITS | Encounter Summary ---
Author Organization [facility] Address [address] [id number] Care Team Providers Care Hide Salter Name Role Phone Melvin Pink Primary Care Provider [phone] Encounter Details Date Type Department Care Team (Late Contact Info) Description 04/02/2025 Orders Only [facility] Pediatric Specialty [address], [address] [place] [address] Hortensia Bowser, PharmD [address] [place] [address] Social History Tobacco Use Types Packs/Day Years [...] Department Care Team (Late Contact Info) Description 06/07/2025 9:50 AM EST Office Visit [facility] Medicine Specialties [address], [address] [place] [address] Nidhi Stack, ELECTRIC SCOOP OPERATOR [address] [place] [address] 06/07/2025 11:00 AM EST Office Visit [facility] Otolaryngology [address], [address] [place] [address] Melvin Casillas MD [address] [place] [address] 08/24/2025 11:00 AM EST Office Visit [facility] Medicine Specialties [address], [address] [place] [address] Denise Keith, ELECTRIC SCOOP OPERATOR [address] [place] [address] documented as of this encounter [...] documented as of this encounter Care Teams Hide Salter Relationship Specialty Start Date End Date Melvin Pink DO [address] [facility] [address] [place] [address] PCP - General 12/01/24 documented as of this encounter
--- OUTSIDE RECORDS SUMMARY | 2025-04-13 09:36 | XMS_ITS | Encounter Summary ---
Author Organization [facility] Address [address] [place] [address] Care Team Providers Care Local Company Intermodal Truck Driver Name Role Phone Melvin Pink Sunil CHRISTIAN Primary Care Provider [phone] Encounter Details Date Type Department Care Team (Late st Contact Info) Description 03/09/2025 Nurse Triage [facility] Medicine Specialties [address], [address] [place] [address] Denise Keith, TOOLS AND PARTS ATTENDANT [address] [place] [address] Social History Tobacco Use Types [...] as of this encounter Miscellaneous Notes * Telephone Encounter - Denise Keith, MACIEL - 04/02/2025 1:05 PM EDT Ca we add tylenol to pretreat and see how she does with that first * Telephone Encounter - Denise Keith APRN - 03/19/2025 1:59 PM EDT Analy please let patient know she needs to start the prophylactic antibiotics until this can be done. Advised her once IVIG is started, she needs to remember to keep hydrated! Hortensia can we start 400 mg/kg please every 28 days for CVID. Thank you no pretreament documented in this encounter Plan of Treatment Upcoming Encounters Date Type Department Care Team (Late st Contact Info) Description 06/07/2025 9:50 AM EST Office Visit [facility] Medicine Specialties [address], [address] [place] [address] Nidhi Stack APRN [address] [place] [address] 06/07/2025 11:00 AM EST Office Visit [facility] Otolaryngology [address], [address] [place] [address] Melvin Casillas MD [address] [place] [address] 08/24/2025 11:00 AM EST Office Visit [facility] Medicine Specialties [address] [place] [id number] Denise Keith APRN [address] [place] [address] documented as of this encounter Visit Diagnoses Not on filedocumented in this encounter Additional Health Concerns Assessment Noted Time PHQ-9 Depression Total Score: 0 08/05/20 25 11:22 AM EDT A fall risk assessment has been complete d for the patient 03/02/2025 11:23 AM EDT A Body Mass Index follow-up plan has been documented for the patient 03/16/2025 4:05 AM EDT documented as of this encounter Care Teams Local Company Intermodal Truck Driver Relationship Specialty Start Date End Date Melvin Pink DO [address] [place] [address] PCP - General 12/01/24 documented as of this encounter
--- OUTSIDE RECORDS SUMMARY | 2025-04-13 09:36 | XMS_ITS | Encounter Summary ---
Author Organization [facility] Address [address] [place] [address] Care Team Providers Care Tarring Machine Operator Name Role Phone Melvin Pink Sunil CHRISTIAN Primary Care Provider [phone] Encounter Details Date Type Department Care Team (Latest Contact Info) Description 02/27/2025 Travel Social History Tobacco Use Types Packs/Day [...] Description 06/07/2025 9:50 AM EST Office Visit [facility] Medicine Specialties [address], [address] [place] [address] Nidhi Stack, STAFF RESPIRATORY THERAPIST [address] [place] [address] 06/07/2025 11:00 AM EST Office Visit [facility] Otolaryngology [address], [address] [place] [address] Melvin Casillas MD [address] [place] [address] 08/24/2025 11:00 AM EST Office Visit [facility] Medicine Specialties [address], [address] [place] [address] Denise Keith, STAFF RESPIRATORY THERAPIST [address] [place] [address] documented as of this encounter Visit Diagnoses Not on filedocumented in this encounter Additional Health Concerns Assessment Noted Time PHQ-9 Depression Total Score: 0 12/03/19 10:03 AM EDT A fall risk assessment has been complete d for the patient 12/02/2024 10:03 AM EDT A Body Mass Index follow-up plan has been documented for the patient 02/04/2025 10:25 AM EDT documented as of this encounter Care Teams Tarring Machine Operator Relationship Specialty Start Date End Date Melvin Pink DO [address] [facility] [address] [place] [address] PCP - General 12/01/24 documented as of this encounter
--- OUTSIDE RECORDS SUMMARY | 2025-04-13 09:36 | XMS_ITS | Patient Health Record ---
Author Organization [facility] Address [address] [place] [address] Care Team Providers Care Sap Hana Architect Name Role Phone Ita You MD, Aristides [...] take 1 PO QD BUCCAL *Reorder from [employer] for eRx and Interaction Alerts* 10/15/2018 Active [...] Status Risk Notes Problem Infective otitis externa (76217072) Other infective otitis externa, bilateral (H60.393) Active confirmed Problem Otitis media (50118394) Otitis media, unspecified, unspecified ear (H66.90) Active confirmed Problem Conductive hearing loss, bilateral (816655272) Conductive hearing loss, bilateral (H90.0) Active confirmed Problem Acute cystitis (77783149) Acute cystitis without hematuria (N30.00) Active confirmed Problem Unspecified symptoms and signs involving the genitourinary system (R39.9) Active confirmed Problem Prediabetes (607897513) Prediabetes (R73.03) Active confirmed Problem Sicca syndrome (24818111) Sicca syndrome, unspecified (M35.00) Active confirmed Encounters Encounter Location Date Provider Diagnosis [facility] [place] [address] [address] 05/30/2024 Provider Migration [facility] [place] [address] [address] 05/31/2024 Provider Migration Plan Of Treatment No Information Insurance Providers Payer Name Payer Address Payer Phone Subscriber Number Group Number Insured Name Patient Relationship to Insured Coverage Start Date Coverage End Date Rcm Missing Insurance PLEASE SCAN FRONT AND [place] [phone] [id number] Minnie Woodard Self - patient is the insured Medical (General) History Surgical History Surgery Date(Month/Year) Sx_Procedure : Stapedectomy Med_system:gastrointestinal, Sx_Procedur e : Cholecystectomy Med_system:HEENT, Sx_Procedure : Tonsill ectomy Med_system:musculoskeletal, Disease : Arthritis, Sx_Procedure : Laminectomy
--- OUTSIDE RECORDS SUMMARY | 2025-04-13 09:36 | XMS_ITS | Encounter Summary ---
Author Organization [facility] Address [address] [place] [address] Care Team Providers Care Group Product Manager Name Role Phone Melvin Pink DO Primary Care Provider [phone] Encounter Details Date Type Department Care Team (Late st Contact Info) Description 03/22/2025 Telephone [facility] Otolaryngology [address] [place] [address] Melvin Casillas MD [address] [place] [address] Social History Tobacco Use Types [...] encounter Miscellaneous Notes * Telephone Encounter - Genesis Otoole - 03/22/2025 8:30 AM EDT 03/22/25-LVM to call back and schedule 3m f/u documented in this encounter Plan of Treatment Upcoming Encounters Date Type Department Care Team (Late st Contact Info) Description 06/07/2025 9:50 AM EST Office Visit [facility] Medicine Specialties [address], [address] [place] [address] Nidhi Stack, CHEMISTRY TEACHER [address] [place] [address] 06/07/2025 11:00 AM EST Office Visit [facility] Otolaryngology [address], [address] [place] [address] Melvin Casillas MD [address] [place] [address] 08/24/2025 11:00 AM EST Office Visit [facility] Medicine Specialties [address], [address] [place] [address] Denise Keith, CHEMISTRY TEACHER [address] [place] [address] documented as of this encounter [...] documented as of this encounter Care Teams Group Product Manager Relationship Specialty Start Date End Date Melvin Pink DO [address] [place] [address] PCP - General 12/01/24 documented as of this encounter
--- OUTSIDE RECORDS SUMMARY | 2025-04-13 09:36 | XMS_ITS | Encounter Summary ---
Author Organization [facility] Address [address] [place] [address] Care Team Providers Care Rural Electrification Engineer Name Role Phone Melvin Pink Sunil DO Primary Care Provider [phone] Encounter Details Date Type Department Care Team (Late Contact Info) Description 03/19/2025 Refill [facility] Pediatric Specialty [address] [place] [address] Hortensia Bowser, PharmD [address] [place] [address] CVID (common variable immunodeficiency) (CMS/HCC) (Primary Dx) Social History Tobacco Use [...] Description 06/07/2025 9:50 AM EST Office Visit [facility] Medicine Specialties [address], [address] [place] [address] Nidhi Stack, VENDOR QUALITY SUPERVISOR [address] [place] [address] 06/07/2025 11:00 AM EST Office Visit [facility] Otolaryngology [address] [place] [address] Melvin Casillas MD [address] [place] [address] 08/24/2025 11:00 AM EST Office Visit [facility] Medicine Specialties [address] [place] [address] Denise Keith, VENDOR QUALITY SUPERVISOR [address] [place] [address] documented as of this encounter Visit Diagnoses Diagnosis CVID (common variable immunodeficiency) ([facility])- Primary Common variable immunodeficiency documented in this encounter Additional Health Concerns Assessment Noted Time PHQ-9 Depression Total Score: 0 03/02/20 11:22 AM EDT A fall risk assessment has been complete d for the patient 03/02/2025 11:23 AM EDT A Body Mass Index follow-up plan has been documented for the patient 03/16/2025 4:05 AM EDT documented as of this encounter Care Teams Rural Electrification Engineer Relationship Specialty Start Date End Date Melvin Pink DO [address] [place] [address] PCP - General 12/01/24 documented as of this encounter
--- OUTSIDE RECORDS SUMMARY | 2025-04-13 09:36 | XMS_ITS | Encounter Summary ---
Author Organization [facility] Address [address] [place] [address] Care Team Providers Care Veneer Manufacturer Name Role Phone JoesphMelvin crespo Sunil CHRISTIAN Primary Care Provider [phone] Reason for Visit * Reason Onset Date Comments Gamunex-C Onboarding 03/23/2025 Encounter Details Date Type Department Care Team (Late st Contact Info) Description 03/23/2025 Telephone [facility] Infusion [address] [place] [address] Trinity Hutton, PharmD Gamunex-C Onboarding Social History Tobacco Use Types Packs/Day Years [...] encounter Miscellaneous Notes * Telephone Encounter - Maribel Mccoy - 04/02/2025 4:12 PM EDT Patient has been approved to receive infusion treatment at outside facility. [facility] will follow up with facility to make sure patient has been scheduled and received first dose. Specialty Medication: Gamunex-C Filling Pharmacy/SOC: [facility] * Telephone Encounter - Cheryl Lomax CPhT - 04/02/2025 2:37 PM EDT Medicare B/Advantage Plan Authorization Information Specialty Medication: gamunex-c Diagnosis Code: D83.9 J-code/CPT code/S code: J1561 Covered by Medicare B: Yes Does the diagnosis, dose, and frequency match an FDA approved dosing schedule? Yes, list prescribeddose/frequency: 25g intravenously every 28 days Site of Care: [facility] Does patient have an Advantage Plan? No. Will review in 12 months. * Telephone Encounter - Trinity Hutton PharmD - 03/23/2025 12:54 PM EDT [facility] has received therapy plan for medication Gamunex-C. [facility] has contacted the patient and arein the process of completing the authorization for preferred site of care, [facility] . [facility] Specialty Education Summary Patient was assessed via phone for initiation of drug therapy Gamunex-C for diagnosis CVID. Plan for administration of therapy in infusion center and planned date of initiation: BALA. Anticipated filling pharmacy is [facility]. Education and Counseling Medication specific education provided: Discussion with patient included (but was not limited to): dosage, administration, duration, frequency, potential side effects, contraindications, safety and handling precautions, adherence and missed dose management, drug/drug interactions (if applicable) and storage & disposal. The patient has communicated understanding and had no further questions. Patient specific/therapeutic goal(s) of therapy: Tolerate therapy Summary/Plan Pharmacist reviewed patient chart for allergies and current medication list, comorbidities, relevant medical history, potential barriers to care and mitigation of those barriers, if applicable. Therapy is clinically appropriate given patient's condition. Any available financial resources were discussed with patient and utilized if appropriate. Patient has no other identified problems or needs at this time as it pertains to this specialty medication. Trinity Hutton Chapito 03/23/25 12:54 PM documented in this encounter Plan of Treatment Upcoming Encounters Date Type Department Care Team (Late st Contact Info) Description 06/07/2025 9:50 AM EST Office Visit [facility] Medicine Specialties [address], [address] [place] [address] Nidhi Stack, PROCESS ARTIST [address] [place] [address] 06/07/2025 11:00 AM EST Office Visit [facility] Otolaryngology [address], [address] [place] [address] Melvin Casillas MD [address] [place] [address] 08/24/2025 11:00 AM EST Office Visit [facility] Medicine Specialties [address], [address] [place] [address] Denise Keith, PROCESS ARTIST [address] [place] [address] documented as of this encounter [...] documented as of this encounter Care Teams Veneer Manufacturer Relationship Specialty Start Date End Date Melvin Pink DO [address] [place] [address] PCP - General 5/6/25 documented as of this encounter
--- OUTSIDE RECORDS SUMMARY | 2025-04-13 09:36 | XMS_ITS | Encounter Summary ---
Author Organization [facility] Address [address] [place] [address] Care Team Providers Care Furnace Feeder Name Role Phone Melvin Pink Sunil CHRISTIAN Primary Care Provider [phone] Encounter Details Date Type Department Care Team (Late Contact Info) Description 03/15/2025 Abstract [facility] Audiology [address] [place] [address] Patsy Lucero, AuD [address] [place] [address] Social History Tobacco Use Types [...] Upcoming Encounters Date Type Department Care Team ([facility] Contact Info) Description 06/07/2025 9:50 AM EST Office Visit [facility] Medicine Specialties [address] [place] [address] Nidhi Stack, CHAINMAN [address] [place] [address] 06/07/2025 11:00 AM EST Office Visit [facility] Otolaryngology [address], [address] [place] [address] Melvin Casillas MD [address] [place] [address] 08/24/2025 11:00 AM EST Office Visit [facility] Medicine Specialties [address], [address] [place] [address] Denise Keith, CHAINMAN [address] [place] [address] documented as of this encounter [...] documented as of this encounter Care Teams Furnace Feeder Relationship Specialty Start Date End Date Melvin Pink DO [address] [facility] [address] [place] [address] PCP - General 12/01/24 documented as of this encounter
--- OUTSIDE RECORDS SUMMARY | 2025-04-13 09:36 | XMS_ITS | Clinical Summary ---
Author Organization [facility] Address [address] [place] [address] Care Team Providers Care Mark Up Designer Name Role Phone Ml Pinkew Sunil DO Primary Care Provider [phone] Allergies Active Allergy Reactions Criticality Noted Date [...] BY MOUTH BEFORE MEALS AND AT BEDTIME 4 Active fluticasone (Flonase) 50 MCG/ACT nasal spray [...] minutes then rinse out 120 mL 1 5 Active azithromycin (Zithromax) 250 MG tabletIndication s:CVID (common variable immunodeficiency ) (CMS/HCC) Take 1 tablet by mouth 3 times a week. 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 25 High cholesterol 02/28/2023 Acquired hypothyroidism 02/28/2023 Type 2 diabetes mellitus, [facility] long-term current use of insulin 02/28/2023 Gastroparesis 02/28/2023 Hiatal hernia 02/28/2023 Mild intermittent asthma without complication PONV (postoperative nausea and vomiting) 023 Sjogren's syndrome 02/28/2023 SWETA (obstructive sleep apnea) 02/28/2023 Mixed conductive and sensori neural hearing loss of both ears 02/07/2022 Encounters Date Type Department Care Team Description 04/02/2025 Orders Only [facility]ty [address] [place] [address] Hortensia Bowser, PharmD 03/26/2025 3:00 PM EDT Office Visit [facility] Audiology [address] [place] [address] Patsy Lucero, Annalise Sensorineural hearing loss (SNHL) of both ears (Primary Dx) 03/26/2025 Travel 03/23/2025 Telephone [facility] [address] [place] [address] Trinity Yao, PharmD [employer] Onboarding 03/22/2025 Telephone [facility] Otolaryngology [address] 3rd [place] [address] Melvin Casillas MD 03/19/2025 Refill [facility] [address], [address] [place] [address] Hortensia Bowser, PharmD CVID (common variable immunodeficiency) ([facility]) (Primary Dx) 03/15/2025 Abstract [facility] Audiology [address], 3rd [place] [address] Patsy Lucero AuD 03/09/2025 Nurse Triage [facility] [address] [place] [address] Denise Keith, TUGBOAT ENGINEER 03/08/2025 11:00 AM EDT Office Visit [facility] Audiology [address], 3[address] [place] [address] Patsy Lucero, Annalise Sensorineural hearing loss (SNHL) of both ears (Primary Dx) 03/08/2025 10:40 AM EDT Office Visit [facility] Otolaryngology [address], 3rd [place] [address] Melvin Casillsa MD Mixed conductive and sensorineural hearing loss of both ears (Primary Dx); Chronic otitis externa of both ears, unspecified type; Cochlear implant in place 03/08/2025 Travel 03/02/2025 11:00 AM EDT Office Visit [facility] [address] [place] [address] Denise Keith APRN CVID (common variable immunodeficiency) ([facility]) (Primary Dx); Hypogammaglobulinemia ([facility]/HCC); Sjogren syndrome, unspecified ([facility]) 03/02/2025 Travel 02/27/2025 Travel 02/04/2025 Travel 02/03/2025 Telephone [facility] Audiology [address] 3rd [place] [address] Patsy Lucero, Annalise 01/27/2025 10:00 AM EDT Office Visit [facility] Audiology [address] 3[address] [place] [address] Patsy Lucero, Annalise Sensorineural hearing loss (SNHL) of both ears (Primary Dx) 01/27/2025 Travel from Last 3 Months Immunizations Immunization Administration [...] Lung cancer Father Breast cancer Father's Sister Holly Salazar Migraines Father's Sister Holly Salazar Conversions - Other Mother hearing problem Autoimmune disease Sister 1 Conversions - Other Sister 2 hearing problem Malig Hyperthermia Neg Hx Relation Name Status Comments Brother 1 Brother 2 Father Father's Sister Holly Salazar Mother Sister 1 Sister 2 Social History [...] Pulse 72 03/08/2025 11:28 AM EDT Temperature 36.9 C (98.5 F) 03/02/2025 11:18 AM EDT Respiratory Rate 16 03/02/2025 11:1 8 AM EDT Oxygen Saturation 98% 03/02/2025 11: 18 AM EDT RA Inhaled Oxygen Concentration - - Weight 76.2 kg (167 lb 15.9 oz) 025 11:28 AM EDT Height 162.6 cm (5' 4 ) 03/08/2025 11:2 8 AM EDT Body Mass Index 28.84 03/08/2025 11:28 AM EDT Plan of Treatment Upcoming Encounters Date Type Department Care Team (Late st Contact Info) Description 06/07/2025 9:50 AM EST Office Visit [facility] [address], [address] [place] [address] Nidhi Stack, TUGBOAT ENGINEER [address] [place] [address] 06/07/2025 11:00 AM EST Office Visit [facility] Otolaryngology [address], 3rd [place] [address] Melvin Casillas MD [address] [place] [address] 08/24/2025 11:00 AM EST Office Visit [facility] Medicine Specialties [address], [address] [place] [address] Denise Keith, TUGBOAT ENGINEER [address] [place] [address] Health Maintenance Due Date Last Done Comments [facility]-Hepatitis C Screening 1945 [facility]-Medicare Annual Wellness (AWV) 1945 [facility]-Infant/Child/Adol SDOH Screenings 1945 Diabetes: Dental Exam 1956 [facility]- SDOH Screenings 1964 [facility]-Adult SDOH Screenings 1964 [facility]-DTaP,Tdap,and Td Vaccines (1 - Tdap) 10/02/1996 10/01/1996 [facility]-Zoster Vaccines (1 of 2) 06/23/2016 04/28/2016, 04/12/2016 [facility]-Diabetes: Hemoglobin A1C 04/14/2019 10/15/2018 [facility]-RSV Vaccine: 60+ Years or (1 - 1-dose 75+ series) 2021 HEK-SYIYP-67 Vaccine (6 - Moderna risk 2023- season) 2025 07/20/2024, 05/15/2022, 04/12/2021, Additional history exists [facility]-Influenza Vaccine (#1) 03/29/202507/08, 06/06/2023, 05/25/2022, Additional history exists [facility]-Pneumococcal Vaccine: 50+ Years (2 of 2 - PCV) 12/29/2025 12/29/2024, 03/29/2016 [facility]-Depression Screening 03/02/2026 03/02/2025, 08/11/2024 [facility]-Bone Density Scan 06/12/2026 06/12/2024 , 04/16/2022, 04/16/2022, Additional history exists [facility]-Breast Cancer Screening Discontinued 12/31/2023, 07/09/2022, 07/07/2021, Additional history exists [facility]-Obesity Intervention Completed 025, 03/08/2025, 03/08/2025, Additional history exists HPV Vaccines Aged Out [...] this topic Medical Devices Implanted Type Area Car Inspector Device Identifier Shelf Expiration Date Model / Serial / Lot Electrode Nucleus Profl Adv [id number] - [id number] - [id number] Implanted:Qty: 1 on 02/28/2023 by Melvin Casillas MD at [facility] Right: Ear Cochlear Nick-[id number] 01/09/2025 [id number] / [id number] / Procedures Procedure Name Priority Date/Time Associated Diagnosis Comments STREPTOCOCCUS PNEUMONIAE ANTIBODIES, IGG (23 SEROTYPES)(SO) Routine 02/04/2025 1:26 PM EDT History of recurrent infection CBC WITH AUTO DIFFERENTIAL Routine 02/04/2025 1:26 PM EDT History of recurrent infection MAMMOGRAPHY BREAST SCREENING TOMOSYNTHESIS BILATERAL Routine 12/31/2023 1:39 PM EDT Visit for screening mammogram from Last 3 Months or Most Recently Relevant to Health Maintenance Results * Streptococcus pneumoniae Antibodies, IgG (23 Serotypes)(SO) (02/04/2025 1:26 PM EDT) Pneumo serotype 1 IgG (P13,PNX) 0.79 ug/mL 02/06/2025 4:27 AM EDT [facility] ([employer]) PNEUMOCOCCAL SEROTYPE 2,IGG 6.88 ug/mL 02/06/2025 4:27 AM EDT [facility] ([facility]) Pneumo serotype 3 IgG (P13,PNX) 0.88 ug/mL 02/06/2025 4:27 AM EDT [facility] ([facility]) Pneumo serotype 4 IgG (P7,P13,PNX) 3.05 ug/mL 02/06/2025 4:27 AM EDT [facility] ([facility]) Pneumo serotype 5 IgG (P13,PNX) 0.34 ug/mL 02/06/2025 4:27 AM EDT [facility] ([facility]) Pneumo serotype 6B IgG (P7,P13,PNX) 0.13 ug/mL 02/06/2025 4:27 AM EDT [facility] ([facility]) Pneumo serotype 7F IgG (P13,PNX) 6.14 ug/mL 02/06/2025 4:27 AM EDT [facility] ([facility]) Pneumo serotype 8 IgG (PNX) 0.49 ug/mL 02/06/2025 4:27 AM EDT [facility] ([facility]) Pneumo serotype 9N IgG (PNX) 0.53 ug/mL 02/06/2025 4:27 AM EDT [facility] ([facility]) Pneumo serotype 9V IgG (P7,P13,PNX) 1.16 ug/mL 02/06/2025 4:27 AM EDT [facility] ([facility]) PNEUMOCOCCAL SEROTYPE 10A,IGG 0.23 ug/mL 02/06/2025 4:27 AM EDT [facility] ([facility]) PNEUMOCOCCAL SEROTYPE 11A,IGG 0.67 ug/mL 02/06/2025 4:27 AM EDT [facility] ([facility]) Pneumo serotype 12F IgG (PNX) 0.37 ug/mL 02/06/2025 4:27 AM EDT [facility] ([facility]) Pneumo serotype 14 IgG (P7,P13,PNX) 2.86 ug/mL 02/06/2025 4:27 AM EDT [facility] ([facility]) PNEUMOCOCCAL SEROTYPE 15B,IGG 1.04 ug/mL 02/06/2025 4:27 AM EDT [facility] ([facility]) PNEUMOCOCCAL SEROTYPE 17F,IGG 0.17 ug/mL 02/06/2025 4:27 AM EDT [facility] ([facility]) Pneumo serotype 18C IgG (P7,P13,PNX) 1.94 ug/mL 02/06/2025 4:27 AM EDT [facility] ([employer]) PNEUMOCOCCAL SEROTYPE 19A,IGG 3.53 ug/mL 02/06/2025 4:27 AM EDT [facility] Pneumo serotype 19F IgG (P7,P13,PNX) 2.07 ug/mL 02/06/2025 4:27 AM EDT [facility] ([facility]) PNEUMOCOCCAL SEROTYPE 20,IGG 0.43 ug/mL 02/06/2025 4:27 AM EDT [facility] ([facility]) PNEUMOCOCCAL SEROTYPE 22F,IGG 8.00 ug/mL 02/06/2025 4:27 AM EDT [facility] ([employer]) Pneumo serotype 23F IgG (P7,P13,PNX) 0.35 ug/mL 02/06/2025 4:27 AM EDT [facility] ([facility]) PNEUMOCOCCAL SEROTYPE 33F,IGG 6.80 ug/mL 02/06/2025 4:27 AM EDT [facility] ([facility]) Pneumo Serotype Interpretation See Note 02/06/2025 4:27 AM EDT [facility] ([facility]) Blood Venous blood specimen / Unknown Venipuncture / Unknown 02/04/2025 1:26 PM EDT 02/04/2025 1:26 PM EDT Narrative [facility] ([facility]) - 02/06/2025 4:27 AM EDT INTERPRETIVE INFORMATION: Streptococcus pneumoniae Antibodies, IgG [...] 2015) References: 1. Ching YING, Roberto STOVALL, Billy X, et al. Multilaboratory assessment of threshold versus fold-change algorithms for minimizing analytical variability in multiplexed pneumococcal IgG measurements. Clin Vaccine Immunol. 2014;21(7):982-988. 2. Ching YING, Westley SULLIVAN. Use and clinical interpretation of pneumococcal antibody measurements in the evaluation of humoral immune function. Clin Vaccine Immunol. 2015;22(2):148-152. This test was developed and its performance characteristics determined by [facility]. It has not been cleared or approved by the U.S. Food and Drug Administration. This test was performed in a CLIA-certified laboratory and is intended for clinical purposes. Performed By: [facility] [address] [place] [address] Carousel Attendant: Bipin Romero MD, PhD CLIA Number: [id number] Denise Keith APRN LAB BLOOD ORDERABLES Final Result [facility] ([place]) [address] [place] [address] * (ABNORMAL) CBC and Differential (02/04/2025 1:26 PM EDT) [facility] WBC Count 6.49 3.70 - 10.30 10*3/uL LAB HEMATOLOGY METHOD 02/04/2025 3:12 PM EDT [facility] RBC Count 4.21 3.90 - 5.20 10*6/uL LAB HEMATOLOGY METHOD 02/04/2025 3:12 PM EDT [facility] HGB 12.1 11.2 - 15.7 g/dL LAB HEMATOLOGY METHOD 02/04/2025 3:12 PM EDT [facility] HCT 36.8 34.0 - 45.0 % LAB HEMATOLOGY METHOD 02/04/2025 3:12 PM EDT [facility] Platelet Count 403(H) 155 - 369 10*3/uL LAB HEMATOLOGY METHOD 02/04/2025 3:12 PM EDT [facility] MCV 87 79 - 98 fL LAB HEMATOLOGY METHOD 02/04/2025 3:12 PM EDT [facility] MCH 28.7 26.0 - 32.0 pg LAB HEMATOLOGY METHOD 02/04/2025 3:12 PM EDT [facility] MCHC 32.9 30.7 - 35.5 g/dL LAB HEMATOLOGY METHOD 02/04/2025 3:12 PM EDT [facility] RDW 13.5 11.5 - 14.5 % LAB HEMATOLOGY METHOD 02/04/2025 3:12 PM EDT [facility] MPV 9.5 8.8 - 12.5 fL LAB HEMATOLOGY METHOD 02/04/2025 3:12 PM EDT [facility] nRBC 0.0 <=0.0 per 100 WBCs LAB HEMATOLOGY METHOD 02/04/2025 3:12 PM EDT [facility] Differential Type Automated LAB HEMATOLOGY METHOD 02/04/2025 3:12 PM EDT [facility] Neutrophils % 65 % LAB HEMATOLOGY METHOD 02/04/2025 3:12 PM EDT [facility] Lymphocytes % 22 % LAB HEMATOLOGY METHOD 02/04/2025 3:12 PM EDT [facility] Monocytes % 8 % LAB HEMATOLOGY METHOD 02/04/2025 3:12 PM EDT [facility] Eosinophils % 3 % LAB HEMATOLOGY METHOD 02/04/2025 3:12 PM EDT [facility] Basophils % 1 % LAB HEMATOLOGY METHOD 02/04/2025 3:12 PM EDT [facility] Immature Granulocytes % 1 % LAB HEMATOLOGY METHOD 02/04/2025 3:12 PM EDT [facility] Neutrophils Absolute 4.23 1.60 - 6.10 10*3/uL LAB HEMATOLOGY METHOD 02/04/2025 3:12 PM EDT [facility] Lymphocytes Absolute 1.42 1.20 - 3.90 10*3/uL LAB HEMATOLOGY METHOD 02/04/2025 3:12 PM EDT [facility] Monocytes Absolute 0.52 0.30 - 0.90 10*3/uL LAB HEMATOLOGY METHOD 02/04/2025 3:12 PM EDT [facility] Eosinophils Absolute 0.22 0.00 - 0.50 10*3/uL LAB HEMATOLOGY METHOD 02/04/2025 3:12 PM EDT [facility] Basophils Absolute 0.07 0.00 - 0.10 10*3/uL LAB HEMATOLOGY METHOD 02/04/2025 3:12 PM EDT [facility] Immature Granulocytes Absolute 0.03 0.00 - 0.06 10*3/uL LAB HEMATOLOGY METHOD 02/04/2025 3:12 PM EDT [facility] Blood Venous blood specimen / Unknown Venipuncture / Unknown 02/04/2025 1:26 PM EDT 02/04/2025 1:26 PM EDT Narrative [facility] - 02/04/2025 3:12 PM EDT Therapeutic decision making should be based on absolute values, rather than percentages. Denise Keith APRN LAB BLOOD ORDERABLES Final Result [facility] [address] [place] [address] * Mammography Breast Screening Tomosynthesis Bilateral (12/31/2023 [...] Relevant to Health Maintenance Insurance DANNA VILLANUEVA [address] [place] [address] MEDICARE Care Teams Mark Up Designer Relationship Specialty Start Date End Date Melvin Pink DO [address] [place] [facility] [address] [place] [id number] PCP - General 12/01/24
--- OUTSIDE RECORDS SUMMARY | 2025-04-13 09:36 | XMS_ITS | Encounter Summary ---
Author Organization [facility] Address [address] [place] [address] Care Team Providers Care Gas Operator Name Role Phone Melvin Pink Sunil CHRISTIAN Primary Care Provider [phone] Encounter Details Date Type Department Care Team (Latest Contact Info) Description 03/02/2025 Travel Social History Tobacco Use Types Packs/Day [...] energy Not at all 03/02/2025 11:22 AM Jania Bueno Poor appetite or overeating Not at all 03/02/2025 11 :22 AM Jania Bueno Feeling bad about yourself - or that you are a failure or have let yourself or your family down Not at all 03/02/2025 11:22 AM Khris Bueno Trouble concentrating on thi ngs, such [...] Description 06/07/2025 9:50 AM EST Office Visit [facility] Medicine Specialties [address] [place] [address] Nidhi Stack, MACIEL [address] [place] [address] 06/07/2025 11:00 AM EST Office Visit [facility] Otolaryngology [address], [address] [place] [address] Melvin Casillas MD [address] [place] [address] 08/24/2025 11:00 AM EST Office Visit [facility] [address] [place] [address] Denise Keith, AIR VALUE TESTER [address] [place] [address] documented as of this encounter [...] documented as of this encounter Care Teams Gas Operator Relationship Specialty Start Date End Date Melvin Pink DO [address] [facility] [address] [place] [address] PCP - General 12/01/24 documented as of this encounter
--- OUTSIDE RECORDS SUMMARY | 2025-04-13 09:37 | XMS_ITS | Encounter Summary ---
Author Organization [facility] Address [address] [place] [address] Care Team Providers Care Technology Risk Intern Name Role Phone Melvin Pink Sunil CHRISTIAN Primary Care Provider [phone] Encounter Details Date Type Department Care Team (Latest Contact Info) Description 03/08/2025 Travel Social History Tobacco Use Types Packs/Day [...] Description 06/07/2025 9:50 AM EST Office Visit [facility] Medicine Specialties [address], [address] [place] [address] Nidhi Stack, PARK KEEPER [address] [place] [address] 06/07/2025 11:00 AM EST Office Visit [facility] Otolaryngology [address] [place] [address] Melvin Casillas MD [address] [place] [address] 08/24/2025 11:00 AM EST Office Visit [facility] Medicine Specialties [address] [place] [address] Denise Keith, PARK KEEPER [address] [place] [address] documented as of this [...] documented as of this encounter Care Teams Technology Risk Intern Relationship Specialty Start Date End Date Melvin Pink DO [address] [facility] [address] [place] [address] PCP - General 12/01/24 documented as of this encounter
[2025-04-13 09:50] VITALS: BP 144/70; PULSE 69; RESP 18; TEMP 36.8; O2SAT 100
[2025-04-13] MEDS: GAMUNEX C IV (09:50)
[2025-04-13 10:20] VITALS: BP 134/70; PULSE 73; O2SAT 100
[2025-04-13 10:50] VITALS: BP 144/70; PULSE 70; O2SAT 99
[2025-04-13 11:20] VITALS: BP 123/65; PULSE 74; O2SAT 99
[2025-04-13 11:50] VITALS: BP 138/60; PULSE 72; O2SAT 100
[2025-04-13 12:00] VITALS: BP 126/71; PULSE 76; O2SAT 98
[2025-04-13] MEDS: SODIUM CHLORIDE 0.9% 10ML FLUSH SYRINGE 10 ML IV (12:00)
== END 2025-04-13 12:10 | disposition home or self-care (01) ==
LOC: INF 09:00
PROVIDERS: PCP Internal Medicine; Visit Provider Physician Assistant
DX: N39.0 Urinary tract infection, site not specified (principal)
CPT/HCPCS: 96365; 96366; J1561

== ENCOUNTER 2025-05-11 09:08 | Outpatient (CLI) | payer MEDICARE, SELFPAY ==
--- OUTSIDE RECORDS SUMMARY | 2024-05-30 05:00 | XMS_ITS ---
Author Organization [facility] Address [address] [place] [address] Care Team Providers Care Branch Chief Name Role Phone Ita You MD, Aristides Unavailable Unavailab le Migration, Provider Unavailable Unavailable REASON FOR VISIT EMR-Daniel Encounters Encounter Location Date Provider Diagnosis Sarika Tena PA [address] [place] [address] 05/30/2024 Provider Migration Plan Of Treatment Medication Medication Name Sig Start Date Stop Date Notes Ciprofloxacin HCl 500 MG Tablet take 1 t ablet by oral route 2 times every day Oral 10/15/2018 10/20/2018 Progress Notes * Noni MARRUFOGeorgiaOB:[birth year] (79 yo F)Acc No.[id number]:05/30/2024 Patient: Minnie MOURA :1945 A ge:78 Y S ex:Female Address:[address] [place] [address], [address] * Refills Stop Ciprofloxacin HCl Tablet, 500 MG, Oral, 14, take 1 tablet by oral route 2 times every day Subjective: * Chief Complaints: * E MR-Daniel * * Date:
--- OUTSIDE RECORDS SUMMARY | 2024-05-31 05:00 | XMS_ITS ---
Author Organization [facility] Address [address] [place] [address] Care Team Providers Care Scheduling Administrator Name Role Phone Ita You MD, Aristides [...] take 1 PO QD BUCCAL *Reorder from [facility] for eRx and Interaction Alerts* 10/15/2018 [...] Provider Diagnosis Sarika Tena PA [address] [place] [address] 05/31/2024 Provider Migration Plan Of Treatment No Information Progress Notes * Lluvia MARRUFOOB:[birth year] (79 yo F)Acc No.[id number]:05/31/2024 Patient: Minnie MOURA :1945 A ge:78 Y S ex:Female Address:[address] [place], [place] [id number] Subjective: * Chief Complaints: * E MR-Daniel [...] BUCCAL , Notes to Pharmacist: *Reorder from [facility] for eRx and Interaction Alerts*Taking Atorvastatin [...] BUCCAL , Notes to Pharmacist: *Reorder from [facility] for eRx and Interaction Alerts* * Allergies: C ephalosporins: Anaphylaxis - Allergy * * Date:
--- OUTSIDE RECORDS SUMMARY | 2025-03-26 15:00 | XMS_ITS | Encounter Summary ---
Author Organization [facility] Address [address] [place] [address] Care Team Providers Care Sample Selector Name Role Phone Melvin Pink Sunil CHRISTIAN Primary Care Provider [phone] Reason for Visit * Reason Comments Hearing Loss Encounter Details Date Type Department Care Team ([facility] st Contact Info) Description 03/26/2025 3:00 PM EDT Office Visit [facility] Audiology [address], [address] [place] [address] Patsy Lucero, Annalise [address] [place] [address] Sensorineural hearing loss (SNHL) of [...] no evidence of redness, edema or sensitivity. Top Lift Trimmer: Cochlear Ear: RE: Surgery Date: 02/28/2023 Internal Device: [id number] - # [id number] Processor #1: N8 - Brown color Processor #2: K2 - Brown Fit Date: 03/18/2023 Magnet strength: 3i changed to a 2i strength today Cord length: 3 Battery: Rechargeable Ghulam Exp: 03/18/2028 Accessories: Mini-cynthia, TV Streamer, LEFT EAR: Hearing Aid ReSound Model: Nexia 5, NX 560S - DRWC - espresso- SAIMA Serial #: [id number] Fit Date: 03/26/2025 Battery: Rechargeable Ghulam Exp: 04/12/2028 Nursing Coordinator serial #: [id number] - Premium Ghulam Exp - 04/12/2028 Ear mold: Ultra Power Encased Micro-mold - size 2 - 1.2mm pressure vent Serial#: [id number] Remake Ghulam: 09/12/2025 Hearing Aid Fitting: I [...] consistently. I feel sure this is a [employer] cell phone issue and not a problem with the devices. She willwork with [employer] to try to address this issue. NO COCHLEAR IMPLANT MAPPING WAS CONDUCTED AT TODAY'S APPOINTMENT. ASSESSMENT/PLAN Ms. Woodard will return to this clinic in 2-4 weeks for a MARTIN follow-up appointment. documented in this encounter Plan of Treatment Upcoming Encounters Date Type Department Care Team (Late st Contact Info) Description 05/18/2025 9:00 AM EDT Office Visit [facility] Medicine Specialties [address], [address] [place] [address] Denise Keith, PARCEL POST CARRIER [address] [place] [address] 06/07/2025 9:50 AM EST Office Visit [facility] Medicine Specialties [address], [address] [place] [address] Nidhi Stack, PARCEL POST CARRIER [address] [place] [address] 06/07/2025 10:30 AM EST Office Visit [facility] Audiology [address], [address]rd [place] [address] Patsy Lucero, Annalise [address] [place] [address] 06/07/2025 11:00 AM EST Office Visit [facility] Otolaryngology [address], [address] [place] [address] Melvin Casillas MD [address] [place] [address] Scheduled Orders Name Type Priority [...] documented as of this encounter Care Teams Sample Selector Relationship Specialty Start Date End Date Melvin Pink DO [address] [place] [address] PCP - General 12/01/24 documented as of this encounter
--- OUTSIDE RECORDS SUMMARY | 2025-05-04 14:30 | XMS_ITS | Encounter Summary ---
Author Organization [facility] Address [address] [id number] Care Team Providers Care Woods Boss Name Role Phone JoesphMelvin crespo Sunil CHRISTIAN Primary Care Provider [phone] Encounter Details Date Type Department Care Team (Late Contact Info) Description 05/04/2025 2:30 PM EDT Office [facility] Audiology [address], [address]rd [place] [address] Patsy Lucero M, AuD [address] [place] [address] Sensorineural hearing loss (SNHL) of [...] Department Care Team (Late Contact Info) Description 05/18/2025 9:00 AM EDT Office Visit [facility] Medicine Specialties [address], [address] [place] [address] Denise Keith, MACHINE OPERATIONS SUPERVISOR [address] [place] [address] 06/07/2025 9:50 AM EST Office Visit [facility] Medicine Specialties [address], 2[address] [place] [address] Nidhi Stack, MACHINE OPERATIONS SUPERVISOR [address] [place] [address] 06/07/2025 10:30 AM EST Office Visit [facility] Audiology [address], [address] [place] [address] Patsy Lucero, Annalise [address] [place] [address] 06/07/2025 11:00 AM EST Office Visit [facility] Otolaryngology [address], [address] [place] [address] Melvin Casillas MD [address] [place] [address] documented as of this encounter [...] documented as of this encounter Care Teams Woods Boss Relationship Specialty Start Date End Date Melvin Pink, [address] [place], [place] [address] PCP - General 12/01/24 documented as of this encounter
--- OUTSIDE RECORDS SUMMARY | 2025-05-11 09:25 | XMS_ITS | Encounter Summary ---
Author Organization [facility] Address [address] [place] [address] Care Team Providers Care Nursing Center Tutor Name Role Phone Melvin Pink Sunil CHRISTIAN Primary Care Provider [phone] Encounter Details Date Type Department Care Team (Late Contact Info) Description 05/07/2025 Orders Only [facility] Pediatric Specialty [address], [address] [place] [address] Hortensia Bowser, PharmD [address] [place] [address] Social History Tobacco Use Types Packs/Day Years [...] Description 05/18/2025 9:00 AM EDT Office Visit [facility] Medicine Specialties [address], [address] [place] [address] Denise Keith, TRADE MARK ATTORNEY [address] [place] [address] 06/07/2025 9:50 AM EST Office Visit [facility] Medicine Specialties [address], [address] [place] [address] Nidhi Stack, TRADE MARK ATTORNEY [address] [place] [address] 06/07/2025 10:30 AM EST Office Visit [facility] Audiology [address], 3[address] [place] [address] Patsy Lucero, Annalise [address] [place] [address] 06/07/2025 11:00 AM EST Office Visit [facility] Otolaryngology [address], [address] [place] [address] Melvin Casillas MD [address] [place] [address] documented as of this encounter [...] documented as of this encounter Care Teams Nursing Center Tutor Relationship Specialty Start Date End Date Melvin Pink, [address] [place] [address] PCP - General 12/01/24 documented as of this encounter
--- OUTSIDE RECORDS SUMMARY | 2025-05-11 09:25 | XMS_ITS | Patient Health Record ---
Author Organization [facility] Address [address] [place] [address] Care Team Providers Care Telecommunications Field Technician Name Role Phone Ita You MD, Aristides [...] take 1 PO QD BUCCAL *Reorder from [email or web address] for eRx and Interaction Alerts* 10/15/2018 Active [...] Status Risk Notes Problem Infective otitis externa (97885850) Other infective otitis externa, bilateral (H60.393) Active confirmed Problem Otitis media (45194406) Otitis media, unspecified, unspecified ear (H66.90) Active confirmed Problem Conductive hearing loss, bilateral (528216878) Conductive hearing loss, bilateral (H90.0) Active confirmed Problem Acute cystitis (95983247) Acute cystitis without hematuria (N30.00) Active confirmed Problem Unspecified symptoms and signs involving the genitourinary system (R39.9) Active confirmed Problem Prediabetes (011998603) Prediabetes (R73.03) Active confirmed Problem Sicca syndrome (86410491) Sicca syndrome, unspecified (M35.00) Active confirmed Encounters Encounter Location Date Provider Diagnosis [facility] [place] [address] [place] [id number] 05/30/2024 Provider Migration [facility] [address] [place] [address] 05/31/2024 Provider Migration Plan Of Treatment No Information Insurance Providers Payer Name Payer Address Payer Phone Subscriber Number Group Number Insured Name Patient Relationship to Insured Coverage Start Date Coverage End Date Rcm Missing Insurance PLEASE SCAN FRONT AND [place] [phone] [id number] Minnie Woodard Self - patient is the insured Medical (General) History Surgical History Surgery Date(Month/Year) Sx_Procedure : Stapedectomy Med_system:gastrointestinal, Sx_Procedur e : Cholecystectomy Med_system:HEENT, Sx_Procedure : Tonsill ectomy Med_system:musculoskeletal, Disease : Arthritis, Sx_Procedure : Laminectomy
--- OUTSIDE RECORDS SUMMARY | 2025-05-11 09:25 | XMS_ITS | Clinical Summary ---
Author Organization [facility] Address [address] [place] [address] Care Team Providers Care Pillowcase Cleaner Name Role Phone Umberto Rodriguez MD Primary Care Provider [phone] Allergies Active Allergy Reactions Criticality Noted Date [...] Adults (1 - 1-dose 75+ series) 2 INFLUENZA VACCINE 02/26/2025 COVID-19 Vaccine ( - 2023- season) [address] [facility] MEDICARE REPLACE Care Teams Pillowcase Cleaner Relationship Specialty Start Date End Date Umberto Rodriguez MD [address] [place] [address] PCP - General Family Medicine 05/03/17
--- OUTSIDE RECORDS SUMMARY | 2025-05-11 09:25 | XMS_ITS | Encounter Summary ---
Author Organization [facility] Address [address] [id number] Care Team Providers Care Cavalry Scout Name Role Phone Joesph Melvin Sunil CHRISTIAN Primary Care Provider [phone] Reason for Visit * Reason Onset Date Comments OP Infusion 04/14/2025 Encounter Details Date Type Department Care Team ([facility] st Contact Info) Description 04/14/2025 Telephone [facility] Medicine Specialties [address], [address] [place] [address] [place] [address] OP Infusion Social History Tobacco Use Types Packs/Day Years [...] encounter Miscellaneous Notes * Telephone Encounter - Lora Bernardo - 04/14/2025 2:49 PM EDT Received call from patient Patient states that her insurance finally covered her IG infusions- patient is to complete [facility] [place] Patient states that insurance will change in June, if provider wants patient to continue with IG infusions in June a new signed order will need to be placed States that PA will have to be obtained as well Patient states that she has renewed her Azithromycin- patient would like to know how long she needsto be on Rx Patient states that she had her first infusion and did fine- states that after words, she had a headache and body aches. States that today she is fine and still a bit fatigued but doing well Patient states that she has been unclear about Rx and infusions and would like to have a [facility] with directions CB: [phone] documented in this encounter Plan of Treatment Upcoming Encounters Date Type Department Care Team (Late st Contact Info) Description 05/18/2025 9:00 AM EDT Office Visit [facility] Medicine Specialties [address], [address]nd [place] [address] Denise Keith, VETERINARY INSPECTOR [address] [place] [address] 06/07/2025 9:50 AM EST Office Visit [facility] Medicine Specialties [address], [address]nd [place] [address] Nidhi Stack, VETERINARY INSPECTOR [address] [place] [address] 06/07/2025 10:30 AM EST Office Visit [facility] Audiology [address], 3rd [place] [address] Patsy Lucero, AuD [address] [place] [address] 06/07/2025 11:00 AM EST Office Visit [facility] Otolaryngology [address], 3rd [place] [address] Melvin Casillas MD [address] [place] [address] documented as of this encounter [...] documented as of this encounter Care Teams Cavalry Scout Relationship Specialty Start Date End Date Melvin Pink DO [address] [place] [address] PCP - General 12/01/24 documented as of this encounter
--- OUTSIDE RECORDS SUMMARY | 2025-05-11 09:25 | XMS_ITS | Clinical Summary ---
Author Organization [facility] Address [address] [place] [address] Care Team Providers Care Hydrographical Technical Officer Name Role Phone Ml Pinkew Sunil DO Primary Care Provider [phone] Allergies Active Allergy Reactions Criticality Noted Date [...] MG tabletIndication s:CVID (common variable immunodeficiency ) Take 1 tablet by mouth 3 times a week. 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 25 High cholesterol 02/28/2023 Acquired hypothyroidism 02/28/2023 Type 2 diabetes mellitus, [facility] long-term current use of insulin 02/28/2023 Gastroparesis 02/28/2023 Hiatal hernia 02/28/2023 Mild intermittent asthma without complication PONV (postoperative nausea and vomiting) 023 Sjogren's syndrome 02/28/2023 SWETA (obstructive sleep apnea) 02/28/2023 Mixed conductive and sensori neural hearing loss of both ears 02/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 Encounters Date Type Department Care Team Description 05/07/2025 Orders Only [facility] Pediatric Specialty [address] [place] [address] Hortensia Bowser, PharmD 05/06/2025 Telephone [facility] Medicine Specialties [address], [address]nd [place] [address] Analy Freitas RN 05/04/2025 2:30 PM EDT Office Visit [facility] Audiology [address], [address]rd [place] [address] Patsy Lucero, Annalise Sensorineural hearing loss (SNHL) of both ears 05/04/2025 Travel 04/14/2025 Telephone [facility] Medicine Specialties [address], [address] [place] [address] Lora Bernardo OP Infusion 04/02/2025 Orders Only [facility] Pediatric Specialty [address], [address] [place] [address] Hortensia Bowser, PharmD 03/26/2025 3:00 PM EDT Office Visit [facility] Audiology [address], [address] [facility] [place] [address] Patsy Lucero, Annalise Sensorineural hearing loss (SNHL) of both ears (Primary Dx) 03/26/2025 Travel 03/23/2025 Telephone [facility] Infusion [address] [place] [address] Trinity Yao, PharmD [employer]; [employer] [facility] 03/22/2025 Telephone [facility] Otolaryngology [address] [facility] [place] [address] Melvin Casillas MD 03/19/2025 Refill [facility] Pediatric Specialty [address], [address] [place] [address] Hortensia Bowser, PharmD CVID (common variable immunodeficiency) ([facility]) (Primary Dx) 03/15/2025 Abstract [facility] Audiology [address], [address]rd [place] [address] Patsy Lucero, Annalise 03/09/2025 Nurse Triage [facility] Medicine Specialties [address], [address]nd [place] [address] Denise Keith APRN 03/08/2025 11:00 AM EDT Office Visit [facility] Audiology [address], [address]rd [place] [address] Patsy Lucero, Annalise Sensorineural hearing loss (SNHL) of both ears (Primary Dx) 03/08/2025 10:40 AM EDT Office Visit [facility] Otolaryngology [facility] [address] [place] [address] Melvin Casillas MD Mixed conductive and sensorineural hearing loss of both ears (Primary Dx); Chronic otitis externa of both ears, unspecified type; Cochlear implant in place 03/08/2025 Travel 03/02/2025 11:00 AM EDT Office Visit [facility] Medicine Specialties [address] [facility], [address] [place] [address] Denise Keith, HANDLE LATHE OPERATOR CVID (common variable immunodeficiency) (CMS/HCC) (Primary Dx); Hypogammaglobulinemia ([facility]/HCC); Sjogren syndrome, unspecified ([facility]/HCC) 03/02/2025 Travel 02/27/2025 Travel from Last 3 Months Immunizations Immunization [...] Description 05/18/2025 9:00 AM EDT Office Visit [facility] Medicine Specialties [address], [address] [place] [address] Denise Keith N, HANDLE LATHE OPERATOR [address] [place] [address] 06/07/2025 9:50 AM EST Office Visit [facility] Medicine Specialties [address], [address] [place] [address] Nidhi Stack, HANDLE LATHE OPERATOR [address] [place] [address] 06/07/2025 10:30 AM EST Office Visit [facility] Audiology [address], [address] [place] [address] Patsy Lucero, AuD [address] [place] [address] 06/07/2025 11:00 AM EST Office Visit [facility] Otolaryngology [address], [address] [place] [address] Melvin Casillas MD [address] [place] [address] Health Maintenance Due Date Last Done Comments [facility]-Hepatitis C Screening 1945 [facility]-Medicare Annual Wellness (AWV) 1945 [facility]-Infant/Child/Adol SDOH Screenings 1945 Diabetes: Dental Exam 1956 [facility]- SDOH Screenings 1964 [facility]-Adult SDOH Screenings 1964 [facility]-DTaP,Tdap,and Td Vaccines (1 - Tdap) 10/02/1996 10/01/1996 [facility]-Zoster Vaccines (1 of 2) 06/23/2016 04/28/2016, 04/12/2016 [facility]-Diabetes: Hemoglobin A1C 04/14/2019 10/15/2018 [facility]-RSV Vaccine: 60+ Years or (1 - 1-dose 75+ series) 2021 [id number] Vaccine (6 - Moderna risk season) 2025 07/20/2024, 05/15/2022, 04/12/2021, Additional history exists [facility]-Influenza Vaccine (#1) 03/29/202507/08, 06/06/2023, 05/25/2022, Additional history exists [facility]-Pneumococcal Vaccine: 50+ Years (2 of 2 - PCV) 12/29/2025 12/29/2024, 03/29/2016 [facility]-Depression Screening 03/02/2026 03/02/2025, 0811/2024 [facility]-Bone Density Scan 06/12/2026 06/12/2024 , 04/16/2022, [...] this topic Medical Devices Implanted Type Area Dry Pan Charger Device Identifier Shelf Expiration Date Model / Serial / Lot Electrode Nucleus Profl Adv [id number] - [id number] - [id number] Implanted:Qty: 1 on 02/28/2023 by Melvin Casillas MD at [facility] Right: Ear Cochlear [id number] 01/09/2025 [id number] / [id number] / Procedures Procedure Name Priority Date/Time Associated Diagnosis Comments MAMMOGRAPHY BREAST SCREENING TOMOSYNTHESIS BILATERAL Routine 12/31/2023 1:39 PM EDT Visit for screening mammogram from Last 3 Months or Most Recently Relevant to Health Maintenance Results * Mammography Breast Screening Tomosynthesis Bilateral (12/31/2023 [...] 01/06/2019 Mammography Breast Screening Tomosynthesis Bilateral at [facility] 07/05/2020 Mammography Breast Screening Tomosynthesis Bilateral at [facility] 07/07/2021 Mammography Breast Screening Tomosynthesis Bilateral at [facility] 07/09/2022 Mammography Breast Screening Tomosynthesis Bilateral at [facility] BREAST COMPOSITION: The breasts have scattered areas of fibroglandular density. FINDINGS: There are no suspicious masses, calcifications, or areas of architectural distortion. us Self Referral Mammogram IMG BI PROCEDURES Final Result from Last 3 Months or Most Recently Relevant to Health Maintenance Insurance MEDICARE Care Teams Hydrographical Technical Officer Relationship Specialty Start Date End Date Melvin Pink DO [address] [place] [address] PCP - General 12/01/24
--- OUTSIDE RECORDS SUMMARY | 2025-05-11 09:25 | XMS_ITS | Encounter Summary ---
Author Organization [facility] Address [address] [place] [address] Care Team Providers Care Line Up Machine Operator Name Role Phone Melvin Pink Sunil CHRISTIAN Primary Care Provider [phone] Encounter Details Date Type Department Care Team (Late st Contact Info) Description 05/06/2025 Telephone [facility] Medicine Specialties [address], [address] [place] [address] Analy Freitas RN CH-VASCULAR & [...] Miscellaneous Notes * Telephone Encounter - Denise Keith APRN - 05/07/2025 8:52 AM EDT Can we add hydration, and I'm not sure if you can slow the rate, but can we update that for hopefully her infusion for next week * Telephone Encounter - Denise Keith APRN - 05/06/2025 4:10 PM EDT Will schedule a follow up to discuss further * Telephone Encounter - Denise Keith APRN - 05/06/2025 12:57 PM EDT If patient had such severe side effects does she want to try again? I can try to decrease dose of the medication to see if that helps. There are no medication she needs to avoids. I dont believe I said anything about steroids. Using estrogen topical is ok, but not oral estrogen. Ok to give the flu and covid shots to see if she gets any protection! documented in this encounter Plan of Treatment Upcoming Encounters Date Type Department Care Team (Late st Contact Info) Description 05/18/2025 9:00 AM EDT Office [facility] Special[facility] [address], [address]nd [place] [address] Denise Kieth, BEEF GRADER [address] [place] [address] 06/07/2025 9:50 AM EST Office Visit [facility] Medicine Specialties [address], [address] [place] [address] Nidhi Stack, BEEF GRADER [address] [place] [address] 06/07/2025 10:30 AM EST Office Visit [facility] Audiology [address], 3rd [place] [address] Patsy Lucero, Annalise [address] [place] [address] 06/07/2025 11:00 AM EST Office Visit [facility] Otolaryngology [address], [address] [place] [address] Melvin Casillas MD [address] [place] [address] documented as of this encounter [...] documented as of this encounter Care Teams Line Up Machine Operator Relationship Specialty Start Date End Date Melvin Pink DO [address] [facility] [address] [place] [address] PCP - General 12/01/24 documented as of this encounter
--- OUTSIDE RECORDS SUMMARY | 2025-05-11 09:25 | XMS_ITS | Encounter Summary ---
Author Organization [facility] Address [address] [place] [address] Care Team Providers Care Steel Checker Name Role Phone Melvin Pink Sunil CHRISTIAN Primary Care Provider [phone] Encounter Details Date Type Department Care Team (Late Contact Info) Description 04/02/2025 Orders Only [facility] Pediatric Specialty [address] [place] [address] Hortensia Bowser, PharmD [address] [place] [address] Social History Tobacco Use Types Packs/Day Years [...] Description 05/18/2025 9:00 AM EDT Office Visit [facility] Medicine Specialties [address], [address] [place] [address] Denise Keith, ACCOUNTING METHODS ANALYST [address] [place] [address] 06/07/2025 9:50 AM EST Office Visit [facility] Medicine Specialties [address], [address] [place] [address] Nidhi Stack, ACCOUNTING METHODS ANALYST [address] [place] [address] 06/07/2025 10:30 AM EST Office Visit [facility] Audiology [address], [address] [place] [address] Patsy Lucero, Annalise [address] [place] [address] 06/07/2025 11:00 AM EST Office Visit [facility] Otolaryngology [address] [place] [address] eMlvin Casillas MD [address] [place] [address] documented as of this [...] documented as of this encounter Care Teams Steel Checker Relationship Specialty Start Date End Date Melvin Pink, [address] [place] [address] PCP - General 12/01/24 documented as of this encounter
--- OUTSIDE RECORDS SUMMARY | 2025-05-11 09:25 | XMS_ITS | Encounter Summary ---
Author Organization [facility] Address [address] [place] [address] Care Team Providers Care Magician/Illusionist Name Role Phone Melvin Pink Sunil CHRISTIAN Primary Care Provider Encounter Details Date Type Department Care Team (Latest Contact Info) Description 05/04/2025 Travel Social History Tobacco Use Types Packs/Day [...] Description 05/18/2025 9:00 AM EDT Office Visit [facility] [address] [place] [address] Denise Keith, ARTIFICIAL CANDY MAKER [address] [place] [address] 06/07/2025 9:50 AM EST Office Visit [place] [facility] [address] [place] [address] Nidhi Stack, ARTIFICIAL CANDY MAKER [address] [place] [address] 06/07/2025 10:30 AM EST Office Visit [facility] Audiology [address], [address] [place] [address] Patsy Lucero, AuD [address] [place] [address] 06/07/2025 11:00 AM EST Office Visit [facility] Otolaryngology [address], [address] [place] [address] Melvin Casillas MD [address] [place] [address] documented as of this encounter [...] documented as of this encounter Care Teams Magician/Illusionist Relationship Specialty Start Date End Date Melvin Pink DO [address] [place] [address] PCP - General 12/01/24 documented as of this encounter
--- OUTSIDE RECORDS SUMMARY | 2025-05-11 09:26 | XMS_ITS | Encounter Summary ---
Author Organization [facility] Address [address] [id number] Care Team Providers Care Mortgage Coordinator Name Role Phone Joesph Melvin Sunil CHRISTIAN Primary Care Provider [phone] Reason for Visit * Reason Onset Date Comments Gamunex-C Onboarding 03/23/2025 Gamunex Therapy 03/23/2025 Encounter Details Date Type Department Care Team ([facility] st Contact Info) Description 03/23/2025 Telephone [facility] Infusion [address] [place] [address] Trinity Hutton, PharmD Gamunex-C Onboarding; Gamunex Therapy Social History Tobacco Use Types Packs/Day Years [...] to receive infusion treatment at outside facility. [facility] will follow up with facility to make sure patient has been scheduled and received first dose. Specialty Medication: Gamunex-C Filling Pharmacy/SOC: [facility] * Telephone Encounter - Cheryl Lomax CPhT - 04/02/2025 2:37 PM EDT Medicare B/Advantage Plan Authorization Information Specialty Medication: gamunex-c Diagnosis Code: D83.9 J-code/CPT code/S code: J1561 Covered by Medicare B: Yes Does the diagnosis, dose, and frequency match an FDA approved dosing schedule? Yes, list prescribeddose/frequency: 25g intravenously every 28 days [facility] Care[facility] Does patient have an Advantage Plan? No. Will review in 12 months. * Telephone Encounter - Trinity Hutton PharmD - 03/23/2025 12:54 PM EDT [facility] has received therapy plan for medication Gamunex-C. [facility] has contacted the patient and arein the process of completing the authorization for preferred site of care, [facility] . [facility] Specialty Education Summary Patient was assessed via phone for initiation of drug therapy Gamunex-C for diagnosis CVID. Plan for administration of therapy in infusion center and planned date of initiation: BALA. Anticipated filling pharmacy is [facility]. Education and Counseling Medication specific education provided: [...] it pertains to this specialty medication. Trinity Hutton, PharmD 03/23/25 12:54 PM documented in this encounter Plan of Treatment Upcoming Encounters Date Type Department Care Team (Late st Contact Info) Description 05/18/2025 9:00 AM EDT Office Visit [facility] Medicine Specialties [address] [place] [address] Denise Keith, LAWN CARE TECHNICIAN [address] [place] [address] 06/07/2025 9:50 AM EST Office Visit [facility] Medicine Specialties [address] [place] [address] Nidhi Stack, LAWN CARE TECHNICIAN [address] [place] [address] 06/07/2025 10:30 AM EST Office Visit [facility] Audiology [address] [place] [phone] Patsy Lucero, Annalise [address] [place] [address] 06/07/2025 11:00 AM EST Office Visit [facility] Otolaryngology [address] [place] [phone] Melvin Casillas MD [address] [place] [address] documented as of this encounter Visit Diagnoses [...] documented as of this encounter Care Teams Mortgage Coordinator Relationship Specialty Start Date End Date Melvin Pink DO [address] [place] [address] [place] [address] PCP - General 12/01/24 documented as of this encounter
--- OUTSIDE RECORDS SUMMARY | 2025-05-11 09:27 | XMS_ITS | Encounter Summary ---
Author Organization [facility] Address [address] [place] [address] Care Team Providers Care Sandstone Splitter Name Role Phone Melvin Pink DO Primary Care Provider [phone] Encounter Details Date Type Department Care Team (Late st Contact Info) Description 03/22/2025 Telephone [facility] Otol[facility]ology [address] [place] [address] Melvin Casillas MD [address] [place] [address] Social History Tobacco Use Types [...] Description 05/18/2025 9:00 AM EDT Office Visit [facility] Medicine Specialties [address], [address] [place] [address] Denise Keith, PROOF PRESS OPERATOR [address] [place] [address] 06/07/2025 9:50 AM EST Office Visit [facility] Medicine Specialties [address] [place] [address] Nidhi Stack, PROOF PRESS OPERATOR [address] [place] [address] 06/07/2025 10:30 AM EST Office Visit [facility] Audiology [address] [place] [address] Patsy Lucero, Annalise [address] [place] [address] 06/07/2025 11:00 AM EST Office Visit [facility] Otolaryngology [address] [place] [address] Melvin Casillas MD [address] [place] [address] documented as of this encounter [...] documented as of this encounter Care Teams Sandstone Splitter Relationship Specialty Start Date End Date Melvin Pink DO [address] [place] [address] [place] [address] PCP - General 12/01/24 documented as of this encounter
--- OUTSIDE RECORDS SUMMARY | 2025-05-11 09:27 | XMS_ITS | Encounter Summary ---
Author Organization [facility] Address [address] [place] [address] Care Team Providers Care Income Tax Advisor Name Role Phone Melvin Pink Sunil CHRISTIAN Primary Care Provider [phone] Encounter Details Date Type Department Care Team (Late st Contact Info) Description 03/09/2025 Nurse Triage [place] [facility] Medicine Specialties [address], [address] [place] [address] Denise Keith, VIOLIN REPAIRER [address] [place] [address] Social History Tobacco Use Types [...] Description 05/18/2025 9:00 AM EDT Office Visit [facility] Medicine Specialties [address] [place] [address] Denise Keith APRN [address] [place] [address] 06/07/2025 9:50 AM EST Office Visit [facility] Medicine Specialties [address] [place] [address] Nidhi Stack, VIOLIN REPAIRER [address] [place] [address] 06/07/2025 10:30 AM EST Office Visit [facility] Audiology [address], [address] [place] [address] Patsy Lucero, AuD [address] [place] [address] 06/07/2025 11:00 AM EST Office Visit [facility] Otolaryngology [address] [place] [address] Melvin Casillas MD [address] [place] [address] documented as of this encounter [...] documented as of this encounter Care Teams Income Tax Advisor Relationship Specialty Start Date End Date Melvin Pink DO [address] [place] [address] PCP - General 12/01/24 documented as of this encounter
--- OUTSIDE RECORDS SUMMARY | 2025-05-11 09:27 | XMS_ITS | Encounter Summary ---
Author Organization [facility] Address [address] [place] [address] Care Team Providers Care Coil Finisher Name Role Phone Melvin Pink Sunil CHRISTIAN Primary Care Provider [phone] Encounter Details Date Type Department Care Team (Late Contact Info) Description 03/15/2025 Abstract [facility] Audiology [address] [place] [address] Patsy Lucero, AuD [address] [place] [address] Social History Tobacco Use Types [...] Upcoming Encounters Date Type Department Care Team ([facility] Contact Info) Description 05/18/2025 9:00 AM EDT Office Visit [facility] Medicine Specialties [address] [place] [address] Denise Keith, WAREHOUSE CLERK [address] [place] [address] 06/07/2025 9:50 AM EST Office Visit [facility] Medicine Specialties [address], [address] [place] [address] Nidhi Stack, WAREHOUSE CLERK [address] [place] [address] 06/07/2025 10:30 AM EST Office Visit [facility] Audiology [address], [address] [place] [address] Patsy Lucero, Annalise [address] [place] [address] 06/07/2025 11:00 AM EST Office Visit [facility] Otolaryngology [address], [address] [place] [address] Melvin Casillas MD [address] [place] [address] documented as of this encounter [...] documented as of this encounter Care Teams Coil Finisher Relationship Specialty Start Date End Date Melvin Pink, [address] [place] [address] PCP - General 12/01/24 documented as of this encounter
--- OUTSIDE RECORDS SUMMARY | 2025-05-11 09:27 | XMS_ITS | Data Portability ---
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 She saw Dr. Ramirez in 2018 for frequent UTIs. A urine culture 06/2019 showed Enterococcus treated with Cipro. She wears a pessary and he placed a new pessary. She later saw Dr. Randy Huber in [place]. She goes to [place] for the winter and has been treated for UTIs there.She saw Dr. Johnson for frequent UTIs and cystitis 04/2022 and started estradiol cream and cranberry supplements. She did well for several years but, has been diagnosed with bacterial cystitis on 4 occasions between 08/17/2024 and 02/14/2025. Recently, UTIs have been asymptomatic but, she has noticed air passing through her urethra when she passes gas. UA is negative today. PVR was only 36 ml. She completed a course of Cipro about 10 days ago. UTIs have been asymptomatic. She has a lot of concern about a fistula causing her UTIs. She has a personal history of fistulas and her mother also had a history of fistulas and chronic UTIs. She has felt air passed through her urethra when passing gas. I recommend a CT of the abdomen and pelvis and a cystoscopy for further evaluation of the urinary tract. She continues to use estradiol cream twice weekly at bedtime for UTI prevention. She is still taking cranberry supplements. I recommend starting methenamine 1 g twice daily x 30 days and she is agreeable. We will plan to follow-up after cystoscopy. Plan: Continue estradiol and cranberry supplements. Start methenamine 1 g twice daily x [address] of the abdomen and pelvis and cystoscopy. Follow-up TBD. isai Not available 02/04/2025 13:11:28 02/11/2025 02/11/2025 79 year-old female with a history of colovesical fistula, recurrent UTI, cystocele, and incontinence. She underwent repair of colovesical fistula around 2011. She has worn a pessary. She has used estradiol vaginal cream. Cystoscopy in 2021 was normal. Cystoscopy today was normal. The UA is negative today. Plan: Continue estradiol vaginal cream twice weekly. Start methenamine. Proceed with CT scan. Follow-up in 3 months. siva Not available 02/11/2025 16:17:28 Plan of Treatment Reminders Order Date Submit Date Provider Last Modified By Organization Details Last Modified Time Details Appointments RECHECK 2024 10:15A Everett BYRD MD Not available Not available Not available Lab urinalys is panel, auto 2024 025 isai [facility] [address], [facility] , [place], [address], 02/04/2025 11:14:36 TSH, serum or plasma 2024 025 [facility], [address] [place] [address], [address], 01/06/2025 12:18:25 T4, free, serum 2024 025 [facility], [address] [place] [address], [address], 01/06/2025 12:18:26 glucose, fingerst ick, blood 2024 025 [facility], [address] [place] [address], [address], 01/06/2025 10:45:54 hemoglob in A1C, fingerst ick 2024 025 [facility], [address] [place] [address], [address], 01/06/2025 10:45:54 lipid panel, serum 2024 025 [facility], [address] [place] [address], [address], 01/06/2025 12:18:23 glucose, fingerst ick, blood [address] [facility], [address] [place] [address], [address], 06/29/2024 09:54:19 hemoglob in A1C, fingerst ick [address] [facility], [address] [place] [address], [address], 06/29/2024 09:54:19 CMP, serum or plasma 2023 024 [facility], [address] [place] [address], [address], 06/29/2024 11:16:37 vitamin B12 + folate, serum or blood 2023 024 [facility], [address] [place] [address], [address], 06/29/2024 11:54:23 microalb umin/cre atinine, mass ratio, urine [email or web address] [place] [address] Laboratory, [address] [place] [address], [address], 08/24/2024 10:36:50 T4, free, serum 2023 024 [facility], [address] [place] [address], [address], 06/29/2024 11:19:59 TSH, serum or plasma 2023 024 [facility], [address] [place] [address], [address], 06/29/2024 11:19:57 lipid panel, serum 2023 024 [facility], [address] [place] [address], [address], 06/29/2024 11:16:35 Referral None recorded . Procedures None recorded . Surgeries None recorded . Imaging CT, abdomen + pelvis, w/wo contrast 2024 025 [facility], [address] [place] [address], [address], 02/24/2025 11:45:07 Medication Orders methenam ine hippurat e 1 gram tablet 2024 025 [id number], [address], [id number], 02/04/2025 11:22:07 metformi n 500 mg tablet 2024 025 [facility], [facility] [place], [address], 01/06/2025 10:45:58 Patient TargetsNo targets recorded. Patient InstructionsNo instructions recorded. Reason for Referral None Reported. Results Created Date Observation Date Name Description Value Unit Range Abnormal Flag Note LastModifiedBy Organization Detail LastModifiedTime 06/29/20 24 06/29/2024 LIPID PROFI LE HDL cholesterol 60 mg/dL 50-242 normal Not Available [facility] [address] [place] [address], [address], 06/29/2024 11:16:35 06/29/20 24 06/29/2024 LIPID PROFI LE triglyceride s 142 mg/dL 0-149 normal TRIGL YCERI DE RANGE S SONAL L: < 150 BORDE RLINE HIGH: 150 - 199 HIGH: 200 - 499 VERY HIGH: > OR = 500 Not Available [facility] [address] [place] [address], [address], 06/29/2024 11:16:35 06/29/20 24 06/29/2024 LIPID PROFI LE cholesterol 155 mg/dL 0-199 normal SHANA STERO L (TOTA L) RANGE S JAME ABLE: < 200 BORDE RLINE : 200 - 239 HIGHE R RISK: > 239 Not Available [facility] [address] [place] [address], [address], 06/29/2024 11:16:35 06/29/20 24 06/29/2024 LIPID PROFI LE LDL cholesterol 67 mg/dL _(aziza c) 0-99 normal LDL SHANA STERO L RANGE S OPTIM AL: < 100 NEAR/ ABOVE OPTIM AL: 100 - 129 BORDE RLINE HIGH: 130 - 159 HIGH: 160 - 189 VERY HIGH: > OR = 190 Not Available [facility] [address] [place] [address], [address], 06/29/2024 11:16:35 06/29/20 24 06/29/2024 COMP. METAB OLIC PANEL glucose 98 mg/dL 74-100 normal Not Available [facility] [address] [place] [address], [address], 06/29/2024 11:16:37 06/29/20 24 06/29/2024 COMP. METAB OLIC PANEL blood urea nitrogen 7 mg/dL 6-20 normal Not Available [facility] [address] [place] [address], [address], 06/29/2024 11:16:37 06/29/20 24 06/29/2024 COMP. METAB OLIC PANEL creatinine 0.81 mg/dL 0.50-0 .95 normal Not Available [facility] [address] [place] [address], [address], 06/29/2024 11:16:37 06/29/20 24 06/29/2024 COMP. METAB OLIC PANEL BUN/creatini ne ratio 9 (calc ) 10-20 low Not Available [facility] [address] [place] [address], [address], 06/29/2024 11:16:37 06/29/20 24 06/29/2024 COMP. METAB OLIC PANEL sodium 135 mmol/ L 136-14 5 low Not Available [facility] [address] [place] [address], [address], 06/29/2024 11:16:37 06/29/20 24 06/29/2024 COMP. METAB OLIC PANEL potassium 4.8 mmol/ L 3.4-5. 0 normal Not Available [facility] [address] [place] [address], [address], 06/29/2024 11:16:37 06/29/20 24 06/29/2024 COMP. METAB OLIC PANEL chloride 99 mmol/ L 98-107 normal Not Available [facility] [address] [place] [address], [address], 06/29/2024 11:16:37 06/29/20 24 06/29/2024 COMP. METAB OLIC PANEL carbon dioxide 23 mmol/ L 22-31 normal Not Available [facility] [address] [place] [address], [address], 06/29/2024 11:16:37 06/29/20 24 06/29/2024 COMP. METAB OLIC PANEL anion gap 13 (calc ) 7-25 normal Not Available [facility] [address] [place] [address], [address], 06/29/2024 11:16:37 06/29/20 24 06/29/2024 COMP. METAB OLIC PANEL calcium 9.5 mg/dL 8.6-10 .2 normal Not Available [facility] [address] [place] [address], [address], 06/29/2024 11:16:37 06/29/20 24 06/29/2024 COMP. METAB OLIC PANEL total protein 6.9 g/dL 6.4-8. 3 normal Not Available [facility] [address] [place] [address], [address], 06/29/2024 11:16:37 06/29/20 24 06/29/2024 COMP. METAB OLIC PANEL albumin 4.6 g/dL 3.5-5. 2 normal Not Available [facility] [address] [place] [address], [address], 06/29/2024 11:16:37 06/29/20 24 06/29/2024 COMP. METAB OLIC PANEL globulin 2.3 1.5-4. 5 normal Not Available [facility] [address] [place] [address], [address], 06/29/2024 11:16:37 06/29/20 24 06/29/2024 COMP. METAB OLIC PANEL albumin/glob ulin ratio 2.0 (calc ) 1.1-2. 5 normal Not Available [facility] [address] [place] [address], [address], 06/29/2024 11:16:37 06/29/20 24 06/29/2024 COMP. METAB OLIC PANEL bilirubin, total 0.4 mg/dL 0.1-1. 2 normal Not Available [facility] [address] [place] [address], [address], 06/29/2024 11:16:37 06/29/20 24 06/29/2024 COMP. METAB OLIC PANEL alkaline phosphatase 81 U/L 30-121 normal Not Available [facility] [address] [place] [address], [address], 06/29/2024 11:16:37 06/29/20 24 06/29/2024 COMP. METAB OLIC PANEL AST 20 U/L 0-32 normal Not Available [facility] [address] [place], [address], 06/29/2024 11:16:37 06/29/20 24 06/29/2024 COMP. METAB OLIC PANEL ALT 15 U/L 0-33 normal Not Available [facility] [address] [place], [address], 06/29/2024 11:16:37 06/29/20 24 06/29/2024 COMP. METAB OLIC PANEL GFR 74 >= 60 normal NOT E New calcu latio n for GFR (CKD- EPI 2020) is formu lated witho ut race adjus tment facto rs at the recom menda tion of the Tam Richardson y Maxwell atbrooklynn and Domonique Garcia ty of Nephr ology . This calcu latio n has not been valid ated in pregn ant women . For pedia tric patie nts refer to https ://david garrett.sheree arriaga.o veronica/pr home zhang s/KDO QI/gf r_cal culat orPed Not Available [facility] [address] [place] [address], [address], 06/29/2024 11:16:37 06/29/20 24 06/29/2024 TSH TSH 4.300 u[IU] /mL 0.270- 4.200 high Not Available [facility] [address] [place], [address], 06/29/2024 11:19:57 06/29/20 24 06/29/2024 T4,FR EE T4,free 1.07 NG/dL 0.93-1 .70 normal Not Available [facility] [address] [place] [address], [address], 06/29/2024 11:19:59 06/29/20 24 06/29/2024 B12/F OLIC ACID PANEL folic acid 14.4 NG/mL 4.6-34 .8 normal Not Available [facility] [address] [place] [address], [address], 06/29/2024 11:54:23 06/29/20 24 06/29/2024 B12/F OLIC ACID PANEL vitamin B12 399 pg/mL 232-12 45 normal Not Available [facility] [address] [place] [address], [address], 06/29/2024 11:54:23 06/29/20 24 06/29/2024 hemog lobin A1C, finge rstic k hemoglobin A1C % 5.4 % 4.0 - 5.6 Not Available [facility] [place] [address] [place] [address], [address], 06/24/2024 15:31:48 06/29/20 24 06/29/2024 gluco se, finge rstic k, blood glucose, fingerstick 114 mg/dL 70 - 100 Not Available [facility] [place] [place] [address] [place] [address], [address], 06/24/2024 15:31:48 01/07/20 25 01/06/2025 LIPID PROFI LE HDL cholesterol 59 mg/dL 50-242 normal Not Available [facility] [address] [place] [address], [address], 01/06/2025 12:18:23 01/07/20 25 01/06/2025 LIPID PROFI LE triglyceride s 164 mg/dL 0-149 high TRIGL YCERI DE RANGE S SONAL L: < 150 BORDE RLINE HIGH: 150 - 199 HIGH: 200 - 499 VERY HIGH: > OR = 500 Not Available [facility] [address] [place] [address], [address], 01/06/2025 12:18:23 01/07/20 25 01/06/2025 LIPID PROFI LE cholesterol 139 mg/dL 0-199 normal SHANA STERO L (TOTA L) RANGE S JAME ABLE: < 200 BORDE RLINE : 200 - 239 HIGHE R RISK: > 239 Not Available [facility] [place], [address], 01/06/2025 12:18:23 01/07/20 25 01/06/2025 LIPID PROFI LE LDL cholesterol 47 mg/dL _(aziza c) 0-99 normal LDL SHANA STERO L RANGE S OPTIM AL: < 100 NEAR/ ABOVE OPTIM AL: 100 - 129 BORDE RLINE HIGH: 130 - 159 HIGH: 160 - 189 VERY HIGH: > OR = 190 Not Available [facility] [address] [place] [address], [address], 01/06/2025 12:18:23 01/07/2001/06/2025 LIPID PROFI LE chol/HDL ratio (calc) 2.4 mg/dL normal NO SONAL L RANGE ESTAB LISHE D FOR SHANA STERO L/HDL RATIO (CALC ULATE D). Not Available [facility] [address] [place], [address], 01/06/2025 12:18:23 01/07/2001/06/2025 TSH TSH 2.380 u[IU] /mL 0.270- 4.200 normal Not Available [facility] [address] [place] [address], [address], 01/06/2025 12:18:25 01/07/2001/06/2025 T4,FR EE T4,free 1.19 NG/dL 0.93-1 .70 normal Not Available [facility] [address] [place] [address], [address], 01/06/2025 12:18:26 01/07/2001/06/2025 hemog lobin A1C, finge rstic k hemoglobin A1C % 5.1 % 4.0 - 5.6 Not Available [facility] [place] [address] [place] [address], [address], 01/06/2025 10:35:37 01/07/20 25 01/06/2025 gluco se, finge rstic k, blood glucose, fingerstick 214 mg/dL 70 - 100 Not Available [facility] [address] [facility], [place], [address], 01/06/2025 10:28:04 02/05/20 25 02/04/2025 urina lysis panel , auto Unknown Analyte Clean Catch Not Available [facility] [address] [facility], [place], [address], 02/04/2025 10:47:22 02/05/2002/04/2025 urina lysis panel , auto Unknown Analyte Yellow Not Available [facility] [address] [facility], [place], [address], 02/04/2025 10:47:22 02/05/2002/04/2025 urina lysis panel , auto Unknown Analyte Clear Not Available [facility] [address] [facility], [place], [address], 02/04/2025 10:47:22 02/05/20 25 02/04/2025 urina lysis panel , auto Unknown Analyte 1.015 Not Available [facility] [address] [place], [address], 02/04/2025 10:47:22 02/05/2002/04/2025 urina lysis panel , auto Unknown Analyte 7.0 Not Available [facility] [address] [facility], [place], [address], 02/04/2025 10:47:22 02/05/20 25 02/04/2025 urina lysis panel , auto Unknown Analyte Negati ve Not Available [facility] [address] [place], [address], 02/04/2025 10:47:22 02/05/20 25 02/04/2025 urina lysis panel , auto Unknown Analyte Negati ve Not Available [facility] [address], [place], [address], 02/04/2025 10:47:22 02/05/20 25 02/04/2025 urina lysis panel , auto Unknown Analyte Negati ve Not Available [facility] [address] [facility], [place], [address], 02/04/2025 10:47:22 02/05/2002/04/2025 urina lysis panel , auto Unknown Analyte Normal Not Available [facility] [address] [facility], [place], [address], 02/04/2025 10:47:22 02/05/20 25 02/04/2025 urina lysis panel , auto Unknown Analyte Negati ve Not Available [facility] [address] [facility], [place], [address], 02/04/2025 10:47:22 02/05/20 25 02/04/2025 urina lysis panel , auto Unknown Analyte Normal Not Available [facility] [address] [place], [address], 02/04/2025 10:47:22 02/05/20 25 02/04/2025 urina lysis panel , auto Unknown Analyte Negati ve Not Available [facility] [address] [facility], [place], [address], 02/04/2025 10:47:22 02/05/20 25 02/04/2025 urina lysis panel , auto Unknown Analyte Negati ve Not Available [facility] [address] [place], [address], 02/04/2025 10:47:22 02/12/20 25 02/11/2025 urina lysis panel , auto Unknown Analyte Clean Catch Not Available [facility] Surgery Schedule [address] [place] [address], [address], 02/11/2025 15:06:19 02/12/20 25 02/11/2025 urina lysis panel , auto Unknown Analyte Yellow Not Available [facility] Surgery Schedule [address] [place] [address], [address], 02/11/2025 15:06:19 02/12/2002/11/2025 urina lysis panel , auto Unknown Analyte Clear Not Available [facility] Surgery Schedule [address] [place] [address], [address], 02/11/2025 15:06:19 02/12/20 25 02/11/2025 urina lysis panel , auto Unknown Analyte 1.010 Not Available [facility] Schedule [address] [place] [address], [address], 02/11/2025 15:06:19 02/12/2002/11/2025 urina lysis panel , auto Unknown Analyte 1.003 - 1.030 Not Available [facility] Schedule [address] [place] [address], [address], 02/11/2025 15:06:19 02/12/20 25 02/11/2025 urina lysis panel , auto Unknown Analyte 6.0 Not Available [facility] Surgery Schedule [address] [place] [address], [address], 02/11/2025 15:06:19 02/12/2002/11/2025 urina lysis panel , auto Unknown Analyte 5.0 - 8.0 Not Available [facility] Schedule [address] [place] [address], [address], 02/11/2025 15:06:19 02/12/20 25 02/11/2025 urina lysis panel , auto Unknown Analyte Negati ve Not Available [facility] Schedule [address] [place], [address], 02/11/2025 15:06:19 02/12/20 25 02/11/2025 urina lysis panel , auto Unknown Analyte Negati ve Not Available [facility] Schedule [address] [place], [address], 02/11/2025 15:06:19 02/12/20 25 02/11/2025 urina lysis panel , auto Unknown Analyte Negati ve Not Available [facility] Schedule [address] [place], [address], 02/11/2025 15:06:19 02/12/20 25 02/11/2025 urina lysis panel , auto Unknown Analyte Negati ve Not Available [facility] Schedule [address] [place], [address], 02/11/2025 15:06:19 02/12/20 25 02/11/2025 urina lysis panel , auto Unknown Analyte Negati ve Not Available [facility] Schedule [address] [place], [address], 02/11/2025 15:06:19 02/12/20 25 02/11/2025 urina lysis panel , auto Unknown Analyte Negati ve Not Available [facility] Schedule [address] [place], [address], 02/11/2025 15:06:19 02/12/20 25 02/11/2025 urina lysis panel , auto Unknown Analyte Normal Not Available [facility] Schedule [address] [place], [address], 02/11/2025 15:06:19 02/12/20 25 02/11/2025 urina lysis panel , auto Unknown Analyte Normal Not Available [facility] Surgery Schedule [address] [place], [address], 02/11/2025 15:06:19 02/12/20 25 02/11/2025 urina lysis panel , auto Unknown Analyte Negati ve Not Available [facility] Schedule [address] [place], [address], 02/11/2025 15:06:19 02/12/20 25 02/11/2025 urina lysis panel , auto Unknown Analyte Negati ve Not Available [facility] Schedule [address] [place], [address], 02/11/2025 15:06:19 02/12/20 25 02/11/2025 urina lysis panel , auto Unknown Analyte Normal Not Available [facility] Schedule [address] [place], [address], 02/11/2025 15:06:19 02/12/20 25 02/11/2025 urina lysis panel , auto Unknown Analyte Normal Not Available [facility] Surgery Schedule [address] [place] [address], [address], 02/11/2025 15:06:19 02/12/20 25 02/11/2025 urina lysis panel , auto Unknown Analyte Negati ve Not Available [facility] Surgery Schedule [address] [place] [address], [address], 02/11/2025 15:06:19 02/12/20 25 02/11/2025 urina lysis panel , auto Unknown Analyte Negati ve Not Available [facility] Surgery Schedule [address] [place], [address], 02/11/2025 15:06:19 02/12/20 25 02/11/2025 urina lysis panel , auto Unknown Analyte Negati ve Not Available [facility] Surgery Schedule [address] [place] [address], [address], 02/11/2025 15:06:19 02/12/20 25 02/11/2025 urina lysis panel , auto Unknown Analyte Negati ve Not Available [facility] Surgery Schedule [address] [place], [address], 02/11/2025 15:06:19 06/12/20 24 06/12/2024 DEXA No observ ation record ed. Annemarie Byrd MD [address] [place], [address], 06/29/2024 08:09:01 06/12/20 24 06/12/2024 DEXA No observ ation record ed. [email or web address] Annemarie Byrd MD [address] [place], [address], 06/15/2024 08:17:14 02/25/20 25 02/24/2025 CT, abdom en + pelvi s, w/wo contr ast [facility] [address] [place] [id number] Patien t Name: CHARLES MARRUFO Patien t : 947 Patien t 4 Orderi ng Provid er: JAYSON Gudino EXAM DATE: 2024 EXAM: CT ABD/PE LVIS W/WO CONTRA ST CLINIC AL INFORM ATION: Hematu kendall TECHNI QUE: A baseli ne serum creati nine with eGFR was obtain ed prior to inject ion of contra st medium due to the patien ts risk factor s for WILLIE. Calcul ated eGFR at time of exam was [address] images of the abdome n were obtain ed before and in the combin ed nephro graphi c and excret ory phases after a split inject ion of 100 mL Omnipa que 350 (1 x 100 mL bottle of [facility] [address]14-9 1). None was wasted and discar ded. No oral contra st or water was admini stered to the patien t. CT IVP images were create d on a 3D workst ation. COMPAR GABBIE: None. FINDIN GS ON CT ABDOME N: LOWER THORAX : Lung bases are clear. No obviou s cardia c abnorm ality. URINAR Y TRACT: Both kidney s are normal in locati on, size, shape, outlin e and parenc hymal thickn ess. No stones or calcif icatio ns are seen within the kidney s ureter s or urinar y bladde r. Nephro graphi c phase shows normal parenc hymal enhanc ement bilate rally withou t delay. No focal abnorm ality. Excret ory phase shows adequa te opacif icatio n of collec ting system s and ureter s withou t dilata tion or fillin g defect . Urinar y bladde r is normal in outlin e and wall thickn ess withou t fillin g defect or mass. OTHER UPPER ABDOMI NAL ORGANS : Liver, gallbl adder, spleen , pancre as, and left adrena l are normal . 15 mm fat-co ntaini ng nodule involv ing the right adrena l compat ible with lipid rich adenom a. BOWEL AND MESENT XIMENA: Stomac h, small bowel and colon are normal . No mesent luz marina lympha denopa thy or perito ana free fluid. RETROP ERITON EUM: Aorta, IVC and their branch es are patent and normal . No retrop eriton eal lympha denopa thy. ABDOMI NAL WALL AND SKELET AL STRUCT URES: Fat-co ntaini ng umbili aziza hernia FINDIN GS ON CT PELVIS : PELVIC CAVITY : Bladde r unrema rkable . Sigmoi d divert iculos is with no acute inflam mation Large calcif ied degene rated fibroi d involv ing the anteri or liver surfac e measur ing 4.5 cm. No pelvic or inguin al lympha denopa thy, mass or fluid. MUSCUL OSKELE MARLENY STRUCT URES: Normal . COMBIN ED IMPRES NATALIE: 1. No eviden ce of renal stone or mass 2. Benign adenom a involv ing the right adrena l gland 3. Calcif ied degene rated fibroi d involv ing the uterus 4. Sigmoi d divert iculos is 5. Fat-co ntaini ng umbili aziza hernia Interp reted By: Nestor Culp MD Electr onical ly Signed By: Nestor Culp MD on 025 11:40 AM [facility] Radiology [facility] [address] [place], [address], 02/27/2025 00:03:42 Result Notes Documentation Provider Name and Address Organization Details Recorded Time Dexa : [address] [id number] CURTIS (id #[id number], : 1945) [address] [address] Date: 4RE: Minnie Marrufo, : 1945, PT ID #[id number] Mccabe MD, I would like to thank you for referring Minnie Marrufo to our practice for consultation and evaluation. [...] 20% based on the [place]-adapted WHO algorithm P atient is not a candidate for pharmacologic therapy [...] ensure stability or reliability. 5. Fall prevention. 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 [...] 20% based on the [place]-adapted WHO algorithm P atient is not a candidate for pharmacologic therapy [...] ensure stability or reliability. 5. Fall prevention. DANNA Singh - [facility] 06/15/2024 08:17:14 Ct, Abdomen + Pelvis, W/wo Contrast : [facility] [address] [place] [address] Patient Name: MINNIE MARRUFO Patient : 1945 Patient Ordering Provider: SAMMIE SOTO EXAM DATE: 02/24/2025 EXAM: CT ABD/PELVIS W/WO CONTRAST CLINICAL INFORMATION: Hematuria TECHNIQUE: A baseline serum creatinine with eGFR was obtained prior to injection of contrast medium due to the patients risk factors for WILILE. Calculated eGFR at time of exam was [address] images of the abdomen were obtained before and in the combined nephrographic and excretory phases after a split injection of 100 mL Omnipaque 350 (1 x 100 mL bottle of [facility] [id number]). None was wasted and discarded. No oral contrast or water was administered to the patient. CT IVP images were created on a 3D workstation. COMPARISON: None. FINDINGS ON CT ABDOMEN: LOWER THORAX: Lung bases are clear. No obvious cardiac abnormality. URINARY TRACT: Both kidneys are normal in location, size, shape, outline and parenchymal thickness. No stones or calcifications are seen within the kidneys ureters or urinary bladder. Nephrographic phase shows normal parenchymal enhancement bilaterally without delay. No focal abnormality. Excretory phase shows adequate opacification of collecting systems and ureters without dilatation or filling defect. Urinary bladder is normal in outline and wall thickness without filling defect or mass. OTHER UPPER ABDOMINAL ORGANS: Liver, gallbladder, spleen, pancreas, and left adrenal are normal. 15 mm fat-containing nodule involving the right adrenal compatible with lipid rich adenoma. BOWEL AND MESENTERY: Stomach, small bowel and colon are normal. No mesenteric lymphadenopathy or peritoneal free fluid. RETROPERITONEUM: Aorta, IVC and their branches are patent and normal. No retroperitoneal lymphadenopathy. ABDOMINAL WALL AND SKELETAL STRUCTURES: Fat-containing umbilical hernia FINDINGS ON CT PELVIS: PELVIC CAVITY: Bladder unremarkable. Sigmoid diverticulosis with no acute inflammation Large calcified degenerated fibroid involving the anterior liver surface measuring 4.5 cm. No pelvic or inguinal lymphadenopathy, mass or fluid. MUSCULOSKELETAL STRUCTURES: Normal. COMBINED IMPRESSION: 1. No evidence of renal stone or mass 2. Benign adenoma involving the right adrenal gland 3. Calcified degenerated fibroid involving the uterus 4. Sigmoid diverticulosis 5. Fat-containing umbilical hernia Interpreted By: Nestor Culp MD IE SOTO, [employer] SUPERVISOR [address] [place], [address], [facility] 02/24/2025 11:59:14 Problems Name Problem SNOMED Code Status Onset Date Resolution Date Notes Provider Name and Address Organization Details Recorded Time Chronic rhinitis 04582381 Active 2014 Provider: Kenneth Choe;Statu s: [facility] 8 09[facility]:25 Eustachia n tube disorder 42219000 Active 2014 Provider: Kenneth Choe;Statu s: Active [facility] 8 09:21:25 Sensorine ural hearing loss of bilateral ears 896563405 Active 2014 Provider: Kenneth Choe;Statu s: Active [facility] 8 09:21:25 Sleep apnea 73837864 Active 2014 Provider: Kenneth Choe;Statu s: Active [facility] 8 09:21:25 Inflammat ory dermatosi s 813873483 Active 2014 Provider: Kenneth Choe;Statu s: Active [facility] 8 09:21:25 Chronic otitis externa 33399398 Active 2014 Provider: Kenneth Choe;Statu s: Active [facility] 8 09:21:25 Allergic rhinitis 59279312 Active 2014 Provider: Kenneth Choe;Statu s: Active [facility] 8 09:21:25 Thyroidit is 14308666 Active 2014 From Automated Load;Prov ider: Adair Cadena;Stat us: Active [facility] 8 09:21:25 Hyperglyc emia 00945738 Active 2014 From Automated Load;Prov ider: Adair Cadena;Stat us: Active [facility] 8 09:21:25 Mixed hyperlipi demia 583752248 Active 2014 From Automated Load;Prov ider: Adair Cadena;Stat us: Active Astrid Musa null, [facility] 8 09:21:25 Impacted cerumen 38936175 Active 2014 From Automated Load;Prov ider: Kenneth Choe;Statu s: Active Astrid Musa null, [facility] 8 09:21:25 Sensorine ural hearing loss 11755252 Active 2014 From Automated Load;Prov ider: Kenneth Choe;Statu s: Active Astrid Musa null, [facility] 8 09:21:25 Otitis externa 6542798 Active 2014 From Automated Load;Prov ider: Kenenth Choe;Statu s: Active Astrid Musa null, [facility] 8 09:21:25 Vasomotor rhinitis 9145154 Active 2015 From Automated Load;Prov ider: Kenneth Choe;Statu s: Active Astrid Musa null, [facility] 8 09:21:25 Mixed conductiv e and sensorine ural hearing loss, bilateral 591602672 Active 2015 From Automated Load;Prov ider: Kenneth Choe;Statu s: Active Astrid Musa null, [facility] 8 09:21:25 Prediabet es 631400992 Active 2015 From Automated Load;Prov ider: Annemarie Byrd;Sta tus: Active Astrid Musa null, [facility] 8 09:21:25 Hypothyro idism 11658897 Active 2015 From Automated Load;Prov ider: Annemarie Byrd;Sta tus: Active Astrid Musa null, [facility] 8 09:21:25 Hyperlipi demia 81349946 Active 2015 From Automated Load;Prov ider: Annemarie Byrd;Sta tus: Active Astrid Musa null, [facility] 8 09:21:25 Bone density finding 707113356 Active 2015 From Automated Load;Prov ider: Annemarie Byrd;Sta tus: [facility] 8 09:21:25 Otitis externa of right ear 215704299990 9101 Active 2015 From Automated Load;Prov ider: Kenneth Choe;Statu s: [facility] 8 09:21:25 Mixed conductiv e AND sensorine ural hearing loss 30261353 Active 2015 From Automated Load;Prov ider: Kenneth Choe;Statu s: [facility] 8 09:21:25 Problem Notes None recorded. Procedures Surgical History Date Name Laterality Status Provider Name and Address Organization Details Recorded Time 02/12/20 25 Cystoscopy - female completed VINICIO JOHNSON MD [address] [place] [address], [phone], [facility] 02/11/2025 16:12:31 02/05/20 25 Post Void Residual; Ultrasound completed Genia Llamas [facility] 02/04/2025 10:56:31 06/12/20 24 DXA Low Bone Mass 1 - No Tx completed ANNEMARIE BYRD MD [address] [place] [address], [phone], [facility] 06/12/2024 17:48:50 08/20/19 24 Destruction Premalignant Lesion(s) completed Leta Poole [facility] 08/20/2023 15:40:37 08/20/19 24 Destruction BN Lesions completed Leta Poole [facility] 08/20/2023 15:40:26 06/28/20 22 Cystoscopy - female completed VINICIO JOHNSON MD [address] [place] [address], [phone], [facility] 06/28/2022 13:21:55 05/10/20 22 Post Void Residual; Ultrasound completed Georgia Delcid [facility] 05/10/2022 09:10:42 04/16/20 22 DXA Low Bone Mass 1 - No Tx completed ANNEMARIE BYRD MD [address] [place] [address], [phone], [facility] 04/16/2022 12:52:34 06/19/20 19 Pessary Insertion completed DOT RAMIREZ MD [address] [place] [address], [phone], [facility] 06/23/2019 21:52:40 01/23/20 19 DXA Low Bone Mass 1 - No Tx completed ANNEMARIE BYRD MD [address] [place] [address], [phone], [facility] 01/22/2019 16:51:09 02/29/20 18 Binocular Microscopy completed [facility] 02/28/2018 15:27:57 02/21/20 18 Ears/Nose/Throat Surgery completed Layla Madden [facility] 02/28/2018 15:14:43 12/21/19 18 Binocular Microscopy completed [facility] 12/20/2017 13:06:21 11/30/19 18 Binocular Microscopy completed [facility] 11/29/2017 09:34:05 07/05/20 17 Cerumen removal - Instruments, Unilateral completed Krupa Armijo [facility] 07/05/2017 10:23:04 06/07/20 17 Binocular Microscopy completed Olinda Salinas [facility] 06/07/2017 09:48:44 02/16/20 17 DXA Low Bone Mass 1 - No Tx completed ANNEMARIE BYRD MD [address] [place], [phone], [facility] 02/18/2017 18:08:26 02/02/20 17 Binocular Microscopy completed Carol Velasquez [facility] 02/01/2017 11:00:25 11/24/19 17 Binocular Microscopy completed Krupa Armijo [facility] 11/23/2016 10:48:40 03/26/20 13 Ears/Nose/Throat Surgery completed Astrid Vigil [facility] 06/07/2017 09:12:53 06/02/20 12 repair of vesicocolic fistula completed VINICIO JOHNSON MD [address] [place] [address], [phone], [facility] 02/11/2025 16:13:23 Back Surgery completed [facility] 01/08/2017 10:27:45 Tonsillectomy completed [facility] 01/08/2017 10:27:51 Cholecystectomy completed [facility] 01/08/2017 10:27:58 Ears/Nose/Throat Surgery completed [facility] 01/08/2017 10:28:12 Windows System Admin Surgery completed [facility] 01/08/2017 10:28:25 Ears/Nose/Throat Surgery completed Astrid Musa [facility] 06/07/2017 09:13:15 Cystoscopy completed VINICIO JOHNSON MD [address] [place] [address], [phone] 02/11/2025 16:14:26 Imaging Results None recorded. Procedure Notes None recorded. Medical Equipment None Reported. Allergies Allergen ID Allergen Name Allergen Category Reaction Reaction Severity Criticality Documentation Date Start Date Code Code System Note Provider Name and Address Organization Details Recorded Time 271747 Substance with sulfonami de structure and antibacte rial mechanism of action (substanc e) medicatio n Not available Not available Not available 06/21/20162005 69100 8003 SNOMED Comme nt: Creat ed By: Bere ValenciaCrea santos Date: 2005 1:21: 53 PM; Layla zurita, [facility] 9 11:00:14 123792 amoxicill in trihydrat e medicatio n other Not available Not available 06/21/20162008 44982 8 RxNorm React ion: OTHER ; Comme nt: flush ing tongu e;Cre ated By: Noe yorkCre ated Date: 2008 10:45 :39 AM; Not Available [facility] 6 12:47:44 [id number] Product containin g penicilli n (product) medicatio n Not available Not available Not available 06/22/20162005 83475 8001 SNOMED Comme nt: Creat ed By: Jervi s Dory ;Crea santos Date: 2005 1:22: 18 PM; Not Available [facility] 6 03:42:54 237279 Keflex medicatio n Not available Not available Not available 06/22/2016200516 7 RxNorm Comme nt: Creat ed By: Bere Connors ;Crea santos Date: 2005 1:22: 07 PM; [facility] 9 09:27:23 [id number] Ceftin medicatio n other Not available Not available 06/22/20162007 22728 6 RxNorm React ion: TONGU E SWELL ING; Comme nt: Creat ed By: Ismael Merritt ;Crea santos Date: 2007 10:19 :01 AM; Not Available [facility] 6 04:29:48 [id number] Mobic medicatio n Not available Not available Not available 06/22/20162012 41669 9 RxNorm Comme nt: Creat ed By: Ahsan davidson;Cr eated Date: 2012 11:34 :39 AM; [facility] 9 09:27:31 179796 Cephalosp lawson (substanc e) medicatio n Not available Not available Not available 12/03/2022 55109 7003 SNOMED Jody Gabriel [facility] 3 14:25:56 Medications Name Sig Start Date Stop Date Status Note LastModified by Organization Details LastModified Time covid-19 at home tst kt 2pk(walgn s) USE DIRECTED ON PACKAGE 02/11 completed Not Available Not Available Not Available amoxicill in 500 mg capsule 12/12 completed Not Available Not Available Not Available fluconazo le 100 mg tablet 05/10 completed Not Available Not Available Not Available clotrimaz ole 10 mg santhosh ALLOW 1 TO DISSOLVE SLOWLY IN THE MOUTH 5 TIMES DAILY DIRECTED 02/11 completed Not Available Not Available Not Available metformin 500 mg tablet TAKE 1 TABLET TWICE A DAY WITH MEALS 2024 active Not Available Not Available Not Avai lable pilocarpi ne 5 mg tablet TAKE 1 TABLET BY MOUTH THREE TIMES DAILY NEEDED FOR DRY MOUTH active Not Available Not Available No t Available nystatin 100,000 unit/mL oral suspensio n 02/11 completed Not Available Not Available Not Available doxycycli ne hyclate 100 mg capsule 12/13 completed Not Available Not Available Not Available ketoconaz ole 2 % shampoo USE TWICE A WEEK FOR 6 WEEKS. LET SIT IN THE HAIR FOR 2 TO 3 MINUTES THEN RINSE OUT active Not Available Not Available No t Available clindamyc in HCl 300 mg capsule 02/11 completed Not Available Not Available Not Available albuterol sulfate 2.5 mg/3 mL (0.083 %) solution for nebulizat ion 12/13 completed Not Available Not Available Not Available atorvasta tin 10 mg tablet TAKE 1 TABLET DAILY IN THE EVENING 2024 active 01/06/25- 07/14/25 Not Available Not Available Not Available azithromy willie 250 mg tablet TAKE 2 TABLETS BY MOUTH FOR 1 DAY THEN TAKE 1 TABLET BY MOUTH DAILY FOR 4 DAYS 06/26 completed Not Available Not Available Not Available fluconazo le 150 mg tablet TAKE ONE TABLET BY MOUTH EVERY 3 DAYS FOR 2 DOSES. MAY REPEAT SECOND DOSE 72 HOURS AFTER FIRST DOSE IF SYMPTOMS PERSIST. 02/11 completed Not Available Not Available Not Available benzonata te 200 mg capsule TAKE 1 CAPSULE BY MOUTH 3 TIMES A DAY IF NEEDED FOR COUGH FOR UP TO 7 DAYS. DO NOT CRUSH OR CHEW. 02/11 completed Not Available Not Available Not Available hydrocort isone valerate 0.2 % topical cream 02/11 completed Not Available Not Available Not Available hydrocodo ne 5 mg-acetam inophen 325 mg tablet 02/11 completed Not Available Not Available Not Available Claritin [...] 1 tablet every day by oral route. 02/11 completed Not Available Not Available Not Available metronida zole 500 mg tablet TAKE [...] BY MOUTH TWICE DAILY FOR 10 DAYS 02/11 completed Not Available Not Available Not Available sulfameth oxazole 800 mg-trimet hoprim 160 mg tablet Take 1 tablet every 12 hours by oral route. 12/03 completed Not Available Not Available Not Available triamcino lone acetonide 0.1 % topical cream APPLY TOPICALL Y TO THE AFFECTED AREA TWICE DAILY FOR 14 DAYS 02/11 completed Not Available Not Available Not Available ondansetr on 8 mg disintegr ating tablet PLEASE SEE ATTACHED FOR DETAILED DIRECTIO NS 02/11 completed Not Available Not Available Not Available dexametha sone sodium phosphate 0.1 % [...] completed Not Available Not Available Not Available methenami ne hippurate 1 gram tablet TAKE 1 TABLET BY MOUTH TWICE DAILY active Not Available Not Available No t Available prednisol one acetate 1 % eye [...] Not Available Not Available nitrofura ntoin macrocrys marleny 100 mg capsule TAKE 1 CAPSULE BY [...] BY MOUTH ONCE DAILY FOR 7 DAYS 02/11 completed Not Available Not Available Not Available estradiol 0.01% (0.1 mg/gram) vaginal cream INSERT 1 APPLICAT ORFUL VAGINALL Y DAILY FOR 14 DAYS active Not Available Not Available No t Available methylpre dnisolone 4 mg tablets in a dose pack 02/11 completed Not Available Not Available Not Available ondansetr on 4 mg disintegr ating tablet 02/11 completed Not Available Not Available Not Available fluticaso [...] BY MOUTH BEFORE MEALS AND AT BEDTIME 02/11 completed Not Available Not Available Not Available tobramyci n 0.3 %-dexamet hasone 0.1 [...] 10 mg tablet TAKE 1 TABLET DAILY 2024 active 07/01/24- 07/14/25 Not Available Not Available Not Available Laxative (bisacody l) 5 mg tablet active Not Available Not Available Not Available ciproflox acin 0.3 %-dexamet hasone 0.1 % ear drops,antonella pension SHAKE LIQUID AND PLACE 4 DROPS INTO LEFT EAR TWICE DAILY FOR 7 DAYS 02/11 completed Not Available Not Available Not Available nitrofura ntoin monohydra te/macroc rystals 100 mg capsule TAKE 1 CAPSULE BY MOUTH EVERY 12 HOURS FOR 10 DAYS. TAKE WITH MEAL/RUBEN D. 02/11 completed Not Available Not Available Not Available Flovent HFA 110 mcg/actua tion aerosol inhaler 12/13 completed Not Available Not Available Not Available chlorhexi dine gluconate 0.12 % mouthwash USE 15 ML IN THE MOUTH OR THROAT IF NEEDED FOR WOUND CARE FOR UP TO 14 DAYS 02/11 completed Not Available Not Available Not Available mometason e 0.1 % topical solution APPLY A FEW DROPS TO THE AFFECTED AREA(S) BY TOPICAL ROUTE ONCE DAILY 02/11 completed Not Available Not Available Not Available Zostavax (PF) 19,400 unit/0.65 mL subcutane [...] day by oral route for 30 days. 02/11 completed Not Available Not Available Not Available Voltaren 1 % topical gel APPLY 2 GRAMS TO THE AFFECTED AREA(S) BY TOPICAL ROUTE 2 TIMES PER DAY 02/11 completed Not Available Not Available Not Available azelastin e 205.5 mcg (0.15 %) nasal [...] COVID-19 Antigen Home Test kit TEST DIRECTED 02/11 completed Not Available Not Available Not Available Vitals Date Recorded Body height Body mass index (BMI) Body weight Systolic And Diastolic Provider Name and Address Organization Details Last Updated DateTime 01/06/2025 162.56 cm 28.8 kg/m2 01961.52 g 122/76 mm[Hg] [facility] 01/06/2025 10:29:18 Date Recorded Body mass index (BMI) Body weight Provider Name and Address Organization Details Last Updated DateTime 02/04/2025 28.5 kg/m2 22147.33 g Radha Gonsalez [facility] 02/04/2025 10:37:34 Date Recorded Body height Provider Name an d Address Organization Details Last Updated DateTime 02/04/2025 162.56 cm [facility] 02/04/2025 10:36:30 Date Recorded Body height Body mass index (BMI) Body weight Heart rate Systolic And Diastolic Provider Name and Address Organization Details Last Updated DateTime 06/29/2024 162.56 cm 30 kg/m2 30808.66 g 74 /min 120/74 mm[Hg] [facility] 06/29/2024 09:43:37 Social History Question Answer Notes LastModified by Organizat ion Details LastModified Time Tobacco Smoking Status Never Smoker [facility] 01/08/2017 10:27:07 How Much Tobacco Do You Chew? None [email or web address] Information not available 06/19/2019 What Was The Date Of Your Most Recent Tobacco Screening? 12/03/2022 [email or web address] Information not available 12/03/2022 What Is Your Relationship Status? [email or web address] Information not available 02/04/2025 How Much Tobacco Do You Smoke? No [email or web address] Information not available 06/19/2019 Has Tobacco Cessation Counseling Been Provided? No [email or web address] Information not available 02/28/2018 How Many Years Have You Smoked Tobacco? 0 [email or web address] Information not available 07/02/2019 Sex: Female Functional Status Question Answer Note LastModified by Organizat ion Details LastModified Time How many times per week do you consume alcohol? Less than 1 time per week [email or web address] Information not available 02/04/2025 Do you or have you ever used any other forms of tobacco or nicotine? No [email or web address] Information not available 06/26/2021 What is your level of alcohol consumption? Occasional [email or web address] Information not available 01/08/2017 Do you or have you ever used smokeless tobacco? Never used smokeless tobacco [email or web address] Information not available 07/02/2019 Are you currently employed? No [email or web address] Information not available 02/04/2025 Do you or have you ever used e-cigarettes or vape? Never used electronic cigarettes [email or web address] Information not available 07/02/2019 Mental Status None recorded. Family History Relationship Description Onset Age of this Age Resolved Age Notes LastModified by Organization Details LastModified Time Sister Asthma [email or web address] Not available 04/2025 10:06:43 Sister Hearing loss [email or web address] Not availab le 02/04/2025 10:06:43 Sister Hypertensive disorder [email or web address] Not available 2024 10:06:43 Sister Disorder of thyroid gland [email or web address] Not available 2024 10:06:43 Unspecified Relation Family history of malignant neoplasm [email or web address] Not available 2024 10:06:43 Unspecified Relation Allergic rhinitis [email or web address] Not available 2024 10:06:43 Unspecified Relation Type 2 diabetes mellitus [email or web address] Not available 2024 10:06:43 Mother Diabetes mellitus [email or web address] Not available 2024 10:06:43 Mother Hearing loss [email or web address] Not availab le 02/04/2025 10:06:43 Mother Recurrent urinary tract infection [email or web address] Not available 2024 10:06:43 Brother Hearing loss [email or web address] Not availa ble 02/04/2025 10:06:43 Brother Hypertensive disorder [email or web address] Not available 2024 10:06:43 Brother Disorder of thyroid gland [email or web address] Not available 2024 10:06:43 Father Family history of malignant neoplasm [email or web address] Not available 2024 10:06:43 Medical History Condition Response Pancreatitis Y Gout N Other Y Macular Degeneration N Thyroid Disease Y Kidney Stones N Hyperthyroidism N Heart Arrhythmia N Hernia Y Emphysema N Esophagus/swallowing troubles Y Glaucoma N COPD N Hypothyroidism Y Depression N Pneumonia Y Thyroid nodule mass N Anesthesia Complications Y Seasonal Allergies Y Anxiety Disorder N Hypercalcemia N Arthritis Y Shingles Y Esophagus/swallowing trouble N Acid Reflux (GERD) Y Cancer N Stroke N Hypoglycemia N Thyroid cyst N Alcohol Overuse/Alcohol Abuse N High Cholesterol Y Skin Cancer N Liver Disease N Rheumatoid Arthritis N Headaches Y Kidney Disease N Allergies/Hayfever Y Heart Problems N False Teeth Y Black Lung N Gallbladder Disease N Migraines Y Thyroid Problems Y Kidney or Bladder Problems N Goiter N Nervous Breakdown N Chest Pain N Stomach trouble Y Colon Polyps Y Heart Attack (TN) N Ulcers N Osteopenia N Do you get up at night to urinate? Y Diabetes N Rheumatic Fever N High triglycerides Y Bleeding Disorder N Tuberculosis N AIDS/HIV N Congestive Heart Failure (CHF) N Hyperlipidemia Y Urinary Tract Infection Y Diverticulitis Y Cataract Y Asthma Y Epilepsy/Seizures N Sleep Apnea Y Hepatitis Y Heart Disease N Hypertension N Osteoporosis Y Gynecological History Statement/Question Response # of Pregnancies 2 Current Control Method Tubal Ligat ion # of Births 2 Could you be now? N Obstetrics History GPAL:G 2 P 0 0 0 2 Type Value Living 2 Total 2 Past Encounters Encounter ID Performer Location Encounter Start Date Encounter Closed Date Diagnosis/Indication Diagnosis SNOMED-CT Code Diagnosis ICD10 Code Diagnosis IMO Codes Diagnosis Note [id number] KENNETH CHOE MD [place] [facility] [address] [place] [address] 11/23/2016 10:11:32 11/27/2016 08:44:42 Sensorineural hearing loss of bilateral ears 874701579 H90.3 Allergic rhinitis 031250 04 J30.9 Eustachian tube disorder 04392046 H69.93 Chronic ot itis externa 80549406 H60.63 dry Acute otitis externa 302 53867 H60.414 [id number] ANNEMARIE BYRD MD ENDOCRINO LOGY [address] [place] [address] 12/10/2016 09:03:27 12/10/2016 10:35:31 Hypothyroidism 98018188 E78.5 M85.80 R73.02 Labs as belowClini lesley appears euthyroid apart from weight gainHad questions about obesity and weight gain.All questions answered.C heck labs todayFurth er management to be determined as appropriat e. [id number] KENNETH CHOE MD [place] [facility] [address] [facility] [address] [place] [address] 12/14/2016 14:34:35 12/14/2016 16:11:07 Otitis externa of right ear 1781411536 306013 H60.91 Dysfunctio n of eustachian tube 95824810 H69.93 Sensorineu ral hearing loss of bilateral ears 532146999 H90.3 [id number] KENNETH CHOE MD [place] [facility] [address] [facility],[address] [place] [address] 01/08/2017 10:21:38 01/08/2017 12:34:29 Otitis externa of right ear 9025776371 104619 H60.91 Dysfunctio n of eustachian tube 03890848 H69.93 retained T-tubes Sensorineu ral hearing loss of bilateral ears 817879701 H90.3 Allergic rhinitis 480811 04 J30.9 [id number] MD DANNA ARCHIBALD ENT [address] [facility],[address] [place] [address] 02/01/2017 10:08:02 02/01/2017 11:26:11 Otitis externa of right ear 1203260713 545776 H60.91 Dysfunctio n of right eustachian tube 3657856423 510553 H69.91 - retained T-Tube Dysfunctio n of left eustachian tube 7849230092 554630 H69.92 - retained T-Tube Sensorineu ral hearing loss of bilateral ears 271380737 H90.3 Otorrhea 40918392 H92.11 - right Granulation of tissue 22 1925618 R23.8 - Right ear [id number] ANNEMARIE BYRD MD BONE DENS[facility] [address] [place] [address] 02/15/2017 13:52:33 02/15/2017 14:33:12 [id number] KENNETH CHOE MD [place] [facility] [address] [place] [address] 06/07/2017 09:29:08 06/07/2017 11:11:26 Dysfunction of eustachian tube 91405822 H69.93 retained T-tube on the right Impacted c erumen in left ear 0300460505 339383 H61.22 Otitis ext rodger of right ear 9044438839 782993 H60.91 [id number] ANNEMARIE BYRD MD ENDOCRINO LOGY [address] [place] [address] 06/25/2017 09:50:14 06/25/2017 11:26:39 Hypothyroidism 05273380 E78.5 M85.80 R73.02 Clinically appears euthyroid apart from weight loss and Palpitatio nsAll questions answered. Check labs todayFurth er management to be determined as appropriat e. Hyperlipidemia 27924625 E78.5 LDL of 66, elevated triglyceri duane of 171, low HDL cholestero l and total cholestero l 147 on 12/10/2016C ontinue current atorvastat in therapy 10 mg every bedtimePre scription renewed for Atorvastat in and ZetiaLipid panel and LFTs today Prediabetes 325820765 R7 3.03 I counseled patient about the [...] dayCheck A1c today Vitamin D deficiency 347 10676 E55.9 M85.80 Check 25-hydroxy vitamin DBone density [...] necessary. Vitamin B1 2 deficiency (non anemic) 50219978 E53.8 Reported having a history of vitamin B12 deficiency Check vitamin B12 levels today [id number] KENNETH CHOE MD [place] [facility] [address] [facility],[address] [place] [address] 07/05/2017 09:48:37 07/05/2017 10:31:41 Dysfunction of eustachian tube 47318616 H69.93 retained tube on left Impacted c erumen in left ear 1735195847 560430 H61.22 Chronic ot itis externa 60250645 H60.63 dry Sensorineu ral hearing loss of bilateral ears 116634995 H90.3 Tympanic m embrane inflamed 715073821 H73.21 [id number] KENNETH CHOE MD [place] [facility] [address] [facility],[address] [place] [address] 11/29/2017 09:17:12 11/29/2017 16:38:29 Dysfunction of eustachian tube 01477575 H69.93 retained tube on left Chronic ot itis externa 67188462 H60.63 dry Sensorineu ral hearing loss of bilateral ears 808688958 H90.3 Tympanic m embrane inflamed 147292543 H73.21 Chronic pu rulent otitis media 47130186 H66.3X9 Chronic rhinitis 7542146 6 J31.0 [id number] ANNEMARIE BYRD MD ENDOCRINO [facility]Y [address] [place] [address] 12/13/2017 09:52:39 12/13/2017 10:34:10 Hypothyroidism 06738970 E78.5 M85.80 R73.02 Clinically appears euthyroid apart from weight loss and Palpitatio nsAll questions answered. Check labs todayFurth er management to be determined as appropriat e. Hyperlipidemia 31284817 E78.5 LDL of 62, elevated triglyceri duane of 210, low HDL cholestero l 44 and total cholestero l 148 on 12/10/2016C ontinue current atorvastat in therapy 10 mg every bedtime and Zetia 10 mgPrescrip tion renewed for Atorvastat in and Zetia Prediabetes 321823523 R7 3.03 I counseled patient about the [...] mg twice a dayCheck A1c today Fatigue 23264010 R53.83 Reported dry skin, dry mouthwante d be evaluated for Sj gren syndromeRe ferral to rheumatolo gy [id number] KENNETH CHOE MD [place] [facility] [address] [place] [address] 12/20/2017 12:44:42 12/24/2017 13:01:54 Mixed conductive and sensorineural hearing loss, bilateral 922474578 H90.6 Dysfunctio n of eustachian tube 55084741 H69.93 retained tube on left Tympanic m embrane inflamed 047365387 H73.21 Chronic ot itis externa 82739509 H60.63 dry Sensorineu ral hearing loss of bilateral ears 402087231 H90.3 Chronic rhinitis 5851234 6 J31.0 Chronic se enrique otitis media 56518869 H65.23 Fatigue 71915144 R53.83 [id number] SUSAN MCCABE MD RHEUMATOL OGY [address] [place] [address] 01/14/2018 09:33:56 01/14/2018 10:57:58 Keratoconjunctivitis sicca, in Sj gren's syndrome 26515729 M35.01 she has chronic worsening dry eyes, [...] contact her after review of the studies. [id number] SUSAN MCCABE MD RHEUMATOL OGY [address] [place] [address] 01/27/2018 14:21:46 01/27/2018 16:43:51 Keratoconjunctivitis sicca, in Sj gren's syndrome 88096620 M35.01 she has chronic worsening dry eyes, dry mouth along with chronic autoimmune thyroid disease. Based on clinical examinatio jessie,she has a high risk for the primary [...] contact her after review of the studies. [id number] MD DANNA ARCHIBALD [facility] [address] [facility] [facility] [place] [address] 02/04/2018 11:16:09 02/04/2018 13:26:23 Sj gren's syndrome 59591970 M35.00 possible Dysfunctio n of eustachian tube 00790751 H69.93 retained tube on left Serous otitis media 8032 7007 H65.91 [id number] KENNETH CHOE MD [place] [facility] [address] [place] [address] 02/28/2018 14:43:48 03/03/2018 10:01:45 Sj gren's syndrome 62660952 M35.00 normal results Dysfunctio n of eustachian tube 34370872 H69.93 retained bilateral ear tubes Fatigue 38374352 R53.83 Otorrhea of left ear 253 0969020 642943 H92.12 moisture noted around tube Chronic ot itis externa 67153263 H60.63 [id number] SUSAN MCCABE MD [address] [place] [address] 03/06/2018 11:10:22 03/06/2018 13:48:18 Keratoconjunctivitis sicca, in Sj gren's syndrome 14971473 M35.01 she has chronic worsening dry eyes, [...] will see how she does with plaquenil. [id number] KENNETH CHOE MD [place] [facility] [address] [place] [address] 03/21/2018 10:13:21 03/24/2018 08:36:36 Sj gren's syndrome 72053942 M35.00 normal results Dysfunctio n of eustachian tube 96449332 H69.93 retained right ear tube Fatigue 67308198 R53.83 Perforatio n of tympanic membrane 23349315 H72.92 10% [id number] SUSAN MCCABE MD RHEUMATOL OGY [facility] [place] [address] 04/30/2018 12:57:10 04/30/2018 15:02:18 Keratoconjunctivitis sicca, in Sj gren's syndrome 90607807 M35.01 Primary Sjogren's. Her LEILA screen and [...] to elevated lfts. maintain the eye exam. [id number] [place] [address] [place] [address] 06/16/2018 09:39:32 06/16/2018 14:37:40 Hyperlipidemia 08142236 E78.5 LDL of 69, elevated triglyceri duane of 172, low HDL cholestero l 42 and total cholestero l 145 on 12/20/2017C ontinue current atorvastat in therapy 10 mg every bedtime and Zetia 10 mgPrescrip tion renewed for Atorvastat in and Zetia Prediabetes 831267695 R7 3.03 A1c of 5.4% in the [...] mg twice a dayPrescri ption renewed Hypothyroidism 43391098 E03.9 TSH of 0.0838712/13Presc ription renewedInt ermittent palpitatio nsCheck TSH today [id number] ANNEMARIE BYRD MD ENDOCRINO LOGY [address] [place] [address] 12/12/2018 10:17:25 12/12/2018 11:40:39 Prediabetes 702827965 R73.03 I counseled patient about the importance [...] twice a dayCheck A1c and BMP Hypothyroidism 08847118 E03.9 TSH of 2.18 on 06/16/2018 Continue current Synthroid dose of 125 g every a.m.Check TSH today Hyperlipidemia 39801902 E78.5 LDL of 69, elevated triglyceri duane of 137, low HDL cholestero l 65 and total cholestero l 137 on 06/16/2000 Continue current atorvastat in therapy 10 mg every bedtime and Zetia 10 mgLipid panel and LFTs [id number] SUSAN MCCABE MD RHEUMATOL OGY [address] [place] [address] 12/30/2018 09:01:34 12/30/2018 10:25:05 Keratoconjunctivitis sicca, in Sj gren's syndrome 78508342 M35.01 Primary Sjogren's. Her LEILA screen and [...] treated for SWETA, on CPAP. Senile osteopenia 875290 06 M85.80 Last DEXA in 03/2017. No evidence of spontaneou s fractures. Needs to have repeat DEXA this year after 01/2019. maintain ca and vitamin D. No indication s for the bisphospho nates. Generalize d osteoarthritis 663219868 M15.9 she has chronic diffuse degenerati ve process , as expected for her age. No features of RA noted. Reassured. [id number] ANNEMARIE BYRD MD BONE DENSITY [address] [place] [address] 01/22/2019 14:01:22 01/22/2019 14:34:06 Osteopenia 539534888 M85.9 [id number] ANNEMARIE BYRD MD ENDOCRINO LOGY [address] [place] [address] 05/27/2019 10:37:12 05/27/2019 11:58:58 Hyperlipidemia 07611258 E78.5 LDL of 63, elevated triglyceri duane of 134, low HDL cholestero l and total cholestero l 135 on 12/12/2018C ontinue current atorvastat in therapy 10 mg every bedtime and Zetia 10 mgLipid panel and LFTsFurthe r adjustment as appropriat e Prediabetes 801841766 R7 3.03 I counseled patient about the [...] twice a day Check A1c today Hypothyroidism 59155920 E03.9 TSH of 2.18 on 06/16/2018 Continue current Synthroid dose of 125 g every a.m.Check TSH today Osteopenia 201468451 M85 .9 Most recent bone density on [...] day), including supplement s if necessary. Fatigue 59157632 R53.83 Reported dry skin, dry mouthwante d be evaluated for Sj gren syndromeRe ferral to rheumatolo gy Deficiency of vitamin D3 062384130 E55.9 [id number] DOT RAMIREZ MD [facility] [address] [place] [address] 06/05/2019 09:44:18 06/05/2019 11:22:53 Chronic cystitis 73138776 N30.20 plan as above Midline cystocele 189573 003 N81.11 she will return in 2 weeks for pessary fitting. [id number] DOT RAMIREZ MD [facility] [address] [place] [address] 06/19/2019 11:07:46 06/19/2019 12:48:45 Chronic infective cystitis 245578566 N30.20 Midline cystocele 376552 003 N81.11 as above follow-up 4-5 months [id number] SUSAN MCCABE MD RHEUMATOL OGY [address] [place] [address] 07/02/2019 10:42:33 07/03/2019 13:38:24 Body mass index 30+ - obesity 676754003 Z68.30 Diet and exercise reviewed. Keratoconj unctivitis sicca, in Sj gren's syndrome 56585517 M35.01 Primary Sjogren's. Associated with chronic dry [...] treated for SWETA, on CPAP. Senile osteopenia 258689 06 M85.80 No evidence of spontaneou s fractures. DEXA reviewed, 12/2018. Modest osteopenia , with stable FRAX scores. maintain ca and vitamin D. No indication s for the bisphospho nates. Generalize d osteoarthritis 526409752 M15.9 she has chronic diffuse degenerati ve process , as expected for her age. No features of RA noted. Reassured. 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 N39.41 [id number] ANNEMARIE BYRD MD ENDOCRINO LOGY [address] [place] [address] 12/04/2019 09:19:44 12/04/2019 09:46:13 Hyperlipidemia 24011754 E78.5 LDL of 62 in April 2019Contin ue current atorvastat in therapy 10 mg every bedtime and Zetia 10 mgLipid panel and LFTsFurthe r adjustment as appropriat e Hypothyroidism 51175668 E03.9 TSH of 0.92 in April 2019Contin ue current Synthroid dose of 125 g every a.m.Check TSH todayFurth er adjustment as appropriat e Prescripti on to follow Prediabetes 052166750 R7 3.03 I counseled patient about the [...] dayCheck A1c today Vitamin D deficiency 347 23101 E55.9 M85.80 Check 25-hydroxy vitamin DBone density [...] per day), including supplement s if necessary. [id number] SUSAN MCCABE MD RHEUMATOL OGY [address] [place] [address] 01/28/2020 08:59:08 02/02/2020 10:35:15 Keratoconjunctivitis sicca, in Sj gren's syndrome 09262872 M35.01 Primary Sjogren's, without any extragland ular [...] apnea treatment with CPAP machine. Senile osteopenia 671344 06 M85.80 No evidence of spontaneou s fractures. DEXA reviewed, 12/2018. Modest osteopenia , with stable FRAX scores. maintain ca and vitamin D. No indication s for the bisphospho nates. Generalize d osteoarthritis 481056719 M15.9 she has symptomati c bilateral knee joint space is to have responded to the Voltaren gel. She can continue with the Voltaren gel twice a day applicatio ns as needed. Call our office if symptoms do not improve or get worse for in office evaluation . [id number] ANNEMARIE BYRD MD ENDOCRINO LOGY [address] [place] [address] 06/27/2020 09:20:08 06/27/2020 09:56:07 Hypothyroidism 80394094 E03.9 TSH of 1.19 on 01/19/2020R eported weight gainRechec k TSH and free X4Gfxytlow Synthroid dose of 5 days a week [...] levothyrox in therapy.Pr escription to follow Hyperlipidemia 59870087 E78.5 LDL of 57Continue current atorvastat in therapy 10 mg every bedtime and Zetia 10 mgPrescrip tions were renewed Prediabetes 069854056 R7 3.03 I counseled patient about the [...] mg twice a dayGlycate d hemoglobin today [id number] [place] [address] [place] [address] 06/28/2020 08:07:24 06/28/2020 11:59:18 Keratoconjunctivitis sicca, in Sj gren's syndrome 80290626 M35.01 Primary Sjogren's, without any extragland ular [...] apnea treatment with CPAP machine. Senile osteopenia 960662 06 M85.80 No evidence of spontaneou s fractures. DEXA reviewed, 12/2018. Modest osteopenia , with stable FRAX scores. maintain ca and vitamin D. No indication s for the bisphospho nates. Generalize d osteoarthritis 409025994 M15.9 she has chronic joint pains especially involving the knee joints. There have tolerated to the topical Voltaren gel Refills given. Follow-up in 6 months. [id number] [place] [address] [place] [address] 09/14/2020 09:47:39 09/14/2020 11:16:52 Keratoconjunctivitis sicca, in Sj gren's syndrome 64009781 M35.01 Primary Sjogren's, without any extragland ular [...] cation for COVID-19 vaccinatio n Senile osteopenia 438457 06 M85.80 No evidence of spontaneou s fractures. DEXA reviewed, 12/2018. Modest osteopenia , with stable FRAX scores. maintain ca and vitamin D. No indication s for the bisphospho nates. Generalize d osteoarthritis 067444111 M15.9 she has chronic joint pains especially involving the knee joints. There have tolerated to the topical Voltaren gel Refills given. Follow-up in 6 months. [id number] ANNEMARIE BYRD MD ENDOCRINO LOGY [address] [place] [address] 12/22/2020 09:24:29 12/22/2020 10:20:12 Prediabetes 879436488 R73.03 I counseled patient about the importance [...] metformin 500 mg twice a day Hyperlipidemia 83905663 E78.5 Lipid panel today Continue current atorvastat in therapy 10 mg every bedtime and Zetia 10 mg Prescripti ons renewed Further adjustment as appropriat e. Hypothyroidism 29274634 E03.9 TSH of 2.78 on 06/27/2020 Recheck [...] on to follow Cramp in lower limb 3879 79745 R25.2 Will further evaluate [id number] SUSAN MCCABE MD RHEUMATOL OGY [address] [place] [address] 12/22/2020 10:36:27 12/22/2020 11:35:20 Keratoconjunctivitis sicca, in Sj gren's syndrome 47696766 M35.01 Primary Sjogren's, without any extragland ular disease. Predominan tly dry mouth. No adenopathy noted. Stable cardiopulm onary exam. Continue pilocarpin e 5 mg 4 times a day. Refills were given. She is fully vaccinated against the covid-19. Maintain CPAP for the obstructiv e sleep apnea. Senile osteopenia 811058 06 M85.80 DEXA reviewed, 12/2018. Modest osteopenia , with stable FRAX scores. maintain ca and vitamin D. No indication s for the bisphospho nates. Generalize d osteoarthritis 831144290 M15.9 75-year-ol d female with osteoarthr itis. Generalize d. Suggested maintainin g weight loss and low impact activity such as daily walk. She can maintain the use of topical Voltaren gel only as needed. Avoid oral NSAIDs. She can take Tylenol Extra Strength 2 tablets daily. [id number] ANNEMARIE BYRD MD ENDOCRINO LOGY [address] [place] [address] 06/26/2021 09:43:19 06/30/2021 13:52:59 Prediabetes 562047564 R73.03 A1c in the office of 5.2 [...] metformin 500 mg twice a day Hyperlipidemia 36105002 E78.5 Lipid panel today Continue current atorvastat in therapy 10 mg every bedtime and Zetia 10 mg Prescripti ons renewed Further adjustment as appropriat e. Hypothyroidism 62670701 E03.9 TSH of 3.04 in November 2020 [...] on to follow Vitamin D deficiency 347 79586 E55.9 M85.80 Check 25-hydroxy vitamin D I discussed with patient the importance adequate dietary calcium intake ( 1,200 mg per day ), incorporat ing dietary supplement s if diet is insufficie nt. Also discussed with patient the importance of adequate vitamin D intake (1,000 IU per day), including supplement s if necessary. Cramp in lower limb 4499 61940 R25.2 Currently taking calcium and vitamin D and magnesium supplement s Osteopenia 817059850 M85 .9 Most recent bone density on [...] with the above mentioned plan of care. [id number] SUSAN MCCABE MD RHEUMATOL OGY [address] [place] [address] 06/26/2021 09:45:04 06/26/2021 11:20:05 Keratoconjunctivitis sicca, in Sj gren's syndrome 92342946 M35.01 Primary Sjogren's, without any extragland ular [...] DNA antibody levels. Malaise and fatigue 2717 86710 R53.81 R53.83 Chronic nonspecifi c. Followed by endocrinol le. Question of post Covid fatigue, had Covid infection in December 2020.She has a sleep apnea, on CPAP certainly can be another contributi ng factor to her fatigue.My examinatio n was rather physiologi c today. No acute findings were noted. She will follow with the labs as suggested by endocrinherbie lujan. [id number] ANNEMARIE BYRD MD ENDOCRINO LOGY [address] [place] [address] 02/07/2022 09:05:15 02/07/2022 10:11:00 Prediabetes 747353673 R73.03 A1c in the office of 5.1 [...] metformin 500 mg twice a day Hyperlipidemia 95851138 E78.5 Lipid panel today Continue current atorvastat in therapy 10 mg every bedtime and Zetia 10 mg Counseled about the importance of low-choles terol diet and no significan t for diet Hypothyroidism 91359577 E03.9 Appears a clinically euthyroid TSH of [...] in therapy. Prescripti on to follow Osteopenia 560943402 M85 .9 Most recent bone density on [...] above mentioned plan of care. Cramping pain 428233762 R52 Taking over-the-c ounter magnesium Recheck magnesium level Vitamin D deficiency 347 28626 E55.9 M85.80 Check 25-hydroxy vitamin D I [...] with the above mentioned plan of care. [id number] SUSAN MCCABE MD RHEUMATOL OGY [place] [address] 1 03/26/2022 16:02:43 03/26/2022 16:40:11 Keratoconjunctivitis sicca, in Sj gren's syndrome 91286752 M35.01 Primary Sjogren's, without any extragland ular [...] will follow-up with me in November 2022. [id number] ANNEMARIE BYRD MD BONE DENSITY [place] [address] 04/16/2022 10:44:36 04/16/2022 10:59:24 Osteopenia 537431423 M85.89 [id number] VINICIO JOHNSON MD UROLOGY SB [place] [address] 05/10/2022 08:44:19 05/15/2022 13:38:51 Recurrent cystitis 008528118 N30.90 Cystocele 531670430 N81. 10 [id number] VINICIO JOHNSON MD SURGERY SCHEDULE [address] [place] [address] 06/28/2022 12:03:45 06/28/2022 12:04:07 Recurrent cystitis 047632399 N30.90 Cystocele 045044451 N81. 10 [id number] [place] [address] [place] [address] 07/02/2022 10:14:10 07/02/2022 11:11:21 Prediabetes 624665178 R73.03 A1c in the office of 5.2%I [...] metformin 500 mg twice a day Hypothyroidism 83474710 E03.9 Appears a clinically euthyroidT SH of [...] free T4 todayPresc ription to follow Hyperlipidemia 16465336 E78.5 Lipid panel in January showed LDL of 44, triglyceri duane of 209, total cholestero l 140 and HDL of 54 Continue current atorvastat in therapy 10 mg every bedtime and Zetia 10 mg Counseled about the importance of low-choles terol diet and no significan t for diet. [id number] ANNEMARIE BYRD MD ENDOCRINO LOGY [address] [place] [address] 12/03/2022 12:50:29 12/03/2022 13:35:41 Prediabetes 120242450 R73.03 I counseled patient about the importance [...] metformin 500 mg twice a day Hypothyroidism 01565288 E03.9 Appears a clinically euthyroidT SH of [...] free T4 todayP further adjustment as Hyperlipidemia 62839613 E78.5 Lipid panel in January showed LDL of 44, triglyceri duane of 209, total cholestero l 140 and HDL of 54 Continue current atorvastat in therapy 10 mg every bedtime and Zetia 10 mg Counseled about the importance of low-choles terol diet and no significan t for diet. Vitamin D deficiency 347 39217 E55.9 M85.80 History of vitamin D deficientC heck 25-hydroxy vitamin DI discussed with patient the importance adequate dietary calcium intake ( 1,200 mg per day ), incorporat ing dietary supplement s if diet is insufficie nt. Also discussed with patient the importance of adequate vitamin D intake (1,000 IU per day), including supplement s if necessary. Fatigue 31668040 R53.83 Reported fatigue and previously low on vitamin D, magnesium and vitamin B12 Recheck the levels and further adjustment as appropriat e [id number] [place] [address] [place], [place] [address] 12/03/2022 12:50:29 12/03/2022 13:35:41 [id number] [place] [address] [place] [address] 12/03/2022 13:47:31 12/05/2022 04:52:11 Keratoconjunctivitis sicca, in Sj gren's syndrome 78937133 M35.01 Primary Sjogren's, without any extragland ular [...] given.Labs repeated 6 months follow-up Pruritic rash 11106547 L 28.2 Other nonspecifi c referred to dermatolog y for evaluation work-up. 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 Seborrheic dermatitis 50 919444 L21.9 Ear canals - has hydorcorti sone valerate cream 0.2% - was told only to use x 2 weeksDiscu ssed using more often and then use twice weekly as needed to controlcon hand painter Derm Otic [id number] ANNEMARIE BYRD MD ENDOCRINO LOGY [address] [place] [address] 06/05/2023 09:04:52 06/05/2023 10:23:27 Prediabetes 367125550 R73.03 A1c of 5.1 on 12/03/2022I counseled [...] todayFurth er adjustment as appropriat e Hyperlipidemia 17473114 E78.5 Lipid panel in November 2022 showed LDL of 52, total cholestero l 135, triglyceri duane 115 and HDL cholestero l of 60 Continue current atorvastat in therapy 10 mg every bedtime and Zetia 10 mg Counseled about the importance of low-choles terol diet and no significan t for diet. Hypothyroidism 41262024 E03.9 Appears a clinically euthyroid Bedside ultrasound [...] Recheck TSH and free T4 today Osteopenia 551024895 M85 .89 Bone density on 04/16/2022 :L1-L4 [...] equals 20% based on [place]-adapted WHO of alogorithm ) Not a candidate for pharmacolo gic [...] with the above mentioned plan of care. [id number] GARCIA SQUIRES MD DERMATOLO GY [facility] [address] [place] [address] 08/20/2023 15:04:29 08/20/2023 16:06:09 Lentiginosis 445037299 L81.4 Reassuranc eRecommend ed Equate Ultra Sunscreen 30+ and sun protecting hats/cloth ing Raised rajesh orrheic keratosis 6979972461 92357 L82.1 Reassuranc e Seborrheic dermatitis 50 994589 L21.9 Posterior ScalplineS tart Mometasone 0.1% topical sona Hemangioma 226897455 D18 .00 Reassuranc e Actinic keratosis 762032 [address] x 1 Inflamed s eborrheic keratosis 358437640 L82.0 LN x 1 [id number] ANNEMARIE BYRD MD ENDOCRINO LOGY [address] [place] [address] 12/05/2023 09:38:47 12/05/2023 10:46:45 Prediabetes 744432201 R73.03 A1c of 5.4 from 5.1 on [...] a dayContinu e current metformin therapy Hyperlipidemia 69708931 E78.5 Lipid panel in May 2023 showed LDL of 40, total cholestero l 122, triglyceri duane 123 and HDL cholestero l 57 Continue current atorvastat in therapy 10 mg every bedtime and Zetia 10 mgWith panel and LFTs todayCouns eled about the importance of low-choles terol diet and no significan t for diet. Hypothyroidism 47290586 E03.9 Apart from fatigue appears a clinically [...] before or after levothyrox in therapy. Fatigue 00015881 R53.83 She is still complainin g of fatigue fatigue and previously low on vitamin D, magnesium and vitamin N63Jtgckje the levels and further adjustment as appropriat e Patient verbalized understand ing and agreed with the above mentioned plan of care. [id number] ANNEMARIE BYRD MD BONE DENSITY SB [address] [place] [address] 06/12/2024 09:57:38 06/12/2024 10:33:03 Osteopenia 633196144 M85.89 [id number] ARTHUR WASHINGTON APRN ENDOCRINO LOGY SB [facility] [place] [address] 06/29/2024 09:36:57 06/29/2024 09:58:33 Prediabetes 883702838 R73.03 A1c of 5.4 no change 5.4 [...] check labs f/u in 6 months Hyperlipidemia 05644767 E78.5 Goal LDL is under 100 mg/dl.Last LDL: 52 on 12/05/23Tr iglyceride s: 171Continu e current atorvastat in therapy as orderedCon tinue dietary changes as recommende d. Hypothyroidism 60125888 E03.9 Apart from fatigue appears a clinically [...] hours before or after levothyrox in therapy. [id number] ANNEMARIE BYRD MD ENDOCRINO LOGY [address] [place] [address] 01/06/2025 10:08:57 01/06/2025 13:01:05 Prediabetes 516702103 R73.03 A1c of 5.1 from 5.4Random point-of-c [...] dayContinu e current metformin therapy Acquired hypothyroidism 624519301 E03.9 62333 She denies any hypothyroi d symptomsNo symptoms [...] of Synthroid dose as appropriat e Hyperlipidemia 97381080 E78.5 83710840 Most recent LDL of 67 in June 2020Contin ue current atorvastat in therapy 10 mg every bedtime and Zetia 10 mgRecheck lipid panel todayCouns eled about the importance of low-choles terol diet and no significan t for diet. 6 months follow-up Patient verbalized understand ing and agreed with the above mentioned plan of care. [id number] SAMMIE SOTO APRN [facility]OLOGY [facility] [address] [facility] [place] [address] 02/04/2025 10:06:42 02/04/2025 11:28:58 Recurrent urinary tract infection 404193992 N39.0 [id number] VINICIO JOHNSON MD SURGERY SCHEDULE [address] [place] [address] 02/11/2025 14:23:30 02/11/2025 14:23:58 Recurrent cystitis 825993444 N30.90 Cystocele 619051669 N81. 10 Health Concerns Section Related Observation LastModified by Organization Detai ls LastModified Time None Recorded Concern Status LastModified by Organization Details LastModified Time None Recorded Advance Directives Directive None Recorded Payers Insurance Date Sequence Insurance Name Policy Number Policy Kyle Covered Member ID Kyle Member ID Guarantor Name 02/26/2025 1 [facility] (MEDICARE REPLACEMENT/A DVANTAGE - PPO) [id number] Minnie Marrufo [id number] Minnie Marrufo Notes Date Note Type Note Provider Name and Address Organization Details Recorded Time 06/29/2024 text/html 78-year-old female patient with a [...] pilocarpine and she feels much better ARTHUR WASHINGTON, MACIEL [address] [place] [address], [phone], [facility] 06/29/2024 10:12:51 01/06/2025 text/html 79-year-old female [...] implant for decreased hearing ANNEMARIE BYRD MD [address] [place], [address], [facility] 01/06/2025 12:46:32 02/04/2025 text/html 79 year old female here for further evaluation of frequent UTIs. 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 She has a history of gastroparesis and chronic constipation. She saw Dr. Ramirez in 2018 for frequent UTIs. A urine culture 06/2019 showed Enterococcus treated with Cipro. She wears a pessary and he placed a new pessary. She later saw Dr. Randy Huber in [place]. She goes to [place] for the winter and has been treated for UTIs there.She saw Dr. Johnson for frequent UTIs and cystitis 04/2022 and started estradiol cream and cranberry supplements. She developed a UTI in early July prior to traveling to [place]. She noticed some memory issues and brain fog prior to leaving so she believes it started earlier than July. About 2 weeks after arriving in [place], she was seen at [facility] urgent care because she and her felt very ill. They were told they likely had flu or COVID although tests were negative. She requested a UTI test and was told she had a bad UTI although she was asymptomatic. She was prescribed Macrobid. She was diagnosed with another UTI 09/2024 while she was still in [place]. After returning home, she was seen by her PCP and a urine culture was positive again. She finsihed ciprofloxacin about 10 days ago for a fourth UTI. She says the urine culture grew E.coli. She isn't sure what kind of bacteria was grown on previous cultures. She says these episodes have been predominantly asymptomatic. She has noticed on two occasions, air passing through her urethra when she passes gas. She is concerned she may have a fistula causing recurrent UTIs. Her mother had chronic UTIs. She developed C-diff and after using numerous antibiotics for UTIs. She has never been a smoker. SAMMIE SOTO, BAGGAGE AGENT SUPERVISOR [address] [place], [address], [facility] 02/04/2025 13:12:02 OBGyn Episode No OBEpisode recorded.
--- OUTSIDE RECORDS SUMMARY | 2025-05-11 09:27 | XMS_ITS | Encounter Summary ---
Author Organization [facility] Address [address] [place] [address] Care Team Providers Care Outreach And Education Social Worker Name Role Phone Melvin Pink Sunil DO Primary Care Provider [phone] Encounter Details Date Type Department Care Team (Late Contact Info) Description 03/19/2025 Refill [facility] Pediatric Specialty [address] [place] [address] Hortensia Bowser, PharmD [address] [place] [address] CVID (common variable immunodeficiency) (CMS/HCC) (Primary Dx) [...] Description 05/18/2025 9:00 AM EDT Office Visit [facility] Medicine Specialties [address] [place] [address] Denise Keith, PRODUCTION BORING MACHINE OPERATOR [address] [place] [address] 06/07/2025 9:50 AM EST Office Visit [facility] Medicine Specialties [address] [place] [address] Nidhi Stack, PRODUCTION BORING MACHINE OPERATOR [address] [place] [address] 06/07/2025 10:30 AM EST Office Visit [facility] Audiology [address] [place] [address] Patsy Lucero, Annalise [address] [place] [address] 06/07/2025 11:00 AM EST Office Visit [facility] Otolaryngology [address] [place] [address] Melvin Casillas MD [address] [place] [address] documented as of this encounter Visit Diagnoses Diagnosis CVID (common variable immunodeficiency)- Primary Common variable immunodeficiency documented in this encounter Additional Health Concerns Assessment Noted Time PHQ-9 Depression Total Score: 0 03/02/20 11:22 AM EDT A fall risk assessment has been complete d for the patient 03/02/2025 11:23 AM EDT A Body Mass Index follow-up plan has been documented for the patient 03/16/2025 4:05 AM EDT documented as of this encounter Care Teams Outreach And Education Social Worker Relationship Specialty Start Date End Date Melvin Pink, DO [address] [place] [address] PCP - General 12/01/24 documented as of this encounter
--- OUTSIDE RECORDS SUMMARY | 2025-05-11 09:27 | XMS_ITS | Encounter Summary ---
Author Organization [facility] Address [address] [place] [address] Care Team Providers Care Patient Care Director Name Role Phone Melvin Pink Sunil CHRISTIAN Primary Care Provider [phone] Encounter Details Date Type Department Care Team [...] Description 05/18/2025 9:00 AM EDT Office Visit [facility] Special[facility] [address] [place] [address] Denise Keith, PUMPER GAUGER [address] [place] [address] 06/07/2025 9:50 AM EST Office Visit [facility] [address] [place] [address] Nidhi Stack, PUMPER GAUGER [address] [place] [address] 06/07/2025 10:30 AM EST Office Visit [facility] Audiology [address] [place] [address] Patsy Lucero, AuD [address] [place] [address] 06/07/2025 11:00 AM EST Office Visit [facility] Otolaryngology [address] [place] [address] Melvin Casillas MD [address] [place] [address] documented as of this encounter [...] documented as of this encounter Care Teams Patient Care Director Relationship Specialty Start Date End Date Melvin Pink DO [address] [place] [address] PCP - General 12/01/24 documented as of this encounter
[2025-05-11] MEDS: ACETAMINOPHEN 325MG TAB 650 MG PO (09:30)
[2025-05-11] MEDS: 0.9 % SODIUM CHLORIDE 500 ML 999 ML IV (09:30)
[2025-05-11] MEDS: GAMUNEX C IV (10:03)
[2025-05-11 10:10] VITALS: BP 158/70; PULSE 69; RESP 18; TEMP 36.6; O2SAT 98
[2025-05-11 10:40] VITALS: BP 131/68; PULSE 70
[2025-05-11 11:10] VITALS: BP 135/64; PULSE 73
[2025-05-11 11:40] VITALS: BP 129/67; PULSE 69
[2025-05-11 12:05] VITALS: BP 131/69; PULSE 70
== END 2025-05-11 23:59 | disposition home or self-care (01) ==
LOC: INF 09:10
PROVIDERS: PCP Internal Medicine; Visit Provider Physician Assistant
DX: D83.9 Common variable immunodeficiency, unspecified (principal)
CPT/HCPCS: 96365; 96366; J1561; J7040

== ENCOUNTER 2025-05-26 12:51 | Outpatient (CLI) | payer MEDICARE, SELFPAY ==
--- OUTSIDE RECORDS SUMMARY | 2024-05-30 05:00 | XMS_ITS ---
Author Organization [facility] Address [address] [place] [address] Care Team Providers Care Market Risk Specialist Name Role Phone Ita You MD, Aristides Unavailable Unavailab le Migration, Provider Unavailable Unavailable REASON FOR VISIT EMR-Daniel Encounters Encounter Location Date Provider Diagnosis Sarika Tena PA [address] [place] [address] 05/30/2024 Provider Migration Plan Of Treatment Medication Medication Name Sig Start Date Stop Date Notes Ciprofloxacin HCl 500 MG Tablet take 1 t ablet by oral route 2 times every day Oral 10/15/2018 10/20/2018 Progress Notes * Noni MARRUFOGeorgiaOB:[birth year] (79 yo F)Acc No.[id number]:05/30/2024 Patient: Minnie MOURA :1945 A ge:78 Y S ex:Female Address:[address] [place] [address], [address] * Refills Stop Ciprofloxacin HCl Tablet, 500 MG, Oral, 14, take 1 tablet by oral route 2 times every day Subjective: * Chief Complaints: * E MR-Daniel * * Date:
--- OUTSIDE RECORDS SUMMARY | 2024-05-31 05:00 | XMS_ITS ---
Author Organization [facility] Address [address] [place] [address] Care Team Providers Care Hospital Staff Pharmacist Name Role Phone Ita You MD, Aristides [...] take 1 PO QD BUCCAL *[facility] and Interaction Alert[facility]* 10/15/2018 Active [...] Date Provider Diagnosis Sarika Tena PA [address] [place] [phone] 05/31/2024 Provider Migration Plan Of Treatment No Information Progress Notes * lLuvia MARRUFOOB:[birth year] (79 yo F)Acc No.[id number]:05/31/2024 Patient: Minnie MOURA :1945 A ge:78 Y S ex:Female Address:[address] [place], [place] [address] Subjective: * Chief Complaints: * E MR-Daniel [...] BUCCAL , Notes to Pharmacist: *Reorder from [facility] for eRx and Interaction Alerts*Taking Atorvastatin [...] BUCCAL , Notes to Pharmacist: *Reorder from [facility] for eRx and Interaction Alerts* * Allergies: C ephalosporins: Anaphylaxis - Allergy * * Date:
--- OUTSIDE RECORDS SUMMARY | 2025-05-04 14:30 | XMS_ITS | Encounter Summary ---
Author Organization [facility] Address [address] [place] [address] Care Team Providers Care Warehouse Assistant Name Role Phone Melvin Pink Sunil CHRISTIAN Primary Care Provider Reason for Visit * Reason Comments Hearing Loss Encounter Details Date Type Department Care Team ([facility] st Contact Info) Description 05/04/2025 2:30 PM EDT Office Visit [facility] Audiology [address], [address] [place] [address] Patsy Lucero, Annalise [address] [place] [address] Sensorineural hearing loss (SNHL) of [...] no evidence of redness, edema or sensitivity. [place] Operator: Cochlear Ear: RE: Surgery Date: 02/28/2023 Internal Device: [id number] - # [id number] Processor #1: N8 - Brown color Processor #2: K2 - Brown Fit Date: 03/18/2023 Magnet strength: 3i changed to a 2i strength today Cord length: 3 Battery: Rechargeable Ghulam Exp: 03/18/2028 Accessories: Mini-cynthia, TV Streamer, LEFT EAR: Hearing Aid ReSound Model: Nexia 5, NX 560S - DRWC - espresso- SAIMA Serial #: [id number] Fit Date: 03/26/2025 Battery: Rechargeable Ghulam Exp: 04/12/2028 [employer] serial #: [id number] - Premium Ghulam Exp - 04/12/2028 Ear mold: Ultra Power Encased Micro-mold - size 2 - 1.2mm pressure vent Serial#: [id number] Remake Ghulam: 09/12/2025 Hearing Aid Check: I [...] Description 06/07/2025 9:50 AM EST Office Visit [facility] Medicine Specialties [address], [address] [place] [address] Nidhi Stack, STUDENT SUCCESS COACH [address] [place] [address] 06/07/2025 10:30 AM EST Office Visit [facility] Audiology [address], [address] [place] [address] Patsy Lucero AuD [address] [place] [address] 06/07/2025 11:00 AM EST Office Visit [facility] Otolaryngology [address], [address] [place] [address] Melvin Casillas MD [address] [place] [address] 08/24/2025 9:30 AM EST Office Visit [facility] Medicine Specialties [address], [address] [place] [address] Denise Keith, STUDENT SUCCESS COACH [address] [place] [address] documented as of this encounter Visit Diagnoses [...] documented as of this encounter Care Teams Warehouse Assistant Relationship Specialty Start Date End Date Melvin Pink DO [address] [place] [address] PCP - General 12/01/24 documented as of this encounter
--- OUTSIDE RECORDS SUMMARY | 2025-05-18 09:00 | XMS_ITS | Encounter Summary ---
Author Organization Healthcare Address [address] [place] [address] Care Team Providers Care Bistro Server Name Role Phone Melvin Pink Sunil CHRISTIAN Primary Care Provider [phone] Reason for Visit * Reason Comments Common Variable Immunodeficiency Encounter Details Date Type Department Care Team (Late st Contact Info) Description 05/18/2025 9:00 AM EDT Office Visit [facility] [address] [place] [address] Denise Keith, COLOR REPAIRER [address] [place] [address] Social History Tobacco Use Types [...] Not at all 05/18/2025 9:12 AM EDT Guihco Gutierrez Feeling tired or having tavo le [...] way Not at all 05/18/2025 9:12 AM Guicho Ramírez Patient Health Questionnaire -9 Score 0 05/18/2025 9:12 AM EDT Guicho Gutierrez * How difficult have these problems made it for you to do your work, take care of things at home, or get along with other people? Answer Date of Assessment Author Not difficult at all 05/18/2025 9:12 AM EDT Guicho Zavala documented as of this encounter Plan of Treatment Upcoming Encounters Date Type Department Care Team (Late st Contact Info) Description 06/07/2025 9:50 AM EST Office Visit [facility] Medicine Specialties [address] [place] [address] Nidhi Stack, COLOR REPAIRER [address] [place] [address] 06/07/2025 10:30 AM EST Office Visit [facility] Audiology [address] [place] [address] Patsy Lucero, Annalise [address] [place] [address] 06/07/2025 11:00 AM EST Office Visit [facility] Otolaryngology [address] [place] [address] Melvin Casillas MD [address] [place] [address] 08/24/2025 9:30 AM EST Office Visit [facility] Medicine Specialties [address] [place] [address] Denise Keith, COLOR REPAIRER [address] [place] [address] documented as of this encounter Visit Diagnoses [...] documented as of this encounter Care Teams Bistro Server Relationship Specialty Start Date End Date Melvin Pink DO [address] [place] [address] [place] [address] PCP - General 12/01/24 documented as of this encounter
--- OUTSIDE RECORDS SUMMARY | 2025-05-26 12:55 | XMS_ITS | Clinical Summary ---
Author Organization [facility] Address [address] [place] [address] Care Team Providers Care Mailing Jogger Name Role Phone Ml Pinkew Sunil DO Primary Care Provider [phone] Allergies Active Allergy Reactions Criticality Noted Date [...] 15 tablet 2 5 06/16/20 25 Active nystatin (Mycostatin) cream as needed. 5 Active Active Problems Problem Noted Date Diagnosed Date CVID (common variable immunodeficiency) 03/19/20 25 High cholesterol 02/28/2023 Acquired hypothyroidism 02/28/2023 Type 2 diabetes mellitus, wi out long-term current use of insulin 02/28/2023 Gastroparesis 02/28/2023 Hiatal hernia 02/28/2023 Mild intermittent asthma without complication PONV (postoperative nausea and vomiting) 023 Sjogren's syndrome 02/28/2023 SWETA (obstructive sleep apnea) 02/28/2023 Mixed conductive and sensori neural hearing loss of both ears 02/07/2022 Encounters Date Type Department Care Team Description 05/18/2025 9:00 AM EDT Office Visit [facility] Medicine Specialties [address], [address]nd [place] [address] Denise Keith, EDUCATIONAL RECRUITER 05/18/2025 Travel 05/07/2025 Orders Only [facility] Pediatric Specialty [address], [address] [place] [address] Hortensia Bowser, PharmD 05/06/2025 Telephone [facility] Medicine Specialties [address], 2nd [place] [address] Analy Freitas RN 05/04/2025 2:30 PM EDT Office Visit [facility] Audiology [address], 3rd [place] [address] Patsy Lucero, Annalise Sensorineural hearing loss (SNHL) of both ears 05/04/2025 Travel 04/14/2025 Telephone [facility] Medicine Specialties [address], 2nd [place] [address] Lora Bernardo OP Infusion 04/02/2025 Orders Only [facility] Pediatric Specialty [address], [address] [place] [address] Hortensia Bowser, PharmD 03/26/2025 3:00 PM EDT Office Visit [facility] Audiology [address], 3[address] [place] [address] Patsy Lucero, Annalise Sensorineural hearing loss (SNHL) of both ears (Primary Dx) 03/26/2025 Travel 03/23/2025 Telephone [facility] Infusion [address] [place] [address] Trinity Yao, PharmD Gamunex-C Onboarding; Gamunex Therapy 03/22/2025 Telephone [facility] Otolaryngology [address], 3rd [place] [address] Melvin Casillas MD 03/19/2025 Refill [facility] Pediatric Specialty [address], [address] [place] [address] Hortensia Bowser, PharmD CVID (common variable immunodeficiency) ([facility]) (Primary Dx) 03/15/2025 Abstract [facility] Audiology [address], 3rd [place] [address] Patsy Lucero, Annalise 03/09/2025 Nurse Triage [facility] Medicine Specialties [address], 2nd [place] [address] Denise Keith, EDUCATIONAL RECRUITER 03/08/2025 11:00 AM EDT Office Visit [facility] Audiology [address], 3rd [place] [address] Patsy Lucero, Annalise Sensorineural hearing loss (SNHL) of both ears (Primary Dx) 03/08/2025 10:40 AM EDT Office Visit [facility] Otolaryngology [address], [address] [place] [address] Melvin Casillas MD Mixed conductive and sensorineural hearing loss of both ears (Primary Dx); Chronic otitis externa of both ears, unspecified type; Cochlear implant in place 03/08/2025 Travel 03/02/2025 11:00 AM EDT Office Visit [facility] Specialties [address], [address] [place] [address] Denise Keith, EDUCATIONAL RECRUITER CVID (common variable immunodeficiency) ([facility]) (Primary Dx); Hypogammaglobulinemia ([facility]); Sjogren syndrome, unspecified ([facility]) 03/02/2025 Travel 02/27/2025 Travel from Last 3 [...] Mass Index 29.21 05/18/2025 9:08 AM EDT Plan of Treatment Upcoming Encounters Date Type Department Care Team (Late st Contact Info) Description 06/07/2025 9:50 AM EST Office Visit [facility] Medicine Specialties [address], [address]nd [place] [address] Nidhi Stack, EDUCATIONAL RECRUITER [address] [place] [address] 06/07/2025 10:30 AM EST Office Visit [facility] Audiology [address], 3rd [place] [address] Patsy Lucero, AuD [address] [place] [address] 06/07/2025 11:00 AM EST Office Visit [facility] Otolaryngology [address], 3rd [place] [address] Melvin Casillas MD [address] [place] [address] 08/24/2025 9:30 AM EST Office Visit [facility] Medicine Specialties [address], [address] [place] [address] Denise Keith, EDUCATIONAL RECRUITER [address] [place] [address] Health Maintenance Due Date Last Done Comments [facility]-Hepatitis C Screening 1945 [facility]-Medicare Annual Wellness (AWV) 1945 [facility]-Infant/Child/Adol SDOH Screenings 1945 Diabetes: Dental Exam 1956 [facility]- SDOH Screenings 1964 [facility]-Adult SDOH Screenings 1964 [facility]-DTaP,Tdap,and Td Vaccines (1 - Tdap) 10/02/1996 10/01/1996 [facility]-Zoster Vaccines (1 of 2) 06/23/2016 04/28/2016, 04/12/2016 [facility]-Diabetes: Hemoglobin A1C 04/14/2019 10/15/2018 [facility]-RSV Vaccine: 60+ Years or (1 - 1-dose 75+ series) 2021 SLD-NTDYY-89 Vaccine (6 - Moderna risk season) 2025 07/20/2024, 05/15/2022, 04/12/2021, Additional history exists [facility]-Influenza Vaccine (#1) 03/29/202507/08, 06/06/2023, 05/25/2022, Additional history exists [facility]-Pneumococcal Vaccine: 50+ Years (2 of 2 - PCV) 12/29/2025 12/29/2024, 03/29/2016 [facility]-Depression Screening 05/18/2026 05/18/2025, 04/29 [facility]-Bone Density Scan 06/12/2026 06/12/2024 , 04/16/2022, 04/16/2022, Additional history exists [facility]-Breast Cancer Screening Discontinued 12/31/2023, 07/09/2022, 07/07/2021, Additional history exists [facility]-Obesity Intervention Completed 025, 05/18/2025, 05/04/2025, Additional history exists HPV Vaccines Aged Out [...] this topic Medical Devices Implanted Type Area Community Leader Device Identifier Shelf Expiration Date Model / Serial / Lot Electrode Nucleus Profl Adv [id number] - [id number] - [id number] Implanted:Qty: 1 on 02/28/2023 by Melvin Casillas MD at [facility] Right: Ear Cochlear [id number] 01/09/2025 [id number] / [id number] / Procedures Procedure Name Priority Date/Time [...] 01/06/2019 Mammography Breast Screening Tomosynthesis Bilateral at [facility] 07/05/2020 Mammography Breast Screening Tomosynthesis Bilateral at [facility] 07/07/2021 Mammography Breast Screening Tomosynthesis Bilateral at [facility] 07/09/2022 Mammography Breast Screening Tomosynthesis Bilateral at [facility] BREAST COMPOSITION: The breasts have scattered areas of fibroglandular density. FINDINGS: There are no suspicious masses, calcifications, or areas of architectural distortion. us Self Referral Mammogram IMG BI PROCEDURES Final Result from Last 3 Months or Most Recently Relevant to Health Maintenance Insurance [facility] [place] [address] Care Teams Mailing Jogger Relationship Specialty Start Date End Date Melvin Pink DO [address] [place] [address] PCP - General 12/01/24
--- OUTSIDE RECORDS SUMMARY | 2025-05-26 12:55 | XMS_ITS | Encounter Summary ---
Author Organization [facility] Address [address] [id number] Care Team Providers Care Media Assistant Name Role Phone Joesph Melvin Sunil CHRISTIAN Primary Care Provider [phone] Reason for Visit * Reason Onset Date Comments OP Infusion 04/14/2025 Encounter Details Date Type Department Care Team ([facility] st Contact Info) Description 04/14/2025 Telephone [facility] Medicine Specialties [address], [address]nd [place] [address] [place] [address] OP Infusion Social History Tobacco Use Types [...] her IG infusions- patient is to complete [facility] [place] Patient states that insurance will change in [...] infusions and would like to have a [facility] with directions CB: [phone] documented in this encounter Plan of Treatment Upcoming Encounters Date Type Department Care Team (Late st Contact Info) Description 06/07/2025 9:50 AM EST Office Visit [facility] Medicine Specialties [address], [address]nd [place] [address] Nidhi Stack, CUSTOMER RELATIONS CONSULTANT [address] [place] [address] 06/07/2025 10:30 AM EST Office Visit [facility] Audiology [address], [address] [place] [address] Patsy Lucero, Annalise [address] [place] [address] 06/07/2025 11:00 AM EST Office Visit [facility] Otolaryngology [address], 3rd [place] [address] Melvin Casillas MD [address] [place] [address] 08/24/2025 9:30 AM EST Office Visit [facility] Medicine Specialties [address], [address] [place] [address] Denise Keith N, CUSTOMER RELATIONS CONSULTANT [address] [place] [address] documented as of this encounter [...] documented as of this encounter Care Teams Media Assistant Relationship Specialty Start Date End Date Melvin Pink DO [address] [place] [address] PCP - General 12/01/24 documented as of this encounter
--- OUTSIDE RECORDS SUMMARY | 2025-05-26 12:56 | XMS_ITS | Patient Health Record ---
Author Organization [facility] Address [address] [place] [address] Care Team Providers Care Market Manager Name Role Phone Ita You MD, [...] take 1 PO QD BUCCAL *Reorder from [employer] for eRx and Interaction Alerts* 10/15/2018 Active [...] Status Risk Notes Problem Infective otitis externa (12905096) Other infective otitis externa, bilateral (H60.393) Active confirmed Problem Otitis media (41345755) Otitis media, unspecified, unspecified ear (H66.90) Active confirmed Problem Conductive hearing loss, bilateral (811346914) Conductive hearing loss, bilateral (H90.0) Active confirmed Problem Acute cystitis (88213811) Acute cystitis without hematuria (N30.00) Active confirmed Problem Unspecified symptoms and signs involving the genitourinary system (R39.9) Active confirmed Problem Prediabetes (049603077) Prediabetes (R73.03) Active confirmed Problem Sicca syndrome (91164711) Sicca syndrome, unspecified (M35.00) Active confirmed Encounters Encounter Location Date Provider Diagnosis Sarika [place] [address] [place] [address] 05/30/2024 Provider Migration Sarika Tean [place] [address] [place] [address] 05/31/2024 Provider Migration Plan Of Treatment No Information Insurance Providers Payer Name Payer Address Payer Phone Subscriber Number Group Number Insured Name Patient Relationship to Insured Coverage Start Date Coverage End Date Rcm Missing Insurance PLEASE SCAN FRONT AND [place] [phone] [id number] Minnie Woodard Self - patient is the insured Medical (General) History Surgical History Surgery Date(Month/Year) Sx_Procedure : Stapedectomy Med_system:gastrointestinal, Sx_Procedur e : Cholecystectomy Med_system:HEENT, Sx_Procedure : Tonsill ectomy Med_system:musculoskeletal, Disease : Arthritis, Sx_Procedure : Laminectomy
--- OUTSIDE RECORDS SUMMARY | 2025-05-26 12:56 | XMS_ITS | Encounter Summary ---
Author Organization [facility] Address [address] [place] [address] Care Team Providers Care Bottom Painter Name Role Phone Melvin Pink Sunil CHRISTIAN [...] Description 06/07/2025 9:50 AM EST Office Visit [facility] Medicine Specialties [address], [address]nd [place] [address] Nidhi Stack, BRAINER [address] [place] [address] 06/07/2025 10:30 AM EST Office Visit [facility] Audiology [address], 3rd [place] [address] Patsy Lucero, Annalise [address] [place] [address] 06/07/2025 11:00 AM EST Office Visit [facility] Otolaryngology [address], 3rd [place] [address] Melvin Casillas MD [address] [place] [address] 08/24/2025 9:30 AM EST Office Visit [facility] Medicine Specialties [address], [address] [place] [address] Denise Keith, BRAINER [address] [place] [address] documented as of this encounter [...] documented as of this encounter Care Teams Bottom Painter Relationship Specialty Start Date End Date Melvin Pink DO [address] [place] [address] PCP - General 12/01/24 documented as of this encounter
--- OUTSIDE RECORDS SUMMARY | 2025-05-26 12:56 | XMS_ITS | Encounter Summary ---
Author Organization [facility] Address [address] [id number] Care Team Providers Care Javascript Engineer Name Role Phone Joesph Melvin Sunil CHRISTIAN Primary Care Provider [phone] Reason for Visit * Reason Onset Date Comments Gamunex-C Onboarding 03/23/2025 Gamunex Therapy 03/23/2025 Encounter Details Date Type Department Care Team ([facility] st Contact Info) Description 03/23/2025 Telephone [facility] Infusion [address] [place] [address] Trinity Hutton, PharmD Gamunex-C Onboarding; Gamunex Therapy [...] to receive infusion treatment at outside facility. [facility] will follow up with facility to make sure patient has been scheduled and received first dose. Specialty Medication: Gamunex-C Filling Pharmacy/SOC: [facility] * Telephone Encounter - Cheryl Lomax CPhT - 04/02/2025 2:37 PM EDT Medicare B/Advantage Plan Authorization Information Specialty Medication: gamunex-c Diagnosis Code: D83.9 J-code/CPT code/S code: J1561 Covered by Medicare B: Yes Does the diagnosis, dose, and frequency match an FDA approved dosing schedule? Yes, list prescribeddose/frequency: 25g intravenously every 28 days Site of Care: [facility] Does patient have an Advantage Plan? No. Will review in 12 months. * Telephone Encounter - Trinity Hutton PharmD - 03/23/2025 12:54 PM EDT [facility] has received therapy plan for medication Gamunex-C. [facility] has contacted the patient and arein the process of completing the authorization for preferred site of care, [facility] . [facility] Specialty Education Summary Patient was assessed via phone for initiation of drug therapy Gamunex-C for diagnosis CVID. Plan for administration of therapy in infusion center and planned date of initiation: BALA. Anticipated filling pharmacy is [facility]. Education and Counseling Medication specific education provided: [...] Description 06/07/2025 9:50 AM EST Office Visit [facility] Medicine Specialties [address], [address]nd [place] [address] Nidhi Stack, BURGLAR ALARM INSTALLER [address] [place] [address] 06/07/2025 10:30 AM EST Office Visit [facility] Audiology [address], 3rd [place] [address] Patsy Lucero, Annalise [address] [place] [address] 06/07/2025 11:00 AM EST Office Visit [facility] Otolaryngology [address], [address] [place] [address] Melvin Casillas MD [address] [place] [address] 08/24/2025 9:30 AM EST Office Visit [facility] Medicine Specialties [address], [address] [place] [address] Denise Keith, BURGLAR ALARM INSTALLER [address] [place] [address] documented as of this encounter Visit Diagnoses [...] documented as of this encounter Care Teams Javascript Engineer Relationship Specialty Start Date End Date Melvin Pink DO [address] [place] [address] PCP - General 12/01/24 documented as of this encounter
--- OUTSIDE RECORDS SUMMARY | 2025-05-26 12:56 | XMS_ITS | Encounter Summary ---
Author Organization [facility] Address [address] [place] [address] Care Team Providers Care Intermodal Truck Driver Name Role Phone Melvin Pink Sunil CHRISTIAN Primary Care Provider [phone] Encounter Details Date Type Department Care Team (Late st Contact Info) Description 05/06/2025 Telephone [facility] Medicine Specialties [address], [address] [place] [address] Analy Freitas RN CH-VASCULAR & [...] [facility]ties [address], [address]nd [place] [address] Nidhi Stack APRN [address] [place] [address] 06/07/2025 10:30 AM EST Office Visit [facility] Audiology [address], [address]rd [place] [address] Patsy Lucero AuD [address] [place] [address] 06/07/2025 11:00 AM EST Office Visit [facility] Otolaryngology [address], 3rd [place] [address] Melvin Casillas MD [address] [place] [address] 08/24/2025 9:30 AM EST Office [facility] Medicine Specialties [address], [address] [place] [address] Denise Keith, DIRECTOR PUBLIC POLICY [address] [place] [address] documented as of this encounter [...] documented as of this encounter Care Teams Intermodal Truck Driver Relationship Specialty Start Date End Date Melvin Pink DO [address] [facility] [address] [place] [address] PCP - General 12/01/24 documented as of this encounter
--- OUTSIDE RECORDS SUMMARY | 2025-05-26 12:56 | XMS_ITS | Encounter Summary ---
Author Organization [facility] Address [address] [id number] Care Team Providers Care Quahogger Name Role Phone Melvin Pink Primary Care Provider [phone] Encounter Details Date Type Department Care Team (Late Contact Info) Description 04/02/2025 Orders Only [facility] Pediatric Specialty [address], [address] [place] [address] Hortensia Bowser, PharmD [address] [place] [address] Social History Tobacco Use Types Packs/Day Years [...] Description 06/07/2025 9:50 AM EST Office Visit [facility] Medicine Specialties [address], [address]nd [place] [address] Nidhi Stack, MEDICAL IMAGING TECHNOLOGIST [address] [place] [address] 06/07/2025 10:30 AM EST Office Visit [facility] Audiology [address], 3rd [place] [address] Patsy Lucero, AuD [address] [place] [address] 06/07/2025 11:00 AM EST Office Visit [facility] Otolaryngology [address], 3rd [place] [address] Melvin Casillas MD [address] [place] [address] 08/24/2025 9:30 AM EST Office Visit [facility] Medicine Specialties [address], [address] [place] [address] Denise Keith, MEDICAL IMAGING TECHNOLOGIST [address] [place] [address] documented as of this encounter [...] documented as of this encounter Care Teams Quahogger Relationship Specialty Start Date End Date Melvin Pink, [address] [place] [address] [place] [address] PCP - General 12/01/24 documented as of this encounter
--- OUTSIDE RECORDS SUMMARY | 2025-05-26 12:56 | XMS_ITS | Clinical Summary ---
Author Organization [facility] Address [address] [place] [address] Care Team Providers Care Science And Operations Officer Name Role Phone Umberto Rodriguez MD Primary Care Provider Allergies Active Allergy Reactions Criticality Noted Date [...] Vaccine ( - 2023- season) 2025 Insurance [facility] MEDICARE REPLACE Care Teams Science And Operations Officer Relationship Specialty Start Date End Date Umberto Rodriguez MD [address] [place] [address] PCP - General Family Medicine 05/03/17
--- OUTSIDE RECORDS SUMMARY | 2025-05-26 12:56 | XMS_ITS | Encounter Summary ---
Author Organization [facility] Address [address] [id number] Care Team Providers Care Instant Printer Operator Name Role Phone Melvin Pink Sunil CHRISTIAN Primary Care Provider [phone] Encounter Details Date Type Department Care Team (Late Contact Info) Description 05/07/2025 Orders Only [facility] Pediatric Specialty [address], [address] [place] [address] Hortensia Bowser, PharmD [address] [place] [address] Social History Tobacco Use Types Packs/Day Years [...] [facility] Medicine Specialties [address], [address] [place] [address] Nidhi Stack, CODING COMPLIANCE MANAGER [address] [place] [address] 06/07/2025 10:30 AM EST Office Visit [facility] Audiology [address], [address] [place] [address] Patsy Lucero, AuD [address] [place] [address] 06/07/2025 11:00 AM EST Office Visit [facility] Otolaryngology [address], [address]rd [place] [address] Melvin Casillas MD [address] [place] [address] 08/24/2025 9:30 AM EST Office Visit [facility] Medicine Specialties [address], [address] [place] [address] Densie Keith, CODING COMPLIANCE MANAGER [address] [place] [address] documented as of this encounter [...] documented as of this encounter Care Teams Instant Printer Operator Relationship Specialty Start Date End Date Melvin Pink, [address] [place] [address] PCP - General 12/01/24 documented as of this encounter
--- OUTSIDE RECORDS SUMMARY | 2025-05-26 12:56 | XMS_ITS | Encounter Summary ---
Author Organization [facility] Address [address] [place] [address] Care Team Providers Care Prop Sawyer Name Role Phone Melvin Pink Sunil CHRISTIAN Primary Care Provider [phone] Encounter Details Date Type Department Care Team (Latest Contact Info) Description 05/18/2025 Travel Social History Tobacco Use Types Packs/Day Years Used Date Smoking Tobacco: Never Passive Smoke Exposure: Never Smokeless Tobacco: Never Alcohol Use Standard [...] energy Not at all 05/18/2025 9:12 AM ASCENCIONT Guicho Gutierrez Poor appetite or overeating Not at all 05/18/2025 9: 12 AM ASCENCIONT Guicho Gutierrez Feeling bad about yourself - or that you are a failure or have let yourself or your family down Not at all 05/18/2025 9:12 AM EDT Guicho Gutierrez Trouble concentrating on thi ngs, such as reading the newspaper or watching television Not at all 05/18/2025 9:12 AM Guicho Ramírez Moving or speaking so slowly that other people could have noticed? Or the opposite - being so fidgety or restless that you have been moving around a lot more than usual. Not at all 05/18/2025 9:12 AM Guicho Ramírez Thoughts that you would be b rudolph off or hurting yourself in some way Not at all 05/18/2025 9:12 AM Guicho Ramírez Patient Health Questionnaire -9 Score 0 05/18/2025 9:12 AM Guicho Ramírez * How difficult have these problems made it for you to do your work, take care of things at home, or get along with other people? Answer Date of Assessment Author Not difficult at all 05/18/2025 9:12 AM Guicho Fraga documented as of this encounter Plan of Treatment Upcoming Encounters Date Type Department Care Team (Late st Contact Info) Description 06/07/2025 9:50 AM EST Office Visit [facility] Medicine Specialties [address] [place] [address] Nidhi Stack, MACIEL [address] [place] [address] 06/07/2025 10:30 AM EST Office Visit [facility] Audiology [address] [place] [address] Patsy Lucero, Annalise [address] [place] [address] 06/07/2025 11:00 AM EST Office Visit [facility] Otolaryngology [address] [place] [address] Melvin Casillas MD [address] [place] [address] 08/24/2025 9:30 AM EST Office Visit [facility] Medicine Specialties [address] [place] [address] Denise Keith, RESERVE OFFICER [address] [place] [address] documented as of this encounter [...] documented as of this encounter Care Teams Prop Sawyer Relationship Specialty Start Date End Date Melvin Pink, [address] [place] [address] PCP - General 12/01/24 documented as of this encounter
--- OUTSIDE RECORDS SUMMARY | 2025-05-26 12:57 | XMS_ITS | Encounter Summary ---
Author Organization [facility] Address [address] [place] [address] Care Team Providers Care Air Hammer Stripper Name Role Phone Melvin Pink Sunil CHRISTIAN Primary Care Provider [phone] Encounter Details Date Type Department Care Team (Late st Contact Info) Description 03/09/2025 [facility] Medicine Specialties [address] [place] [address] Denise Keith, POWDER NIPPER [address] [place] [address] Social History Tobacco Use Types [...] Description 06/07/2025 9:50 AM EST Office Visit [facility] Medicine Specialties [address] [place] [id number] Nidhi Stack, MACIEL [address] [place] [address] 06/07/2025 10:30 AM EST Office Visit [facility] Audiology [address] [place] [address] Patsy Lucero AuD [address] [place] [address] 06/07/2025 11:00 AM EST Office Visit [facility] Otolaryngology [address] [place] [address] Melvin Casillas MD [address] [place] [address] 08/24/2025 9:30 AM EST Office Visit [facility] Medicine Specialties [address] [place] [address] Denise Keith N, POWDER NIPPER [address] [place] [address] documented as of this encounter [...] documented as of this encounter Care Teams Air Hammer Stripper Relationship Specialty Start Date End Date Melvin Pink DO [address] [place] [address] [place] [address] PCP - General 12/01/24 documented as of this encounter
--- OUTSIDE RECORDS SUMMARY | 2025-05-26 12:57 | XMS_ITS | Data Portability ---
Author Organization DANNA Dave dinh [facility] [place] [facility] Address [address] 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 She saw Dr. Ramirez in 2018 for frequent UTIs. A urine culture 06/2019 showed Enterococcus treated with Cipro. She wears a pessary and he placed a new pessary. She later saw Dr. Randy Huber in [place]. She goes to [place] for the winter [...] panel, auto 2024 025 isai [facility] [address], On license of [facility] , [place], [address], 02/04/2025 11:14:36 TSH, serum or plasma 2024 025 [facility], [address] [place] [address], [address], 01/06/2025 12:18:25 T4, free, serum 2024 025 [facility], [address] [place] [address], [address], 01/06/2025 12:18:26 glucose, fingerst ick, blood 2024 025 [facility], [address] [place] [address], [address], 01/06/2025 10:45:54 hemoglob in A1C, fingerst ick 2024 025 [facility], [address] [place] [address], [address], 01/06/2025 10:45:54 lipid panel, serum 2024 025 [facility], [address] [place] [address], [address], 01/06/2025 12:18:23 glucose, fingerst ick, blood [address] [facility], [address] [place] [address], [address], 06/29/2024 09:54:19 hemoglob in A1C, fingerst ick [address] [facility], [address] [place] [address], [address], 06/29/2024 09:54:19 CMP, serum or plasma 2023 024 [facility], [address] [place] [address], [address], 06/29/2024 11:16:37 vitamin B12 + folate, serum or blood 2023 024 [facility], [address] [place] [address], [address], 06/29/2024 11:54:23 microalb umin/cre atinine, mass ratio, urine [email or web address] [place] [address] Laboratory, [address] [place] [address], [address], 08/24/2024 10:36:50 T4, free, serum 2023 024 [facility], [address] [place] [address], [address], 06/29/2024 11:19:59 TSH, serum or plasma 2023 024 [facility], [address] [place] [address], [address], 06/29/2024 11:19:57 lipid panel, serum 2023 024 [facility], [address] [place] [address], [address], 06/29/2024 11:16:35 Referral None recorded . Procedures None recorded . Surgeries None recorded . Imaging CT, abdomen + pelvis, w/wo contrast 2024 025 [facility], [address] [place] [address], [address], 02/24/2025 11:45:07 Medication Orders methenam ine hippurat e 1 gram tablet 2024 025 [id number], [address], [id number], 02/04/2025 11:22:07 metformi n 500 mg tablet 2024 025 [facility], [facility] [place], [address], 01/06/2025 10:45:58 Patient TargetsNo targets recorded. Patient InstructionsNo instructions recorded. Reason for Referral None Reported. Results Created Date Observation Date Name Description Value Unit Range Abnormal Flag Note LastModifiedBy Organization Detail LastModifiedTime 06/29/20 24 06/29/2024 LIPID PROFI LE HDL cholesterol 60 mg/dL 50-242 normal Not Available [facility] [address] [place] [address], [address], 06/29/2024 11:16:35 06/29/20 24 06/29/2024 LIPID PROFI LE triglyceride s 142 mg/dL 0-149 normal TRIGL YCERI DE RANGE S SONAL L: < 150 BORDE RLINE HIGH: 150 - 199 HIGH: 200 - 499 VERY HIGH: > OR = 500 Not Available [facility] [address] [place] [address], [address], 06/29/2024 11:16:35 06/29/20 24 06/29/2024 LIPID PROFI LE cholesterol 155 mg/dL 0-199 normal SHANA STERO L (TOTA L) RANGE S JAME ABLE: < 200 BORDE RLINE : 200 - 239 HIGHE R RISK: > 239 Not Available [facility] [address] [place] [address], [address], 06/29/2024 11:16:35 06/29/20 24 06/29/2024 LIPID PROFI LE LDL cholesterol 67 mg/dL _(aziza c) 0-99 normal LDL SHANA STERO L RANGE S OPTIM AL: < 100 NEAR/ ABOVE OPTIM AL: 100 - 129 BORDE RLINE HIGH: 130 - 159 HIGH: 160 - 189 VERY HIGH: > OR = 190 Not Available [facility] [address] [place] [address], [address], 06/29/2024 11:16:35 06/29/20 24 06/29/2024 COMP. METAB OLIC PANEL glucose 98 mg/dL 74-100 normal Not Available [facility] [address] [place] [address], [address], 06/29/2024 11:16:37 06/29/20 24 06/29/2024 COMP. METAB OLIC PANEL blood urea nitrogen 7 mg/dL 6-20 normal Not Available [facility] [address] [place] [address], [address], 06/29/2024 11:16:37 06/29/20 24 06/29/2024 COMP. METAB OLIC PANEL creatinine 0.81 mg/dL 0.50-0 .95 normal Not Available [facility] [address] [place] [address], [address], 06/29/2024 11:16:37 06/29/20 24 06/29/2024 COMP. METAB OLIC PANEL BUN/creatini ne ratio 9 (calc ) 10-20 low Not Available [facility] [address] [place] [address], [address], 06/29/2024 11:16:37 06/29/20 24 06/29/2024 COMP. METAB OLIC PANEL sodium 135 mmol/ L 136-14 5 low Not Available [facility] [address] [place] [address], [address], 06/29/2024 11:16:37 06/29/20 24 06/29/2024 COMP. METAB OLIC PANEL potassium 4.8 mmol/ L 3.4-5. 0 normal Not Available [facility] [address] [place] [address], [address], 06/29/2024 11:16:37 06/29/20 24 06/29/2024 COMP. METAB OLIC PANEL chloride 99 mmol/ L 98-107 normal Not Available [facility] [address] [place] [address], [address], 06/29/2024 11:16:37 06/29/20 24 06/29/2024 COMP. METAB OLIC PANEL carbon dioxide 23 mmol/ L 22-31 normal Not Available [facility] [address] [place] [address], [address], 06/29/2024 11:16:37 06/29/20 24 06/29/2024 COMP. METAB OLIC PANEL anion gap 13 (calc ) 7-25 normal Not Available [facility] [address] [place] [address], [address], 06/29/2024 11:16:37 06/29/20 24 06/29/2024 COMP. METAB OLIC PANEL calcium 9.5 mg/dL 8.6-10 .2 normal Not Available [facility] [address] [place] [address], [address], 06/29/2024 11:16:37 06/29/20 24 06/29/2024 COMP. METAB OLIC PANEL total protein 6.9 g/dL 6.4-8. 3 normal Not Available [facility] [address] [place] [address], [address], 06/29/2024 11:16:37 06/29/20 24 06/29/2024 COMP. METAB OLIC PANEL albumin 4.6 g/dL 3.5-5. 2 normal Not Available [facility] [address] [place] [address], [address], 06/29/2024 11:16:37 06/29/20 24 06/29/2024 COMP. METAB OLIC PANEL globulin 2.3 1.5-4. 5 normal Not Available [facility] [address] [place] [address], [address], 06/29/2024 11:16:37 06/29/20 24 06/29/2024 COMP. METAB OLIC PANEL albumin/glob ulin ratio 2.0 (calc ) 1.1-2. 5 normal Not Available [facility] [address] [place] [address], [address], 06/29/2024 11:16:37 06/29/20 24 06/29/2024 COMP. METAB OLIC PANEL bilirubin, total 0.4 mg/dL 0.1-1. 2 normal Not Available [facility] [address] [place] [address], [address], 06/29/2024 11:16:37 06/29/20 24 06/29/2024 COMP. METAB OLIC PANEL alkaline phosphatase 81 U/L 30-121 normal Not Available [facility] [address] [place] [address], [address], 06/29/2024 11:16:37 06/29/20 24 06/29/2024 COMP. METAB OLIC PANEL AST 20 U/L 0-32 normal Not Available [facility] [address] [place], [address], 06/29/2024 11:16:37 06/29/20 24 06/29/2024 COMP. METAB OLIC PANEL ALT 15 U/L 0-33 normal Not Available [facility] [address] [place], [address], 06/29/2024 11:16:37 06/29/20 24 06/29/2024 COMP. METAB [...] s/KDO QI/gf r_cal culat orPed Not Available [facility] [address] [place] [address], [address], 06/29/2024 11:16:37 06/29/20 24 06/29/2024 TSH TSH 4.300 u[IU] /mL 0.270- 4.200 high Not Available [facility] [address] [place], [address], 06/29/2024 11:19:57 06/29/20 24 06/29/2024 T4,FR EE T4,free 1.07 NG/dL 0.93-1 .70 normal Not Available [facility] [address] [place] [address], [address], 06/29/2024 11:19:59 06/29/20 24 06/29/2024 B12/F OLIC ACID PANEL folic acid 14.4 NG/mL 4.6-34 .8 normal Not Available [facility] [address] [place] [address], [address], 06/29/2024 11:54:23 06/29/20 24 06/29/2024 B12/F OLIC ACID PANEL vitamin B12 399 pg/mL 232-12 45 normal Not Available [facility] [address] [place] [address], [address], 06/29/2024 11:54:23 06/29/20 24 06/29/2024 hemog lobin A1C, finge rstic k hemoglobin A1C % 5.4 % 4.0 - 5.6 Not Available [facility] [place] [address] [place] [address], [address], 06/24/2024 15:31:48 06/29/20 24 06/29/2024 gluco se, finge rstic k, blood glucose, fingerstick 114 mg/dL 70 - 100 Not Available [facility] [place] [place] [address] [place] [address], [address], 06/24/2024 15:31:48 01/07/20 25 01/06/2025 LIPID PROFI LE HDL cholesterol 59 mg/dL 50-242 normal Not Available [facility] [address] [place] [address], [address], 01/06/2025 12:18:23 01/07/20 25 01/06/2025 LIPID PROFI LE triglyceride s 164 mg/dL 0-149 high TRIGL YCERI DE RANGE S SONAL L: < 150 BORDE RLINE HIGH: 150 - 199 HIGH: 200 - 499 VERY HIGH: > OR = 500 Not Available [facility] [address] [place] [address], [address], 01/06/2025 12:18:23 01/07/20 25 01/06/2025 LIPID PROFI LE cholesterol 139 mg/dL 0-199 normal SHANA STERO L (TOTA L) RANGE S JAME ABLE: < 200 BORDE RLINE : 200 - 239 HIGHE R RISK: > 239 Not Available [facility] [place], [address], 01/06/2025 12:18:23 01/07/20 25 01/06/2025 LIPID PROFI LE LDL cholesterol 47 mg/dL _(aziza c) 0-99 normal LDL SHANA STERO L RANGE S OPTIM AL: < 100 NEAR/ ABOVE OPTIM AL: 100 - 129 BORDE RLINE HIGH: 130 - 159 HIGH: 160 - 189 VERY HIGH: > OR = 190 Not Available [facility] [address] [place] [address], [address], 01/06/2025 12:18:23 01/07/2001/06/2025 LIPID PROFI LE chol/HDL ratio (calc) 2.4 mg/dL normal NO SONAL L RANGE ESTAB LISHE D FOR SHANA STERO L/HDL RATIO (CALC ULATE D). Not Available [facility] [address] [place], [address], 01/06/2025 12:18:23 01/07/2001/06/2025 TSH TSH 2.380 u[IU] /mL 0.270- 4.200 normal Not Available [facility] [address] [place] [address], [address], 01/06/2025 12:18:25 01/07/2001/06/2025 T4,FR EE T4,free 1.19 NG/dL 0.93-1 .70 normal Not Available [facility] [address] [place] [address], [address], 01/06/2025 12:18:26 01/07/2001/06/2025 hemog lobin A1C, finge rstic k hemoglobin A1C % 5.1 % 4.0 - 5.6 Not Available [facility] [place] [address] [place] [address], [address], 01/06/2025 10:35:37 01/07/20 25 01/06/2025 gluco se, finge rstic k, blood glucose, fingerstick 214 mg/dL 70 - 100 Not Available [facility] [address] [facility], [place], [address], 01/06/2025 10:28:04 02/05/20 25 02/04/2025 urina lysis panel , auto Unknown Analyte Clean Catch Not Available [facility] [address] [facility], [place], [address], 02/04/2025 10:47:22 02/05/2002/04/2025 urina lysis panel , auto Unknown Analyte Yellow Not Available [facility] [address] [facility], [place], [address], 02/04/2025 10:47:22 02/05/2002/04/2025 urina lysis panel , auto Unknown Analyte Clear Not Available [facility] [address] [facility], [place], [address], 02/04/2025 10:47:22 02/05/20 25 02/04/2025 urina lysis panel , auto Unknown Analyte 1.015 Not Available [facility] [address] [place], [address], 02/04/2025 10:47:22 02/05/2002/04/2025 urina lysis panel , auto Unknown Analyte 7.0 Not Available [facility] [address] [facility], [place], [address], 02/04/2025 10:47:22 02/05/20 25 02/04/2025 urina lysis panel , auto Unknown Analyte Negati ve Not Available [facility] [place], [address], 02/04/2025 10:47:22 02/05/20 25 02/04/2025 urina lysis panel , auto Unknown Analyte Negati ve Not Available [facility] [address], [place], [address], 02/04/2025 10:47:22 02/05/20 25 02/04/2025 urina lysis panel , auto Unknown Analyte Negati ve Not Available [facility] [address] [facility], [place], [address], 02/04/2025 10:47:22 02/05/2002/04/2025 urina lysis panel , auto Unknown Analyte Normal Not Available [facility] [address] [facility], [place], [address], 02/04/2025 10:47:22 02/05/20 25 02/04/2025 urina lysis panel , auto Unknown Analyte Negati ve Not Available [facility] [address] [facility], [place], [address], 02/04/2025 10:47:22 02/05/20 25 02/04/2025 urina lysis panel , auto Unknown Analyte Normal Not Available [facility] [address] [place], [address], 02/04/2025 10:47:22 02/05/20 25 02/04/2025 urina lysis panel , auto Unknown Analyte Negati ve Not Available [facility] [address] [facility], [place], [address], 02/04/2025 10:47:22 02/05/20 25 02/04/2025 urina lysis panel , auto Unknown Analyte Negati ve Not Available [facility] [address] [place], [address], 02/04/2025 10:47:22 02/12/20 25 02/11/2025 urina lysis panel , auto Unknown Analyte Clean Catch Not Available [facility] Surgery Schedule [address] [place] [address], [address], 02/11/2025 15:06:19 02/12/20 25 02/11/2025 urina lysis panel , auto Unknown Analyte Yellow Not Available [facility] Surgery Schedule [address] [place] [address], [address], 02/11/2025 15:06:19 02/12/2002/11/2025 urina lysis panel , auto Unknown Analyte Clear Not Available [facility] Surgery Schedule [address] [place] [address], [address], 02/11/2025 15:06:19 02/12/20 25 02/11/2025 urina lysis panel , auto Unknown Analyte 1.[address] Not [address] [facility] Surgery Schedule [address] [place] [address], [address], 02/11/2025 15:06:19 02/12/2002/11/2025 urina lysis panel , auto Unknown Analyte 1.003 - 1.030 Not Available [facility] Surgery Schedule [address] [place] [address], [address], 02/11/2025 15:06:19 02/12/20 25 02/11/2025 urina lysis panel , auto Unknown Analyte 6.0 Not [address] [facility] Surgery Schedule [address] [place] [address], [address], 02/11/2025 15:06:19 02/12/2002/11/2025 urina lysis panel , auto Unknown Analyte 5.0 - 8.0 Not Available [facility] Surgery Schedule [address] [place] [address], [address], 02/11/2025 15:06:19 02/12/20 25 02/11/2025 urina lysis panel , auto Unknown Analyte Negati ve Not Available [facility] Surgery Schedule [address] [place], [address], 02/11/2025 15:06:19 02/12/20 25 02/11/2025 urina lysis panel , auto Unknown Analyte Negati ve Not Available [facility] Surgery Schedule [address] [place], [address], 02/11/2025 15:06:19 02/12/20 25 02/11/2025 urina lysis panel , auto Unknown Analyte Negati ve Not Available [facility] Surgery Schedule [address] [place], [address], 02/11/2025 15:06:19 02/12/20 25 02/11/2025 urina lysis panel , auto Unknown Analyte Negati ve Not Available [facility] Surgery Schedule [address] [place], [address], 02/11/2025 15:06:19 02/12/20 25 02/11/2025 urina lysis panel , auto Unknown Analyte Negati ve Not Available [facility] Surgery Schedule [address] [place], [address], 02/11/2025 15:06:19 02/12/20 25 02/11/2025 urina lysis panel , auto Unknown Analyte Negati ve Not Available [facility] Surgery Schedule [address] [place], [address], 02/11/2025 15:06:19 02/12/20 25 02/11/2025 urina lysis panel , auto Unknown Analyte Normal Not Available [facility] Surgery Schedule [address] [place], [address], 02/11/2025 15:06:19 02/12/20 25 02/11/2025 urina lysis panel , auto Unknown Analyte Normal Not Available [facility] Surgery Schedule [address] [place], [address], 02/11/2025 15:06:19 02/12/20 25 02/11/2025 urina lysis panel , auto Unknown Analyte Negati ve Not Available [facility] Surgery Schedule [address] [place], [address], 02/11/2025 15:06:19 02/12/20 25 02/11/2025 urina lysis panel , auto Unknown Analyte Negati ve Not Available [facility] Surgery Schedule [address] [place], [address], 02/11/2025 15:06:19 02/12/20 25 02/11/2025 urina lysis panel , auto Unknown Analyte Normal Not Available [facility] Surgery Schedule [address] [place], [address], 02/11/2025 15:06:19 02/12/20 25 02/11/2025 urina lysis panel , auto Unknown Analyte Normal Not Available [facility] Surgery Schedule [address] [place] [address], [address], 02/11/2025 15:06:19 02/12/20 25 02/11/2025 urina lysis panel , auto Unknown Analyte Negati ve Not Available [facility] Surgery Schedule [address] [place] [address], [address], 02/11/2025 15:06:19 02/12/20 25 02/11/2025 urina lysis panel , auto Unknown Analyte Negati ve Not Available [facility] Surgery Schedule [address] [place], [address], 02/11/2025 15:06:19 02/12/20 25 02/11/2025 urina lysis panel , auto Unknown Analyte Negati ve Not Available [facility] Surgery Schedule [address] [place] [address], [address], 02/11/2025 15:06:19 02/12/20 25 02/11/2025 urina lysis panel , auto Unknown Analyte Negati ve Not Available [facility] Surgery Schedule [address] [place], [address], 02/11/2025 15:06:19 06/12/20 24 06/12/2024 DEXA No observ ation record ed. [email or web address] Annemarie Byrd MD [address] [place], [address], 06/29/2024 08:09:01 06/12/20 24 06/12/2024 DEXA No observ ation record ed. [email or web address] Annemarie Byrd MD [address] [place], [address], 06/15/2024 08:17:14 02/25/20 25 02/24/2025 CT, abdom en + pelvi [facility], [facility] [address] [place] [id number] Patien t Name: CHARLES MARRUFO Patien t [...] 350 (1 x 100 mL bottle of [facility] [address]- 1414-9 1). None was wasted and discar [...] Nestor Culp MD on 025 11:40 AM [facility] Radiology [facility] [address] [place], [address], 02/27/2025 00:03:42 Result Notes Documentation Provider Name and Address Organization Details Recorded Time Dexa : [facility] [address] [place] [address]TKWEYZMinnie CURTIS (id #[id number], : 1945) [place] [address] [place] [address] Date: 4RE: Minnie Marrufo, : 1945, PT ID #[id number] Mccabe MD, I would like to thank [...] reliability. 5. Fall prevention. DANNA Escobar (Nicole) [facility] 06/29/2024 08:09:01 Dexa : [address] [address]KCFQYKMinnie CURTIS (id #[id number], : 1945) [address] [address] Date: 4RE: Minnie Marrufo, : 1945, PT ID #[id number] Click [employer], I would like to thank you for referring Minnie Marrufo to our practice for consultation and evaluation. I have enclosed a copy of the office evaluation for your records. Sincerely, Electronically Signed by: ANNEMARIE BYRD, MDProcedveronica DocumentationDXA Low Bone Mass 1 - No [...] or reliability. 5. Fall prevention. Tabby Wetzel [place], [place] - [facility] 06/15/2024 08:17:14 Ct, Abdomen + Pelvis, W/wo Contrast : [facility] [address] [place] [address] Patient Name: MINNIE MARRUFO Patient : 1945 Patient Ordering Provider: SAMMIE SOTO EXAM DATE: 02/24/2025 EXAM: CT ABD/PELVIS W/WO CONTRAST CLINICAL INFORMATION: Hematuria TECHNIQUE: A baseline serum creatinine with eGFR was obtained prior to injection of contrast medium due to the patients risk factors for WILLIE. Calculated eGFR at time of exam was [address] images of the abdomen were obtained before and in the combined nephrographic and excretory phases after a split injection of 100 mL Omnipaque 350 (1 x 100 mL bottle of [facility] [address]-20). None was wasted and discarded. No oral [...] Interpreted By: Nestor Culp MD IE SOTO, [employer] [address] [place], [address], [facility] 02/24/2025 11:59:14 Problems Name Problem SNOMED Code Status Onset Date Resolution Date Notes Provider Name and Address Organization Details Recorded Time Chronic rhinitis 90697224 Active 2014 Provider: Kenneth Choe;Statu s: [facility] 09:[facility]:25 Eustachia n tube disorder 32009847 Active 2014 Provider: Kenneth Choe;Statu s: Active [facility] 8 09:21:25 Sensorine ural hearing loss of bilateral ears 269070159 Active 2014 Provider: Kenneth Choe;Statu s: Active [facility] 8 09:21:25 Sleep apnea 32042516 Active 2014 Provider: Kenneth Choe;Statu s: Active [facility] 8 09:21:25 Inflammat ory dermatosi s 840200412 Active 2014 Provider: Kenneth Choe;Statu s: Active [facility] 8 09:21:25 Chronic otitis externa 17042820 Active 2014 Provider: Kenneth Choe;Statu s: Active [facility] 8 09:21:25 Allergic rhinitis 23970958 Active 2014 Provider: Kenneth Choe;Statu s: Active [facility] 8 09:21:25 Thyroidit is 48433183 Active 2014 From Automated Load;Prov ider: Adair Cadena;Stat us: Active [facility] 8 09:21:25 Hyperglyc emia 57690601 Active 2014 From Automated Load;Prov ider: Adair Cadena;Stat us: Active [facility] 8 09:21:25 Mixed hyperlipi demia 122155189 Active 2014 From Automated Load;Prov ider: Adair Cadena;Stat us: Active Astrid Musa null, [facility] 8 09:21:25 Impacted cerumen 49299080 Active 2014 From Automated Load;Prov ider: Kenneth Choe;Statu s: Active Astrid Musa null, [facility] 8 09:21:25 Sensorine ural hearing loss 91933916 Active 2014 From Automated Load;Prov ider: Kenneth Choe;Statu s: Active Astrid Musa null, [facility] 8 09:21:25 Otitis externa 8190478 Active 2014 From Automated Load;Prov ider: Kenneth Choe;Statu s: Active Astrid Musa null, [facility] [facility] 8 09:21:25 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 From Automated Load;Prov ider: Kenneth Choe;Statu s: Active Astrid Musa null, [facility] 8 09:21:25 Mixed conductiv e and sensorine ural hearing loss, bilateral 187866412 Active 2015 From Automated Load;Prov ider: Kenneth Choe;Statu s: Active Astrid Musa null, [facility] 8 09:21:25 Prediabet es 538722077 Active 2015 From Automated Load;Prov ider: Annemarie Byrd;Sta tus: Active Astrid Musa null, [facility] 8 09:21:25 Hypothyro idism 04863945 Active 2015 From Automated Load;Prov ider: Annemarie Byrd;Sta tus: Active Astrid Musa null, [facility] 8 09:21:25 Hyperlipi demia 17456442 Active 2015 From Automated Load;Prov ider: Annemarie Byrd;Sta tus: Active Astrid Musa null, [facility] 8 09:21:25 Bone density finding 820393449 Active 2015 From Automated Load;Prov ider: Annemarie Byrd;Sta tus: [facility] 09:[facility]:25 Otitis externa of right ear 660864759752 9101 Active 2015 From Automated Load;Prov ider: Kenneth Choe;Statu s: [facility] 8 09:21:25 Mixed conductiv e AND sensorine ural hearing loss 35941134 Active 2015 From Automated Load;Prov ider: Kenneth Choe;Statu s: Active Astrid Vigil [facility] 8 09:21:25 Problem Notes None recorded. Procedures Surgical History Date Name Laterality Status Provider Name and Address Organization Details Recorded Time 02/12/20 25 Cystoscopy - female completed VINICIO JOHNSON MD [address] [place] [address], [phone], [facility] 02/11/2025 16:12:31 02/05/20 25 Post Void Residual; Ultrasound completed Genia Llamas [facility] 02/04/2025 10:56:31 06/12/20 24 DXA Low Bone Mass 1 - No Tx completed ANNEMARIE BYRD MD [address] [place] [address], [phone], [facility] 06/12/2024 17:48:50 08/20/19 24 Destruction Premalignant Lesion(s) completed Leta Poole [facility] 08/20/2023 15:40:37 08/20/19 24 Destruction BN Lesions completed Leta Poole [facility] 08/20/2023 15:40:26 06/28/20 22 Cystoscopy - female completed VINICIO JOHNSON MD [address] [place] [address], [phone], [facility] 06/28/2022 13:21:55 05/10/20 22 Post Void Residual; Ultrasound completed Georgia Delcid [facility] 05/10/2022 09:10:42 04/16/20 22 DXA Low Bone Mass 1 - No Tx completed ANNEMARIE BYRD MD [address] [place] [address], [phone], [facility] 04/16/2022 12:52:34 06/19/20 19 Pessary Insertion completed DOT RAMIREZ MD [address] [place] [address], [phone], [facility] 06/23/2019 21:52:40 01/23/20 19 DXA Low Bone Mass 1 - No Tx completed ANNEMARIE BYRD MD [address] [place] [address], [phone], [facility] 01/22/2019 16:51:09 02/29/20 18 [facility] 02/28/2018 15:27:57 02/21/20 18 Ears/Nose/Throat Surgery completed Layla Madden [facility] 02/28/2018 15:14:43 12/21/19 18 Binocular Microscopy completed [facility] 12/20/2017 13:06:21 11/30/19 18 Binocular Microscopy completed [facility] 11/29/2017 09:34:05 07/05/20 17 Cerumen removal - Instruments, Unilateral completed Krupa Armijo [facility] 07/05/2017 10:23:04 06/07/20 17 Binocular Microscopy completed Olinda Salinas [facility] 06/07/2017 09:48:44 02/16/20 17 DXA Low Bone Mass 1 - No Tx completed ANNEMARIE BYRD MD [address] [place] [address], [phone], [facility] 02/18/2017 18:08:26 02/02/20 17 Binocular Microscopy completed Carol Velasquez [facility] 02/01/2017 11:00:25 11/24/19 17 Binocular Microscopy completed Krupa Armijo [facility] 11/23/2016 10:48:40 03/26/20 13 Ears/Nose/Throat Surgery completed Astrid Vigil [facility] 06/07/2017 09:12:53 06/02/20 12 repair of vesicocolic fistula completed VINICIO JOHNSON MD [address] [place] [address], [phone], [facility] 02/11/2025 16:13:23 Back Surgery completed [facility] 01/08/2017 10:27:45 Tonsillectomy completed [facility] 01/08/2017 10:27:51 Cholecystectomy completed [facility] 01/08/2017 10:27:58 Ears/Nose/Throat Surgery completed [facility] 01/08/2017 10:28:12 [employer] Surgery completed [facility] 01/08/2017 10:28:25 Ears/Nose/Throat Surgery completed Astrid Musa [facility] 06/07/2017 09:13:15 Cystoscopy completed VINICIO JOHNSON MD [address] [place] [address], [phone], [facility] 02/11/2025 16:14:26 Imaging Results None recorded. Procedure Notes None recorded. Medical Equipment None Reported. Allergies Allergen ID Allergen Name Allergen Category Reaction Reaction Severity Criticality Documentation Date Start Date Code Code System Note Provider Name and Address Organization Details Recorded Time 639505 Substance with sulfonami de structure and antibacte rial mechanism of action (substanc e) medicatio n Not available Not available Not available 06/21/20162005 75705 8003 SNOMED Comme nt: Creat ed By: Bere ValenciaCrea santos Date: 2005 1:21: 53 PM; Layla zurita, [facility] 9 11:00:14 183111 amoxicill in trihydrat e medicatio n other Not available Not available 06/21/20162008 22300 8 RxNorm React ion: OTHER ; Comme nt: flush ing tongu e;Cre ated By: Noe yorkCre ated Date: 2008 10:45 :39 AM; Not Available [facility] 6 12:47:44 [id number] Product containin g penicilli n (product) medicatio n Not available Not available Not available 06/22/20162005 53667 8001 SNOMED Comme nt: Creat ed By: Jervi s Dory ;Crea santos Date: 2005 1:22: 18 PM; Not Available [facility] 6 03:42:54 300030 Keflex medicatio n Not available Not available Not available 06/22/20162005 15741 7 RxNorm Comme nt: Creat ed By: Bere Connors ;Crea santos Date: 2005 1:22: 07 PM; [facility] 9 09:27:23 [id number] Ceftin medicatio n other Not available Not available 06/22/20162007 24259 6 RxNorm React ion: TONGU E SWELL ING; Comme nt: Creat ed By: Ismael Merrtit ;Crea santos Date: 2007 10:19 :01 AM; Not Available [facility] 6 04:29:48 906047 Mobic medicatio n Not available Not available Not available 06/22/20162012 52206 9 RxNorm Comme nt: Creat ed By: Ahsan Adler da;Cr eated Date: 2012 11:34 :39 AM; [facility] 9 09:27:31 [id number] Cephalosp lawson (substanc e) medicatio n Not available Not available Not available 12/03/2022 01403 7003 SNOMED Jody Gabriel [facility] 3 14:25:56 Medications Name Sig [...] release 12/22 completed Medicati on Descript ion: alondrafene sin; Route:or al; refills: 0 Not Available [...] Updated DateTime 01/06/2025 162.56 cm 28.8 kg/m2 23297.52 g 122/76 mm[Hg] [facility] 01/06/2025 10:29:18 Date Recorded Body mass index (BMI) Body weight Provider Name and Address Organization Details Last Updated DateTime 02/04/2025 28.5 kg/m2 91512.33 g Radha Gonsalez [facility] 02/04/2025 10:37:34 Date Recorded Body height Provider Name an d Address Organization Details Last Updated DateTime 02/04/2025 162.56 cm [facility] 02/04/2025 10:36:30 Date Recorded Body height Body mass index (BMI) Body weight Heart rate Systolic And Diastolic Provider Name and Address Organization Details Last Updated DateTime 06/29/2024 162.56 cm 30 kg/m2 45173.66 g 74 /min 120/74 mm[Hg] [facility] 06/29/2024 09:43:37 Social History Question Answer Notes LastModified by Organizat ion Details LastModified Time Tobacco Smoking Status Never Smoker [facility] 01/08/2017 10:27:07 How Much Tobacco Do You Chew? None [email or web address] Information not available 06/19/2019 What Was The Date Of Your Most Recent Tobacco Screening? 12/03/2022 [email or web address] Information not available 12/03/2022 What Is Your Relationship Status? [email or web address] Information not available 02/04/2025 How Much Tobacco Do You Smoke? No [email or web address] Information not available 06/19/2019 Has Tobacco Cessation Counseling Been Provided? No [email or web address] Information not available 02/28/2018 How Many Years Have You Smoked Tobacco? 0 [email or web address] Information not available 07/02/2019 Sex: Female Functional [...] used smokeless tobacco? Never used smokeless tobacco [email or web address] Information not available 07/02/2019 Are you currently employed? No [email or web address] Information not available 02/04/2025 Do you or have you ever used e-cigarettes or vape? Never used electronic cigarettes [email or web address] Information not available 07/02/2019 Mental Status None [...] 10:06:43 Medical History Condition Response Pancreatitis Y Other Y Gout N Thyroid Disease Y Macular Degeneration N Kidney Stones N Hyperthyroidism N Heart Arrhythmia N Hernia Y Emphysema N Esophagus/swallowing troubles Y Hypothyroidism Y Depression N COPD N Glaucoma N Pneumonia Y Thyroid nodule mass N [...] trouble Y Colon Polyps Y Heart Attack ([place]) N Ulcers N Osteopenia N Do you [...] ICD10 Code Diagnosis IMO Codes Diagnosis Note [id number] MD DANNA ARCHIBALD [address] [place] [address] 11/23/2016 10:11:32 11/27/2016 08:44:42 Sensorineural hearing loss of bilateral ears 736221396 H90.3 Allergic rhinitis 283204 04 J30.9 Eustachian tube disorder 79063954 H69.93 Chronic ot itis externa 70668023 H60.63 dry Acute otitis externa 302 49583 H60.359 [id number] ANNEMARIE BYRD MD [address] [place] [address] 12/10/2016 09:03:27 12/10/2016 10:35:31 Hypothyroidism 00912162 E78.5 M85.80 R73.02 Labs as belowClini lesley appears euthyroid apart from weight gainHad questions about obesity and weight gain.All questions answered.C heck labs todayFurth er management to be determined as appropriat e. [id number] KENNETH CHOE MD [place] [facility] [address] [facility] [address] [place] [address] 12/14/2016 14:34:35 12/14/2016 16:11:07 Otitis externa of right ear 2501102601 096322 H60.91 Dysfunctio n of eustachian tube 76478572 H69.93 Sensorineu ral hearing loss of bilateral ears 723556493 H90.3 [id number] KENNETH CHOE MD [place] [facility] [address] [facility] [address] [place] [address] 01/08/2017 10:21:38 01/08/2017 12:34:29 Otitis externa of right ear 3146085789 280188 H60.91 Dysfunctio n of eustachian tube 52628854 H69.93 retained T-tubes Sensorineu ral hearing loss of bilateral ears 980314830 H90.3 Allergic rhinitis 832456 04 J30.9 [id number] MD DANNA ARCHIBALD [address] [facility] [address] [place] [address] 02/01/2017 10:08:02 02/01/2017 11:26:11 Otitis externa of right ear 2087873440 193454 H60.91 Dysfunctio n of right eustachian tube 8599440593 899385 H69.91 - retained T-Tube Dysfunctio n of left eustachian tube 2395442382 170310 H69.92 - retained T-Tube Sensorineu ral hearing loss of bilateral ears 238617355 H90.3 Otorrhea 32992358 H92.11 - right Granulation of tissue 22 8456092 R23.8 - Right ear [id number] ANNEMARIE BYRD MD [facility] [address] [place] [address] 02/15/2017 13:52:33 02/15/2017 14:33:12 [id number] KENNETH CHOE MD [place] [facility] [address] [place] [address] 06/07/2017 09:29:08 06/07/2017 11:11:26 Dysfunction of eustachian tube 18382439 H69.93 retained T-tube on the right Impacted c erumen in left ear 7751799397 478143 H61.22 Otitis ext rodger of right ear 5877667192 576485 H60.91 [id number] ANNEMARIE BYRD MD [address] [place] [address] 06/25/2017 09:50:14 06/25/2017 11:26:39 Hypothyroidism 58335207 E78.5 M85.80 R73.02 Clinically appears euthyroid apart from weight loss and Palpitatio nsAll questions answered. Check labs todayFurth er management to be determined as appropriat e. Hyperlipidemia 15010326 E78.5 LDL of 66, elevated triglyceri duane of 171, low HDL cholestero l and total cholestero l 147 on 12/10/2016C ontinue current atorvastat in therapy 10 mg every bedtimePre scription renewed for Atorvastat in and ZetiaLipid panel and LFTs today Prediabetes 539427169 R7 3.03 I counseled patient about the [...] dayCheck A1c today Vitamin D deficiency 347 73461 E55.9 M85.80 Check 25-hydroxy vitamin DBone density [...] necessary. Vitamin B1 2 deficiency (non anemic) 74823271 E53.8 Reported having a history of vitamin B12 deficiency Check vitamin B12 levels today [id number] KENNETH CHOE MD [place] [facility] [address] [facility],[address] [place] [address] 07/05/2017 09:48:37 07/05/2017 10:31:41 Dysfunction of eustachian tube 91601042 H69.93 retained tube on left Impacted c erumen in left ear 3216468774 972021 H61.22 Chronic ot itis externa 09563500 H60.63 dry Sensorineu ral hearing loss of bilateral ears 733917208 H90.3 Tympanic m embrane inflamed 649287267 H73.21 [id number] KENNETH CHOE MD [place] [facility] [address] [facility],[address] [place] [address] 11/29/2017 09:17:12 11/29/2017 16:38:29 Dysfunction of eustachian tube 85554741 H69.93 retained tube on left Chronic ot itis externa 28019797 H60.63 dry Sensorineu ral hearing loss of bilateral ears 492575563 H90.3 Tympanic m embrane inflamed 251226772 H73.21 Chronic pu rulent otitis media 25739548 H66.3X9 Chronic rhinitis 9627285 6 J31.0 [id number] ANNEMARIE BYRD MD [address] [place] [address] 12/13/2017 09:52:39 12/13/2017 10:34:10 Hypothyroidism 78743408 E78.5 M85.80 R73.02 Clinically appears euthyroid apart from weight loss and Palpitatio nsAll questions answered. Check labs todayFurth er management to be determined as appropriat e. Hyperlipidemia 85248024 E78.5 LDL of 62, elevated triglyceri duane of 210, low HDL cholestero l 44 and total cholestero l 148 on 12/10/2016C ontinue current atorvastat in therapy 10 mg every bedtime and Zetia 10 mgPrescrip tion renewed for Atorvastat in and Zetia Prediabetes 770993127 R7 3.03 I counseled patient about the [...] mg twice a dayCheck A1c today Fatigue 20681452 R53.83 Reported dry skin, dry mouthwante d be evaluated for Sj gren syndromeRe ferral to rheumatolo gy [id number] KENNETH CHOE MD [place] [facility] [address] [place] [address] 12/20/2017 12:44:42 12/24/2017 13:01:54 Mixed conductive and sensorineural hearing loss, bilateral 806587674 H90.6 Dysfunctio n of eustachian tube 61770727 H69.93 retained tube on left Tympanic m embrane inflamed 565236416 H73.21 Chronic ot itis externa 69931964 H60.63 dry Sensorineu ral hearing loss of bilateral ears 498038282 H90.3 Chronic rhinitis 0509264 6 J31.0 Chronic se enrique otitis media 23237185 H65.23 Fatigue 69562328 R53.83 [id number] SUSAN MCCABE MD [address] [place] [address] 01/14/2018 09:33:56 01/14/2018 10:57:58 Keratoconjunctivitis sicca, in Sj gren's syndrome 23104026 M35.01 she has chronic worsening dry eyes, [...] contact her after review of the studies. [id number] SUSAN MCCABE MD [address] [place] [address] 01/27/2018 14:21:46 01/27/2018 16:43:51 Keratoconjunctivitis sicca, in Sj gren's syndrome 35840640 M35.01 she has chronic worsening dry eyes, [...] contact her after review of the studies. [id number] MD DANNA ARCHIBALD [address]NT [address] [place] [address] 02/04/2018 11:16:09 02/04/2018 13:26:23 Sj gren's syndrome 74655318 M35.00 possible Dysfunctio n of eustachian tube 44104663 H69.93 retained tube on left Serous otitis media 8032 7007 H65.91 [id number] MD DANNA ARCHIBALD [address] [address] [place] [address] 02/28/2018 14:43:48 03/03/2018 10:01:45 Sj gren's syndrome 59006752 M35.00 normal results Dysfunctio n of eustachian tube 44993894 H69.93 retained bilateral ear tubes Fatigue 72935632 R53.83 Otorrhea of left ear 366 8295306 374936 H92.12 moisture noted around tube Chronic ot itis externa 60034144 H60.63 [id number] SUSAN MCCABE MD [facility] [address] [place] [address] 03/06/2018 11:10:22 03/06/2018 13:48:18 Keratoconjunctivitis sicca, in Sj gren's syndrome 25321349 M35.01 she has chronic worsening dry eyes, [...] will see how she does with plaquenil. [id number] KENNETH CHOE MD [place] [facility] [address] [place] [address] 03/21/2018 10:13:21 03/24/2018 08:36:36 Sj gren's syndrome 50595755 M35.00 normal results Dysfunctio n of eustachian tube 38861665 H69.93 retained right ear tube Fatigue 30505677 R53.83 Perforatio n of tympanic membrane 46621474 H72.92 10% [id number] SUSAN MCCABE MD [address] [address] 04/30/2018 12:57:10 04/30/2018 15:02:18 Keratoconjunctivitis sicca, in Sj gren's syndrome 09136284 M35.01 Primary Sjogren's. Her LEILA screen and [...] to elevated lfts. maintain the eye exam. [id number] [place] [address] [place] [address] 06/16/2018 09:39:32 06/16/2018 14:37:40 Hyperlipidemia 60932486 E78.5 LDL of 69, elevated triglyceri duane of 172, low HDL cholestero l 42 and total cholestero l 145 on 12/20/2017C ontinue current atorvastat in therapy 10 mg every bedtime and Zetia 10 mgPrescrip tion renewed for Atorvastat in and Zetia Prediabetes 267019070 R7 3.03 A1c of 5.4% in the [...] mg twice a dayPrescri ption renewed Hypothyroidism 52335045 E03.9 TSH of 0.8807812/13Presc ription renewedInt ermittent palpitatio nsCheck TSH today [id number] ANNEMARIE BYRD MD [address] [place] [address] 12/12/2018 10:17:25 12/12/2018 11:40:39 Prediabetes 038538741 R73.03 I counseled patient about the importance [...] twice a dayCheck A1c and BMP Hypothyroidism 86230414 E03.9 TSH of 2.18 on 06/16/2018 Continue current Synthroid dose of 125 g every a.m.Check TSH today Hyperlipidemia 10889010 E78.5 LDL of 69, elevated triglyceri duane of 137, low HDL cholestero l 65 and total cholestero l 137 on 06/16/2000 Continue current atorvastat in therapy 10 mg every bedtime and Zetia 10 mgLipid panel and LFTs [id number] SUSANASCENCION MCCABE MD RHE[address] [place] [address] 12/30/2018 09:01:34 12/30/2018 10:25:05 Keratoconjunctivitis sicca, in Sj gren's syndrome 09291963 M35.01 Primary Sjogren's. Her LEILA screen and [...] treated for SWETA, on CPAP. Senile osteopenia 143619 06 M85.80 Last DEXA in 03/2017. No evidence of spontaneou s fractures. Needs to have repeat DEXA this year after 01/2019. maintain ca and vitamin D. No indication s for the bisphospho nates. Generalize d osteoarthritis 416258821 M15.9 she has chronic diffuse degenerati ve process , as expected for her age. No features of RA noted. Reassured. [id number] ANNEMARIE BYRD MD [address] [address] [place] [address] 01/22/2019 14:01:22 01/22/2019 14:34:06 Osteopenia 089228091 M85.9 [id number] ANNEMARIE BYRD MD [address] [place] [address] 05/27/2019 10:37:12 05/27/2019 11:58:58 Hyperlipidemia 46527821 E78.5 LDL of 63, elevated triglyceri duane of 134, low HDL cholestero l and total cholestero l 135 on 12/12/2018C ontinue current atorvastat in therapy 10 mg every bedtime and Zetia 10 mgLipid panel and LFTsFurthe r adjustment as appropriat e Prediabetes 759363252 R7 3.03 I counseled patient about the [...] twice a day Check A1c today Hypothyroidism 09917895 E03.9 TSH of 2.18 on 06/16/2018 Continue current Synthroid dose of 125 g every a.m.Check TSH today Osteopenia 850653078 M85 .9 Most recent bone density on [...] day), including supplement s if necessary. Fatigue 92162889 R53.83 Reported dry skin, dry mouthwante d be evaluated for Sj gren syndromeRe ferral to rheumatolo gy Deficiency of vitamin D3 832910664 E55.9 [id number] DOT RAMIREZ [facility] [address] [place] [address] 06/05/2019 09:44:18 06/05/2019 11:22:53 Chronic cystitis 93736077 N30.20 plan as above Midline cystocele 683618 003 N81.11 she will return in 2 weeks for pessary fitting. [id number] DOT RAMIREZ MD [facility] [address] [place] [address] 06/19/2019 11:07:46 06/19/2019 12:48:45 Chronic infective cystitis 504457329 N30.20 Midline cystocele 061650 003 N81.11 as above follow-up 4-5 months [id number] SUSAN MCCABE MD RHEUMATOL [address] [place] [address] 07/02/2019 10:42:33 07/03/2019 13:38:24 Body mass index 30+ - obesity 086904045 Z68.30 Diet and exercise reviewed. Keratoconj unctivitis sicca, in Sj gren's syndrome 28303203 M35.01 Primary Sjogren's. Associated with chronic dry [...] treated for SWETA, on CPAP. Senile osteopenia 654942 06 M85.80 No evidence of spontaneou s fractures. DEXA reviewed, 12/2018. Modest osteopenia , with stable FRAX scores. maintain ca and vitamin D. No indication s for the bisphospho nates. Generalize d osteoarthritis 672913377 M15.9 she has chronic diffuse degenerati ve process , as expected for her age. No features of RA noted. Reassured. 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 [id number] ANNEMARIE BYRD MD [address] [place] [address] 12/04/2019 09:19:44 12/04/2019 09:46:13 Hyperlipidemia 43918776 E78.5 LDL of 62 in April 2019Contin ue current atorvastat in therapy 10 mg every bedtime and Zetia 10 mgLipid panel and LFTsFurthe r adjustment as appropriat e Hypothyroidism 39773801 E03.9 TSH of 0.92 in April 2019Contin ue current Synthroid dose of 125 g every a.m.Check TSH todayFurth er adjustment as appropriat e Prescripti on to follow Prediabetes 602631797 R7 3.03 I counseled patient about the [...] dayCheck A1c today Vitamin D deficiency 347 27882 E55.9 M85.80 Check 25-hydroxy vitamin DBone density [...] per day), including supplement s if necessary. [id number] SUSAN MCCABE MD RHE[facility]ATOL [address] [place] [address] 01/28/2020 08:59:08 02/02/2020 10:35:15 Keratoconjunctivitis sicca, in Sj gren's syndrome 99344492 M35.01 Primary Sjogren's, without any extragland ular [...] apnea treatment with CPAP machine. Senile osteopenia 833769 06 M85.80 No evidence of spontaneou s fractures. DEXA reviewed, 12/2018. Modest osteopenia , with stable FRAX scores. maintain ca and vitamin D. No indication s for the bisphospho nates. Generalize d osteoarthritis 653546818 M15.9 she has symptomati c bilateral knee joint space is to have responded to the Voltaren gel. She can continue with the Voltaren gel twice a day applicatio ns as needed. Call our office if symptoms do not improve or get worse for in office evaluation . [id number] ANNEMARIE BYRD MD [address] [place] [address] 06/27/2020 09:20:08 06/27/2020 09:56:07 Hypothyroidism 53520673 E03.9 TSH of 1.19 on 01/19/2020R eported weight gainRechec k TSH and free [id number] Synthroid dose of 5 days a week [...] levothyrox in therapy.Pr escription to follow Hyperlipidemia 36171136 E78.5 LDL of 57Continue current atorvastat in therapy 10 mg every bedtime and Zetia 10 mgPrescrip tions were renewed Prediabetes 915438719 R7 3.03 I counseled patient about the [...] mg twice a dayGlycate d hemoglobin today [id number] [place] [address] [place] [address] 06/28/2020 08:07:24 06/28/2020 11:59:18 Keratoconjunctivitis sicca, in Sj gren's syndrome 43474324 M35.01 Primary Sjogren's, without any extragland ular [...] apnea treatment with CPAP machine. Senile osteopenia 846200 06 M85.80 No evidence of spontaneou s fractures. DEXA reviewed, 12/2018. Modest osteopenia , with stable FRAX scores. maintain ca and vitamin D. No indication s for the bisphospho nates. Generalize d osteoarthritis 146632266 M15.9 she has chronic joint pains especially involving the knee joints. There have tolerated to the topical Voltaren gel Refills given. Follow-up in 6 months. [id number] SUSAN MCCABE MD RHEUMATOL OGY [address] [place] [address] 09/14/2020 09:47:39 09/14/2020 11:16:52 Keratoconjunctivitis sicca, in Sj gren's syndrome 34244130 M35.01 Primary Sjogren's, without any extragland ular [...] cation for COVID-19 vaccinatio n Senile osteopenia 621658 06 M85.80 No evidence of spontaneou s fractures. DEXA reviewed, 12/2018. Modest osteopenia , with stable FRAX scores. maintain ca and vitamin D. No indication s for the bisphospho nates. Generalize d osteoarthritis 026689566 M15.9 she has chronic joint pains especially involving the knee joints. There have tolerated to the topical Voltaren gel Refills given. Follow-up in 6 months. [id number] ANNEMARIE BYRD MD ENDOCRINO LOGY SB [address] [place] [address] 12/22/2020 09:24:29 12/22/2020 10:20:12 Prediabetes 266571167 R73.03 I counseled patient about the importance [...] metformin 500 mg twice a day Hyperlipidemia 85498163 E78.5 Lipid panel today Continue current atorvastat in therapy 10 mg every bedtime and Zetia 10 mg Prescripti ons renewed Further adjustment as appropriat e. Hypothyroidism 13084352 E03.9 TSH of 2.78 on 06/27/2020 Recheck [...] on to follow Cramp in lower limb 9346 51634 R25.2 Will further evaluate [id number] SUSAN MCCABE MD RHEUMATOL OGY SB [address] [place] [address] 12/22/2020 10:36:27 12/22/2020 11:35:20 Keratoconjunctivitis sicca, in Sj gren's syndrome 47250225 M35.01 Primary Sjogren's, without any extragland ular disease. Predominan tly dry mouth. No adenopathy noted. Stable cardiopulm onary exam. Continue pilocarpin e 5 mg 4 times a day. Refills were given. She is fully vaccinated against the covid-19. Maintain CPAP for the obstructiv e sleep apnea. Senile osteopenia 930402 06 M85.80 DEXA reviewed, 12/2018. Modest osteopenia , with stable FRAX scores. maintain ca and vitamin D. No indication s for the bisphospho nates. Generalize d osteoarthritis 164243823 M15.9 75-year-ol d female with osteoarthr itis. Generalize d. Suggested maintainin g weight loss and low impact activity such as daily walk. She can maintain the use of topical Voltaren gel only as needed. Avoid oral NSAIDs. She can take Tylenol Extra Strength 2 tablets daily. [id number] ANNEMARIE BYRD MD ENDOCRINO LOGY SB [address] [place] [address] 06/26/2021 09:43:19 06/30/2021 13:52:59 Prediabetes 468577326 R73.03 A1c in the office of 5.2 [...] metformin 500 mg twice a day Hyperlipidemia 88328607 E78.5 Lipid panel today Continue current atorvastat in therapy 10 mg every bedtime and Zetia 10 mg Prescripti ons renewed Further adjustment as appropriat e. Hypothyroidism 08999298 E03.9 TSH of 3.04 in November 2020 [...] on to follow Vitamin D deficiency 347 52196 E55.9 M85.80 Check 25-hydroxy vitamin D I discussed with patient the importance adequate dietary calcium intake ( 1,200 mg per day ), incorporat ing dietary supplement s if diet is insufficie nt. Also discussed with patient the importance of adequate vitamin D intake (1,000 IU per day), including supplement s if necessary. Cramp in lower limb 4499 03574 R25.2 Currently taking calcium and vitamin D and magnesium supplement s Osteopenia 607290007 M85 .9 Most recent bone density on [...] with the above mentioned plan of care. [id number] SUSAN MCCABE MD [facility] [address] [place] [address] 06/26/2021 09:45:04 06/26/2021 11:20:05 Keratoconjunctivitis sicca, in Sj gren's syndrome 11156512 M35.01 Primary Sjogren's, without any extragland ular [...] DNA antibody levels. Malaise and fatigue 2717 89446 R53.81 R53.83 Chronic nonspecifi c. Followed by endocrinol le. Question of post Covid fatigue, had Covid infection in December 2020.She has a sleep apnea, on CPAP certainly can be another contributi ng factor to her fatigue.My examinatio n was rather physiologi c today. No acute findings were noted. She will follow with the labs as suggested by endocrinol le. [id number] ANNEMARIE BYRD MD ENDOCRINO LOGY SB [address] [place] [address] 02/07/2022 09:05:15 02/07/2022 10:11:00 Prediabetes 362594762 R73.03 A1c in the office of 5.1 [...] metformin 500 mg twice a day Hyperlipidemia 53086658 E78.5 Lipid panel today Continue current atorvastat in therapy 10 mg every bedtime and Zetia 10 mg Counseled about the importance of low-choles terol diet and no significan t for diet Hypothyroidism 49229138 E03.9 Appears a clinically euthyroid TSH of [...] in therapy. Prescripti on to follow Osteopenia 442504665 M85 .9 Most recent bone density on [...] above mentioned plan of care. Cramping pain 798729106 R52 Taking over-the-c ounter magnesium Recheck magnesium level Vitamin D deficiency 347 38780 E55.9 M85.80 Check 25-hydroxy vitamin D I [...] with the above mentioned plan of care. [id number] SUSAN MCCABE MD RHEUMATOL OGY [place] [address] 03/26/2022 16:02:43 03/26/2022 16:40:11 Keratoconjunctivitis sicca, in Sj gren's syndrome 25060168 M35.01 Primary Sjogren's, without any extragland ular [...] will follow-up with me in November 2022. [id number] ANNEMARIE BYRD MD BONE DENSITY [place] [address] 04/16/2022 10:44:36 04/16/2022 10:59:24 Osteopenia 556877739 M85.89 [id number] VINICIO JOHNSON MD UROLOGY SB CLOSED [address] [place], [place] [address] 05/10/2022 08:44:19 05/15/2022 13:38:51 Recurrent cystitis 757126509 N30.90 Cystocele 930797803 N81. 10 [id number] VINICIO JOHNSON MD SURGERY SCHEDULE [address] [place] [address] 06/28/2022 12:03:45 06/28/2022 12:04:07 Recurrent cystitis 180947039 N30.90 Cystocele 518629312 N81. 10 [id number] ANNEMARIE BYRD MD ENDOCRINO LOGY SB [address] [place], [place] [address] 07/02/2022 10:14:10 07/02/2022 11:11:21 Prediabetes 094807135 R73.03 A1c in the office of 5.2%I [...] metformin 500 mg twice a day Hypothyroidism 17296201 E03.9 Appears a clinically euthyroidT SH of [...] free T4 todayPresc ription to follow Hyperlipidemia 13175080 E78.5 Lipid panel in January showed LDL of 44, triglyceri duane of 209, total cholestero l 140 and HDL of 54 Continue current atorvastat in therapy 10 mg every bedtime and Zetia 10 mg Counseled about the importance of low-choles terol diet and no significan t for diet. [id number] ANNEMARIE BYRD MD ENDOCRINO LOGY SB [address] [place] [address] 12/03/2022 12:50:29 12/03/2022 13:35:41 Prediabetes 183340778 R73.03 I counseled patient about the importance [...] metformin 500 mg twice a day Hypothyroidism 89996960 E03.9 Appears a clinically euthyroidT SH of [...] free T4 todayP further adjustment as Hyperlipidemia 12840885 E78.5 Lipid panel in January showed LDL of 44, triglyceri duane of 209, total cholestero l 140 and HDL of 54 Continue current atorvastat in therapy 10 mg every bedtime and Zetia 10 mg Counseled about the importance of low-choles terol diet and no significan t for diet. Vitamin D deficiency 347 07458 E55.9 M85.80 History of vitamin D deficientC heck 25-hydroxy vitamin DI discussed with patient the importance adequate dietary calcium intake ( 1,200 mg per day ), incorporat ing dietary supplement s if diet is insufficie nt. Also discussed with patient the importance of adequate vitamin D intake (1,000 IU per day), including supplement s if necessary. Fatigue 54007218 R53.83 Reported fatigue and previously low on vitamin D, magnesium and vitamin B12 Recheck the levels and further adjustment as appropriat e [id number] [place] [address] [place] [address] 12/03/2022 12:50:29 12/03/2022 13:35:41 [id number] [place] [address] [place] [address] 12/03/2022 13:47:31 12/05/2022 04:52:11 Keratoconjunctivitis sicca, in Sj gren's syndrome 96051879 M35.01 Primary Sjogren's, without any extragland ular [...] given.Labs repeated 6 months follow-up Pruritic rash 05021268 L 28.2 Other nonspecifi c referred to dermatolog y for evaluation work-up. 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 Hypothyroidism 87860239 E03.9 Appears a clinically euthyroid Bedside ultrasound [...] Recheck TSH and free T4 today Osteopenia 723501750 M85 .89 Bone density on 04/16/2022 :L1-L4 [...] with the above mentioned plan of care. [id number] GARCIA SQUIRES MD DERMATOLO GY [facility] [address] [place] [address] 08/20/2023 15:04:29 08/20/2023 16:06:09 Lentiginosis 534188861 L81.4 Reassuranc eRecommend ed Equate Ultra Sunscreen 30+ and sun protecting hats/cloth ing Raised rajesh orrheic keratosis 0608048415 00831 L82.1 Reassuranc e Seborrheic dermatitis 50 210035 L21.9 Posterior ScalplineS tart Mometasone 0.1% topical sona Hemangioma 406421954 D18 .00 Reassuranc e Actinic keratosis 910549 [address] x 1 Inflamed s eborrheic keratosis 263460855 L82.0 LN x 1 [id number] ANNEMARIE BYRD MD ENDOCRINO LOGY SB [address] [place] [address] 12/05/2023 09:38:47 12/05/2023 10:46:45 Prediabetes 955098027 R73.03 A1c of 5.4 from 5.1 on [...] a dayContinu e current metformin therapy Hyperlipidemia 84653163 E78.5 Lipid panel in May 2023 showed LDL of 40, total cholestero l 122, triglyceri duane 123 and HDL cholestero l 57 Continue current atorvastat in therapy 10 mg every bedtime and Zetia 10 mgWith panel and LFTs todayCouns eled about the importance of low-choles terol diet and no significan t for diet. Hypothyroidism 15710443 E03.9 Apart from fatigue appears a clinically [...] before or after levothyrox in therapy. Fatigue 94868040 R53.83 She is still complainin g of fatigue fatigue and previously low on vitamin D, magnesium and vitamin Z61Chiujxf the levels and further adjustment as appropriat e Patient verbalized understand ing and agreed with the above mentioned plan of care. [id number] [place] [address] [place] [address] 06/12/2024 09:57:38 06/12/2024 10:33:03 Osteopenia 546428270 M85.89 [id number] ARTHUR WASHINGTON APRN ENDOCRINO LOGY SB [address] [place] [address] 06/29/2024 09:36:57 06/29/2024 09:58:33 Prediabetes 277327292 R73.03 A1c of 5.4 no change 5.4 [...] check labs f/u in 6 months Hyperlipidemia 46479623 E78.5 Goal LDL is under 100 mg/dl.Last LDL: 52 on 12/05/23Tr iglyceride s: 171Continu e current atorvastat in therapy as orderedCon tinue dietary changes as recommende d. Hypothyroidism 13015944 E03.9 Apart from fatigue appears a clinically [...] hours before or after levothyrox in therapy. [id number] ANNEMARIE BYRD MD ENDOCRINO LOGY SB [address] [place] [address] 01/06/2025 10:08:57 01/06/2025 13:01:05 Prediabetes 540052026 R73.03 A1c of 5.1 from 5.4Random point-of-c [...] dayContinu e current metformin therapy Acquired hypothyroidism 833384336 E03.9 64415 She denies any hypothyroi d symptomsNo symptoms [...] of Synthroid dose as appropriat e Hyperlipidemia 90146305 E78.5 13659780 Most recent LDL of 67 in June 2020Contin ue current atorvastat in therapy 10 mg every bedtime and Zetia 10 mgRecheck lipid panel todayCouns eled about the importance of low-choles terol diet and no significan t for diet. 6 months follow-up Patient verbalized understand ing and agreed with the above mentioned plan of care. [id number] SAMMIE SOTO APRN UROLOGY [address] [address] 02/04/2025 10:06:42 02/04/2025 11:28:58 Recurrent urinary tract infection 070568025 N39.0 010512 [id number] VINICIO JOHNSON MD SURGERY SCHEDULE [address] [place] [address] 02/11/2025 14:23:30 02/11/2025 14:23:58 Recurrent cystitis 438784332 N30.90 Cystocele 016906459 N81. 10 Health Concerns Section Related Observation LastModified by Organization Detai ls LastModified Time None Recorded Concern Status LastModified by Organization Details LastModified Time None Recorded Advance Directives Directive None Recorded Payers Insurance Date Sequence Insurance Name Policy Number Policy Kyle Covered Member ID Kyle Member ID Guarantor Name 02/26/[address] [facility] (MEDICARE REPLACEMENT/A DVANTAGE - PPO) [id number] Minnie Marrufo [id number] Minnie Marrufo Notes Date Note Type Note [...] and she feels much better ARTHUR WASHINGTON, [employer] [address] [place] [address], [id number], [facility] 06/29/2024 10:12:51 01/06/2025 text/html 79-year-old female patient [...] for decreased hearing ANNEMARIE BYRD MD [address] [place], [address], [facility] 01/06/2025 12:46:32 02/04/2025 text/html 79 year old [...] She later saw Dr. Randy Huber in [place]. She goes to [place] for the winter [...] arriving in [place], she was seen at [facility] urgent care because she and her felt [...] has never been a smoker. SAMMIE SOTO, [employer] [address] [place], [address], [place] [facility] 02/04/2025 13:12:02 OBGyn Episode No OBEpisode recorded.
--- NOTE | 2025-05-26 13:00 | CA_ITS ---
FINAL REPORT TECHNIQUE: Color Doppler, duplex Doppler and dale scale sonography of the bilateral neck arterial vasculature was performed. Velocities were measured in the carotid arteries. Stenosis evaluation based on the validated velocity criteria. CLINICAL HISTORY: HLD, DM, dizziness and vertigo FINDINGS: The peak systolic velocity of the right common carotid artery is 99 cm/s. The peak systolic velocity of the right internal carotid artery is 96 cm/s and end diastolic velocity 33 cm/s. The ICA/CCA ratio is 0.97. A mild amount of plaque is present. The right external carotid artery is patent. The right vertebral artery is patent with antegrade flow. The peak systolic velocity of the left common carotid artery is 113 cm/s. The peak systolic velocity of the left internal carotid artery is 109 cm/s and end diastolic velocity 29 cm/s. The ICA/CCA ratio is 0.96. A mild amount of plaque is present. The left external carotid artery is patent.The left vertebral artery is patent with antegrade flow. IMPRESSION: Less than 50% bilateral carotid stenoses. Bilateral patent vertebral arteries with antegrade flow. If indicated, CTA or MRA could further evaluate. Reviewed, Interpreted and Dictated by Zana Pate MD Transcribed by Arabella Jay Authenticated and [facility]
== END 2025-05-26 23:59 | disposition home or self-care (01) ==
PROVIDERS: PCP Internal Medicine; Visit Provider Internal Medicine
DX: I65.23 Occlusion and stenosis of bilateral carotid arteries (principal); E78.5 Hyperlipidemia, unspecified; E11.9 Type 2 diabetes mellitus without complications; R42 Dizziness and giddiness; R47.9 Unspecified speech disturbances
CPT/HCPCS: 93880

== ENCOUNTER 2025-06-08 08:53 | Outpatient (CLI) | payer MEDICARE, SELFPAY ==
--- OUTSIDE RECORDS SUMMARY | 2024-05-30 04:00 | XMS_ITS ---
Author Organization [facility] Address [address] [place] [address] Care Team Providers Care Tray Packer Name Role Phone Ita You MD, Aristides Unavailable Unavailab le Migration, Provider Unavailable Unavailable REASON FOR VISIT EMR-Daniel Encounters Encounter Location Date Provider Diagnosis Sarika Tena PA [address] [place] [address] 05/30/2024 Provider Migration Plan Of Treatment Medication Medication Name Sig Start Date Stop Date Notes Ciprofloxacin HCl 500 MG Tablet take 1 t ablet by oral route 2 times every day Oral 10/15/2018 10/20/2018 Progress Notes * Noni MARRUFOGeorgiaOB:[birth year] (79 yo F)Acc No.[id number]:05/30/2024 Patient: Minnie MOURA :1945 A ge:78 Y S ex:Female Address:[address] [place] [address], [address] * Refills Stop Ciprofloxacin HCl Tablet, 500 MG, Oral, 14, take 1 tablet by oral route 2 times every day Subjective: * Chief Complaints: * E MR-Daniel * * Date:
--- OUTSIDE RECORDS SUMMARY | 2024-05-31 04:00 | XMS_ITS ---
Author Organization [facility] Address [address] [place] [address] Care Team Providers Care Solar Energy Engineer Name Role Phone Ita You MD, Aristides Unavailable Unavailab le Migration, Provider Unavailable Unavailable Allergies Allergen (clinical drug ingredient) Drug/Non Drug Allergy documented on EMR Reaction Allergy Type Onset Date Status Medicinal cephalosporin and acting as antibacterial agent (FN) Cephalosporins Anaphylaxis Drug Allergy Active REASON FOR VISIT EMR-Daniel Medications Medication SIG (Take, Route, Frequency, Duration) Notes Start Date End Date Status Plaquenil 200 MG Tablet take 1 tablet by oral route 3 times every day Oral 10/15/2018 Active Zetia 10 MG Tablet take 1 tablet by oral route every day Oral 10/15/2018 Active Synthroid 125 MCG Tablet take 1 tablet by oral route every day Oral 10/15/2018 Active tumeric BUCCAL ADH. PATCH ADH. PATCH take 1 PO QD BUCCAL *Reorder from [facility] for eRx and Interaction Alerts* 10/15/2018 Active metFORMIN HCl ER 500 MG Tablet Extended Release 24 Hour take 2 tablet by oral route every day with the evening meal Oral 10/15/2018 Active Macrobid 100 MG Capsule take 1 capsule by oral route every 12 hours with food Oral 10/20/2018 Active Multi-Vitamin Tablet take 1 tablet by oral route every day with food Oral 10/15/2018 Active Montelukast Sodium 10 MG Tablet take 1 tablet by oral route every day in the evening Oral 10/15/2018 Active Pilocarpine HCl 5 MG Tablet take 1 tablet by oral route 3 times every day Oral 10/15/2018 Active Atorvastatin Calcium 10 MG Tablet take 1 tablet by oral route every day Oral 10/15/2018 Active Encounters Encounter Location Date Provider Diagnosis Sarika Tena PA [address] [place] [address] 05/31/2024 Provider Migration Plan Of Treatment No Information Progress Notes * Lluvia MARRUFOOB:[birth year] (79 yo F)Acc No.[id number]:05/31/2024 Patient: Minnie MOURA :1945 A ge:78 Y S ex:Female Address:[address] [place], [place] [id number] Subjective: * Chief Complaints: * E MR-Daniel * Medical History: Disease : Jayla disease, , Disease : Hearing Loss, , Disease : recurrent uti, , Disease : sjogren disease, , Med_system:cardiovascular, Disease : Elevated lipids, , Med_system:metabolic/endocrine, Disease : Diabetes, * Surgical History: Sx_Procedure : Stapedectomy Med_system:gastrointestinal, Sx_Procedure : Cholecystectomy Med_system:HEENT, Sx_Procedure : Tonsillectomy Med_system:musculoskeletal, Disease : Arthritis, Sx_Procedure : Laminectomy * Family History: F ather: malignant neoplasm of lung ,age : 44. M other: Diabetes mellitus. * Medications: T akingAtorvastatin Calcium 10 MG Tablet take 1 tablet by oral route every day Oral Macrobid 100 MG Capsule take 1 capsule by oral route every 12 hours with food Oral Montelukast Sodium 10 MG Tablet take 1 tablet by oral route every day in the evening Oral Multi-Vitamin Tablet take 1 tablet by oral route every day with food Oral Pilocarpine HCl 5 MG Tablet take 1 tablet by oral route 3 times every day Oral Plaquenil 200 MG Tablet take 1 tablet by oral route 3 times every day Oral Synthroid 125 MCG Tablet take 1 tablet by oral route every day Oral Zetia 10 MG Tablet take 1 tablet by oral route every day Oral metFORMIN HCl ER 500 MG Tablet Extended Release 24 Hour take 2 tablet by oral route every day with the evening meal Oral tumeric BUCCAL ADH. PATCH ADH. PATCH take 1 PO QD BUCCAL , Notes to Pharmacist: *Reorder from [facility] for eRx and Interaction Alerts*Taking Atorvastatin Calcium 10 MG Tablet take 1 tablet by oral route every day Oral Taking Macrobid 100 MG Capsule take 1 capsule by oral route every 12 hours with food Oral Taking Montelukast Sodium 10 MG Tablet take 1 tablet by oral route every day in the evening Oral Taking Multi-Vitamin Tablet take 1 tablet by oral route every day with food Oral Taking Pilocarpine HCl 5 MG Tablet take 1 tablet by oral route 3 times every day Oral Taking Plaquenil 200 MG Tablet take 1 tablet by oral route 3 times every day Oral Taking Synthroid 125 MCG Tablet take 1 tablet by oral route every day Oral Taking Zetia 10 MG Tablet take 1 tablet by oral route every day Oral Taking metFORMIN HCl ER 500 MG Tablet Extended Release 24 Hour take 2 tablet by oral route every day with the evening meal Oral Taking tumeric BUCCAL ADH. PATCH ADH. PATCH take 1 PO QD BUCCAL , Notes to Pharmacist: *Reorder from [facility] for eRx and Interaction Alerts* * Allergies: C ephalosporins: Anaphylaxis - Allergy * * Date:
--- OUTSIDE RECORDS SUMMARY | 2025-05-04 13:30 | XMS_ITS | Encounter Summary ---
Author Organization [facility] Address [address] [place] [address] Care Team Providers Care Gasoline Truck Crane Operator Name Role Phone Melvin Pink Sunil CHRISTIAN Primary Care Provider [phone] Reason for Visit * Reason Comments Hearing Loss Encounter Details Date Type Department Care Team ([facility] st Contact Info) Description 05/04/2025 2:30 PM EDT Office Visit [facility] Audiology [address] [place] [address] Patsy Lucero, Annalise [address] [place] [address] Sensorineural hearing loss (SNHL) of both ears Social History Tobacco Use Types Packs/Day Years [...] Miscellaneous Notes * Progress Notes - Patsy Lucero, AuD - 05/04/2025 2:30 PM EDT Referring Provider: Melvin Casillas MD HEARING AID CHECK Patient Status: Ms. Woodard was seen for a hearing aid follow up appointment. She reports that she is doing well in general with her hearing aid. She said because her cochlear implant works so well, occasionally she is just not sure how much benefit she gets from the hearing aid but is interested inkeeping it as she can tell a big difference when it is out of her ear. She is feeling somewhat poorly recently. She explained that she suffers from CVID, common variable immunodeficiency. It is an autoimmune disease and can cause her to feel quite poorly at times. She is due to be retested in July. She just has quite a full plate at this time and is doing the best she can to take his good careof herself as possible. Condition of Implant Site: Ms. Woodard' cochlear implant incision and magnet site are within normal limits with no evidence of redness, edema or sensitivity. Geodesy Teacher: Cochlear Ear: RE: Surgery Date: 02/28/2023 Internal Device: [id number] - # [id number] Processor #1: N8 - Brown color Processor #2: K2 - Brown Fit Date: 03/18/2023 Magnet strength: 3i changed to a 2i strength today Cord length: 3 Battery: Rechargeable Ghulam Exp: 03/18/2028 Accessories: Mini-cynthia, TV Streamer, LEFT EAR: Hearing Aid ReSound Model: Nexia 5, NX 560S - DRWC - espresso- SAIMA Serial #: [id number] Fit Date: 03/26/2025 Battery: Rechargeable Ghulam Exp: 04/12/2028 Restaurant District Manager serial #: [id number] - Premium Ghulam Exp - 04/12/2028 Ear mold: Ultra Power Encased Micro-mold - size 2 - 1.2mm pressure vent Serial#: [id number] Remake Ghulam: 09/12/2025 Hearing Aid Check: I connected her hearing aid to the computer and ran compliance with good results. She was not interested in making significant adjustments to the hearing aid or cochlear implant quality of sound at this time. She is well pleased with the overall sound quality of the 2 devices together. She knows that she qualifies for a cochlear implant in her left ear but can not consider undergoing that at thistime. She wants to make the best use of her hearing aid that she possibly can for now. Electrode Impedances: NA Mapping Session Notes: NO COCHLEAR IMPLANT MAPPING WAS CONDUCTED AT TODAY'S APPOINTMENT. ASSESSMENT/PLAN Ms. Woodard will return to this clinic in 4 weeks for a MARTIN follow-up appointment. documented in this encounter Plan of Treatment Upcoming Encounters Date Type Department Care Team (Late st Contact Info) Description 07/14/2025 10:50 AM EST Office Visit [facility] Medicine Specialties [address] [place] [address] Nidhi Stack, [employer]UT[employer] DEVELOPER [address] [place] [address] 08/24/2025 9:30 AM EST Office Visit [facility] Medicine Specialties [address] [place] [address] Denise Keith, [employer] DEVELOPER [address] [place] [address] 08/30/2025 11:00 AM EST Office Visit [facility] Otolaryngology [address] [place] [address] Melvin Casillas MD [address] [place] [address] documented as of this encounter Visit Diagnoses Diagnosis Sensorineural hearing loss (SNHL) of both ears documented in this encounter Additional Health Concerns Assessment Noted Time PHQ-9 Depression Total Score: 0 03/02/20 25 11:22 AM EDT A fall risk assessment has been complete d for the patient 03/02/2025 11:23 AM EDT A Body Mass Index follow-up plan has been documented for the patient 05/13/2025 6:46 PM EDT documented as of this encounter Care Teams Gasoline Truck Crane Operator Relationship Specialty Start Date End Date Melvin Pink DO [address] [place] [address] [place] [address] PCP - General 12/01/24 documented as of this encounter
--- OUTSIDE RECORDS SUMMARY | 2025-05-18 08:00 | XMS_ITS | Encounter Summary ---
Author Organization [facility] Address [address] [place] [address] Care Team Providers Care Residential Property Tax Appraiser Name Role Phone JoesphMelvin crespo Sunil CHRISTIAN Primary Care Provider [phone] Reason for Visit * Reason Comments Common Variable Immunodeficiency Encounter Details Date Type Department Care Team ([facility] st Contact Info) Description 05/18/2025 9:00 AM EDT [facility] Visit [facility] [address] [place] [address] Denise Keith, KNIFE CHANGER [address] [place] [address] CVID (common variable immunodeficiency) (Primary Dx); Hypogammaglobulinemia (CMS/HCC) Social History Tobacco Use Types Packs/Day Years Used Date Smoking Tobacco: Never Passive Smoke Exposure: Never Smokeless Tobacco: Never Tobacco Cessation:Counseling Given: Not Answered Alcohol Use Standard Drinks/Week Comments Not Currently 0 (1 standard drink = 0.6 oz pur e alcohol) PHQ-2 Answer Date Recorded Patient Health Questionnaire-2 Score 0 05/18/2025 PHQ-9 Answer Date Recorded Patient Health Questionnaire-9 Score 0 05/18/2025 Comments No Sex and Gender Information Value Date Recorded Sex Assigned at Female 12/06/2023 12:07 PM EDT Legal Sex Female 8:37 PM EDT Gender Identity Female 12/06/2023 12:07 PM EDT Sexual Orientation Straight 12/06/2023 12 :07 PM EDT documented as of this encounter Last Filed Vital Signs Vital Sign Reading Time Taken Comments Blood Pressure 138/82 05/18/2025 9:08 AM EDT Pulse 69 05/18/2025 9:08 AM EDT Temperature 36.9 C (98.4 F) 05/18/2025 9:08 AM EDT Respiratory Rate 16 05/18/2025 9:08 AM EDT Oxygen Saturation 97% 05/18/2025 9:08 AM EDT Inhaled Oxygen Concentration - - Weight 77.2 kg (170 lb 3.1 oz) 05/18/2025 9:08 A M EDT Height 162.6 cm (5' 4 ) 05/18/2025 9:08 AM EDT Body Mass Index 29.21 05/18/2025 9:08 AM EDT documented in this encounter Functional Status * Over the past 2 weeks, how often have you been bothered by any of the following problems? Question Answer Date of Assessment Author Little interest or pleasure in doing things Not at all 05/18/2025 9:12 AM EDT Guicho Gutierrez Feeling down, depressed, or hopeless Not at all 05/18/2025 9:12 AM EDT Guicho Gutierrez Patient Health Questionnaire -2 Score 0 05/18/2025 9:12 AM EDT Guicho Gutierrez * Question Answer Date of Assessment Author Trouble falling or staying a sleep, or sleeping too much Not at all 05/18/2025 9:12 AM EDT Guicho Gutierrez Feeling tired or having tavo le energy Not at all 05/18/2025 9:12 AM EDT Guicho Gutierrez Poor appetite or overeating Not at all 05/18/2025 9: 12 AM EDT Guicho Gutierrez Feeling bad about yourself - or that you are a failure or have let yourself or your family down Not at all 05/18/2025 9:12 AM EDT Guicho Gutierrez Trouble concentrating on thi ngs, such as reading the newspaper or watching television Not at all 05/18/2025 9:12 AM EDT Guicho Gutierrez Moving or speaking so slowly that other people could have noticed? Or the opposite - being so fidgety or restless that you have been moving around a lot more than usual. Not at all 05/18/2025 9:12 AM EDT Guicho Gutierrez Thoughts that you would be b rudolph off or hurting yourself in some way Not at all 05/18/2025 9:12 AM EDT Guicho Gutierrez Patient Health Questionnaire -9 Score 0 05/18/2025 9:12 AM EDT Guicho Gutierrez * How difficult have these problems made it for you to do your work, take care of things at home, or get along with other people? Answer Date of Assessment Author Not difficult at all 05/18/2025 9:12 AM EDT Guicho Zavala documented as of this encounter Miscellaneous Notes * Progress Notes - Denise Keith APRN - 05/18/2025 9:00 AM EDT Images from the original note were not included. Allergy and Immunology Service Immunology - Progress Note Subjective Intake Consulting Physician: Denise Keith APRN Referring MD: No ref. provider found Other Consultants: rheumatology, ENT, neruology Encounter Date: 05/18/2025 Chief Complaint / Reason for Consult Minnie is a 79 y.o. female sent by No ref. provider found for consultation and evaluation of: Chief Complaint Patient presents with Common Variable Immunodeficiency History of Present Illness / Interval History Minnie is a pleasant 79 y.o. female with has a past medical history of Asthma, Delayed emergence from general anesthesia, Diabetes mellitus, Frequent UTI, Full dentures, Gastroparesis, Headache, tension-type, Hiatal hernia, HL (hearing loss), Hyperlipidemia, Hypothyroidism, Interstitial cystitis,Joint pain, Migraine, Motion sickness, Obesity, Osteoarthritis, Personal history of other infectious and parasitic diseases, PONV (postoperative nausea and vomiting), Shingles, Sjogren's syndrome (CMS/HCC), and Sleep apnea. who presents for an initial evaluation of a suspected immune dysregulation.Minnie and her provides the following medical history: Patient has had two infusions since we last saw each other. The first infusions had major side effects such as even unable to find certain words. States she was having some headaches, nausea, and even some memory loss. It was very scary. Has since had a second infusion and reports it did go better then the first one. Prehydration was added, and advised to slow it down. Patient is unsure if it slowed down, but can confirm levels were added. Patient does have a history of migraines, believes the tylenol dis help some. Last ov Since our last visit patient has had a few UTIs and needed to be treated. Has seen urology, and reports it is just old age. States she did a few test and found nothing wrong with her. Was most recently treated with cipro. Does not think she is going back to [facility] this winter. Reports she always has ear [...] no family history of recurrent/severe/atypical infections or [place] city /unexplained . Dad when he was 43 [...] trivalent, adjuvanted 06/07/2017, 07/08/2024 Moderna COVID-19 Vaccine (Gynaecological Oncologist) 12+ years 09/15/2020, 10/13/2020, 04/12/2021 Moderna COVID-19 [...] on file Tobacco Use Smoking status: Never Passive exposure: Never Smokeless tobacco: Never Vaping Use Vaping status: Never Used Substance and Sexual Activity Alcohol use: Not Currently Drug use: Never Comment: Drug use: No drug use Sexual activity: Not on file Other Topics Concern Not on file Social History Narrative Not on file Social Drivers of Health Financial Resource Strain: Low Risk (09/23/2024) Received from [facility] Overall Financial Resource Strain (CARDIA) Difficulty of Paying Living Expenses: Not hard at all Food Insecurity: Low Risk (09/23/2024) Received from [facility] Food Security Within the past 12 months, the food you bought just didn't last and you didn't have money to get more.: 3 Within the past 12 months, you worried that your food would run out before you got money to buy more.: 3 Transportation Needs: Not At Risk (09/23/2024) Received from [facility] Transportation Needs In the past 12 months, has lack of reliable transportation kept you from medical appointments, meetings, work or from getting things needed for daily living?: No Physical Activity: Insufficiently Active (09/23/2024) Received from [facility] Physical Activity On average, how many days [...] No Stress Concern Present (09/23/2024) Received from [facility] [place] of Occupational Health - Occupational Stress Questionnaire Feeling of Stress : Only a little Social Connections: Moderately Integrated (09/23/2024) Received from [facility] Social Connection and Isolation Panel In a typical week, how many times do you talk on the phone with family, friends, or neighbors?: More than three times a week How often do you get together with friends or relatives?: More than three times a week How often do you attend mormon or mandaen services?: More than 4 times per year Do you belong to any clubs or organizations such as mormon groups, unions, fraternal or athletic groups, or school groups?: No How often do you attend meetings of the clubs or organizations you belong to?: Never Are you , , , , never , or living with a partner?: Recent Concern: Social Connections - Moderately Isolated (08/17/2024) Received from [facility] Social Connection and Isolation Panel Frequency of Communication with Friends and Family: More than three times a week Frequency of Social Gatherings with Friends and Family: More than three times a week Attends Episcopalian Services: Never Active Member of Clubs or Organizations: No Attends Club or Organization Meetings: Never Marital Status: Intimate Partner Violence: Not At Risk (09/23/2024) Received from [facility] Safety How often does anyone, including family and friends, threaten you with harm?: 1 How often does anyone, including family and friends, insult or talk down to you?: 1 How often does anyone, including family and friends, physically hurt you?: 1 How often does anyone, including family and friends, scream or curse at you?: 1 Housing Stability: Not At Risk (09/23/2024) Received from [facility] Housing What is your living situation today?: I have a steady place to live Think about the place you live. Do you have problems with any of the following?: None of the above Family History Family History[5] Review of Systems 12-pt ROS unrevealing unless indicated in HPI above. Objective Physical Exam: Physical Exam Visit Vitals BP 138/82 Pulse 69 Temp 36.9 ??C (98.4 ??F) (Oral) Resp 16 Ht 1.626 m (5' 4 ) Wt 77.2 kg (170 lb 3.1 oz) SpO2 97% BMI 29.21 kg/m?? OB Status Postmenopausal Smoking Status Never BSA 1.87 m?? General: alert; in no acute distress, [...] 17F, 20, 22F, 33F Before vaccine 11/2024 After vaccine 01/2025 no change Complement Labs: Lab Results Component Value Date C3 156 12/02/2024 C3 132 06/02/2024 C3 126 12/03/2023 C4 26 12/02/2024 C4 23 06/02/2024 C4 22 12/03/2023 CH50 >95.0 (H) 12/02/2024 C1inh: No results found for: [id number] CBC: Lymphocytes Absolute Date Value Ref Range [...] the gamma delta form of T cell veterinary receptionist tor. HLA-DR is expressed by 14% [...] also be seen. Which patient does have. Discussed thoroughly with patient and plan of care, possible subcutaneous (patient not interested in at this time) gave patient direct nurse line. Plan: Labs: as above, Ig level added to plan Medications: discussed IVIG replacement, and will continue with this at this time. Vaccines: Referrals/other: n/a Follow-up: Jul 2025 Future Appointments Date Time Provider Department Center 06/07/2025 9:50 AM Nidhi Stack APRN [facility] 06/07/2025 10:30 AM Patsy Lucero AuD [facility] 06/07/2025 11:00 AM Melvin Casillas MD [facility] I have seen Minnie Woodard in the Allergy and Immunology clinic at [facility] atthe request of No ref. provider found for consultation regarding Chief Complaint Patient presents with Common Variable Immunodeficiency which falls within my purview as a subspecialist. I have spent 30 minutes, before, during, and after the visit reviewing patient testing/imaging studies, obtaining a history, conducting an exam, documenting clinical information in the EMR, communicating with other healthcare professionals, and counseling the family, in addition to the dgnb-[id number] portion of the encounter. Greater than 50% [...] mellitus, without long-term current use of insulin Gastroparesis Hiatal hernia Mild intermittent asthma without complication PONV (postoperative nausea and vomiting) Sjogren's syndrome (CMS/HCC) SWETA (obstructive sleep apnea) CVID (common variable immunodeficiency) [2] Past Surgical History: Procedure Laterality Date BACK SURGERY N/A Back Surgery from [facility] BREAST BIOPSY Right 2007 stereotactic-benign CHOLECYSTECTOMY N/A Cholecystectomy from [facility] COLONOSCOPY CYSTOSCOPY OTHER SURGICAL HISTORY Bilateral Stapedectomy from [facility] TONSILLECTOMY N/A Tonsillectomy from [facility] UPPER GASTROINTESTINAL ENDOSCOPY [3] Current Outpatient Medications Medication Sig Dispense Refill atorvastatin (Lipitor) 10 MG tablet Take 1 tablet (10 mg) by mouth every night. azithromycin (Zithromax) 250 MG tablet Take 1 tablet by mouth 3 times a week. Saturday, Saturday, and saturday 15 tablet 2 bisacodyl (Dulcolax) 5 MG EC tablet cholecalciferol (Vitamin D3) 25 MCG (1000 UT) tablet Take 1 tablet by mouth daily. ezetimibe (Zetia) 10 MG tablet Take 1 tablet (10 mg) by mouth every night. hydroxychloroquine (Plaquenil) 200 MG tablet Take 1 tablet by mouth daily. 90 tablet 4 ketoconazole (NIZOral) 2 % shampoo Use twice a week for 6 weeks. Let it sit in the hair for 2-3 minutes then rinse out 120 mL 1 metFORMIN (Glucophage) 500 MG tablet Take 1 tablet (500 mg) by mouth twice a day. Multiple Vitamins-Minerals (multivitamin with minerals) tablet Take 1 tablet by mouth 1 (one) time each day. nystatin (Mycostatin) cream as needed. pilocarpine (Salagen) 5 MG tablet Take 1 tablet by mouth 3 times a day as needed (for dry mouth). 90 tablet 11 Synthroid 125 MCG tablet Take 1 tablet (125 mcg) by mouth 1 (one) time each day before breakfast. estradiol (Estrace) 0.1 MG/GM vaginal cream Insert 2 g into the vagina 2 (two) times a week. Saturday and Saturday (Patient not taking: Reported on 05/18/2025) fluticasone (Flonase) 50 MCG/ACT nasal spray Administer 1 spray into each nostril daily. Shake gently. Before first use, prime pump. After use, clean tip and replace cap. (Patient not taking: Reported on 05/18/2025) levocetirizine (Xyzal) 5 MG tablet Take 1 tablet (5 mg) by mouth Daily. (Patient not taking: Reported on 05/18/2025) metoclopramide (Reglan) 10 MG tablet TAKE 1 TABLET BY MOUTH BEFORE MEALS AND AT BEDTIME (Patient not taking: Reported on 05/18/2025) No current facility-administered medications for this visit. [...] Brother hearing problem Breast cancer Father's Sister Holly Salazar Migraines Father's Sister Holly Salazar Malig Hyperthermia Neg Hx [6] Patient Active Problem List Diagnosis Mixed conductive and sensorineural hearing loss of both ears High cholesterol Acquired hypothyroidism Type 2 diabetes mellitus, without long-term current use of insulin Gastroparesis Hiatal hernia Mild intermittent asthma without complication PONV (postoperative nausea and vomiting) Sjogren's syndrome (CMS/HCC) SWETA (obstructive sleep apnea) CVID (common variable immunodeficiency) documented in this encounter Plan of Treatment Upcoming Encounters Date Type Department Care Team (Late st Contact Info) Description 07/14/2025 10:50 AM EST Office Visit [facility] Medicine Specialties [address] [place] [address] Nidhi Stack, MACIEL [address] [place] [address] 08/24/2025 9:30 AM EST Office Visit [facility] Medicine [facility]ties [address] [place] [address] Denise Keith APRN [address] [place] [address] 08/30/2025 11:00 AM EST Office Visit [facility] Otolaryngology [address] [place] [address] Melvin Casillas MD [address] [place] [address] documented as of this encounter Visit Diagnoses Diagnosis CVID (common variable immunodeficiency)- Primary Common variable immunodeficiency Hypogammaglobulinemia (CMS/HCC) Unspecified hypogammaglobulinemia documented in this encounter Additional Health Concerns Assessment Noted Time PHQ-9 Depression Total Score: 0 05/18/20 9:12 AM EDT A fall risk assessment has been complete d for the patient 05/18/2025 9:13 AM EDT A Body Mass Index follow-up plan has been documented for the patient 05/18/2025 9:47 AM EDT documented as of this encounter Care Teams Residential Property Tax Appraiser Relationship Specialty Start Date End Date Melvin Pink, [address] [facility] [address], [place] [address] PCP - General 12/01/24 documented as of this encounter
--- OUTSIDE RECORDS SUMMARY | 2025-06-07 09:50 | XMS_ITS | Encounter Summary ---
Author Organization [facility] Address [address] [place] [address] Care Team Providers Care Ferryboat Pilot Name Role Phone JoesphMelvin crespo Sunil CHRISTIAN Primary Care Provider [phone] Reason for Visit * Reason Comments Sjogren syndrome, unspecified (CMS/HCC Encounter Details Date Type Department Care Team (Latest Contact Info) Description 06/07/2025 9:50 AM EST Office Visit [facility] [address] [place] [address] Nidhi Stack L, MEDICAL BILLING SPECIALIST [address] [place] [address] Sjogren syndrome, unspecified (CMS/HCC) (Primary Dx); Long-term use of immunosuppressant medication; Long-term use of hydroxychloroquine Social History Tobacco Use Types Packs/Day Years Used Date Smoking Tobacco: Never Passive Smoke Exposure: Never Smokeless Tobacco: Never Tobacco Cessation:Counseling Given: Not Answered Alcohol Use Standard Drinks/Week Comments Not Currently 0 (1 standard drink = 0.6 oz pur e alcohol) PHQ-2 Answer Date Recorded Patient Health Questionnaire-2 Score 0 06/07/2025 PHQ-9 Answer Date Recorded Patient Health Questionnaire-9 Score 0 06/07/2025 Comments No Sex and Gender Information Value Date Recorded Sex Assigned at Female 12/06/2023 12:07 PM EDT Legal Sex Female 8:37 PM EDT Gender Identity Female 12/06/2023 12:07 PM EDT Sexual Orientation Straight 12/06/2023 12 :07 PM EDT documented as of this encounter Last Filed Vital Signs Vital Sign Reading Time Taken Comments Blood Pressure 119/82 06/07/2025 10:04 AM EST Pulse 74 06/07/2025 10:04 AM EST Temperature 36.7 C (98.1 F) 06/07/2025 10:04 AM EST Respiratory Rate 16 06/07/2025 10:04 AM EST Oxygen Saturation 99% 06/07/2025 10:04 AM EST Inhaled Oxygen Concentration - - Weight 77 kg (169 lb 12.1 oz) 06/07/2025 10:04 A M EST Height 162.6 cm (5' 4 ) 06/07/2025 10:04 AM EST Body Mass Index 29.14 06/07/2025 10:04 AM EST documented in this encounter Functional Status * Over the past 2 weeks, how often have you been bothered by any of the following problems? Question Answer Date of Assessment Author Little interest or pleasure in doing things Not at all 06/07/2025 10:08 AM Hui Guardado Feeling down, depressed, or hopeless Not at all 06/07/2025 10:08 AM Hui Guardado Patient Health Questionnaire -2 Score 0 06/07/2025 10:08 AM Hui Guardado * Question Answer Date of Assessment Author Trouble falling or staying a sleep, or sleeping too much Not at all 06/07/2025 10:08 AM Hui Guardado Feeling tired or having tavo le energy Not at all 06/07/2025 10:08 AM Hui Guardado Poor appetite or overeating Not at all 06/07/2025 10 :08 AM Hui Guardado Feeling bad about yourself - or that you are a failure or have let yourself or your family down Not at all 06/07/2025 10:08 AM Hui Pereira Trouble concentrating on thi ngs, such as reading the newspaper or watching television Not at all 06/07/2025 10:08 AM Hui Guardado Moving or speaking so slowly that other people could have noticed? Or the opposite - being so fidgety or restless that you have been moving around a lot more than usual. Not at all 06/07/2025 10:08 AM Hui Guardado Thoughts that you would be b rudolph off or hurting yourself in some way Not at all 06/07/2025 10:08 AM Hui Guardado Patient Health Questionnaire -9 Score 0 06/07/2025 10:08 AM Hui Guardado * How difficult have these problems made it for you to do your work, take care of things at home, or get along with other people? Answer Date of Assessment Author Not difficult at all 06/07/2025 10:08 AM EST Hui Gleason documented as of this encounter Plan of Treatment Upcoming Encounters Date Type Department Care Team (Late st Contact Info) Description 07/14/2025 10:50 AM EST Office Visit [facility] Medicine Specialties [address] [place] [address] Nidhi Stack, MEDICAL BILLING SPECIALIST [address] [place] [address] 08/24/2025 9:30 AM EST Office Visit [facility] Medicine Specialties [address] [place] [id number] Denise Keith, MEDICAL BILLING SPECIALIST [address] [place] [address] 08/30/2025 11:00 AM EST Office Visit [facility] Otolaryngology [address] [place] [address] Melvin Casillas MD [address] [place] [phone] Pending Results Name Type Priority Associated Diagnoses Date /Time Cryoglobulin, Serum (SO) Lab Routine Sjogren syndrome, unspecified (CMS/HCC) Long-term use of hydroxychloroquine 06/07/2025 1:17 PM EST Scheduled Orders Name Type Priority Associated Diagnoses Orde r Schedule Cryoglobulin, Serum (SO) Lab Routine Sjogren syndrome, unspecified (CMS/HCC) Long-term use of hydroxychloroquine Expected: 06/07/2025 (Approximate), Expires: 12/05/2026 documented as of this encounter Results * Hepatic Function Panel (06/07/2025 1:17 PM EST) Direct Bilirubin, Plasma <0.2 <=0.3 mg/dL 06/07/2025 3:02 PM EST [facility] Alkaline Phosphatase, Plasma 73 46 - 142 U/L 06/07/2025 3:02 PM EST [facility] Total Bilirubin, Plasma 0.4 0.2 - 1.1 mg/dL 06/07/2025 3:02 PM EST [facility] Albumin, Plasma 4.8 3.5 - 5.2 g/dL 06/07/2025 3:02 PM EST [facility] Total Protein 7.1 6.3 - 7.9 g/dL 06/07/2025 3:02 PM EST [facility] ALT, Plasma 24 10 - 35 U/L 06/07/2025 3:02 PM EST [facility] AST, Plasma 30 10 - 35 U/L 06/07/2025 3:02 PM EST [facility] Blood Venous blood specimen / Unknown Venipuncture / Unknown 06/07/2025 1:17 PM EST 06/07/2025 1:18 PM EST us Nidhi Stack APRN LAB BLOOD ORDERABLES Dafne reinoso Result [facility] [address] [place] [address] * Creatinine, Plasma (06/07/2025 1:17 PM EST) Creatinine, Plasma 0.66 0.60 - 1.10 mg/dL 06/07/2025 3:02 PM EST [facility] eGFRcr 89.9 mL/min/1.7 3m*2 06/07/2025 3:02 PM EST [facility] Comment:Reported eGFRcr in m L/min/1.73m2 is based the CKD-EPI 2020 equation that does not use a race coefficient. Blood Venous blood specimen / Unknown Venipuncture / Unknown 06/07/2025 1:17 PM EST 06/07/2025 1:18 PM EST us Nidhi L Seda ST LAB BLOOD ORDERABLES Dafne kemar Result [facility] [address] [place] [address] * (ABNORMAL) CBC and Differential (06/07/2025 1:17 PM EST) WBC Count 7.28 3.70 - 10.30 10*3/uL LAB HEMATOLOGY METHOD 06/07/2025 2:18 PM EST [facility] RBC Count 4.41 3.90 - 5.20 10*6/uL LAB HEMATOLOGY METHOD 06/07/2025 2:18 PM EST [facility] HGB 13.0 11.2 - 15.7 g/dL LAB HEMATOLOGY METHOD 06/07/2025 2:18 PM EST [facility] HCT 38.5 34.0 - 45.0 % LAB HEMATOLOGY METHOD 06/07/2025 2:18 PM EST [facility] Platelet Count 494(H) 155 - 369 10*3/uL LAB HEMATOLOGY METHOD 06/07/2025 2:18 PM EST [facility] MCV 87 79 - 98 fL LAB HEMATOLOGY METHOD 06/07/2025 2:18 PM EST [facility] MCH 29.5 26.0 - 32.0 pg LAB HEMATOLOGY METHOD 06/07/2025 2:18 PM EST [facility] MCHC 33.8 30.7 - 35.5 g/dL LAB HEMATOLOGY METHOD 06/07/2025 2:18 PM EST [facility] RDW 13.0 11.5 - 14.5 % LAB HEMATOLOGY METHOD 06/07/2025 2:18 PM EST [facility] MPV 9.2 8.8 - 12.5 fL LAB HEMATOLOGY METHOD 06/07/2025 2:18 PM EST [facility] nRBC 0.0 <=0.0 per 100 WBCs LAB HEMATOLOGY METHOD 06/07/2025 2:18 PM EST [facility] Differential Type Automated LAB HEMATOLOGY METHOD 06/07/2025 2:18 PM EST [facility] Neutrophils % 59 % LAB HEMATOLOGY METHOD 06/07/2025 2:18 PM EST [facility] Lymphocytes % 25 % LAB HEMATOLOGY METHOD 06/07/2025 2:18 PM EST [facility] Monocytes % 10 % LAB HEMATOLOGY METHOD 06/07/2025 2:18 PM EST [facility] Eosinophils % 4 % LAB HEMATOLOGY METHOD 06/07/2025 2:18 PM EST [facility] Basophils % 1 % LAB HEMATOLOGY METHOD 06/07/2025 2:18 PM EST [facility] Immature Granulocytes % 1 % LAB HEMATOLOGY METHOD 06/07/2025 2:18 PM EST [facility] Neutrophils Absolute 4.36 1.60 - 6.10 10*3/uL LAB HEMATOLOGY METHOD 06/07/2025 2:18 PM EST [facility] Lymphocytes Absolute 1.80 1.20 - 3.90 10*3/uL LAB HEMATOLOGY METHOD 06/07/2025 2:18 PM EST [facility] Monocytes Absolute 0.74 0.30 - 0.90 10*3/uL LAB HEMATOLOGY METHOD 06/07/2025 2:18 PM [facility] Eosinophils Absolute 0.28 0.00 - 0.50 10*3/uL LAB HEMATOLOGY METHOD 06/07/2025 2:18 PM EST [facility] Basophils Absolute 0.06 0.00 - 0.10 10*3/uL LAB HEMATOLOGY METHOD 06/07/2025 2:18 PM EST [facility] Immature Granulocytes Absolute 0.04 0.00 - 0.06 10*3/uL LAB HEMATOLOGY METHOD 06/07/2025 2:18 PM [facility] Blood Venous blood specimen / Unknown Venipuncture / Unknown 06/07/2025 1:17 PM EST 06/07/2025 1:18 PM EST [facility] - 06/07/2025 2:18 PM EST Therapeutic decision making should be based on absolute values, rather than percentages. us Nidhi Stack APRN LAB BLOOD ORDERABLES Dafne l Result [facility] [address] [place] [address] * C4 Complement (06/07/2025 1:17 PM EST) C4 Complement 23 13 - 36 mg/dL 06/07/2025 3:03 PM EST [facility] Blood Venous blood specimen / Unknown Venipuncture / Unknown 06/07/2025 1:17 PM EST 06/07/2025 1:18 PM EST us Nidhi Lanzaly MEDICAL BILLING SPECIALIST LAB BLOOD ORDERABLES Dafne l Result Performing Organization Address City/[facility]/ZIP Co de Phone Number [facility] [address] [place] [address] * Rheumatoid Factor, Plasma (06/07/2025 1:17 PM EST) Rheumatoid Factor, Plasma <10 <14 IU/mL 06/07/2025 3:02 PM EST [facility] Blood Venous blood specimen / Unknown Venipuncture / Unknown 06/07/2025 1:17 PM EST 06/07/2025 1:18 PM EST us Nidhi Lanzaly MEDICAL BILLING SPECIALIST LAB BLOOD ORDERABLES Dafne l Result [facility] [address] [place] [address] * C3 Complement (06/07/2025 1:17 PM EST) C3 Complement 146 84 - 166 mg/dL 06/07/2025 3:03 PM EST [facility] Blood Venous blood specimen / Unknown Venipuncture / Unknown 06/07/2025 1:17 PM EST 06/07/2025 1:18 PM EST us Nidhi Lanzaly MEDICAL BILLING SPECIALIST LAB BLOOD ORDERABLES Dafne l Result [facility] [address] [place] [address] documented in this encounter Visit Diagnoses Diagnosis Sjogren syndrome, unspecified (CMS/HCC)- Primary Long-term use of immunosuppressant medication Long-term use of hydroxychloroquine documented in this encounter Additional Health Concerns Assessment Noted Time PHQ-9 Depression Total Score: 0 06/07/20 10:08 AM EST A fall risk assessment has been complete d for the patient 06/07/2025 10:08 AM EST A Body Mass Index follow-up plan has been documented for the patient 05/18/2025 9:47 AM EDT documented as of this encounter Care Teams Ferryboat Pilot Relationship Specialty Start Date End Date Melvin Pink DO [address] [place] [address] [place] [id number] PCP - General 12/01/24 documented as of this encounter
--- OUTSIDE RECORDS SUMMARY | 2025-06-07 11:00 | XMS_ITS | Encounter Summary ---
Author Organization [facility] Address [address] [place] [address] Care Team Providers Care Manager Of Tires Sales Name Role Phone Melvin Pink DO Primary Care Provider [phone] Reason for Visit * Reason Comments Follow-up Encounter Details Date Type Department Care Team ([facility] Contact Info) Description 06/07/2025 11:00 AM EST Office Visit [facility] Otol[facility]ology [address] [place] [address] Melvin Casillas MD [address] [place] [address] Social History Tobacco Use Types [...] Sign Reading Time Taken Comments Blood Pressure 121/83 06/07/2025 11:09 AM EST Pulse 73 06/07/2025 11:09 AM EST Temperature - - Respiratory Rate - - Oxygen Saturation - - Inhaled Oxygen Concentration - - Weight 77.1 kg (169 lb 15.6 oz) 025 11:09 AM EST Height - - Body Mass Index 29.18 06/07/2025 10:04 AM EST documented in this [...] difficult at all 06/07/2025 10:08 AM EST Alk Hui pulido documented as of this encounter Plan of Treatment Upcoming Encounters Date Type Department Care Team (Late st Contact Info) Description 07/14/2025 10:50 AM EST Office Visit [facility] Medicine Specialties [address] [place] [address] Nidhi Stack, COMMUNITY HEALTH OUTREACH WORKER [address] [place] [phone] 08/24/2025 9:30 AM EST Office Visit [facility] Medicine Specialties [address] [place] [address] Denise Keith, COMMUNITY HEALTH OUTREACH WORKER [address] [place] [address] 08/30/2025 11:00 AM EST Office Visit [facility] Otolaryngology [address] [place] [address] Melvin Casillas MD [address] [place] [address] documented as of this encounter Visit Diagnoses Not on filedocumented in this encounter Additional Health Concerns Assessment Noted Time PHQ-9 Depression Total Score: 0 06/07/20 25 10:08 AM EST A fall risk assessment has been complete d for the patient 06/07/2025 10:08 AM EST A Body Mass Index follow-up plan has been documented for the patient 05/18/2025 9:47 AM EDT documented as of this encounter Care Teams Manager Of Tires Sales Relationship Specialty Start Date End Date Melvin Pink DO [address] [place] [address] [place] [address] PCP - General 12/01/24 documented as of this encounter
--- OUTSIDE RECORDS SUMMARY | 2025-06-08 09:00 | XMS_ITS | Clinical Summary ---
Author Organization [facility] Address [address] [place] [address] Care Team Providers Care Duty Engineer Name Role Phone Ml Pinkew Sunil DO Primary Care Provider [phone] Allergies Active Allergy Reactions Criticality Noted Date [...] Encounters Date Type Department Care Team Description 06/07/2025 11:00 AM EST Office Visit [facility] Ot[facility]ology [address], [address] [place] [address] Melvin Casillas MD 06/07/2025 9:50 AM EST Office Visit [facility] Medicine Specialties [address], [address] [place] [address] Nidhi Stack, TEST DECK SUPERVISOR Sjogren syndrome, unspecified ([facility]/HCC) (Primary Dx); Long-term use of immunosuppressant medication; Long-term use of hydroxychloroquine 06/07/2025 Travel 05/27/2025 Orders Only [facility] Pediatric Specialty [address], [address] [place] [address] Hortensia Bowser, PharmD 05/18/2025 9:00 AM EDT Office Visit [facility] Specialties [address], [address] [place] [address] Denise Keith, MACIEL CVID (common variable immunodeficiency) (Primary Dx); Hypogammaglobulinemia ([facility]) 05/18/2025 Travel 05/07/2025 Orders Only [facility] Pediatric Specialty [address], [address] [place] [address] Hortensia Bowser, PharmD 05/06/[address] [facility] Specialties [address], [address] [place] [address] Analy Freitas RN 05/04/2025 2:30 PM EDT Office Visit [facility] Audiology [address], [address] [place] [address] Patsy Lucero, Annalise Sensorineural hearing loss (SNHL) of both ears 05/04/2025 Travel 04/14/[address] [facility] Specialties [address], [address] [place] [address] Lroa Bernardo OP Infusion 04/02/2025 Orders Only [facility] Pediatric Specialty [address], [address] [place] [address] Hortensia Bowser, PharmD 03/26/2025 3:00 PM EDT Office Visit [facility] Audiology [address], [address]rd [place] [address] Patsy Lucero, Annalise Sensorineural hearing loss (SNHL) of both ears (Primary Dx) 03/26/2025 Travel 03/23/2025 Telephone [facility] Infusion [address] [place] [address] Trinity Yao, PharmD [employer]; [facility] [facility] 03/22/2025 Telephone [facility] Otolaryngology [address], [address] [place] [address] Melvin Casillas MD 03/19/2025 Refill [facility] Pediatric Specialty [address], [address] [place] [address] Hortensia Bowser, PharmD CVID (common variable immunodeficiency) ([facility]) (Primary Dx) 03/15/2025 Abstract [facility] Audiology [address], [address] [place] [address] Patsy Lucero AuD 03/09/2025 Nurse Triage [facility] Medicine Specialties [address], [address] [place] [address] Denise Keith, TEST DECK SUPERVISOR 03/08/2025 11:00 AM EDT Office Visit [facility] Audiology [address], [address] [place] [address] Patsy Lucero, Annalise Sensorineural hearing loss (SNHL) of both ears (Primary Dx) 03/08/2025 10:40 AM EDT Office Visit [facility] Otolaryngology [address], [address] [place] [address] Melvin Casillas MD Mixed conductive and sensorineural hearing loss of both ears (Primary Dx); Chronic otitis externa of both ears, unspecified type; Cochlear implant in place 03/08/2025 Travel from Last 3 Months Immunizations Immunization [...] Pulse 73 06/07/2025 11:09 AM EST Temperature 36.7 C (98.1 F) 06/07/2025 10:04 AM EST Respiratory Rate 16 06/07/2025 10:0 4 AM EST Oxygen Saturation 99% 06/07/2025 10: 04 AM EST Inhaled Oxygen Concentration - - Weight 77.1 kg (169 lb 15.6 oz) 025 11:09 AM EST Height 162.6 cm (5' 4 ) 06/07/2025 10:0 4 AM EST Body Mass Index 29.18 06/07/2025 10:04 AM EST Plan of Treatment Upcoming Encounters Date Type Department Care Team (Late st Contact Info) Description 07/14/2025 10:50 AM EST Office Visit [facility] Medicine Specialties [address], [address] [place] [address] Nidhi Stack, TEST DECK SUPERVISOR [address] [place] [address] 08/24/2025 9:30 AM EST Office Visit [facility] Medicine Specialties [address], [address] [place] [address] Denise Keith, TEST DECK SUPERVISOR [address] [place] [address] 08/30/2025 11:00 AM EST Office Visit [facility] Otolaryngology [address], [address] [place] [address] Melvin Casillas MD [address] [place] [address] Health Maintenance Due Date Last Done Comments [...] or (1 - 1-dose 75+ series) 2021 [id number] Vaccine (6 - season) 2025 07/20/2024, 05/15/2022, 04/12/2021, Additional history exists [facility]-Influenza Vaccine (#1) 03/29/202507/08, 06/06/2023, 05/25/2022, Additional history exists [facility]-Pneumococcal Vaccine: 50+ Years (2 of 2 - PCV) 12/29/2025 12/29/2024, 03/29/2016 [facility]-Depression Screening 06/07/2026 06/07/2025, 05/29 [facility]-Bone Density Scan 06/12/2026 06/12/2024 , 04/16/2022, [...] this topic Medical Devices Implanted Type Area Breakfast Manager Device Identifier Shelf Expiration Date Model / Serial / Lot Electrode Nucleus Profl Adv [id number] - [id number] - [id number] Implanted:Qty: 1 on 02/28/2023 by Melvin Casillas MD at [facility] Right: Ear Cochlear [id number] 01/09/2025 [id number] / [id number] / Procedures Procedure Name Priority Date/Time Associated Diagnosis Comments TOTAL PROTEIN, SERUM Routine 06/07/2025 1:17 PM EST Sjogren syndrome, unspecified (CMS/HCC) Long-term use of hydroxychloroquine PROTEIN ELECTROPHORESIS, SERUM Routine 06/07/2025 1:17 PM EST Sjogren syndrome, unspecified (CMS/HCC) Long-term use of hydroxychloroquine C3 COMPLEMENT Routine 06/07/2025 1:17 PM EST Sjogren syndrome, unspecified (CMS/HCC) Long-term use of hydroxychloroquine PROTEIN ELECTROPHORESIS, SERUM Routine 06/07/2025 1:17 PM EST Sjogren syndrome, unspecified (CMS/HCC) Long-term use of hydroxychloroquine RHEUMATOID FACTOR, PLASMA Routine 06/07/2025 1:17 PM EST Sjogren syndrome, unspecified (CMS/HCC) Long-term use of hydroxychloroquine C4 COMPLEMENT Routine 06/07/2025 1:17 PM EST Sjogren syndrome, unspecified (CMS/HCC) Long-term use of hydroxychloroquine CBC WITH AUTO DIFFERENTIAL Routine 06/07/2025 1:17 PM EST Sjogren syndrome, unspecified (CMS/HCC) Long-term use of hydroxychloroquine CREATININE, PLASMA Routine 06/07/2025 1: 17 PM EST Sjogren syndrome, unspecified (CMS/HCC) Long-term use of hydroxychloroquine HEPATIC FUNCTION PANEL Routine 06/07/2025 1:17 PM EST Sjogren syndrome, unspecified (CMS/HCC) Long-term use of hydroxychloroquine MAMMOGRAPHY BREAST SCREENING TOMOSYNTHESIS BILATERAL Routine 12/31/2023 1:39 PM EDT Visit for screening mammogram from Last 3 Months or Most Recently Relevant to Health Maintenance Results * Total Protein, Serum (06/07/2025 1:17 PM EST) Total Protein 7.0 6.2 - 7.7 g/dL 06/07/2025 3:03 PM EST [facility] Blood Venous blood specimen / Unknown Venipuncture / Unknown 06/07/2025 1:17 PM EST 06/07/2025 1:18 PM EST Nidhi Stack APRN LAB BLOOD ORDERABLES Dafne reinoso Result [facility] [address] [place] [address] * Protein Electrophoresis, Serum (06/07/2025 1:17 PM EST) Albumin Electrophoresis, Serum 4.5 3.6 - 4.7 g/dL 06/08/2025 2:22 AM EST [facility] Alpha 1 Globulin Electrophoresis, Serum 0.3 0.2 - 0.4 g/dL 06/08/2025 2:22 AM EST [facility] Alpha 2 Globulin Electrophoresis, Serum 0.8 0.5 - 0.9 g/dL 06/08/2025 2:22 AM EST [facility] Beta 1 Globulin Electrophoresis, Serum 0.5 0.3 - 0.5 g/dL 06/08/2025 2:22 AM EST [facility] Beta 2 Globulin Electrophoresis, Serum 0.3 0.2 - 0.5 g/dL 06/08/2025 2:22 AM EST [facility] Gamma Globulin Electrophoresis, Serum 0.7 0.6 - 1.5 g/dL 06/08/2025 2:22 AM EST [facility] Interpretation, Serum Protein Electrophoresis Pathology report to follow. 06/08/2025 2:22 AM EST [facility] Blood Venous blood specimen / Unknown Venipuncture / Unknown 06/07/2025 1:17 PM EST 06/07/2025 1:18 PM EST Nidhi Stack TEST DECK SUPERVISOR LAB BLOOD ORDERABLES Dafne l Result [facility] [address] [place] [address] * Creatinine, Plasma (06/07/2025 1:17 PM EST) Pathologist [facility] Creatinine, Plasma 0.66 0.60 - 1.10 mg/dL 06/07/2025 3:02 PM EST [facility] eGFRcr 89.9 mL/min/1.7 3m*2 06/07/2025 3:02 PM EST [facility] Comment:Reported eGFRcr in m L/min/1.73m2 is based the CKD-EPI 2020 equation that does not use a race coefficient. Blood Venous blood specimen / Unknown Venipuncture / Unknown 06/07/2025 1:17 PM EST 06/07/2025 1:18 PM EST Nidhi Stack APRN LAB BLOOD ORDERABLES Dafne l Result Performing Organization Address City/[facility]/ZIP Co de Phone Number [facility] [address] [place] [address] * (ABNORMAL) CBC and Differential (06/07/2025 1:17 PM EST) [facility] WBC Count 7.28 3.70 - 10.30 10*3/uL LAB HEMATOLOGY METHOD 06/07/2025 2:18 PM EST [facility] RBC Count 4.41 3.90 - 5.20 10*6/uL LAB HEMATOLOGY METHOD 06/07/2025 2:18 PM EST [facility] HGB 13.0 11.2 - 15.7 g/dL LAB HEMATOLOGY METHOD 06/07/2025 2:18 PM EST [facility] HCT 38.5 34.0 - 45.0 % LAB HEMATOLOGY METHOD 06/07/2025 2:18 PM EST [facility] Platelet Count 494(H) 155 - 369 10*3/uL LAB HEMATOLOGY METHOD 06/07/2025 2:18 PM EST [facility] MCV 87 79 - 98 fL LAB HEMATOLOGY METHOD 06/07/2025 2:18 PM EST [facility] MCH 29.5 26.0 - 32.0 pg LAB HEMATOLOGY METHOD 06/07/2025 2:18 PM EST [facility] MCHC 33.8 30.7 - 35.5 g/dL LAB HEMATOLOGY METHOD 06/07/2025 2:18 PM [facility] RDW 13.0 11.5 - 14.5 % LAB HEMATOLOGY METHOD 06/07/2025 2:18 PM [facility] MPV 9.2 8.8 - 12.5 fL LAB HEMATOLOGY METHOD 06/07/2025 2:18 PM [facility] nRBC 0.0 <=0.0 per 100 WBCs LAB HEMATOLOGY METHOD 06/07/2025 2:18 PM [facility] Differential Type Automated LAB HEMATOLOGY METHOD 06/07/2025 2:18 PM [facility] Neutrophils % 59 % LAB HEMATOLOGY METHOD 06/07/2025 2:18 PM [facility] Lymphocytes % 25 % LAB HEMATOLOGY METHOD 06/07/2025 2:18 PM [facility] Monocytes % 10 % LAB HEMATOLOGY METHOD 06/07/2025 2:18 PM [facility] Eosinophils % 4 % LAB HEMATOLOGY METHOD 06/07/2025 2:18 PM [facility] Basophils % 1 % LAB HEMATOLOGY METHOD 06/07/2025 2:18 PM [facility] Immature Granulocytes % 1 % LAB HEMATOLOGY METHOD 06/07/2025 2:18 PM [facility] Neutrophils Absolute 4.36 1.60 - 6.10 10*3/uL LAB HEMATOLOGY METHOD 06/07/2025 2:18 PM [facility] Lymphocytes Absolute 1.80 1.20 - 3.90 10*3/uL LAB HEMATOLOGY METHOD 06/07/2025 2:18 PM [facility] Monocytes Absolute 0.74 0.30 - 0.90 10*3/uL LAB HEMATOLOGY METHOD 06/07/2025 2:18 PM [facility] Eosinophils Absolute 0.28 0.00 - 0.50 10*3/uL LAB HEMATOLOGY METHOD 06/07/2025 2:18 PM [facility] Basophils Absolute 0.06 0.00 - 0.10 10*3/uL LAB HEMATOLOGY METHOD 06/07/2025 2:18 PM [facility] Immature Granulocytes Absolute 0.04 0.00 - 0.06 10*3/uL LAB HEMATOLOGY METHOD 06/07/2025 2:18 PM EST [facility] Blood Venous blood specimen / Unknown Venipuncture / Unknown 06/07/2025 1:17 PM EST 06/07/2025 1:18 PM EST Narrative [facility] - 06/07/2025 2:18 PM EST Therapeutic decision making should be based on absolute values, rather than percentages. Nidhi Stack APRN LAB BLOOD ORDERABLES Dafne l Result [facility] [address] [place] [address] * Rheumatoid Factor, Plasma (06/07/2025 1:17 PM EST) Rheumatoid Factor, Plasma <10 <14 IU/mL 06/07/2025 3:02 PM EST [facility] Blood Venous blood specimen / Unknown Venipuncture / Unknown 06/07/2025 1:17 PM EST 06/07/2025 1:18 PM EST Nidhi Stack APRN LAB BLOOD ORDERABLES Dafne l Result Performing Organization Address City/[facility]/ZIP Co de Phone Number [facility] [address] [place] [address] * C3 Complement (06/07/2025 1:17 PM EST) C3 Complement 146 84 - 166 mg/dL 06/07/2025 3:03 PM EST [facility] Blood Venous blood specimen / Unknown Venipuncture / Unknown 06/07/2025 1:17 PM EST 06/07/2025 1:18 PM EST Nidhi Stack TEST DECK SUPERVISOR LAB BLOOD ORDERABLES Dafne l Result Performing Organization Address City/[facility]/ZIP Co de Phone Number [facility] [address] [place] [address] * C4 Complement (06/07/2025 1:17 PM EST) C4 Complement 23 13 - 36 mg/dL 06/07/2025 3:03 PM EST [facility] Blood Venous blood specimen / Unknown Venipuncture / Unknown 06/07/2025 1:17 PM EST 06/07/2025 1:18 PM EST us Nidhi Reinoso Seda BROWNN LAB BLOOD ORDERABLES Dafne l Result Performing Organization Address City/[facility]/ZIP Co de Phone Number [facility] [address] [place] [address] * Hepatic Function Panel (06/07/2025 1:17 PM EST) Direct Bilirubin, Plasma <0.2 <=0.3 mg/dL 06/07/2025 3:02 PM EST [facility] Alkaline Phosphatase, Plasma 73 46 - 142 U/L 06/07/2025 3:02 PM EST [facility] Total Bilirubin, Plasma 0.4 0.2 - 1.1 mg/dL 06/07/2025 3:02 PM EST [facility] Albumin, Plasma 4.8 3.5 - 5.2 g/dL 06/07/2025 3:02 PM EST [facility] Total Protein 7.1 6.3 - 7.9 g/dL 06/07/2025 3:02 PM EST [facility] ALT, Plasma 24 10 - 35 U/L 06/07/2025 3:02 PM EST [facility] AST, Plasma 30 10 - 35 U/L 06/07/2025 3:02 PM EST [facility] Blood Venous blood specimen / Unknown Venipuncture / Unknown 06/07/2025 1:17 PM EST 06/07/2025 1:18 PM EST us Nidhi Galarzatingly TEST DECK SUPERVISOR LAB BLOOD ORDERABLES Dafne l Result Performing Organization Address City/[facility]/ZIP Co de Phone Number [facility] [address] [place] [address] * Mammography Breast Screening Tomosynthesis Bilateral (12/31/2023 [...] 01/06/2019 Mammography Breast Screening Tomosynthesis Bilateral at [facility] 07/05/2020 Mammography Breast Screening Tomosynthesis Bilateral at [facility] 07/07/2021 Mammography Breast Screening Tomosynthesis Bilateral at [facility] 07/09/2022 Mammography Breast Screening Tomosynthesis Bilateral at [facility] BREAST COMPOSITION: The breasts have scattered areas of fibroglandular density. FINDINGS: There are no suspicious masses, calcifications, or areas of architectural distortion. us Self Referral Mammogram IMG BI PROCEDURES Final Result from Last 3 Months or Most Recently Relevant to Health Maintenance Insurance MEDICARE Care Teams Duty Engineer Relationship Specialty Start Date End Date Melvin Pink DO [address] [place] [address] [place] [address] PCP - General 12/01/24
--- OUTSIDE RECORDS SUMMARY | 2025-06-08 09:00 | XMS_ITS | Encounter Summary ---
Author Organization [facility] Address [address] [id number] Care Team Providers Care Instrument Mechanics Supervisor Name Role Phone Melvin Pink Sunil CHRISTIAN Primary Care Provider [phone] Encounter Details Date Type Department Care Team (Late Contact Info) Description 05/07/2025 Orders Only [facility] Pediatric Specialty [address] [place] [address] Hortensia Bowser, PharmD [address] [place] [address] Social History Tobacco Use Types Packs/Day Years [...] Department Care Team (Late Contact Info) Description 07/14/2025 10:50 AM EST Office Visit [facility] Medicine Specialties [address], [address] [place] [address] Nidhi Stack, LOWER SCHOOL MUSIC TEACHER [address] [place] [address] 08/24/2025 9:30 AM EST Office Visit [facility] Medicine Specialties [address], [address] [place] [address] Denise Keith, LOWER SCHOOL MUSIC TEACHER [address] [place] [address] 08/30/2025 11:00 AM EST Office Visit [facility] Otolaryngology [address], [address] [place] [address] Melvin Casillas MD [address] [place] [address] documented as of this encounter [...] documented as of this encounter Care Teams Instrument Mechanics Supervisor Relationship Specialty Start Date End Date Melvin Pink DO [address] [facility] [address] [place] [address] PCP - General 12/01/24 documented as of this encounter
--- OUTSIDE RECORDS SUMMARY | 2025-06-08 09:00 | XMS_ITS | Encounter Summary ---
Author Organization [facility] Address [address] [place] [address] Care Team Providers Care Dedicated Driver Name Role Phone Melvin Pink Sunil CHRISTIAN Primary Care Provider [phone] Encounter Details Date Type Department Care Team (Latest Contact Info) Description 06/07/2025 Travel Social History Tobacco Use Types Packs/Day [...] much Not at all 06/07/2025 10:08 AM EST Alkmaynorb, Hui Feeling tired or having tavo le energy Not at all 06/07/2025 10:08 AM EST Alkmaynorb, Hui Poor appetite or overeating Not at all 06/07/2025 10 :08 AM EST Alkmaynorb, Hui Feeling bad about yourself - or that [...] Not difficult at all 06/07/2025 10:08 AM Hui Bravo documented as of this encounter Plan of Treatment Upcoming Encounters Date Type Department Care Team (Late st Contact Info) Description 07/14/2025 10:50 AM EST Office Visit [facility] Medicine Specialties [address], [address] [place] [address] Nidhi Stack, PROPOSAL LEAD WRITER [address] [place] [address] 08/24/2025 9:30 AM EST Office Visit [facility] Medicine Specialties [address], [address] [place] [address] Denise Keith, PROPOSAL LEAD WRITER [address] [place] [address] 08/30/2025 11:00 AM EST Office Visit [facility] Ot[facility] [address] [place] [address] Melvin Casillas MD [address] [place] [address] documented as of this encounter [...] documented as of this encounter Care Teams Dedicated Driver Relationship Specialty Start Date End Date Melvin Pink DO [address] [place] [address] PCP - General 12/01/24 documented as of this encounter
--- OUTSIDE RECORDS SUMMARY | 2025-06-08 09:00 | XMS_ITS | Encounter Summary ---
Author Organization [facility] Address [address] [place] [address] Care Team Providers Care Hydration Plant Operator Name Role Phone Melvin Pink Sunil CHRISTIAN Primary Care Provider [phone] Encounter Details Date Type Department Care Team [...] Description 07/14/2025 10:50 AM EST Office Visit [facility] Medicine Specialties [address] [place] [address] Nidhi Stack, DRYWALL CONTRACTOR [address] [place] [address] 08/24/2025 9:30 AM EST Office Visit [facility] Medicine Specialties [address], [address] [place] [address] Denise Keith, DRYWALL CONTRACTOR [address] [place] [address] 08/30/2025 11:00 AM EST Office Visit [facility] Otolaryngology [address] [place] [address] Melvin Casillas MD [address] [place] [address] documented as of this encounter [...] documented as of this encounter Care Teams Hydration Plant Operator Relationship Specialty Start Date End Date Melvin Pink, [address] [facility] [address] [address] PCP - General 12/01/24 documented as of this encounter
--- OUTSIDE RECORDS SUMMARY | 2025-06-08 09:00 | XMS_ITS | Encounter Summary ---
Author Organization [facility] Address [address] [place] [address] Care Team Providers Care Manager Scheduling Name Role Phone Melvin Pink Sunil CHRISTIAN Primary Care Provider Encounter Details Date Type Department Care Team (Late st Contact Info) Description 05/06/2025 Telephone [facility] Medicine Specialties [address] [place] [address] Analy Freitas RN CH-VASCULAR & [...] Description 07/14/2025 10:50 AM EST Office Visit [facility] Medicine Specialties [address] [place] [address] Nidhi Stack APRN [address] [place] [address] 08/24/2025 9:30 AM EST Office Visit [facility] Medicine Specialties [address], [address] [place] [address] Denise Keith APRN [address] [place] [address] 08/30/2025 11:00 AM EST Office Visit [facility] Otolaryngology [address], [address] [place] [address] Melvin Casillas MD [address] [place] [address] documented as of this encounter Visit Diagnoses [...] as of this encounter Care Teams Manager Scheduling Relationship Specialty Start Date End Date Melvin Pink DO [address] [place] [address] PCP - General 12/01/24 documented as of this encounter
--- OUTSIDE RECORDS SUMMARY | 2025-06-08 09:00 | XMS_ITS | Clinical Summary ---
Author Organization [facility] Address [address] [place] [address] Care Team Providers Care Property Claim Rep Name Role Phone Umberto Rodriguez MD Primary Care Provider [phone] Allergies Active Allergy Reactions Criticality Noted Date [...] - 2023- season) 2025 Insurance [facility] MEDICARE REPLACE Care Teams Property Claim Rep Relationship Specialty Start Date End Date Umberto Rodriguez MD [address] [place] [address] PCP - General Family Medicine 05/03/17
--- OUTSIDE RECORDS SUMMARY | 2025-06-08 09:00 | XMS_ITS | Encounter Summary ---
Author Organization [facility] Address [address] [id number] Care Team Providers Care Salvager Helper Name Role Phone Joesph Melvin Sunil CHIRSTIAN Primary Care Provider [phone] Reason for Visit * Reason Onset Date Comments OP Infusion 04/14/2025 Encounter Details Date Type Department Care Team ([facility] st Contact Info) Description 04/14/2025 Telephone [facility] Medicine Specialties [address], [address] [place] [address] [place] [address] OP Infusion Social History Tobacco Use Types [...] her IG infusions- patient is to complete [facility] in [place] Patient states that insurance will change in [...] infusions and would like to have a [facility] with directions CB: [phone] documented in this encounter Plan of Treatment Upcoming Encounters Date Type Department Care Team (Late st Contact Info) Description 07/14/2025 10:50 AM EST Office Visit [facility] Medicine Specialties [address], [address] [place] [address] Nidhi Stack, RN OUTPATIENT SURGERY [address] [place] [phone] 08/24/2025 9:30 AM EST Office Visit [facility] Medicine Specialties [address], [address] [place] [address] Denise Keith, RN OUTPATIENT SURGERY [address] [place] [phone] 08/30/2025 11:00 AM EST Office Visit [facility] Otolaryngology [address], [address] [place] [address] Melvin Casillas MD [address] [place] [address] documented as of this encounter [...] documented as of this encounter Care Teams Salvager Helper Relationship Specialty Start Date End Date Melvin Pink DO [address] [place] [address] [place] [address] PCP - General 12/01/24 documented as of this encounter
--- OUTSIDE RECORDS SUMMARY | 2025-06-08 09:00 | XMS_ITS | Encounter Summary ---
Author Organization [facility] Address [address] [place] [address] Care Team Providers Care Clinical Material Handler Name Role Phone Melvin Pink Sunil CHRISTIAN Primary Care Provider [phone] Encounter Details Date Type Department Care Team [...] television Not at all 05/18/2025 9:12 AM ASCENCIONT Guicho Gutierrez Moving or speaking so slowly [...] Description 07/14/2025 10:50 AM EST Office Visit [facility] Medicine Specialties [address], [address] [place] [address] Nidhi Stack, MACIEL [address] [place] [address] 08/24/2025 9:30 AM EST Office Visit [facility] Medicine Specialties [address], [address] [place] [address] Denise Keith, DURABLE MEDICAL EQUIPMENT TECHNICIAN [address] [place] [address] 08/30/2025 11:00 AM EST Office Visit [facility] Otol[facility]ology [address], [address] [place] [address] Melvin Casillas MD [address] [place] [address] documented as of this encounter [...] documented as of this encounter Care Teams Clinical Material Handler Relationship Specialty Start Date End Date Melvin Pink DO [address] [place] [address] PCP - General 12/01/24 documented as of this encounter
--- OUTSIDE RECORDS SUMMARY | 2025-06-08 09:00 | XMS_ITS | Patient Health Record ---
Author Organization [facility] Address [address] [place] [address] Care Team Providers Care Senior Formulation Scientist Name Role Phone Ita You MD, Aristides Unavailable Unavailab le Reason For Referral No Information Medications Medication [...] take 1 PO QD BUCCAL *Reorder from [employer] for eRx and Interaction Alerts* 10/15/2018 Active [...] Status Risk Notes Problem Infective otitis externa (48434362) Other infective otitis externa, bilateral (H60.393) Active confirmed Problem Otitis media (08952932) Otitis media, unspecified, unspecified ear (H66.90) Active confirmed Problem Conductive hearing loss, bilateral (023398090) Conductive hearing loss, bilateral (H90.0) Active confirmed Problem Acute cystitis (06452905) Acute cystitis without hematuria (N30.00) Active confirmed Problem Unspecified symptoms and signs involving the genitourinary system (R39.9) Active confirmed Problem Prediabetes (903058953) Prediabetes (R73.03) Active confirmed Problem Sicca syndrome (50084664) Sicca syndrome, unspecified (M35.00) Active confirmed Plan Of Treatment No Information Insurance Providers Payer Name Payer Address Payer Phone Subscriber Number Group Number Insured Name Patient Relationship to Insured Coverage Start Date Coverage End Date Rcm Missing Insurance PLEASE SCAN FRONT AND [place] [phone] [id number] Minnie Woodard Self - patient is the insured Medical (General) History Surgical History Surgery Date(Month/Year) Sx_Procedure : Stapedectomy Med_system:gastrointestinal, Sx_Procedur e : Cholecystectomy Med_system:HEENT, Sx_Procedure : Tonsill ectomy Med_system:musculoskeletal, Disease : Arthritis, Sx_Procedure : Laminectomy
--- OUTSIDE RECORDS SUMMARY | 2025-06-08 09:01 | XMS_ITS | Encounter Summary ---
Author Organization [facility] Address [address] [id number] Care Team Providers Care Water Service Dispatcher Name Role Phone Joesph Melvin Sunil CHRISTIAN Primary Care Provider [phone] Reason for Visit * Reason Onset Date Comments Gamunex-C Onboarding 03/23/2025 Gamunex Therapy 03/23/2025 Encounter Details Date Type Department Care Team ([facility] st Contact Info) Description 03/23/2025 Telephone [facility] Infusion [address] [place] [phone] Trinity Hutton, PharmD Gamunex-C Onboarding; Gamunex Therapy [...] to receive infusion treatment at outside facility. [facility] will follow up with facility to make sure patient has been scheduled and received first dose. Specialty Medication: Gamunex-C Filling Pharmacy/SOC: [facility] * Telephone Encounter - Cheryl Lomax CPhT - 04/02/2025 2:37 PM EDT Medicare B/Advantage Plan Authorization Information Specialty Medication: gamunex-c Diagnosis Code: D83.9 J-code/CPT code/S code: J1561 Covered by Medicare B: Yes Does the diagnosis, dose, and frequency match an FDA approved dosing schedule? Yes, list prescribeddose/frequency: 25g intravenously every 28 days Site of Care: [facility] Does patient have an Advantage Plan? No. Will review in 12 months. * Telephone Encounter - Trinity Hutton PharmD - 03/23/2025 12:54 PM EDT [facility] has received therapy plan for medication Gamunex-C. [facility] has contacted the patient and arein the process of completing the authorization for preferred site of care, [facility] . [facility] Specialty Education Summary Patient was assessed via phone for initiation of drug therapy Gamunex-C for diagnosis CVID. Plan for administration of therapy in infusion center and planned date of initiation: BALA. Anticipated filling pharmacy is [facility]. Education and Counseling Medication specific education provided: [...] pertains to this specialty medication. Trinity Hutton, Chapito 03/23/25 12:54 PM documented in this encounter Plan of Treatment Upcoming Encounters Date Type Department Care Team (Late st Contact Info) Description 07/14/2025 10:50 AM EST Office Visit [facility] Medicine Specialties [address], [address] [place] [address] Nidhi Stack, INTERNET MARKETING ASSISTANT [address] [place] [address] 08/24/2025 9:30 AM EST Office Visit [facility] Medicine Specialties [address], [address] [place] [address] Denise Keith, INTERNET MARKETING ASSISTANT [address] [place] [address] 08/30/2025 11:00 AM EST Office Visit [facility] Otolaryngology [address], [address] [place] [address] Melvin Casillas MD [address] [place] [address] documented as of this encounter [...] documented as of this encounter Care Teams Water Service Dispatcher Relationship Specialty Start Date End Date Melvin Pink DO [address] [facility] [address] [place] [address] PCP - General 12/01/24 documented as of this encounter
--- OUTSIDE RECORDS SUMMARY | 2025-06-08 09:01 | XMS_ITS ---
Care Plan - [facility], [facility] Created on: June 08, 2025 Minnie Woodard : 1945 Sex: Female Author Organization [facility] Address [address] [place] [address] Phone Care Team Providers Care Manager Medical Affairs Name Role Phone Elvira DICKSON, Flako Unavailable [phone] BLAISE DICKSON, AVILA Jaimes Unavailable [phone]
--- OUTSIDE RECORDS SUMMARY | 2025-06-08 09:01 | XMS_ITS | Encounter Summary ---
Author Organization [facility] Address [address] [place] [address] Care Team Providers Care Process Expert Name Role Phone Melvin Pink Sunil CHRISTIAN Primary Care Provider [phone] Encounter Details Date Type Department Care Team (Late st Contact Info) Description 05/27/2025 Orders Only [facility] Pediatric Specialty [address], [address] [place] [address] Hortensia Bowser, PharmD [address] [place] [address] Social History Tobacco Use Types Packs/Day Years [...] Description 07/14/2025 10:50 AM EST Office Visit [facility] Medicine Specialties [address], [address] [place] [address] Nidhi Stack, MOTORCYCLE BUILDER [address] [place] [address] 08/24/2025 9:30 AM EST Office Visit [facility] Medicine Specialties [address], [address] [place] [address] Denise Keith, MOTORCYCLE BUILDER [address] [place] [address] 08/30/2025 11:00 AM EST Office Visit [facility] Otolaryngology [address], [address] [place] [address] Melvin Casillas MD [address] [place] [address] documented as of this encounter [...] documented as of this encounter Care Teams Process Expert Relationship Specialty Start Date End Date Melvin Pink, [address] [place] [address] PCP - General 12/01/24 documented as of this encounter
--- OUTSIDE RECORDS SUMMARY | 2025-06-08 09:01 | XMS_ITS ---
Author Organization [facility] Address [address] [place] [phone] Phone Care Team Providers Care Bag End Sewer Name Role Phone Flako Felix MD Unavailable [phone] AVILA WELSH MD Unavailable [phone] Reason for Referral Date Encounter Description Provider Reason for Referral 02/14/22 Physician Specified Queta Real PA-C Referral To Physician Problems Includes: Active, inactive, and resolved Problems All Visits Onset Date Resolved Date Provider Condition S tatus Joint Pain Left Knee 02/14/2022 Queta Real PA-C Active Last Documented On 2 2:24PM ; [facility], [facility] Plan of Treatment Instructions to patient Lose weight Last Documented On 2 3:13PM ; [facility], [facility] Assessments Includes: Assessments for all patient encounters No Assessments Recorded Instructions Includes: Instructions for all patient encounters Instructions to patient Lose weight Last Documented On 2 3:13PM ; [facility], [facility] Medical Equipment - Implanted Devices Includes: Current and historical Devices No Medical Equipment Recorded Medications Includes: Current and historical Medications Current Medications (continue as prescribed) Pilocarpine HCl 1% Ophthalmic Solution 02/14/2022 Pr ovider: Diagnosis: Last Documented On 2 2:26PM By Sharmila PEREIRA [facility], [facility] Hydroxychloroquine Sulfate 100 MG Oral Tablet 02/15/20 Provider: Diagnosis: Last Documented On 2 2:26PM By Sharmila PEREIRA [facility], [facility] Ezetimibe 10 MG Oral Tablet 02/07/2022 Provider: Diagnosis: Last Documented On 2 2:24PM By [facility] Synthroid 125 MCG Oral Tablet 02/07/2022 Provider: Diagnosis: Last Documented On 2 2:24PM By Sharmila Wyman ; [facility] Estradiol 0.1 MG/GM Vaginal Cream 01/16/2022 Provide r: Diagnosis: Last Documented On 2 2:24PM By Sharmila Wyman ; [facility] Atorvastatin Calcium 10 MG Oral Tablet 12/29/2021 Pr ovider: Diagnosis: Last Documented On 2 2:26PM By Sharmila Wyman ; [facility] metFORMIN HCl 500 MG Oral Tablet 12/29/2021 Provider : Diagnosis: Last Documented On 2 2:26PM By Sharmila Wyman ; [facility] Past Medications on file Synthroid 25 MCG Oral Tablet 02/14/2022 - 02/14/2022 P rovider: Diagnosis: Last Documented On 2 2:25PM By Sharmila Wyman ; [facility] Fluconazole 150 MG Oral Tablet 01/03/2022 - 02/14/2022 Provider: Diagnosis: Last Documented On 2 2:26PM By Sharmila Wyman ; [facility] Medications Administered Includes: Administered Medications in patient's chart No Administered Medications Recorded Results Includes: Results from 06/08/2024 through 06/08/2025 No Results Recorded For Specified Dates History of Present Illness History of Present Illness not supported for this document type No History of Present Illness Recorded Social History Description Last Updated Non-smoker 02/14/2022 Last Documented On 2 4:16PM ; [facility] Not a smoker 02/14/2022 Last Documented On 2 4:16PM ; [facility] Caffeine use 02/14/2022 Last Documented On 2 4:16PM ; [facility] No recent change in diet 02/14/2022 Last Documented On 2 4:16PM ; [facility] Not a current smoker. 02/14/2022 Last Documented On 2 4:16PM ; [facility] Not exercising regularly 02/14/2022 Last Documented On 2 4:16PM ; [facility] Not using alcohol 02/14/2022 Last Documented On 2 4:16PM ; [facility] Not using drugs 02/14/2022 Last Documented On 2 4:16PM ; [facility] Never drank alcohol 02/14/2022 Last Documented On 2 4:16PM ; [facility] Never smoked 02/14/2022 Last Documented On 2 4:16PM ; [facility] Never used drugs 02/14/2022 Last Documented On 2 4:16PM ; [facility] Retired from work 02/14/2022 Last Documented On 2 4:16PM ; [facility] Smoking Status Unknown Procedures and Surgical History Surgical History Last Updated History of back surgery 02/14/2022 Last Documented On 2 4:16PM ; [facility] History of History of Gallbladder 2021 Last Documented On 2 4:16PM ; [facility] History of Past Surgical History: 2021 Last Documented On 2 4:16PM ; [facility] Medical History Includes: Medical History in patient's chart Description Last Updated No recent immunization for pneumococcal pneumonia 02/14/2022 Last Documented On 2 4:16PM ; [facility] Recent immunization for flu 05/29/2021 0 02/14/2022 Last Documented On 2 4:16PM ; [facility] Gastroparesis, Diverticulitis 02/14/2022 Last Documented On 2 4:16PM ; [facility] Past Surgical History: tonsils, ear surg valorie 02/14/2022 Last Documented On 2 4:16PM ; [facility] History of arthritis 02/14/2022 Last Documented On 2 4:16PM ; [facility] History of asthma 02/14/2022 Last Documented On 2 4:16PM ; [facility] History of diverticulitis of colon 02/14 Last Documented On 2 4:16PM ; [facility] History of Heartburn / Acid Reflux 02/14 Last Documented On 2 4:16PM ; [facility] History of hepatitis 02/14/2022 Last Documented On 2 4:16PM ; [facility] History of osteoporosis 02/14/2022 Last Documented On 2 4:16PM ; [facility] History of Sleep Apnea 02/14/2022 Last Documented On 2 4:16PM ; [facility] History of Thyroid Disease 02/14/2022 Last Documented On 2 4:16PM ; [facility] Recent immunization for flu 02/14/2022 Last Documented On 2 4:16PM ; [facility] Recent immunization for pneumococcal pne umonia 02/14/2022 Last Documented On 2 4:16PM ; [facility] Use of CPAP 02/14/2022 Last Documented On 2 4:16PM ; [facility] Family History Includes: Family History in patient's chart Description Last Updated Hyprthyriodism, dementia - Brother 02/14 Last Documented On 2 4:16PM ; [facility] Diabetes mellitus mother 02/14/2022 Last Documented On 2 4:16PM ; [facility] Family history of cancer father 02/15/20 22 Last Documented On 2 4:16PM ; [facility], [facility] Fraternal history of family history [use for free text] 02/14/2022 Last Documented On 2 4:16PM ; [facility] Maternal history of diabetes mellitus Last Documented On 2 4:16PM ; [facility] Paternal history of family history of ca ncer 02/14/2022 Last Documented On 2 4:16PM ; [facility] Review of Systems Review of Systems not supported for this document type No Review of Systems Recorded Mental Status Description No anxiety Functional Status No Functional Status Recorded Physical Exam Physical Exam not supported for this document type No Physical Exam Recorded Immunizations Includes: Immunizations in patient's chart Vaccine Dose # Date Site Reaction(s) Status Source Influenza 1 05/29/2021 Complete (Reported) Patient Last Documented On 2 3:14PM ; [facility] PCV (Pneumovax 23) 1 02/14/2022 Complete (Refused - Patient objection) [facility], [facility] Last Documented On 2 3:14PM ; [facility] Td 1 02/14/2022 Complete (Refused - Patient objection) [facility] Last Documented On 2 3:14PM ; [facility] Allergies Includes: Active, inactive, and resolved Allergies Substance Type Reaction Onset Date Resolved Date Statu s Cephalosporins Allergy 02/14/2022 Acti ve Last Documented On 2 2:27PM ; [facility] Insurance Includes: Active Insurance Policies Plan Name Member ID Group # Subscriber Relationship Effect xavier Dates 1 - [facility]/MED [employer] [id number] Minnie Woodard Self Clinical Notes Includes: Signed Clinical Notes starting from 07/12/2022 No Clinical Notes Recorded
--- OUTSIDE RECORDS SUMMARY | 2025-06-08 09:01 | XMS_ITS | Clinical Summary ---
Author Organization [facility] Address [address] [place] [id number] Phone Care Team Providers Care Template Checker Name Role Phone Flako Felix MD Unavailable [phone] AVILA WELSH MD Unavailable [phone] Reason for Referral Date Encounter Description Provider Reason for Referral 02/14/22 Physician Specified Queta Real PA-C Referral To Physician Reason for Visit and Chief Complaint The Chief Complaint is: pain in left knee Problems Includes: Problems addressed during this encounter and other active Problems Current Visit Onset Date Resolved Date Provider Yenny roman Status Joint Pain Left Knee 02/14/2022 Queta Real PA-C Active Last Documented On 2 2:24PM ; [facility], [facility] Plan of Treatment Fall Risk Assessment: This patient has been identified as a fall risk. Balance/gait along with postural blood pressure, vision and home fall hazards have been assessed. Medications have been reviewed, and recommendations made with regard to contributing factors for future falls. Plan of care: Consideration of vitamin D supplementation along with balance and strength training with consideration for formal physical therapy has been discussed with the patient. - Last Documented On 02/14/2022 4:16PM ; [facility], [facility] Physical exam and radiograph findings were discussed with the patient. We discussed treatment options going forward. At this time patient agrees and wished to proceed with a steroid injection left knee. She will continue to ice and take Tylenol as needed for pain. She is unable to take anti-inflammatories due to gastric issues. We will plan to see her back in 4-6 weeks for reevaluation. - Last Documented On 02/14/2022 4:16PM ; [facility], [facility] Instructions to patient Lose weight Last Documented On 3:13PM ; [facility] Assessments Includes: Assessments from this encounter Findings Left knee OA - Last Documented On 02/14/2022 4:16PM ; [facility] Instructions Includes: Instructions from this encounter Instructions to patient Lose weight Last Documented On 2 3:13PM ; [facility] Medical Equipment - Implanted Devices Includes: Current Devices No Medical Equipment Recorded Medications Includes: Medications discussed during this encounter and other current Medications Discontinued / Stopped on this date on 02/14/2022 Synthroid 25 MCG Oral Tablet Provider: Diagnosis: Last Documented On 2 2:25PM By Sharmila [facility] Fluconazole 150 MG Oral Tablet Provider: Diagnosis: Last Documented On 2 2:26PM By Sharmila Wyman ; [facility] Current Medications (continue as prescribed) Pilocarpine HCl 1% Ophthalmic Solution 02/14/2022 Pr ovider: Diagnosis: Last Documented On 2 2:26PM By Sharmila [facility] Hydroxychloroquine Sulfate 100 MG Oral Tablet 02/15/20 Provider: Diagnosis: Last Documented On 2 2:26PM By Sharmila [facility] Ezetimibe 10 MG Oral Tablet 02/07/2022 Provider: Diagnosis: Last Documented On 2 2:24PM By Sharmila [facility] Synthroid 125 MCG Oral Tablet 02/07/2022 Provider: Diagnosis: Last Documented On 2 2:24PM By TEA Woods Estradiol 0.1 MG/GM Vaginal Cream 01/16/2022 Provide r: Diagnosis: Last Documented On 2 2:24PM By Sharmila [facility] Atorvastatin Calcium 10 MG Oral Tablet 12/29/2021 Pr ovider: Diagnosis: Last Documented On 2 2:26PM By Sharmila [facility] metFORMIN HCl 500 MG Oral Tablet 12/29/2021 Provider : Diagnosis: Last Documented On 2 2:26PM By Sharmila Wyman ; [facility] Medications Administered Includes: Administered Medications from this encounter No Administered Medications Recorded Vital Signs Includes: Vital Signs from this encounter Vital Name 02/14/2022 03:12P Blood Pressure Sitting (mmHg) 137/79 Pulse Rate-Sitting (bpm) 69 Height (in) 63 Weight (lb) 167 Body Mass Index (kg/m2) 29.6 Body Surface Area (m2) 1.8 [place] [facility] [place] Documented: On 02/14/2022 3:14PM ; [facility] Results Includes: Results discussed during this encounter No Results Recorded For Specified Dates History of Present Illness Includes: History of Present Illness from this encounter DARY Woodard is a 76 year old female. - Symptoms catching, giving way pain better- no movement pain worse- standing and being in bed at night. - Allergy list reviewed - Problem list reviewed - Medication list reviewed - Previous history of new onset pain 01/24/2022 Injury is not work related or an automotive accident. fell on stairs - Patient pain level from 1-10: 4 - No previous treatment. Initial visit for left knee pain. Patient complains of pain in the left knee that has been ongoing for several years now. She states most recently she fell on the stairs about a month ago. She complains of pain along the anterior aspect of her left knee that is worse with weightbearing activity specifically standing and walking for long periods of time, going up and down stairs and when she is lying in bed at night. She states the pain is relieved with rest. She does complain of catching and instability in the knee as well. She denies any previous surgeries. Patient does ice and take tylenol as needed for pain. Social History Description Last Updated Non-smoker 02/14/2022 Last Documented On 2 4:16PM ; [facility] Not a smoker 02/14/2022 Last Documented On 2 4:16PM ; [facility] Caffeine use 02/14/2022 Last Documented On 2 4:16PM ; [facility] No recent change in diet 02/14/2022 Last Documented On 2 4:16PM ; [facility] Not a current smoker. 02/14/2022 Last Documented On 2 4:16PM ; [facility] Not exercising regularly 02/14/2022 Last Documented On 2 4:16PM ; [facility] Not using alcohol 02/14/2022 Last Documented On 2 4:16PM ; [facility], [facility] Not using drugs 02/14/2022 Last Documented On 2 4:16PM ; [facility] Never drank alcohol 02/14/2022 Last Documented On 2 4:16PM ; [facility] Never smoked 02/14/2022 Last Documented On 2 4:16PM ; [facility] Never used drugs 02/14/2022 Last Documented On 2 4:16PM ; [facility] Retired from work 02/14/2022 Last Documented On 2 4:16PM ; [facility] Smoking Status Unknown Procedures and Surgical History Includes: Procedures from this encounter Procedures Code Diagnosis Performing Provider Service L ocation Service Date use of tobacco assessment performed 1000F Last Documented On 2 3:13PM ; [facility] patient screened for future fall risk 3288F Last Documented On 2 3:13PM ; [facility], [facility] follow-up visit in one month with PCP fo r elevated BP Last Documented On 2 3:13PM ; [facility] referral to physician Last Documented On 2 3:13PM ; [facility] Surgical History Last Updated History of back surgery 02/14/2022 Last Documented On 2 4:16PM ; [facility] History of History of Gallbladder 2021 Last Documented On 2 4:16PM ; [facility], [facility] History of Past Surgical History: 2021 Last Documented On 2 4:16PM ; [facility], [facility] Medical History Includes: Medical History addressed during this encounter Description Last Updated No recent immunization for pneumococcal pneumonia 02/14/2022 Last Documented On 2 4:16PM ; [facility] Recent immunization for flu 05/29/2021 0 02/14/2022 Last Documented On 2 4:16PM ; [facility] Gastroparesis, Diverticulitis 02/14/2022 Last Documented On 2 4:16PM ; [facility] Past Surgical History: tonsils, ear surg valorie 02/14/2022 Last Documented On 2 4:16PM ; [facility] History of arthritis 02/14/2022 Last Documented On 2 4:16PM ; [facility] History of asthma 02/14/2022 Last Documented On 2 4:16PM ; [facility] History of diverticulitis of colon 02/14 Last Documented On 2 4:16PM ; [facility] History of Heartburn / Acid Reflux 02/14 Last Documented On 2 4:16PM ; [facility] History of hepatitis 02/14/2022 Last Documented On 2 4:16PM ; [facility] History of osteoporosis 02/14/2022 Last Documented On 2 4:16PM ; [facility] History of Sleep Apnea 02/14/2022 Last Documented On 2 4:16PM ; [facility] History of Thyroid Disease 02/14/2022 Last Documented On 2 4:16PM ; [facility] Recent immunization for flu 02/14/2022 Last Documented On 2 4:16PM ; [facility] Recent immunization for pneumococcal pne umonia 02/14/2022 Last Documented On 2 4:16PM ; [facility] Use of CPAP 02/14/2022 Last Documented On 2 4:16PM ; [facility] Family History Includes: Family History addressed during this encounter Description Last Updated Hyprthyriodism, dementia - Brother 02/14 Last Documented On 2 4:16PM ; [facility] Diabetes mellitus mother 02/14/2022 Last Documented On 2 4:16PM ; [facility] Family history of cancer father 02/15/20 Last Documented On 2 4:16PM ; [facility], [facility] Fraternal history of family history [use for free text] 02/14/2022 Last Documented On 2 4:16PM ; [facility] Maternal history of diabetes mellitus Last Documented On 2 4:16PM ; [facility] Paternal history of family history of ca ncer 02/14/2022 Last Documented On 2 4:16PM ; [facility] Review of Systems Includes: Review of Systems from this encounter Systemic: Not feeling tired. Recent weight loss and recent weight gain. Head: Headache and sinus pain. Eyes: No vision problems and no Cataracts. Glasses/Contacts. No Glaucoma. Otolaryngeal: Hearing loss and tinnitus. Cardiovascular: No chest pain or discomfort, no palpitations, and no Hypertension. High Cholesterol. Pulmonary: Daytime asthma symptoms. No chronic cough. No wheezing. Gastrointestinal: Gastrointestinal symptoms Gastroparesis, diverticulitis. No heartburn and no abdominal pain. No Indigestion. Acid Reflux. No Peptic Ulcer, no GI Stomach Bleed, and no Ulcers. Endocrine: No hot flashes, no muscle weakness, and no Diabetes. Hypothyroid. No Hyperthyroid. Hematologic: No easy bleeding, no tendency for easy bruising, and no Anemia. Musculoskeletal: Arthritis and lower back pain. No soft tissue swelling. Pain localized to one or more joints. Neurological: No dizziness, no convulsions, and no numbness. Psychological: No anxiety, no emotional lability, and no depression. Insomnia. Not crying for no reason. Skin: Skin symptoms None. No dry skin. No Ulcers, no Scars, and no rash. Allergic and Immunologic: Complaint of seasonal allergic reaction. Mental Status Includes: Mental Status from this encounter Description No anxiety Functional Status Includes: Functional Status from this encounter No Functional Status Recorded Physical Exam Includes: Physical Exam from this encounter Immunizations Includes: Immunizations addressed during this encounter Vaccine Dose # Date Site Reaction(s) Status Source Influenza 1 05/29/2021 Complete (Reported) Patient Last Documented On 2 3:14PM ; [facility], [facility] PCV (Pneumovax 23) 1 02/14/2022 Complete (Refused - Patient objection) [facility] Last Documented On 2 3:14PM ; [facility], [facility] Td 1 02/14/2022 Complete (Refused - Patient objection) [facility] Last Documented On 2 3:14PM ; [facility], [facility] Allergies Includes: Active Allergies Substance Type Reaction Onset Date Resolved Date Statu s Cephalosporins Allergy 02/14/2022 Acti ve Last Documented On 2 2:27PM ; [facility], [facility] Encounters Encounter Provider Location Date Check-In Time Check-Out Time Diagnosis Physician Specified Queta Real PA-C [facility] 02/15/20 22 2:16PM 4:02PM Insurance Includes: Active Insurance Policies Plan Name Member ID Group # Subscriber Relationship Effect xavier Dates 1 - [facility]/[employer] [id number] Minnie Woodard Self Clinical Notes Includes: Clinical Notes from this encounter No Clinical Notes Recorded
[2025-06-08] MEDS: ACETAMINOPHEN 325MG TAB 650 MG PO (09:08)
[2025-06-08] MEDS: 0.9 % SODIUM CHLORIDE 1000ML 500 ML 999 ML IV (09:09)
[2025-06-08] MEDS: GAMUNEX C IV (09:47)
[2025-06-08 09:50] VITALS: BP 137/79; PULSE 72; RESP 18; TEMP 36.8; O2SAT 97
[2025-06-08 10:20] VITALS: BP 131/73; PULSE 76
[2025-06-08 10:50] VITALS: BP 138/72; PULSE 71
[2025-06-08 11:20] VITALS: BP 130/69; PULSE 73
[2025-06-08 11:50] VITALS: BP 134/72; PULSE 75
[2025-06-08 12:00] VITALS: BP 138/70; PULSE 74
[2025-06-09 13:18] LABS: Immunoglobulin G, Qn 702 mg/dL (586-1602)
== END 2025-06-08 23:59 | disposition home or self-care (01) ==
LOC: INF 08:55
PROVIDERS: PCP Internal Medicine; Visit Provider Physician Assistant
DX: D83.9 Common variable immunodeficiency, unspecified (principal)
CPT/HCPCS: 82784; 96365; 96366; J1561; J7030

== ENCOUNTER 2025-07-06 09:00 | Outpatient (CLI) | payer MEDICARE, SELFPAY ==
[2025-07-06] MEDS: ACETAMINOPHEN 325MG TAB 650 MG (09:12)
[2025-07-06] MEDS: 0.9 % SODIUM CHLORIDE 500 ML 999 ML IV (09:13)
[2025-07-06 10:00] VITALS: BP 154/77; PULSE 74; RESP 21; O2SAT 98
[2025-07-06] MEDS: GAMUNEX C IV (10:00)
[2025-07-06 10:30] VITALS: BP 152/73; PULSE 75
[2025-07-06 11:00] VITALS: BP 140/67; PULSE 73
[2025-07-06 11:27] VITALS: BP 132/70; PULSE 70
[2025-07-07 11:12] LABS: Immunoglobulin G, Qn 758 mg/dL (586-1602)
== END 2025-07-06 23:59 | disposition home or self-care (01) ==
LOC: INF 09:01
PROVIDERS: PCP Internal Medicine; Visit Provider Physician Assistant
DX: D83.9 Common variable immunodeficiency, unspecified (principal)
CPT/HCPCS: 82784; 96365; J1561; J7040